=== PATIENT | female | born 1995 | race Caucasian/White ===

== ENCOUNTER 2020-05-02 16:13 | Emergency (ER) | payer OTHER, SELFPAY ==
--- NOTE | ~2020-05-02 | US_ITS ---
EXAMINATION: PELVIC ULTRASOUND, COMPLETE CLINICAL INFORMATION: Persistent vaginal bleeding status post vaginal 3 months ago. COMPARISON: CT abdomen/pelvis dated 11/13/2017 TECHNIQUE: Transabdominal and transvaginal imaging of the pelvic viscera was performed utilizing grayscale and color Doppler technique FINDINGS: The uterus is normal in size and configuration measuring 9.2 x 4.2 x 5.8 cm. Endometrium measures 7 mm in thickness. No debris present within the endometrial canal. There are scattered echogenic foci within the endometrium and region of the anterior myometrial junction may represent dystrophic calcifications, chronic and likely postinflammatory. There is a single 7 mm fibroid within the lower uterine segment. Ovaries normal in size and appearance measuring 3.8 x 2.6 x 2.6 cm on the right and 3.5 x 2.0 x 2.5 cm and the left. Physiologic follicles present bilaterally. Small pelvic free fluid is normal in a reproductive age. US/US transvaginal IMPRESSION: * No suspicious uterine or endometrial mass. * Scattered dystrophic calcifications present within and adjacent to the otherwise normal-appearing endometrium. * Normal ovaries.
--- NOTE | ~2020-05-02 | US_ITS ---
EXAMINATION: US VENOUS ULTRASOUND WITH DOPPLER LOWER EXTREMITY, BILATERAL CLINICAL INFORMATION: Swelling and pain. COMPARISON: None TECHNIQUE: Ultrasound of the deep veins is performed from the hip to the calf with compression sonography and color and pulse Doppler assessment. Spectral analysis with color-flow imaging is performed. FINDINGS: RIGHT: There is normal venous compression and respiratory variation and augmented flow. The visualized common femoral vein, superficial femoral vein, profunda femoral vein, popliteal vein, and the trifurcation region shows no evidence of deep venous thrombosis. There is no significant popliteal fossa cyst. LEFT: There is normal venous compression and respiratory variation and augmented flow. The visualized common femoral vein, superficial femoral vein, profunda femoral vein, popliteal vein, and the trifurcation region shows no evidence of deep venous thrombosis. There is no significant popliteal fossa cyst. If the patient's symptoms persist, followup ultrasound in 5 days 7 days might be of value to exclude proximal propagation from a non-visualized calf vein. US/US venous duplex LE BI IMPRESSION: No DVT demonstrated in the bilateral lower extremities.
--- NOTE | ~2020-05-02 | US_ITS ---
EXAMINATION: PELVIC ULTRASOUND, COMPLETE CLINICAL INFORMATION: Persistent vaginal bleeding status post vaginal 3 months ago. COMPARISON: CT abdomen/pelvis dated 11/13/2017 TECHNIQUE: Transabdominal and transvaginal imaging of the pelvic viscera was performed utilizing grayscale and color Doppler technique FINDINGS: The uterus is normal in size and configuration measuring 9.2 x 4.2 x 5.8 cm. Endometrium measures 7 mm in thickness. No debris present within the endometrial canal. There are scattered echogenic foci within the endometrium and region of the anterior myometrial junction may represent dystrophic calcifications, chronic and likely postinflammatory. There is a single 7 mm fibroid within the lower uterine segment. Ovaries normal in size and appearance measuring 3.8 x 2.6 x 2.6 cm on the right and 3.5 x 2.0 x 2.5 cm and the left. Physiologic follicles present bilaterally. Small pelvic free fluid is normal in a reproductive age. US/US pelvic complete IMPRESSION: * No suspicious uterine or endometrial mass. * Scattered dystrophic calcifications present within and adjacent to the otherwise normal-appearing endometrium. * Normal ovaries.
--- NOTE | ~2020-05-02 | CT_ITS ---
EXAMINATION: CT ANGIOGRAM OF THE CHEST WITH AND WITHOUT CONTRAST (CT PULMONARY ANGIOGRAM FOR PE) CLINICAL INFORMATION: Dyspnea. Elevated d-dimer. COMPARISON: CTA chest 03/07/2017 TECHNIQUE: Prior to contrast administration, noncontrast localization images were obtained. Subsequently, multidetector volumetric imaging was performed from the thoracic inlet to below the diaphragms following the administration of 54 mL Omnipaque 350 intravenous contrast. No contrast reaction reported Sagittal, coronal, and MIP oblique sagittal reformatted images were obtained on the CT workstation, uploaded to PACS, and reviewed. This CT examination was performed using dose optimization techniques as appropriate, variously including the following: *Automated exposure control *Adjustment of mA and/or kV according to patient size (this includes techniques or standardized protocols for targeted exams where dose is matched to indication/reason for exam; i.e. extremities or head) *Use of iterative reconstruction technique Total exam dose-length product 174 mGy-cm FINDINGS: The heart is normal in size. There is no pericardial effusion. No pulmonary arterial filling defect to suggest pulmonary embolus. Nonaneurysmal thoracic aorta. No gross mediastinal lymphadenopathy. Nonaneurysmal thoracic aorta. Central airways are patent. Lungs are well aerated. No lobar consolidation. No pleural effusion or pneumothorax. No suspicious pulmonary nodules. Visualized portions of the upper abdomen are grossly unremarkable. No acute osseous abnormality. CT/CT angio chest PE protocol IMPRESSION: No pulmonary embolus. VTE: negative
[2020-05-02 16:17] VITALS: BP 106/55; PULSE 69; RESP 18; TEMP 36.8; O2SAT 99; BMI 20.3
--- NOTE | 2020-05-02 18:59 | ECG_ITS ---
Test Reason : DYSPNEA Blood Pressure : / mmHG Vent. Rate : 065 BPM Atrial Rate : 065 BPM P-R Int : 134 ms QRS Dur : 092 ms QT Int : 416 ms P-R-T Axes : 018 079 060 degrees QTc Int : 432 ms Normal sinus rhythm Normal ECG When compared with ECG of 07-MAR-2017 13:32, No significant change was found Referred By: [employer] Electronically Signed By:JOHANA BARKER
--- NOTE | 2020-05-02 19:05 | ED.GENADULT ---
HPI - General Adult General Chief complaint: Dyspnea Stated complaint: vag bleed Time Seen by Provider: 05/02/20 21:09 Source: patient Mode of arrival: ambulatory Limitations: no limitations History of Present Illness HPI narrative: Patient presents to ED for multiple complaints. Patient's 1st complaint is vaginal bleeding for the past 3 months since giving to her son and now the past couple days she has had blood clots. Patient states her OBGYN and his practice refuses to see her because he did not deliver her child. Patient then states shortness of breath for one week and was evaluated by supervisor [employer] who states she has COPD and had blood work done on . Patient states her supervisor [employer] called her yesterday to informed that her D-dimer was elevated she should go to the ER to be evaluated. Patient then states it appears as if her right lower extremity/leg feels swollen. Related Data Allergies Allergy/AdvReac Type Severity Reaction Status Date / Time amoxicillin [AMOXICILLIN] Allergy Intermediate RASH Verified 05/02/20 19:23 ciprofloxacin [From CIPRO] Allergy Intermediate RASH/SWOLLEN,ITCHY Verified 05/02/20 19:23 THROAT codeine [CODEINE] Allergy Intermediate SKIN Verified 05/02/20 19:23 FLUSHES, GI UPSET NSAIDS (Non-Steroidal Allergy Intermediate BLOATINESS, Verified 05/02/20 19:23 Anti-Inflamma GERD [NSAIDS (NON-STEROIDAL ANTI-INFLAMMA] vancomycin [VANCOMYCIN] AdvReac Intermediate RED MAN Verified 05/02/20 19:23 SYNDROME Review of Systems Constitutional: Constitutional: Reports as per HPI and Reports no additional constitutional complaints Eyes: Eyes: Reports as per HPI and Reports no additional eye complaints ENT: Reports system reviewed and no additional complaints, except as documented and Reports as per HPI Cardiovascular: Cardiovascular: Reports as per HPI, Reports no additional cardiovascular complaints and Reports dyspnea Respiratory: Respiratory: Reports as per HPI, Reports no additional respiratory complaints and Reports dyspnea Gastrointestinal: Gastrointestinal: Reports as per HPI and Reports no additional gastrointestinal complaints Genitourinary: Genitourinary: Reports no additional female genitourinary complaints, Reports as per HPI and Reports abnormal vaginal bleeding (Three months) Musculoskeletal: Musculoskeletal: Reports no additional musculoskeletal complaints and Reports as per HPI Neurologic: Reports system reviewed and no additional complaints, except as documented and Reports as per HPI Psychiatric: Psychiatric: Reports no additional psychiatric complaints and Reports as per HPI [facility] Past Medical History Medical History Hyperparathyroidism Smoking Surgical History (Updated 05/02/20 @ 16:23 by Nani Ramey RN) Postcesarean section Social History Social History Alcohol intake: never Smoking Status: Current every day smoker Smoked in Last 30 Days: Yes Use of substances other than those prescribed or required for medical reasons: No Advance Directives: No Advance Directives Information Provided: Yes Physical Exam Vital Signs: Vital Signs: Last Vital Signs Temp 98.2 F 05/02/20 16:17 Pulse 64 05/02/20 22:00 Resp 16 05/02/20 22:00 BP 126/75 05/02/20 22:00 Pulse Ox 99 05/02/20 22:00 Body Mass Index 20.3 Const: General: cooperative, healthy appearing, comfortable, no acute distress, well developed, alert, awake and Physically active Orientation/consciousness: patient oriented x3 HENMT: Head: Yes normal to inspection and Yes No palpable skull fracture present Eyes: General: appearance normal, both eyes and all related structures Neck: Neck: Yes normal visual inspection, Yes full ROM, Yes no lymphadenopathy, Yes no meningeal signs, Yes trachea midline, Yes supple and No tender Chest: Chest palpation & inspection: normal inspection of the chest and normal palpation of entire chest wall Resp: Effort & Inspection: normal respiratory effort and able to speak in complete sentences Auscultation: clear to auscultation bilaterally Cardio: Jugular venous distension: no JVD Heart sounds: S1 normal heart sound present and S2 normal heart sound present GI: Inspection: Yes normal to inspection and No abdominal wall ecchymosis Palpation (GI): Soft to palpation, not firm, nontender, no guarding and not rigid : General: No CVA tenderness and Yes no CVA tenderness Back/Spine/Pelvis: Back: no CVA tenderness, No CVA tenderness and No back tenderness Skin: General skin exam: no rashes or lesions noted and elasticity normal Neuro: General: patient oriented x3, no meningeal signs and CN's II-XI intact bilaterally Cranial nerves: Yes CN's II-XII intact bilaterally Extrem: Other: Bilateral lower extremities negative for any swelling, pitting edema,or erythema. Negative for any lower extremity calf tenderness. Bilateral upper extremities negative for any swelling, pitting edema, or redness. Psych: Appearance: grossly normal, well kempt and not disheveled Course Course Course Narrative: Patient will have labs and make sure she is not anemic and required transfusion. Patient will have a bloody urine to make sure she still not . Due to patient states she had elevated D-dimer would do cardiac evaluation also add a D-dimer. Elevated D-dimer may be used to recent 3 months ago, but due to patient complaining shortness of breath will do cardiac possible pulmonary etiology. If elevated was sent for CT chest rule out PE although very unlikely patient presently not in any respiratory distress. Does not think patient have lower extremities swelling. Reevaluation(s) Reevaluation #1: Patient is not in any distress. Patient troponin after 1 week of dyspnea came back negative. EKG normal. D-dimer came back elevated. Chest CT negative for PE. Bilateral lower extremity ultrasound came back negative. Transvaginal/pelvic ultrasound negative for fibroids or retained products. Patient refused pelvic exam. Patient states her vaginal bleeding presently is very light. Patient informed to follow-up with [facility]. Normal sinus rhythm. Normal EKG Time: 22:53 Medical Decision Making MDM Narrative Medical decision making narrative: Normal sinus rhythm. Normal EKG. Ventricular rate 65. Pr interval 134. QTC 432. Negative STEMI Lab Data Result diagrams: 05/02/20 19:20 05/02/20 19:20 Labs: Lab Results 05/02/20 05/02/20 05/02/20 Range/Units 19:20 19:20 19:20 WBC 9.0 (4.8-10.8) X10*3/uL RBC 4.65 (4.20-5.50) X10*6/uL Hgb 14.0 (12.0-16.0) g/dl Hct 41.0 (37-47) % MCV 88.2 (80-98) fL MCH 30.1 (27.0-33.0) pg MCHC 34.1 (31.0-35.0) g/dl RDW 13.0 (11.0-16.0) % Plt Count 204 (160-400) X10*3/uL MPV 10.9 (9.4-12.3) fL Immature Gran % (Auto) 0.3 (0.0-0.4) % Neut % (Auto) 56.1 (45-73) % Lymph % (Auto) 36.4 (20-40) % Chambers % (Auto) 4.9 (2-11) % Eos % (Auto) 1.7 (0-4) % Baso % (Auto) 0.6 (0-2) % Lymph # (Auto) 3.3 (1.2-4.9) X10*3/uL Chambers # (Auto) 0.4 (0.1-1.2) X10*3/uL Eos # (Auto) 0.2 (0.0-0.4) X10*3/uL Baso # (Auto) 0.1 (0.0-0.2) X10*3/uL Abs Immat Gran (auto) 0.03 (0.00-0.03) X10*3/uL Absolute Neuts (auto) 5.1 (2.0-8.3) X10*3/uL Absolute Nucleated RBC 0.000 (0.0-0.012) X10*3/uL Nucleated RBC % (auto) 0.0 (0.0-0.2) /100WBC PT 13.2 H (10.8-13.0) SEC INR 1.1 (0.9-1.1) APTT 30.4 (24.1-38.0) SEC D-Dimer 788 NG/ML Sodium 141 (135-145) mmol/L Potassium 3.6 (3.3-5.1) mmol/L Chloride 108 (96-108) mmol/L Carbon Dioxide 21 L (22-29) mmol/L Anion Gap 16 (12-20) BUN 5 L (9-16) mg/dL Creatinine 0.74 (0.5-1.4) mg/dL Estim Creat Clear Calc 95.6 Estimated GFR > 60 Random Glucose 78 (60-115) mg/dL Calcium 9.4 (8.4-10.2) mg/dL Total Bilirubin 0.4 (0.0-1.0) mg/dL Direct Bilirubin 0.2 (0.0-0.5) mg/dL AST 13 (5-31) U/L ALT 10 (0-31) U/L Alkaline Phosphatase 67 (39-117) U/L Troponin I High Sens (<3.5-17.0) ng/L Total Protein 7.3 (6.5-8.0) g/dL Albumin 4.8 (3.5-5.0) g/dL Beta HCG, Quant < 2 mIU/mL Urine Color Urine Appearance Urine pH (5.0-8.0) Ur Specific Gilford (1.005-1.025) Urine Protein (NEG-TRACE) MG/DL Urine Glucose (UA) (NEG) MG/DL Urine Ketones (NEG) MG/DL Urine Blood (NEG) Urine Nitrite (NEG) Ur Leukocyte Esterase (NEG) Urine Test (NEGATIVE) 05/02/20 05/02/20 05/02/20 Range/Units 19:20 23:19 23:19 WBC (4.8-10.8) X10*3/uL RBC (4.20-5.50) X10*6/uL Hgb (12.0-16.0) g/dl Hct (37-47) % MCV (80-98) fL MCH (27.0-33.0) pg MCHC (31.0-35.0) g/dl RDW (11.0-16.0) % Plt Count (160-400) X10*3/uL MPV (9.4-12.3) fL Immature Gran % (Auto) (0.0-0.4) % Neut % (Auto) (45-73) % Lymph % (Auto) (20-40) % Chambers % (Auto) (2-11) % Eos % (Auto) (0-4) % Baso % (Auto) (0-2) % Lymph # (Auto) (1.2-4.9) X10*3/uL Chambers # (Auto) (0.1-1.2) X10*3/uL Eos # (Auto) (0.0-0.4) X10*3/uL Baso # (Auto) (0.0-0.2) X10*3/uL Abs Immat Gran (auto) (0.00-0.03) X10*3/uL Absolute Neuts (auto) (2.0-8.3) X10*3/uL Absolute Nucleated RBC (0.0-0.012) X10*3/uL Nucleated RBC % (auto) (0.0-0.2) /100WBC PT (10.8-13.0) SEC INR (0.9-1.1) APTT (24.1-38.0) SEC D-Dimer NG/ML Sodium (135-145) mmol/L Potassium (3.3-5.1) mmol/L Chloride (96-108) mmol/L Carbon Dioxide (22-29) mmol/L Anion Gap (12-20) BUN (9-16) mg/dL Creatinine (0.5-1.4) mg/dL Estim Creat Clear Calc Estimated GFR Random Glucose (60-115) mg/dL Calcium (8.4-10.2) mg/dL Total Bilirubin (0.0-1.0) mg/dL Direct Bilirubin (0.0-0.5) mg/dL AST (5-31) U/L ALT (0-31) U/L Alkaline Phosphatase (39-117) U/L Troponin I High Sens < 3.5 (<3.5-17.0) ng/L Total Protein (6.5-8.0) g/dL Albumin (3.5-5.0) g/dL Beta HCG, Quant mIU/mL Urine Color STRAW Urine Appearance CLEAR Urine pH 7.0 (5.0-8.0) Ur Specific Gilford <= 1.005 (1.005-1.025) Urine Protein NEG (NEG-TRACE) MG/DL Urine Glucose (UA) NEG (NEG) MG/DL Urine Ketones 5 (NEG) MG/DL Urine Blood NEG (NEG) Urine Nitrite NEG (NEG) Ur Leukocyte Esterase NEG (NEG) Urine Test NEGATIVE (NEGATIVE) Discharge Plan Discharge Clinical Impression: Abnormal vaginal bleeding Patient Disposition: Home, Self-Care Instructions: Dysfunctional Uterine Bleeding (ED), Dyspnea (ED) Additional Instructions: Return to the ED immediately for worsening vaginal bleeding, abdominal pain, chest pain, fever, chills, nausea, vomiting, flank pain, swelling of lower extremity, coughing up blood, or any other concerning symptoms. Referrals: Zoey Oliva NP [Primary Care Provider] - 2 days (Dyspnea for 1 week. Chest CTA negative for PE or pneumonia. Troponin negative. EKG normal. Bilateral lower extremity ultrasound negative for DVT) Eder Patino MD [Physician] - 2 days (Vaginal bleeding since giving 3 months ago) Interventions: ED Discharge Assessment Last Done: 05/02/20 23:03 Discharge Date/Time: 05/02/20 23:24 Print Language: Irish
[2020-05-02] MEDS: 0.9 % Sodium Chloride 1,000 ML 999 ML IV (19:22)
[2020-05-02 19:27] VITALS: BP 115/63; PULSE 58; RESP 16; O2SAT 99
[2020-05-02 19:32] LABS: MANUAL DIFF FLAG NO
[2020-05-02 19:39] LABS: Basophils Absolute Auto 0.1 X10*3/uL (0.0-0.2); Basophils Percent Auto 0.6 % (0-2); Eosinophils Absolute Auto 0.2 X10*3/uL (0.0-0.4); Eosinophils Percent Auto 1.7 % (0-4); Imm Gran Abs Auto 0.03 X10*3/uL (0.00-0.03); Imm Gran Pct Auto 0.3 % (0.0-0.4); Lymphocytes Absolute Auto 3.3 X10*3/uL (1.2-4.9); Lymphocytes Percent Auto 36.4 % (20-40); Mean Corpuscular HGB Conc 34.1 g/dl (31.0-35.0); Mean Corpuscular Hemoglobin 30.1 pg (27.0-33.0); Mean Corpuscular Volume 88.2 fL (80-98); Mean Platelet Volume 10.9 fL (9.4-12.3); Monocytes Absolute Auto 0.4 X10*3/uL (0.1-1.2); Monocytes Percent Auto 4.9 % (2-11); Neutrophils Absolute Auto 5.1 X10*3/uL (2.0-8.3); Neutrophils Percent Auto 56.1 % (45-73); Platelet Count 204 X10*3/uL (160-400); Red Blood Count 4.65 X10*6/uL (4.20-5.50)
[2020-05-02 19:49] LABS: INTERNATIONAL NORM RATIO 1.1 (0.9-1.1); Prothrombin Time 13.2 SEC (10.8-13.0)
[2020-05-02 19:52] LABS: D Dimer 788 NG/ML; Partial Thromboplastin Time 30.4 SEC (24.1-38.0)
[2020-05-02 20:09] LABS: Alanine Aminotransferase 10 U/L (0-31); Albumin Level 4.8 g/dL (3.5-5.0); Alkaline Phosphatase 67 U/L (39-117); Anion Gap 16 (12-20); Aspartate Amino Transferase 13 U/L (5-31); Bilirubin Direct 0.2 mg/dL (0.0-0.5); Bilirubin Total 0.4 mg/dL (0.0-1.0); Blood Urea Nitrogen 5 mg/dL (9-16); Calcium 9.4 mg/dL (8.4-10.2); Carbon Dioxide 21 mmol/L (22-29); Chloride 108 mmol/L (96-108); Creatinine Clr Calc Pharmacy 95.6; Estimated Glomerular Filt Rate > 60; Glucose Random 78 mg/dL (60-115); Potassium 3.6 mmol/L (3.3-5.1); Sodium 141 mmol/L (135-145); Total Protein 7.3 g/dL (6.5-8.0)
[2020-05-02 20:15] LABS: HCG Quantitative < 2 mIU/mL; Troponin-I High Sensitivity < 3.5 ng/L (<3.5-17.0)
[2020-05-02] MEDS: iohexoL 350 MG/ML 100 ML INFUS..BTL IV (21:23)
[2020-05-02 22:00] VITALS: BP 126/75; PULSE 64; RESP 16; O2SAT 99
[2020-05-02 23:29] LABS: Glucose Urine UA NEG (NEG); Leukocyte Esterase Urine NEG (NEG); Nitrite Urine NEG (NEG); Specific Gravity - Urine <= 1.005 (1.005-1.025); Urine Blood NEG (NEG); Urine Ketones 5 MG/DL (NEG); Urine Protein NEG (NEG-TRACE)
[2020-05-02 23:30] LABS: UPreg QC Valid YES; Urine Pregnancy NEGATIVE (NEGATIVE)
[2020-05-02 23:31] LABS: Appearance Urine CLEAR; Color Urine STRAW
== END 2020-05-02 23:24 | disposition home or self-care (01) ==
PROVIDERS: Physician Assistant; Emergency Provider Student in an Organized Health Care Education/Training Program; PCP Nurse Practitioner Pediatrics
DX: N93.8 Other specified abnormal uterine and vaginal bleeding (principal); R06.00 Dyspnea, unspecified; F17.200 Nicotine dependence, unspecified, uncomplicated
CPT/HCPCS: 36415; 71275; 76830; 76856; 80053; 80076; 81003; 81025; 82248; 84484; 84702; 85025; 85379; 85610; 85730; 93005; 93970; 96360; 99284; Q9967

== ENCOUNTER 2020-05-08 10:40 | Outpatient (REF) | payer OTHER, SELFPAY ==
[2020-05-09 12:04] LABS: BV Int Neg Control Negative (Negative); BV Int Pos Control Positive (Positive)
[2020-05-09 13:22] LABS: C. trachomatis RNA TMA NOT DETECTED (NOT DETECTED); N. gonorrhoeae RNA TMA NOT DETECTED (NOT DETECTED)
== END 2020-05-08 10:41 | disposition home or self-care (01) ==
LOC: HO.LAB 10:40
PROVIDERS: Visit Provider Advanced Practice Midwife
DX: N92.1 Excessive and frequent menstruation with irregular cycle (principal); R45.7 State of emotional shock and stress, unspecified
CPT/HCPCS: 36415; 87480; 87491; 87510; 87591; 87660; 99202

== ENCOUNTER 2020-05-14 14:21 | Outpatient (REF) | payer OTHER, SELFPAY ==
[2020-05-15 08:50] LABS: CT PCR NOT DETECTED (Not Detect.); NG PCR NOT DETECTED (Not Detect.)
== END 2020-05-14 14:22 | disposition home or self-care (01) ==
LOC: HO.LAB 14:21
PROVIDERS: Advanced Practice Midwife; Visit Provider Obstetrics & Gynecology
DX: O72.1 Other immediate postpartum hemorrhage (principal); F17.200 Nicotine dependence, unspecified, uncomplicated; Z79.899 Other long term (current) drug therapy; Z32.02 Encounter for pregnancy test, result negative
CPT/HCPCS: 81025; 87491; 87591; 99212

== ENCOUNTER → 2020-07-24 15:39 | Outpatient (BNVA) | payer OTHER, SELFPAY | PROVIDERS: Visit Provider Obstetrics & Gynecology ==

== ENCOUNTER 2020-07-27 14:32 | Outpatient (REF) | payer OTHER, SELFPAY ==
--- NOTE | ~2020-07-27 | US_ITS ---
EXAMINATION: PELVIC ULTRASOUND CLINICAL INFORMATION: BENIGN NEOPLASM OF CONNECTIVE AND OTHER SOFT TISSUES COMPARISON: Previous pelvic ultrasound April 2020 TECHNIQUE: Transabdominal and transvaginal pelvic ultrasound was performed. Transit vaginal exam was performed for better visualization of the uterus and ovaries. FINDINGS: The uterus is anteverted and measures 8.9 x 3.4 x 5.4 cm in dimension. There is a 7 mm hypoechoic area in the anterior lower uterine segment similar to previous exam questionable for a small fibroid. There are several calcifications in the uterus that are stable. The endometrium is normal-appearing and measures 2 mm in thickness. The cervix is normal appearing. The right ovary is slightly enlarged and measures 4.3 x 4.4 x 2.4 cm. There is a 2.4 x 2.2 x 2.1 cm simple right ovarian cyst. The the left ovary is normal-appearing and measures 3 x 2.8 x 2 cm. There is no fluid in the pelvis. US/US pelvic and transvaginal IMPRESSION: Question small anterior lower uterine segment fibroid similar to previous exam. 2.4 x 2.2 x 2.1 cm simple right ovarian cyst.
== END 2020-07-27 14:33 | disposition home or self-care (01) ==
LOC: HO.US 14:32
PROVIDERS: Visit Provider Obstetrics & Gynecology
DX: D21.9 Benign neoplasm of connective and other soft tissue, unspecified (principal)
CPT/HCPCS: 76830; 76856

== ENCOUNTER → 2020-07-28 11:24 | Outpatient (BNVA) | payer OTHER, SELFPAY | PROVIDERS: Visit Provider Obstetrics & Gynecology ==

== ENCOUNTER → 2020-08-10 11:19 | Outpatient (BNVA) | payer OTHER, SELFPAY | PROVIDERS: PCP Pediatrics; Visit Provider Obstetrics & Gynecology ==

== ENCOUNTER 2020-09-04 16:56 | Emergency (ER) | payer OTHER, SELFPAY ==
--- NOTE | 2020-09-04 | ECG_ITS ---
Test Reason : CHEST PRESSURE Blood Pressure : / mmHG Vent. Rate : 060 BPM Atrial Rate : 060 BPM P-R Int : 144 ms QRS Dur : 092 ms QT Int : 404 ms P-R-T Axes : 050 079 055 degrees QTc Int : 404 ms Normal sinus rhythm Normal ECG When compared with ECG of 02-MAY-2020 19:33, No significant change was found Referred By: Generic ED Physician Electronically Signed By:NOREEN GRIGSBY MD
[2020-09-04 17:36] VITALS: BP 167/68; PULSE 72; RESP 16; TEMP 36.7; O2SAT 99; BMI 19.5
[2020-09-04 18:15] LABS: MANUAL DIFF FLAG NO
[2020-09-04 18:23] LABS: Basophils Absolute Auto 0.1 X10*3/uL (0.0-0.2); Eosinophils Absolute Auto 0.1 X10*3/uL (0.0-0.4); Eosinophils Percent Auto 1.5 % (0-4); Hematocrit 41.4 % (37-47); Hemoglobin 14.4 g/dl (12.0-16.0); Imm Gran Abs Auto 0.02 X10*3/uL (0.00-0.03); Imm Gran Pct Auto 0.2 % (0.0-0.4); Lymphocytes Absolute Auto 2.2 X10*3/uL (1.2-4.9); Mean Corpuscular HGB Conc 34.8 g/dl (31.0-35.0); Mean Corpuscular Hemoglobin 30.8 pg (27.0-33.0); Mean Corpuscular Volume 88.7 fL (80-98); Monocytes Absolute Auto 0.5 X10*3/uL (0.1-1.2); Monocytes Percent Auto 5.9 % (2-11); Neutrophils Absolute Auto 5.4 X10*3/uL (2.0-8.3); Neutrophils Percent Auto 65.4 % (45-73); Platelet Count 207 X10*3/uL (160-400); Red Blood Count 4.67 X10*6/uL (4.20-5.50); Red Cell Distribution Width 13.1 % (11.0-16.0); White Blood Count 8.3 X10*3/uL (4.8-10.8)
[2020-09-04 18:27] LABS: D Dimer 740 NG/ML
[2020-09-04 18:51] LABS: Troponin-I High Sensitivity < 3.5 ng/L (<3.5-17.0)
[2020-09-04 18:52] LABS: Anion Gap 16 (12-20); Blood Urea Nitrogen 3 mg/dL (9-16); Calcium 9.9 mg/dL (8.4-10.2); Carbon Dioxide 23 mmol/L (22-29); Chloride 108 mmol/L (96-108); Creatinine Clr Calc Pharmacy 82.9; Estimated Glomerular Filt Rate > 60; Glucose Random 82 mg/dL (60-115); Potassium 3.9 mmol/L (3.3-5.1); Sodium 143 mmol/L (135-145)
== END 2020-09-04 19:58 | disposition left against medical advice (07) ==
PROVIDERS: Emergency Provider Emergency Medicine
DX: R05 Cough (principal); R06.02 Shortness of breath
CPT/HCPCS: 36415; 80048; 84484; 85025; 85379; 93005; 99282; 99283

== ENCOUNTER → 2020-09-10 11:54 | Outpatient (BNVA) | payer OTHER, SELFPAY | PROVIDERS: Visit Provider Obstetrics & Gynecology ==

== ENCOUNTER 2020-10-09 12:16 | Outpatient (REF) | payer OTHER, SELFPAY ==
[2020-10-09 14:05] LABS: Hematocrit 41.5 % (37-47); Mean Corpuscular HGB Conc 33.7 g/dl (31.0-35.0); Mean Corpuscular Hemoglobin 30.2 pg (27.0-33.0); Mean Corpuscular Volume 89.6 fL (80-98); Mean Platelet Volume 11.4 fL (9.4-12.3); Platelet Count 207 X10*3/uL (160-400); Red Blood Count 4.63 X10*6/uL (4.20-5.50); Red Cell Distribution Width 13.1 % (11.0-16.0); White Blood Count 7.5 X10*3/uL (4.8-10.8)
[2020-10-09 14:52] LABS: HCG Quantitative < 2 mIU/mL; TSH reflex Free T4 0.29 uIU/mL (0.32-4.0)
[2020-10-09 15:32] LABS: Free T4 (Free Thyroxine) 1.23 ng/dL (0.71-1.85)
[2020-10-12 13:26] LABS: DHEA Sulfate 141 mcg/dL (18-391)
[2020-10-15 13:52] LABS: Testosterone, Total 23 ng/dL (2-45)
== END 2020-10-09 12:17 | disposition home or self-care (01) ==
LOC: HO.WFDLDS 12:16
PROVIDERS: Visit Provider Obstetrics & Gynecology
DX: L68.0 Hirsutism (principal); N93.9 Abnormal uterine and vaginal bleeding, unspecified
CPT/HCPCS: 36415; 82627; 83498; 84402; 84403; 84439; 84443; 84702; 85027

== ENCOUNTER → 2020-11-30 11:12 | Outpatient (BNVA) | payer OTHER, SELFPAY | PROVIDERS: Visit Provider Obstetrics & Gynecology | DX: Z30.9 Encounter for contraceptive management, unspecified (principal) | CPT/HCPCS: 99212 ==

== ENCOUNTER 2021-02-10 13:38 | Outpatient (REF) | payer OTHER, SELFPAY | END 2021-02-10 13:39 | disposition home or self-care (01) | LOC: HO.LAB 13:38 | PROVIDERS: Visit Provider Obstetrics & Gynecology | DX: Z01.419 Encounter for gynecological examination (general) (routine) without abnormal findings (principal); D21.9 Benign neoplasm of connective and other soft tissue, unspecified; N90.89 Other specified noninflammatory disorders of vulva and perineum | CPT/HCPCS: 88142 ==

== ENCOUNTER → 2021-02-18 14:09 | Outpatient (BNVA) | payer OTHER, SELFPAY | PROVIDERS: Visit Provider Obstetrics & Gynecology ==

== ENCOUNTER 2021-03-10 12:53 | Outpatient (REF) | payer OTHER, SELFPAY | END 2021-03-10 12:54 | disposition home or self-care (01) | LOC: HO.LAB 12:53 | PROVIDERS: Visit Provider Obstetrics & Gynecology | DX: N90.89 Other specified noninflammatory disorders of vulva and perineum (principal) | CPT/HCPCS: 56605; 88305; 88312 ==

== ENCOUNTER → 2021-03-30 13:00 | Outpatient (BNVA) | payer OTHER, SELFPAY | PROVIDERS: Visit Provider Obstetrics & Gynecology | DX: N90.89 Other specified noninflammatory disorders of vulva and perineum (principal) | CPT/HCPCS: 99212 ==

== ENCOUNTER → 2021-04-12 12:09 | Outpatient (BNVA) | payer OTHER, SELFPAY | PROVIDERS: Visit Provider Obstetrics & Gynecology ==

== ENCOUNTER → 2021-04-14 14:25 | Outpatient (BNVA) | payer OTHER, SELFPAY | PROVIDERS: Visit Provider Obstetrics & Gynecology ==

== ENCOUNTER 2021-05-19 09:17 | Outpatient (REF) | payer OTHER, SELFPAY ==
[2021-05-19 11:57] LABS: Anion Gap 15 (12-20); Blood Urea Nitrogen 6 mg/dL (9-16); Calcium 9.4 mg/dL (8.4-10.2); Carbon Dioxide 19 mmol/L (22-29); Chloride 108 mmol/L (96-108); Estimated Glomerular Filt Rate > 60; Glucose Random 81 mg/dL (60-115); Potassium 3.9 mmol/L (3.3-5.1); Rheumatoid Factor < 15.0 IU/mL (<15.0); Sodium 138 mmol/L (135-145)
[2021-05-19 12:23] LABS: Erythrocyte Sedimentation Rate 2 MM/HR (0-20)
[2021-05-20 14:35] LABS: Anti Nuclear Antibody Screen NEGATIVE (NEGATIVE)
== END 2021-05-19 09:18 | disposition home or self-care (01) ==
LOC: HO.WFDLDS 09:17
PROVIDERS: Visit Provider Psychiatry & Neurology Neurology
DX: G43.909 Migraine, unspecified, not intractable, without status migrainosus (principal)
CPT/HCPCS: 36415; 80048; 85652; 86038; 86039; 86431

== ENCOUNTER 2021-06-03 13:05 | Outpatient (REF) | payer OTHER, SELFPAY ==
--- NOTE | ~2021-06-03 | US_ITS ---
EXAMINATION: US PELVIS CLINICAL INFORMATION: Pain. Dilated vessels seen on recent CT COMPARISON: Previous pelvic ultrasound most recent July [address] of the abdomen and pelvis November 2017 TECHNIQUE: Ultrasound of the pelvis is performed using both transabdominal and transvaginal transducers along with Doppler. Transvaginal imaging is performed due to inadequate visualization transabdominally. FINDINGS: The uterus is anteverted and measures 7.2 x 3.1 x 4.3 cm in dimension. There are several echogenic foci in the central uterus adjacent to the endometrium questionable for calcifications. This is similar to previous exams. No other focal uterine lesion is seen. Endometrial thickness is normal measuring 0.2 cm. The right ovary measures 4.3 x 1.6 x 2 cm. There is an 8 x 4 x 7 mm echogenic density in the right ovary questionable for a calcification. The left ovary is seen transabdominally only and is normal-appearing. The left ovary measures 2.7 x 2.1 x 1.5 cm. There is no fluid in the pelvis. There are prominent vessels adjacent to the uterus and left ovary questionable for pelvic congestion. US/US pelvic and transvaginal IMPRESSION: Several small echogenic densities in the central uterus adjacent to the endometrium questionable for calcifications. Question small calcification in the right ovary measuring 8 x 4 x 7 mm. Prominent vessels adjacent to the uterus and left ovary questionable for pelvic congestion.
== END 2021-06-03 13:06 | disposition home or self-care (01) ==
LOC: HO.US 13:05
PROVIDERS: Visit Provider Obstetrics & Gynecology
DX: N94.89 Other specified conditions associated with female genital organs and menstrual cycle (principal)
CPT/HCPCS: 76830; 76856

== ENCOUNTER → 2021-06-16 15:02 | Outpatient (BNVA) | payer OTHER, SELFPAY | PROVIDERS: Visit Provider Obstetrics & Gynecology | DX: Z13.89 Encounter for screening for other disorder (principal) ==

== ENCOUNTER → 2021-07-09 11:58 | Outpatient (BNVA) | payer OTHER, SELFPAY | PROVIDERS: Visit Provider Obstetrics & Gynecology | DX: Z13.89 Encounter for screening for other disorder (principal) ==

== ENCOUNTER → 2021-09-15 14:06 | Outpatient (BNVA) | payer OTHER, SELFPAY | PROVIDERS: Visit Provider Obstetrics & Gynecology | DX: N91.2 Amenorrhea, unspecified (principal) | CPT/HCPCS: 99212 ==

== ENCOUNTER 2021-09-16 08:38 | Outpatient (REF) | payer OTHER, SELFPAY ==
[2021-09-16 11:59] LABS: Cholesterol 168 mg/dL; HDL Cholesterol 56 mg/dL; Triglycerides 73 mg/dL
[2021-09-16 12:19] LABS: TSH reflex Free T4 2.27 uIU/mL (0.32-4.0)
[2021-09-18 08:15] LABS: Prolactin 67.7 ng/mL
[2021-09-18 09:31] LABS: LDL Cholesterol Direct 109 mg/dL (<100)
== END 2021-09-16 08:39 | disposition home or self-care (01) ==
LOC: HO.WFDLDS 08:38
PROVIDERS: Visit Provider Obstetrics & Gynecology
DX: N91.2 Amenorrhea, unspecified (principal)
CPT/HCPCS: 36415; 82465; 83718; 83721; 84146; 84443; 84478

== ENCOUNTER 2021-09-20 14:46 | Outpatient (REF) | payer OTHER, SELFPAY ==
[2021-09-22 08:11] LABS: Prolactin 4.6 ng/mL
== END 2021-09-20 14:47 | disposition home or self-care (01) ==
LOC: HO.LAB 14:46
PROVIDERS: Visit Provider Obstetrics & Gynecology
DX: N91.2 Amenorrhea, unspecified (principal)
CPT/HCPCS: 36415; 84146

== ENCOUNTER 2021-10-25 14:48 | Outpatient (REF) | payer OTHER, SELFPAY ==
[2021-10-26 02:58] LABS: CT PCR NOT DETECTED (Not Detect.); NG PCR NOT DETECTED (Not Detect.)
[2021-10-26 10:13] LABS: BV Int Neg Control Negative (Negative); BV Int Pos Control Positive (Positive)
== END 2021-10-25 14:49 | disposition home or self-care (01) ==
LOC: HO.LAB 14:48
PROVIDERS: PCP Internal Medicine; Visit Provider Obstetrics & Gynecology
DX: N83.8 Other noninflammatory disorders of ovary, fallopian tube and broad ligament (principal); B37.3 Candidiasis of vulva and vagina
CPT/HCPCS: 87480; 87491; 87510; 87591; 87660; 99212

== ENCOUNTER 2021-11-16 14:28 | Outpatient (REF) | payer OTHER, SELFPAY ==
--- NOTE | ~2021-11-16 | US_ITS ---
EXAMINATION: US PELVIC AND TRANSVAGINAL CLINICAL INFORMATION: Calcification in ovary. COMPARISON: Pelvic ultrasound 06/03/2021. TECHNIQUE: Ultrasound of the pelvis is performed using both transabdominal and transvaginal transducers along with Doppler. Transvaginal imaging is performed due to inadequate visualization transabdominally. FINDINGS: UTERUS: The uterus is anteverted and measures 7.5 x 3.8 x 4.8 cm. The double wall endometrial thickness is 0.6 mm. The uterus is smooth in contour and has normal myometrial echogenicity. The echogenic foci seen within the lower uterine segment thought to represent a fibroid at the time of the prior study is not visualized on the current exam. ADNEXA: Both ovaries are visualized. There is normal color flow to the adnexa. There is no ovarian torsion. Trace pelvic fluid is seen. No pelvic varices are seen on this exam. Right ovary measures 4.8 x 2.6 x 2.6 cm for a volume of 17.1 mL. Echogenic foci seen in the right ovary is again noted measuring 7 x 4 x 2 mm, without significant change. Left ovary measures 3.9 x 1.8 x 2.9 cm for a volume of 10.6 mL. US/US pelvic and transvaginal IMPRESSION: 1. The previously seen small lower uterine segment fibroid is not identified on this exam. 2. Echogenic focus within the right ovary is again noted.
== END 2021-11-16 14:29 | disposition home or self-care (01) ==
LOC: HO.HMGCX 14:28
PROVIDERS: Visit Provider Obstetrics & Gynecology
DX: N83.8 Other noninflammatory disorders of ovary, fallopian tube and broad ligament (principal)
CPT/HCPCS: 76830; 76856

== ENCOUNTER 2021-11-30 14:59 | Outpatient (REF) | payer OTHER, SELFPAY ==
--- NOTE | ~2021-11-30 | MR_ITS ---
EXAMINATION: MR BRAIN WITHOUT AND WITH CONTRAST CLINICAL INFORMATION: 26-year-old with self-reported drunk feeling. Evaluate white matter changes, MS. COMPARISON: 08/27/2018 outside MRI. TECHNIQUE: Multiplanar, multisequence MRI of the brain was obtained before and after the intravenous administration of 4.5 mL Gadavist. FINDINGS: Brain Volume: Within normal limits within the limitations of qualitative assessment. Structural: Incidental 5 mm benign pineal cyst, stable in appearance. Brain and Meninges: DWI sequence demonstrates no restricted diffusion to suggest acute or subacute cerebral ischemia or active demyelination. Scattered tiny zones of FLAIR/T2 signal hyperintensity are seen in the white matter of both cerebral hemispheres largely stable in appearance from previous exam with no abnormal enhancement, which are nonspecific findings. Otherwise the brain is normal in morphology and signal intensity. Lemus-white matter differentiation is well maintained. No intracranial mass lesions, pathologic intracranial enhancement, extra-axial fluid collections, space-occupying process or mass effect are identified. Gradient refocused imaging demonstrates no evidence for abnormal magnetic susceptibility artifact to suggest hemorrhage, hemosiderin staining or abnormal mineralization. Ventricles and Subarachnoid Spaces: The ventricular system and subarachnoid spaces are within normal limits stable in appearance without hydrocephalus. Orbital Structures: The visualized orbital structures are grossly unremarkable within the limitations of the study. Vascular: Signal voids are noted in the visualized major intracranial vessels. Osseous Structures, Sinuses/Mastoids, Extracranial Soft Tissues: Unremarkable. MR/MR head/brain wo/w con IMPRESSION: 1. Scattered nonenhancing punctate subcortical white matter T2 hyperintensities in both cerebral hemispheres largely similar in appearance to the previous exam with no definite new lesions identified. The findings are nonspecific. 2. 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
== END 2021-11-30 15:00 | disposition home or self-care (01) ==
LOC: HO.MRI 14:59
PROVIDERS: Visit Provider Psychiatry & Neurology Neurology
DX: Z13.89 Encounter for screening for other disorder (principal)
CPT/HCPCS: 70553; A9585

== ENCOUNTER → 2022-03-28 14:59 | Outpatient (BNVA) | payer OTHER, SELFPAY | PROVIDERS: PCP Internal Medicine; Visit Provider Obstetrics & Gynecology | DX: N91.2 Amenorrhea, unspecified (principal) | CPT/HCPCS: 99212 ==

== ENCOUNTER → 2022-05-16 15:08 | Outpatient (BNVA) | payer OTHER, SELFPAY | PROVIDERS: PCP Internal Medicine; Visit Provider Obstetrics & Gynecology | DX: O99.331 Smoking (tobacco) complicating pregnancy, first trimester (principal); F17.210 Nicotine dependence, cigarettes, uncomplicated; Z3A.01 Less than 8 weeks gestation of pregnancy | CPT/HCPCS: 99212 ==

== ENCOUNTER 2022-05-17 14:21 | Outpatient (REF) | payer OTHER, SELFPAY ==
--- NOTE | ~2022-05-17 | US_ITS ---
EXAMINATION: US OBSTETRICAL ULTRASOUND CLINICAL INFORMATION: Viability COMPARISON: Ultrasound pelvis 11/16/2021. LMP: 03/27/2022. Gestational age by maternal dates is 7 weeks 3 days. Estimated date of delivery by maternal dates is 01/01/2023. TECHNIQUE: Transabdominal imaging of the pelvis was performed. FINDINGS: There is a single, intrauterine gestational sac with visible yolk sac, embryo/fetus, and cardiac activity. There is no significant subchorionic hemorrhage or hematoma. There is small echogenic calcification in the uterus measuring 0.4 x 0.2 x 0.3 cm. Prominent left adnexal vessels are noted. HR: 96 beats per minute. CRL (crown rump length): 0.42 cm (6 weeks 1 day +/- 4 days). ROCIO (estimated date of delivery): 01/09/2023 +/- 4 days. MATERNAL ADNEXA: The right maternal ovary measures 4.2 x 1.7 x 2.2 cm. No focal lesion is seen. Previously seen echogenic focus right ovary is not seen at this time The left maternal ovary measures 3.4 x 1.7 x 2.7 cm. No focal lesion is seen. There is no significant maternal adnexal mass. No maternal pelvic ascites. US/US OB pelvic and transvaginal IMPRESSION: 1. Single, intrauterine gestation with ultrasound gestational age of 6 weeks 1 day +/- 4 days. 2. Estimated date of delivery is 01/09/2023 +/- 4 days. 3. No maternal adnexal mass or pelvic ascites.
== END 2022-05-17 14:22 | disposition home or self-care (01) ==
LOC: HO.US 14:21
PROVIDERS: Visit Provider Obstetrics & Gynecology
DX: Z34.91 Encounter for supervision of normal pregnancy, unspecified, first trimester (principal)
CPT/HCPCS: 76801; 76817

== ENCOUNTER 2022-05-23 12:18 | Outpatient (REF) | payer OTHER, SELFPAY ==
--- NOTE | ~2022-05-23 | US_ITS ---
EXAMINATION: US OBSTETRICAL ULTRASOUND CLINICAL INFORMATION: First trimester spotting. COMPARISON: May 17, 2022. LMP: March 27, 2022. Gestational age by maternal dates is 8 weeks 1 day. Estimated date of delivery by maternal dates is January 01, 2023. TECHNIQUE: Ultrasound of the maternal pelvis is performed using transabdominal and transvaginal transducers. Transvaginal imaging is performed due to inadequate visualization transabdominally. M-mode Doppler is also performed. FINDINGS: There is a single intrauterine gestational sac with visible yolk sac, embryo/fetus, and cardiac activity. There is no significant subchorionic hemorrhage or hematoma. HR: 118 beats minute. CRL (crown rump length): 0.7 cm (6 weeks 5 days +/- 4 days). ROCIO (estimated date of delivery): January 11, 2023 +/- 4 days. MATERNAL ADNEXA: The right maternal ovary measures 3.4 x 1.9 x 2.1 cm. There is a 0.8 x 0.7 x 0.6 cm, smooth, round, echogenic right ovarian structure. On June 03, 2021 this measured 0.8 x 0.7 x 0.4 cm. The left maternal ovary measures 3.5 x 2.1 x 2.1 cm. Left ovarian venous varices. No significant maternal adnexal mass is seen. Trace fluid in the cul-de-sac, nonspecific. US/US OB pelvic and transvaginal IMPRESSION: Single live intrauterine gestation at approximately 6 weeks 5 days by ultrasound measurements, as above. 0.8 x 0.7 x 0.6 cm, smooth, round, echogenic right ovarian structure. On June 03, 2021 this measured 0.8 x 0.7 x 0.4 cm. It is therefore likely benign. Left ovarian venous varices. Trace fluid in the cul-de-sac, nonspecific.
[2022-05-24 06:51] LABS: CT PCR NOT DETECTED (Not Detect.); NG PCR NOT DETECTED (Not Detect.)
== END 2022-05-23 12:19 | disposition home or self-care (01) ==
LOC: HO.US 12:18
PROVIDERS: PCP Internal Medicine; Visit Provider Obstetrics & Gynecology
DX: O26.851 Spotting complicating pregnancy, first trimester (principal)
CPT/HCPCS: 0353U; 76801; 76817; 86850; 86900; 96372; 99212; J2790

== ENCOUNTER 2022-05-23 13:50 | Outpatient (REF) | payer OTHER, SELFPAY | END 2022-05-23 13:51 | disposition home or self-care (01) | LOC: HO.LNP 13:50 | PROVIDERS: Visit Provider Obstetrics & Gynecology | DX: Z13.89 Encounter for screening for other disorder (principal) ==

== ENCOUNTER 2022-06-13 13:12 | Outpatient (REF) | payer OTHER, SELFPAY ==
--- NOTE | ~2022-06-13 | US_ITS ---
EXAMINATION: US OBSTETRICAL ULTRASOUND CLINICAL INFORMATION: Encounter for supervision of normal .. Spotting. COMPARISON: None available.. LMP: Unknown. Gestational age by maternal dates is unknown. Estimated ultrasound age by previous ultrasound reading is 9 weeks 5 days . Very first ultrasound performed 05/17/2022. TECHNIQUE: Transabdominal and transvaginal imaging of pelvis is performed. FINDINGS: There is no intrauterine gestational sac seen at this time. No pole yolk sac or heartbeat.. MATERNAL ADNEXA: The right maternal ovary measures 3.9 x 2.1 x 2.0 cm. There are multiple follicular cyst The left maternal ovary measures 3.6 x 3.4 x 2.1 cm. There are multiple follicular cyst There is no significant maternal adnexal mass. No maternal pelvic ascites. US/US OB pelvic and transvaginal IMPRESSION: No intrauterine seen at this time. Multiple bilateral ovarian follicular cysts. Results were given to Nery at 1336 hours by opto mechanical technician.
== END 2022-06-13 13:13 | disposition home or self-care (01) ==
LOC: HO.US 13:12
PROVIDERS: Visit Provider Advanced Practice Midwife
DX: N92.6 Irregular menstruation, unspecified (principal)
CPT/HCPCS: 76801; 76817

== ENCOUNTER 2022-08-26 13:38 | Outpatient (REF) | payer OTHER, SELFPAY ==
[2022-08-27 06:06] LABS: CT PCR NOT DETECTED (Not Detect.); NG PCR NOT DETECTED (Not Detect.)
[2022-08-27 13:48] LABS: BV Int Neg Control Negative (Negative); BV Int Pos Control Positive (Positive)
== END 2022-08-26 13:39 | disposition home or self-care (01) ==
LOC: HO.LNP 13:38
PROVIDERS: Visit Provider Advanced Practice Midwife
DX: O03.9 Complete or unspecified spontaneous abortion without complication (principal); R10.2 Pelvic and perineal pain; F17.210 Nicotine dependence, cigarettes, uncomplicated; R45.7 State of emotional shock and stress, unspecified; R30.0 Dysuria; N91.2 Amenorrhea, unspecified; E23.7 Disorder of pituitary gland, unspecified; Z86.32 Personal history of gestational diabetes; Z32.01 Encounter for pregnancy test, result positive
CPT/HCPCS: 0353U; 81003; 81025; 87480; 87510; 87660; 99212

== ENCOUNTER 2022-08-26 15:30 | Outpatient (REF) | payer OTHER, SELFPAY ==
--- NOTE | ~2022-08-26 | US_ITS ---
EXAMINATION: US OBSTETRICAL ULTRASOUND CLINICAL INFORMATION: Positive test. COMPARISON: Previous exam most recent 06/13/2022 LMP: Unknown. Gestational age by maternal dates is . Estimated date of delivery by maternal dates is . TECHNIQUE: Transabdominal and transvaginal pelvic ultrasound was performed. Transvaginal exam was performed for better visualization of the uterus and ovaries. FINDINGS: The uterus is anteverted. No focal uterine lesion is seen. No intrauterine is identified. The endometrium does not appear thickened. The right ovary measures 2.6 x 1.8 x 2.1 cm. There is a 7 x 7 x 4 mm echogenic focus seen in the right ovary transabdominally. This cannot be identified transabdominally. The left ovary measures 3 x 2 x 2.5 cm. There is a 1.2 x 1 x 0.9 cm complex cyst in the left ovary probably representing a corpus luteum. There is no fluid in the pelvis. There are prominent adnexal vessels, left greater than right. US/US OB <= 14 weeks fetus IMPRESSION: No intrauterine seen. Correlation with quantitative beta the follow-up OB ultrasound to ensure development intrauterine recommended.
[2022-08-26 18:44] LABS: HCG Quantitative 577 mIU/mL
== END 2022-08-26 15:31 | disposition home or self-care (01) ==
LOC: HO.LAB 15:30
PROVIDERS: PCP Internal Medicine; Visit Provider Advanced Practice Midwife
DX: O03.9 Complete or unspecified spontaneous abortion without complication (principal); N89.8 Other specified noninflammatory disorders of vagina; F17.200 Nicotine dependence, unspecified, uncomplicated; R10.2 Pelvic and perineal pain; R30.0 Dysuria; R45.7 State of emotional shock and stress, unspecified
CPT/HCPCS: 76801; 84702; 87086; 87088; 87186

== ENCOUNTER 2022-08-28 11:21 | Emergency (ER) | payer OTHER, SELFPAY ==
[2022-08-28 11:35] VITALS: BP 116/66; PULSE 74; RESP 16; TEMP 36.6; O2SAT 98; BMI 19.2
--- NOTE | 2022-08-28 11:35 | ED_ITS ---
HPI - General Adult General Chief complaint: Recheck/Abnormal Lab/Rx Stated complaint: blood transfusion Related Data Previous Rx's Medication Instructions Recorded miconazole nitrate 2 % vaginal 1 appful vaginal BEDTIME 7 days 08/26/22 cream (Miconazole-7) #45 grams metronidazole 0.75 % (37.5 mg/5 1 appful vaginal ONCE PRN Symptoms 08/29/22 gram) vaginal gel of bacterial vaginosis 5 days #70 grams vitamin with calcium 1 tab PO DAILY #90 tabs 08/29/22 no.72-iron 27 mg-folic acid 1 mg tablet ( Vitamins Plus Low Iron) sulfamethoxazole 800 1 tab PO Q12H #6 tabs 08/29/22 mg-trimethoprim 160 mg tablet (Bactrim DS) Allergies Allergy/AdvReac Type Severity Reaction Status Date / Time amoxicillin [AMOXICILLIN] Allergy Intermediate RASH Verified 08/29/22 14:40 ciprofloxacin [From CIPRO] Allergy Intermediate RASH/SWOLLEN,ITCHY Verified 08/29/22 14:40 THROAT codeine [CODEINE] Allergy Intermediate SKIN Verified 08/29/22 14:40 FLUSHES, GI UPSET NSAIDS (Non-Steroidal Allergy Intermediate BLOATINESS, Verified 08/29/22 14:40 Anti-Inflamma GERD [NSAIDS (NON-STEROIDAL ANTI-INFLAMMA] vancomycin [VANCOMYCIN] AdvReac Intermediate RED MAN Verified 08/29/22 14:40 SYNDROME PMFSH Past Medical History Medical History Smoking Surgical History (Updated 08/29/22 @ 15:36 by Marleni Bess CNM) H/O: section Social History Social History Alcohol intake: never Patient Tobacco Use Status: Current everyday Tobacco user Cigarettes Per Day: 10 Patient : Yes Gender identity: Female Physical Exam ED Vital Signs: BMI result Body Mass Index 19.2 Course Course Course Narrative: This is an RME: Additional HPI, ROS, PE not included below will be deferred to primary provider. Patient is a 27-year-old female presents emergency department requesting serum labs. Patient is followed by Kai REID, reports she was advised to come today to have repeat hCG obtained (outpatient lab is closed). She initially presented to their office for evaluation of abdominal pain which she is still experiencing the however she states that she would like to follow- up with OBGYN tomorrow, at this time she only wishes to have her HCG repeated. HCG 08/26/22 of 577, with ultrasound revealing no intrauterine . Medical Decision Making Lab Data Labs: Lab Results 08/28/22 Range/Units 11:44 Beta HCG, Quant 1210 mIU/mL Discharge Plan Discharge Clinical Impression: at early stage Patient Disposition: Elopement Prescriptions: No Action sulfamethoxazole-trimethoprim [Bactrim DS] 800-160 mg tablet 1 tab PO Q12H Qty: 6 0RF Rx Instructions: Best option, even with HCGs, given allergies and sensitivities... metronidazole 0.75 % (37.5mg/5 gram) gel 1 appful vaginal ONCE PRN (Reason: Symptoms of bacterial vaginosis) 5 Days Qty: 70 0RF Rx Instructions: May start when finished with other medications.... RhoGAM Ultra-Filtered PLUS 1,500 unit (300 mcg) syringe 300 mcg IM ONCE Qty: 1 0RF miconazole nitrate [Miconazole-7] 2 % cream 1 appful vaginal BEDTIME 7 Days Qty: 45 3RF Rx Instructions: use p.r.n. for vaginal itching burning or other symptoms of yeast Vitamin Plus Low Iron 27 mg iron- 1 mg tablet 1 tab PO DAILY Qty: 90 0RF Discharge Date/Time: 08/28/22 14:32
[2022-08-28 12:14] LABS: HCG Quantitative 1210 mIU/mL
== END 2022-08-28 14:32 | disposition left against medical advice (07) ==
PROVIDERS: Nurse Practitioner Family; Emergency Provider Emergency Medicine; PCP Internal Medicine
DX: O26.91 Pregnancy related conditions, unspecified, first trimester (principal); R79.89 Other specified abnormal findings of blood chemistry; Z3A.00 Weeks of gestation of pregnancy not specified; Z79.899 Other long term (current) drug therapy
CPT/HCPCS: 36415; 84702; 99281; 99283

== ENCOUNTER 2022-08-29 09:49 | Outpatient (REF) | payer OTHER, SELFPAY ==
--- NOTE | ~2022-08-29 | US_ITS ---
EXAMINATION: US OBSTETRICAL ULTRASOUND CLINICAL INFORMATION: state, incidental extremity 1648 COMPARISON: Ultrasound OB 08/26/2022 LMP: Typed 2022. Gestational age by maternal dates is unknown. Estimated date of delivery by maternal dates is unknown. TECHNIQUE: Transabdominal imaging pelvis is performed FINDINGS: There is a single intrauterine gestational sac with visible yolk sac. No pole, heart rate seen. The distal sac measures 0.60) corresponding to 5 weeks 1 day. MATERNAL ADNEXA: The right maternal ovary measures 3.4 x 1.6 x 1.6 cm The left maternal ovary measures 2.9 x 1.8 x 1.9 cm. There is a small corpus luteal cyst. There is no significant maternal adnexal mass. No maternal pelvic ascites. There is a dilated pelvic vessels. There is no free fluid in the cul-de-sac. US/US OB pelvic and transvaginal IMPRESSION: There is visualization of a small gestational sac measuring 5 weeks. No pole or heart beat seen. No dilated pelvic vessels. Small corpus luteal cyst left ovary.
[2022-08-29 11:34] LABS: Glucose Random 87 mg/dL (60-115)
[2022-08-29 12:14] LABS: HCG Quantitative 1648 mIU/mL
[2022-08-30 22:29] LABS: Prolactin 11.2 ng/mL
== END 2022-08-29 09:50 | disposition home or self-care (01) ==
LOC: HO.LAB 09:49
PROVIDERS: PCP Obstetrics & Gynecology; Visit Provider Advanced Practice Midwife
DX: O03.9 Complete or unspecified spontaneous abortion without complication (principal); O26.891 Other specified pregnancy related conditions, first trimester; E23.7 Disorder of pituitary gland, unspecified; Z3A.01 Less than 8 weeks gestation of pregnancy
CPT/HCPCS: 36415; 76801; 76817; 82947; 84146; 84702; 99212

== ENCOUNTER 2022-09-16 11:35 | Outpatient (REF) | payer OTHER, SELFPAY ==
--- NOTE | ~2022-09-16 | US_ITS ---
EXAMINATION: US OBSTETRICAL ULTRASOUND CLINICAL INFORMATION: . Uncertain LMP. COMPARISON: Pelvic ultrasound from 08/29/2022 TECHNIQUE: Sonographic imaging of the pelvis is performed using transabdominal and transvaginal transducers. FINDINGS: The anteflexed, anteverted uterus measures approximately 9.1 x 3.8 x 4.3 cm (cervix to fundus x AP x transverse dimension). The myometrial echotexture is normal. No evidence of uterine leiomyoma. The endometrium measures 0.4 cm on the transvaginal images. Note that a small cystic structure/gestational sac was seen within the endometrium on 08/29/2022. However, this current exam shows no gestational sac within the endometrium. There is abnormal heterogeneous material within the endocervical canal. This does not have a vascular appearance on color Doppler images. Findings include a small amount of fluid within the endocervical canal, possibly a collapsed, passing gestational sac. There is no embryo or yolk sac within this anechoic area. The surrounding heterogeneity likely represents blood clot. The right ovary is 3.5 x 2 x 2 cm and left ovary 3 x 3.4 x 2.3 cm. No evidence of ectopic or ovarian mass. No pelvic free fluid. US/US OB <= 14 weeks fetus IMPRESSION: * Sonographic findings are suspicious for a spontaneous in progress. * There is no evidence of a within the endometrial cavity. * Also, no evidence of ectopic or pelvic free fluid.
[2022-09-16 14:27] LABS: Hematocrit 38.8 % (37.0-47.0); Hemoglobin 12.7 g/dl (12.0-16.0); Mean Corpuscular HGB Conc 32.7 g/dl (31.0-35.0); Mean Corpuscular Hemoglobin 28.9 pg (27.0-33.0); Mean Corpuscular Volume 88.4 fL (80.0-98.0); Mean Platelet Volume 11.5 fL (9.4-12.3); Platelet Count 223 X10*3/uL (160-400); Red Blood Count 4.39 X10*6/uL (4.20-5.50); Red Cell Distribution Width 13.6 % (11.0-16.0); White Blood Count 8.6 X10*3/uL (4.8-10.8)
[2022-09-16 15:15] LABS: HCG Quantitative 3214 mIU/mL
== END 2022-09-16 11:36 | disposition home or self-care (01) ==
LOC: HO.US 11:35
PROVIDERS: PCP Obstetrics & Gynecology; Visit Provider Advanced Practice Midwife
DX: O20.9 Hemorrhage in early pregnancy, unspecified (principal)
CPT/HCPCS: 36415; 76801; 84702; 85027; J2790

== ENCOUNTER → 2022-09-16 16:57 | Outpatient (BNV) | payer OTHER, SELFPAY ==
--- NOTE | 2022-09-16 16:57 | AM.OFFVISNUR ---
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 Visit Reasons: Amb Documentation Allergies amoxicillin [AMOXICILLIN] Allergy (Intermediate, Verified 08/29/22 14:40) RASH ciprofloxacin [From CIPRO] Allergy (Intermediate, Verified 08/29/22 14:40) RASH/SWOLLEN,ITCHY THROAT codeine [CODEINE] Allergy (Intermediate, Verified 08/29/22 14:40) SKIN FLUSHES, GI UPSET NSAIDS (Non-Steroidal Anti-Inflamma [NSAIDS (NON-STEROIDAL ANTI-INFLAMMA] Allergy (Intermediate, Verified 08/29/22 14:40) BLOATINESS,GERD vancomycin [VANCOMYCIN] Adverse Reaction (Intermediate, Verified 08/29/22 14:40) RED MAN SYNDROME Nursing Note Pt is here for Rhogam injection. Injection given and pt tolerated well. Pt is aware to call Dr Patino if she has any pain or bleeding over the weekend. She has been advised that she needs to come back to hosptal 09/17/22 and 09/19/22 for lab work and she will see Dr Patino in office 09/19/22 @ 0900. Pt verbalizes understanding and agrees with plan. No further questions. Office Meds RhoGAM Ultra-Filtered PLUS Performing Provider: Eder Patino MD Administered by: Le Scott on 09/16/22 16:58 Dose Route Admin Location Lot Number Expiration Date NDC Optical Advisor 300 mcg IM left deltoid [id number] 05/12/24 3301-4940-58 INNOBI Coding Diagnoses Assessment & Plan Assessment & Plan Orders: Orders AMB RhoGAM Injection Today O20.9 - Hemorrhage in early , unspecified Patient Instructions: Pt advised to have repeat BHCG on 09/17/22 and 09/19/22. She is scheduled for office visit with Dr Patino 09/19/22 @ 0900. She is aware to have labs done before she comes upstairs to [address] to see provider.
== END ==
PROVIDERS: PCP Obstetrics & Gynecology
DX: O20.9 Hemorrhage in early pregnancy, unspecified (principal)

== ENCOUNTER 2022-09-17 13:22 | Outpatient (REF) | payer OTHER, SELFPAY ==
[2022-09-17 14:19] LABS: HCG Quantitative 3150 mIU/mL
== END 2022-09-17 13:23 | disposition home or self-care (01) ==
LOC: HO.LAB 13:22
PROVIDERS: Visit Provider Obstetrics & Gynecology
DX: O20.9 Hemorrhage in early pregnancy, unspecified (principal)
CPT/HCPCS: 36415; 84702

== ENCOUNTER 2022-09-18 20:37 | Day surgery (SDC) | payer OTHER, SELFPAY ==
--- NOTE | ~2022-09-18 | US_ITS ---
EXAMINATION: US OBSTETRICAL ULTRASOUND CLINICAL INFORMATION: Question retained products of conception COMPARISON: CT from the same day TECHNIQUE: Sonographic evaluation of the pelvis was performed transabdominally and transvaginally. FINDINGS: The uterus measures 7.9 x 3.2 x 5.2 cm. Endometrial stripe measures 0.7 cm in thickness; Doppler evaluation demonstrates some flow along the endometrium.. Within the cervix there is a heterogeneous structure measuring 4.0 x 1.5 x 1.5 cm; no significant internal flow is seen with Doppler imaging. The right ovary measures 4.5 x 1.8 x 2.4 cm and contains an echogenic focus measuring up to 0.7 cm which may represent a calcification. The left ovary measures 4.0 x 2.3 x 2.5 cm and appears unremarkable. Doppler evaluation demonstrates bilateral ovarian flow. No significant free fluid noted. US/US OB pelvic and transvaginal IMPRESSION: 1. Heterogeneous structure in the cervix measuring up to 4.0 cm, which may reflect blood products versus retained product of conception. 2. Endometrial stripe thickness within normal limits, though some endometrial flow is noted, and retained products of conception at this location cannot be excluded.
--- NOTE | ~2022-09-18 | US_ITS ---
EXAMINATION: US guide intraoperative CLINICAL INFORMATION: Reason for Exam suction D C COMPARISON: Earlier same date TECHNIQUE: Intraoperative ultrasound provided for Dr. Patino for purposes of dilation and curettage. Lemus scale and color Doppler images submitted for review. FINDINGS: Initial images redemonstrate soft tissue fullness in the region of the cervix as seen on the prior exam, suspicious for retained products of conception. Subsequent cine images demonstrate dilation and curettage US/US guide intraoperative IMPRESSION: Intraoperative ultrasound guidance for dilation and curettage. Please see operative report.
--- NOTE | ~2022-09-18 | CT_ITS ---
EXAMINATION: CT ABDOMEN AND PELVIS WITHOUT CONTRAST CLINICAL INFORMATION: Bilateral flank pain COMPARISON: 11/13/2017 TECHNIQUE: Multidetector volumetric imaging was performed from the superior aspect of the liver through the pubic symphysis. Sagittal and coronal reformatted images were obtained on the technologist's workstation. This CT examination was performed using dose optimization techniques as appropriate, variously including the following: *Automated exposure control *Adjustment of mA and/or kV according to patient size (this includes techniques or standardized protocols for targeted exams where dose is matched to indication/reason for exam; i.e. extremities or head) *Use of iterative reconstruction technique DLP: 263 mGy-cm FINDINGS: LUNG BASES: The visualized lung bases are unremarkable. LIVER, GALLBLADDER, AND BILIARY TREE: The liver is normal in size, shape, and attenuation. No focal hepatic lesion or biliary ductal dilatation is identified on this noncontrast exam. Gallbladder is grossly unremarkable, not well assessed. PANCREAS: Unremarkable. SPLEEN: Unremarkable. ADRENAL GLANDS: Unremarkable. KIDNEYS AND URETERS: No hydronephrosis or calculus identified bilaterally. BLADDER: Unremarkable. GASTROINTESTINAL TRACT: No evidence of bowel obstruction or wall thickening. The appendix is not well delineated. No free fluid or free air is seen. ABDOMINAL WALL: No significant hernia is appreciated. LYMPH NODES: Significantly limited evaluation without intravenous contrast. VASCULAR: Grossly unremarkable. PELVIC VISCERA: Grossly unremarkable. OSSEOUS STRUCTURES: Unremarkable. CT/CT abdomen pelvis wo IV con IMPRESSION: No acute findings identified in the abdomen/pelvis.
[2022-09-18 20:49] VITALS: BP 104/68; PULSE 83; RESP 18; TEMP 36.8; O2SAT 99; BMI 19.5
[2022-09-18 21:39] LABS: MANUAL DIFF FLAG NO
[2022-09-18 21:41] LABS: Basophils Absolute Auto 0.1 X10*3/uL (0.0-0.2); Eosinophils Absolute Auto 0.2 X10*3/uL (0.0-0.4); Eosinophils Percent Auto 2.6 % (0-4); Hemoglobin 11.3 g/dl (12.0-16.0); Imm Gran Abs Auto 0.02 X10*3/uL (0.00-0.03); Imm Gran Pct Auto 0.2 % (0.0-0.4); Lymphocytes Absolute Auto 2.9 X10*3/uL (1.2-4.9); Lymphocytes Percent Auto 31.2 % (20-40); Mean Corpuscular HGB Conc 33.2 g/dl (31.0-35.0); Mean Corpuscular Volume 87.2 fL (80.0-98.0); Mean Platelet Volume 10.7 fL (9.4-12.3); Monocytes Absolute Auto 0.5 X10*3/uL (0.1-1.2); Neutrophils Absolute Auto 5.6 x10*3/uL (2.0-8.3); Platelet Count 187 X10*3/uL (160-400); Red Cell Distribution Width 13.5 % (11.0-16.0); White Blood Count 9.3 X10*3/uL (4.8-10.8)
[2022-09-18 21:42] LABS: Appearance Urine Clear; Color Urine Yellow; Glucose Urine UA Negative (Negative); Leukocyte Esterase Urine Negative (Negative); Nitrite Urine Negative (Negative); Specific Gravity - Urine <= 1.005 (1.005-1.025); UMIC TRIGGER UACC YES; Urine Blood Small (1+) (Negative); Urine Ketones Negative (Negative); Urine Protein Negative (Neg-Trace)
[2022-09-18 22:03] LABS: Alanine Aminotransferase 7 U/L (0-31); Albumin Level 4.3 g/dL (3.5-5.0); Alkaline Phosphatase 73 U/L (39-117); Anion Gap 13 (12-20); Aspartate Amino Transferase 15 U/L (5-31); Bilirubin Total 0.3 mg/dL (0.0-1.0); Blood Urea Nitrogen 6 mg/dL (9-16); Calcium 9.8 mg/dL (8.4-10.2); Carbon Dioxide 23 mmol/L (22-29); Chloride 106 mmol/L (96-108); Creatinine Clr Calc Pharmacy 76.7; Estimated Glomerular Filt Rate > 60; Glucose Random 78 mg/dL (60-115); Potassium 3.9 mmol/L (3.3-5.1); Sodium 138 mmol/L (135-145); Total Protein 6.8 g/dL (6.5-8.0)
[2022-09-18 22:17] LABS: Bacteria Urine None Seen (None Seen); Hyaline Casts Urine 0-2 /LPF (0-2); RBC Urine 0-2 /HPF (0-2); Squamous Epithelial Cell Urine 0-2 /HPF (0-2); WBC Urine 0-5 /HPF (0-5)
--- NOTE | 2022-09-18 23:29 | PC.NURSE ---
Delay in medicating pt at this time. Pt insists she needs to go outside to have a private conversation. Provider made aware.
[2022-09-18 23:52] VITALS: BP 108/55; PULSE 63; RESP 17; TEMP 37; O2SAT 99
[2022-09-19] VITALS (13 sets, daily range): BP systolic 92–121; BP diastolic 41–69; PULSE 54–85; RESP 16–20; TEMP 37–37.5; O2SAT 98–100
--- NOTE | 2022-09-19 | ED.FEMALEGU ---
HPI - Female Genitourinary General Chief complaint: Urogenital-Female Stated complaint: complications with kidney infection Time Seen by Provider: 09/18/22 23:11 Source: patient Mode of arrival: ambulatory Limitations: no limitations History of Present Illness HPI Narrative: Patient comes to the emergency room complaining of bilateral flank pain. Patient states that she was diagnosed with a UTI, given Macrobid initially without any response. Then antibiotic was switched 3 days ago to Bactrim. Patient states she has bilateral flank pain. Also, patient recently had a miscarriage, 3 days ago patient had an ultrasound showing sonographic findings suspicious for spontaneous in progress. On ultrasound of 09/16/2022, there is no evidence of in the endometrial cavity. Patient states that she has had very heavy vaginal bleeding, states that she has been ?bleeding her brains out for 2 weeks. Denies lightheadedness, syncope, shortness of breath Related Data Previous Rx's Medication Instructions Recorded miconazole nitrate 2 % vaginal 1 appful vaginal BEDTIME 7 days 08/26/22 cream (Miconazole-7) #45 grams metronidazole 0.75 % (37.5 mg/5 1 appful vaginal ONCE PRN Symptoms 08/29/22 gram) vaginal gel of bacterial vaginosis 5 days #70 grams vitamin with calcium 1 tab PO DAILY #90 tabs 08/29/22 no.72-iron 27 mg-folic acid 1 mg tablet ( Vitamins Plus Low Iron) sulfamethoxazole 800 1 tab PO Q12H #6 tabs 08/29/22 mg-trimethoprim 160 mg tablet (Bactrim DS) sulfamethoxazole 800 1 tab PO BID 3 days #6 tabs 09/16/22 mg-trimethoprim 160 mg tablet (Bactrim DS) Allergies Allergy/AdvReac Type Severity Reaction Status Date / Time amoxicillin [AMOXICILLIN] Allergy Intermediate RASH Verified 09/18/22 20:49 ciprofloxacin [From CIPRO] Allergy Intermediate RASH/SWOLLEN,ITCHY Verified 09/18/22 20:49 THROAT codeine [CODEINE] Allergy Intermediate SKIN Verified 09/18/22 20:49 FLUSHES, GI UPSET NSAIDS (Non-Steroidal Allergy Intermediate BLOATINESS, Verified 09/18/22 20:49 Anti-Inflamma GERD [NSAIDS (NON-STEROIDAL ANTI-INFLAMMA] vancomycin [VANCOMYCIN] AdvReac Intermediate RED MAN Verified 09/18/22 20:49 SYNDROME Review of Systems Review of Systems: Constitutional : No Weight loss, No Fever, No Chills, No Night Sweats, No Fatigue, complaining of generalized malaise, body aches ENT/Mouth : No Hearing loss, No Ear Pain, No Nasal Congestion, No Sinus Pain, No Hoarseness, No sore throat, No Rhinorrhea, No Swallowing Difficulty Eyes: No Eye Pain, No Swelling, No Redness, No Foreign Body, No Discharge, No Vision Changes Cardiovascular : No Chest Pain, No SOB, No Dyspnea on Exertion, No Orthopnea, No Edema, No Palpitations Respiratory : No Cough, No Sputum, No Wheezing, No Smoke Exposure, No Dyspnea Gastrointestinal : No Nausea, No Vomiting, No Diarrhea, No Constipation, No abdominal Pain, No Hematochezia, No Melena Genitourinary : Comparing of vaginal bleeding for 2 weeks, No Dysuria, No Urinary Frequency, No Hematuria, No Urinary Incontinence, No Urgency, No Flank Pain, No Urinary Flow Changes, No Hesitancy Musculoskeletal : No joint pain, No Myalgias, No Joint Swelling Skin : No Skin Lesions, No rash Neuro : No Weakness, No Numbness, No Paresthesias, No Loss of Consciousness, No Dizziness, No Headache Psych : No Anxiety/Panic, No Depression, No SI/HI/AH/VH, No Social Issues, Heme/Lymph: No Bruising, No Bleeding,No Lymphadenopathy Endocrine : No Polyuria, No Polydipsia, No Temperature Intolerance [facility] Past Medical History Medical History Smoking Surgical History (Updated 08/29/22 @ 15:36 by Marleni Bess CNM) H/O: section Social History Social History Alcohol intake: never Patient Tobacco Use Status: Current everyday Tobacco user Cigarettes Per Day: 10 Advance Directives: No Advance Directives Information Provided: No Gender identity: Female Physical Exam Vital Signs: Vital Signs: Last Vital Signs Temp 98.8 F 09/19/22 05:03 Pulse 68 09/19/22 05:03 Resp 17 09/19/22 05:03 BP 110/41 L 09/19/22 05:03 Pulse Ox 98 09/19/22 05:03 O2 Del Method Room Air 09/19/22 05:03 BMI result Body Mass Index 19.5 Const: Other: Appearance: Alert. Oriented X3. No acute distress. Eyes: Pupils equal, round and reactive to light. ENT: Pharynx normal. Neck: Normal inspection. Neck supple. No lymph nodes noted. No crepitus CVS: Normal heart rate and rhythm. Pulses normal. Normal S1 and S2 Respiratory: No respiratory distress. Breath sounds normal. No Wheezing. No rales Abdomen: Soft and nontender. No rigidity. No distention. : There is small amount of blood in the vaginal vault, there was some tissue protruding through the cervix. Skin: Skin warm and dry. Normal skin color. Normal skin turgor. Extremities: No lower extremity edema. No Lacerations. No Rash Neuro: Oriented X 3. No motor deficit. No sensory deficit. Moving all extremities. No slurred speech. CN 2 through 12 grossly intact Psych: calm, cooperative, histrionic, anxious, teary Medications Administered Discontinued Medications Generic Name Dose Route Start Last Admin Trade Name Freq PRN Reason Stop Dose Admin Diphenhydramine HCl 50 mg 09/18/22 23:24 09/19/22 00:29 Diphenhydramine Hcl 50 Mg/Ml Vial IVPUSH 09/18/22 23:25 50 mg ONCE ONE Administration Lorazepam 2 mg 09/18/22 23:21 09/19/22 00:41 Lorazepam 2 Mg/Ml Vial IVPUSH 09/18/22 23:22 2 mg ONCE ONE Administration Morphine Sulfate 4 mg 09/18/22 23:21 09/19/22 01:31 Morphine Sulfate 4 Mg/Ml Cartridge IVPUSH 09/18/22 23:22 4 mg ONCE ONE Administration Protocol Medical Decision Making Medical Decision Making MDM Narrative: -patient arriving complaining of a large amount of bleeding and severe pain. Admission being considered -my interpretation of labs: Patient's hCG is dropping, today 2826. On physical exam, the cervical os is open, there is tissue protruding from the cervix. I was able to pull a large amount of tissue from the cervix., however there is still tissue visible all the way posterior to the cervix which I cannot reach. Patient will likely need a D&C. At this time, the amount of vaginal bleeding is minimal -mentor patient of CT scan of the abdomen pelvis: No acute findings, no small bowel obstruction no kidney stones -patient is sleeping very comfortably. Patient has an appointment at 09:00 with OB Gyne. -I discussed the patient with Dr. Patino, plan: Repeat ultrasound to rule out products of conception. Also, will keep patient NPO, it is possible the patient may need a D&C, we will keep patient in the ED until evaluated by OB Gyne in the morning. -physician observation started at 04:40 Differential Diagnosis Differential Diagnoses: The differential diagnosis associated with the presentation includes (Incomplete , menorrhagia. Chronic pain syndrome? Musculoskeletal pain? Fibromyalgia, anxiety) Admission/Observation Consideration of admission/observation: Escalation of care including admission/observation considered Consult Healthcare Provider Management of the patient was discussed with: Soaping Machine Back Tender Lab Data MDM Lab Attestation statement: I reviewed the patient's lab results. 09/18/22 21:30 09/18/22 21:30 Labs: Lab Results 09/18/22 09/18/22 09/18/22 Range/Units 21:30 21:30 21:30 WBC 9.3 (4.8-10.8) X10*3/uL RBC 3.90 L (4.20-5.50) X10*6/uL Hgb 11.3 L (12.0-16.0) g/dl Hct 34.0 L (37.0-47.0) % MCV 87.2 (80.0-98.0) fL MCH 29.0 (27.0-33.0) pg MCHC 33.2 (31.0-35.0) g/dl RDW 13.5 (11.0-16.0) % Plt Count 187 (160-400) X10*3/uL MPV 10.7 (9.4-12.3) fL Immature Gran % (Auto) 0.2 (0.0-0.4) % Neut % (Auto) 60.0 (45-73) % Lymph % (Auto) 31.2 (20-40) % [place] % (Auto) 5.0 (2-11) % Eos % (Auto) 2.6 (0-4) % Baso % (Auto) 1.0 (0-2) % Lymph # (Auto) 2.9 (1.2-4.9) X10*3/uL [place] # (Auto) 0.5 (0.1-1.2) X10*3/uL Eos # (Auto) 0.2 (0.0-0.4) X10*3/uL Baso # (Auto) 0.1 (0.0-0.2) X10*3/uL Abs Immat Gran (auto) 0.02 (0.00-0.03) X10*3/uL Absolute Neuts (auto) 5.6 (2.0-8.3) x10*3/uL Absolute Nucleated RBC 0.000 (0.0-0.012) X10*3/uL Nucleated RBC % (auto) 0.0 (0.0-0.2) /100WBC Sodium 138 (135-145) mmol/L Potassium 3.9 (3.3-5.1) mmol/L Chloride 106 (96-108) mmol/L Carbon Dioxide 23 (22-29) mmol/L Anion Gap 13 (12-20) BUN 6 L (9-16) mg/dL Creatinine 0.86 (0.5-1.4) mg/dL Estim Creat Clear Calc 76.7 Estimated GFR > 60 POC Glucose (60-115) mg/dL Random Glucose 78 (60-115) mg/dL Calcium 9.8 (8.4-10.2) mg/dL Total Bilirubin 0.3 (0.0-1.0) mg/dL AST 15 (5-31) U/L ALT 7 (0-31) U/L Alkaline Phosphatase 73 (39-117) U/L Total Protein 6.8 (6.5-8.0) g/dL Albumin 4.3 (3.5-5.0) g/dL Beta HCG, Quant Cancelled Urine Color Urine Appearance Urine pH (5.0-9.0) Ur Specific [place] (1.005-1.025) Urine Protein (Neg-Trace) mg/dL Urine Glucose (UA) (Negative) mg/dL Urine Ketones (Negative) mg/dL Urine Blood (Negative) Urine Nitrite (Negative) Ur Leukocyte Esterase (Negative) Urine RBC (0-2) /HPF Urine WBC (0-5) /HPF Ur Squamous Epith Cells (0-2) /HPF Urine Bacteria (None Seen) Hyaline Casts (0-2) /LPF 09/18/22 09/19/22 09/19/22 Range/Units 21:35 00:28 05:49 WBC (4.8-10.8) X10*3/uL RBC (4.20-5.50) X10*6/uL Hgb (12.0-16.0) g/dl Hct (37.0-47.0) % MCV (80.0-98.0) fL MCH (27.0-33.0) pg MCHC (31.0-35.0) g/dl RDW (11.0-16.0) % Plt Count (160-400) X10*3/uL MPV (9.4-12.3) fL Immature Gran % (Auto) (0.0-0.4) % Neut % (Auto) (45-73) % Lymph % (Auto) (20-40) % [place] % (Auto) (2-11) % Eos % (Auto) (0-4) % Baso % (Auto) (0-2) % Lymph # (Auto) (1.2-4.9) X10*3/uL [place] # (Auto) (0.1-1.2) X10*3/uL Eos # (Auto) (0.0-0.4) X10*3/uL Baso # (Auto) (0.0-0.2) X10*3/uL Abs Immat Gran (auto) (0.00-0.03) X10*3/uL Absolute Neuts (auto) (2.0-8.3) x10*3/uL Absolute Nucleated RBC (0.0-0.012) X10*3/uL Nucleated RBC % (auto) (0.0-0.2) /100WBC Sodium (135-145) mmol/L Potassium (3.3-5.1) mmol/L Chloride (96-108) mmol/L Carbon Dioxide (22-29) mmol/L Anion Gap (12-20) BUN (9-16) mg/dL Creatinine (0.5-1.4) mg/dL Estim Creat Clear Calc Estimated GFR POC Glucose 86 (60-115) mg/dL Random Glucose (60-115) mg/dL Calcium (8.4-10.2) mg/dL Total Bilirubin (0.0-1.0) mg/dL AST (5-31) U/L ALT (0-31) U/L Alkaline Phosphatase (39-117) U/L Total Protein (6.5-8.0) g/dL Albumin (3.5-5.0) g/dL Beta HCG, Quant 2826 Urine Color Yellow Urine Appearance Clear Urine pH 7.0 (5.0-9.0) Ur Specific Garfield <= 1.005 (1.005-1.025) Urine Protein Negative (Neg-Trace) mg/dL Urine Glucose (UA) Negative (Negative) mg/dL Urine Ketones Negative (Negative) mg/dL Urine Blood Small (1+) H (Negative) Urine Nitrite Negative (Negative) Ur Leukocyte Esterase Negative (Negative) Urine RBC 0-2 (0-2) /HPF Urine WBC 0-5 (0-5) /HPF Ur Squamous Epith Cells 0-2 (0-2) /HPF Urine Bacteria None Seen (None Seen) Hyaline Casts 0-2 (0-2) /LPF Independent Interpretation I performed an independent interpretation of an: CT Scan Radiology Impression Discussion of test interpretation with radiology: I have reviewed the radiologist's reading. Radiologist Impression: FINDINGS: LUNG BASES: The visualized lung bases are unremarkable.? LIVER, GALLBLADDER, AND BILIARY TREE: The liver is normal in size, shape, and attenuation. No focal hepatic lesion or biliary ductal dilatation is identified on this noncontrast exam. Gallbladder is grossly unremarkable, not well assessed.? PANCREAS: Unremarkable.? SPLEEN: Unremarkable.? ADRENAL GLANDS: Unremarkable.? KIDNEYS AND URETERS: No hydronephrosis or calculus identified bilaterally.? BLADDER: Unremarkable.? GASTROINTESTINAL TRACT: No evidence of bowel obstruction or wall thickening. The appendix is not well delineated. No free fluid or free air is seen.? ABDOMINAL WALL: No significant hernia is appreciated.? LYMPH NODES: Significantly limited evaluation without intravenous contrast. VASCULAR: Grossly unremarkable. PELVIC VISCERA: Grossly unremarkable.? OSSEOUS STRUCTURES: Unremarkable.? CT/CT abdomen pelvis wo IV con IMPRESSION: No acute findings identified in the abdomen/pelvis. FINDINGS: The uterus measures 7.9 x 3.2 x 5.2 cm. Endometrial stripe measures 0.7 cm in thickness; Doppler evaluation demonstrates some flow along the endometrium.. Within the cervix there is a heterogeneous structure measuring 4.0 x 1.5 x 1.5 cm; no significant internal flow is seen with Doppler imaging. The right ovary measures 4.5 x 1.8 x 2.4 cm and contains an echogenic focus measuring up to 0.7 cm which may represent a calcification. The left ovary measures 4.0 x 2.3 x 2.5 cm and appears unremarkable. Doppler evaluation demonstrates bilateral ovarian flow. No significant free fluid noted. US/US OB pelvic and transvaginal IMPRESSION: 1.? Heterogeneous structure in the cervix measuring up to 4.0 cm, which may reflect blood products versus retained product of conception. 2.? Endometrial stripe thickness within normal limits, though some endometrial flow is noted, and retained products of conception at this location cannot be excluded. ? External Record Review External record reviewed: Outpatient record (Gynecology records. Patient has had the pain that she describes today for at least a month, patient very emotional and anxious) Prescription Management I considered prescription management with: Pain Medication (I considered prescribing pain medication., however there is no obvious reason that the patient may have pain. Patient may have chronic pain syndrome? Fibromyalgia?) Critical Care Time Critical Care Time Critical Care Time: Yes Total Critical Care Time: 75 Attestation: I have personally provided critical care time. Time includes review of lab data, radiology results, discussion with consultants, and monitoring for potential decompensation. Intervention performed as documented. Discharge Plan Discharge Clinical Impression: Body aches, Incomplete Patient Disposition: Still a Patient Prescriptions: No Action sulfamethoxazole-trimethoprim [Bactrim DS] 800-160 mg tablet 1 tab PO Q12H Qty: 6 0RF Rx Instructions: Best option, even with HCGs, given allergies and sensitivities... metronidazole 0.75 % (37.5mg/5 gram) gel 1 appful vaginal ONCE PRN (Reason: Symptoms of bacterial vaginosis) 5 Days Qty: 70 0RF Rx Instructions: May start when finished with other medications.... sulfamethoxazole-trimethoprim [Bactrim DS] 800-160 mg tablet 1 tab PO BID 3 Days Qty: 6 0RF RhoGAM Ultra-Filtered PLUS 1,500 unit (300 mcg) syringe 300 mcg IM ONCE Qty: 1 0RF miconazole nitrate [Miconazole-7] 2 % cream 1 appful vaginal BEDTIME 7 Days Qty: 45 3RF Rx Instructions: use p.r.n. for vaginal itching burning or other symptoms of yeast Vitamin Plus Low Iron 27 mg iron- 1 mg tablet 1 tab PO DAILY Qty: 90 0RF
[2022-09-19] MEDS: diphenhydrAMINE HCL 50 MG/ML VIAL IVPUSH (00:29)
--- NOTE | 2022-09-19 00:30 | PC.NURSE ---
Pt requesting dosages of medications to spread out as she feels she is sensitive to certain medications.
[2022-09-19] MEDS: LORazepam 2 MG/ML VIAL IVPUSH (00:41)
[2022-09-19 01:09] LABS: HCG Quantitative 2826 mIU/mL
[2022-09-19] MEDS: Morphine Sulfate 4 MG/ML CARTRIDGE IVPUSH (01:31)
--- NOTE | 2022-09-19 02:47 | PC.NURSE ---
Pt to CT scan
--- NOTE | 2022-09-19 04:20 | PC.NURSE ---
Plan for repeat US/NPO status and reeval.
--- NOTE | 2022-09-19 04:21 | PM.GYNCN ---
[employer] DEPARTMENT CHAIR - CN: HPI Data of Consult Consult date: 09/19/22 Primary Care Provider: Eder Patino MD Consult Narrative Narrative: I was consulted on Abimbola Zabala who is a 27 year old female presented to the emergency room complaining of bilateral flank pain.? Patient states that she was diagnosed with a UTI, given Macrobid initially without any response.? Then antibiotic was switched 3 days ago to Bactrim sensitive to the urine culture.? In addition , the patient recently started having vaginal bleeding with , a pelvic ultrasound done on 08/29 show a gestational sac measuring 5 weeks of gestation this was prior to initiation of the bleeding, since then the patient has had vaginal bleeding a repeat ultrasound done on 09/16 showed no evidence of in the endometrial cavity with findings suspicious of Patient states that she has had very heavy vaginal bleeding, hCG on 09/16 was 3214, on 09/17 was 3150, and today was 2826. Blood type is O negative, Rh negative, the patient received RhoGAM 09/16 cc:: CC: OB PMF Past Medical History Medical History Smoking Surgical History Surgical History H/O hernia repair H/O: section Social History Social History Alcohol intake: never Patient Tobacco Use Status: Current everyday Tobacco user Tobacco use type: Cigarette Cigarette Packs Per Day: 0.5 Cigarettes Per Day: 10.0 Years Smoked: 14 Smoked in Last 30 Days: Yes Use of substances other than those prescribed or required for medical reasons: Yes Substance Use Frequency: Occasionally Are you DNR?: No Advance Directives: No Advance Directives Information Provided: No Gender identity: Female Meds Allergies Allergy/AdvReac Type Severity Reaction Status Date / Time amoxicillin [AMOXICILLIN] Allergy Intermediate RASH Verified 09/19/22 11:31 ciprofloxacin [From CIPRO] Allergy Intermediate RASH/SWOLLEN,ITCHY Verified 09/19/22 11:31 THROAT codeine [CODEINE] Allergy Intermediate SKIN Verified 09/19/22 11:31 FLUSHES, GI UPSET NSAIDS (Non-Steroidal Allergy Intermediate BLOATINESS, Verified 09/19/22 11:31 Anti-Inflamma GERD [NSAIDS (NON-STEROIDAL ANTI-INFLAMMA] vancomycin [VANCOMYCIN] AdvReac Intermediate RED MAN Verified 09/19/22 11:31 SYNDROME [employer] DEPARTMENT CHAIR Physical Exam Vitals Vital signs: Temp Pulse Resp BP Pulse Ox O2 Del Method 98.6 F 63 17 108/55 L 99 Room Air 09/18/22 23:52 09/18/22 23:52 09/18/22 23:52 09/18/22 23:52 09/18/22 23:52 09/18/22 23:52 BMI result Body Mass Index 19.5 Lungs Auscultation: Clear to auscultation Cardiovascular Auscultation: RRR Abdomen Auscultation/Inspection/Palpation: Normal bowel sounds, Soft and Non-distended Female Genitalia (Pelvic) Vulva: No lesions Vagina: Nontender Cervix: Grossly normal Uterus: Normal size Adnexa/Parametria: Adnexal Tenderness: None, Adnexal Mass: None, Parametrial Tenderness: None and Parametrial Mass: None Additional Comments: Blood per vagina, no evidence of active bleeding No CVA tenderness [employer] DEPARTMENT CHAIR - Results Labs 09/18/22 21:30 09/18/22 21:30 Labs: Short CBC 09/18/22 Range/Units 21:30 WBC 9.3 (4.8-10.8) X10*3/uL Hgb 11.3 L (12.0-16.0) g/dl Hct 34.0 L (37.0-47.0) % Plt Count 187 (160-400) X10*3/uL BMP 09/18/22 21:30 Sodium 138 Potassium 3.9 Chloride 106 Carbon Dioxide 23 BUN 6 L Creatinine 0.86 Calcium 9.8 Liver Function 09/18/22 Range/Units 21:30 Total Bilirubin 0.3 (0.0-1.0) mg/dL AST 15 (5-31) U/L ALT 7 (0-31) U/L Alkaline Phosphatase 73 (39-117) U/L Albumin 4.3 (3.5-5.0) g/dL Urine 09/18/22 Range/Units 21:35 Urine Color Yellow Urine Appearance Clear Urine pH 7.0 (5.0-9.0) Ur Specific [place] <= 1.005 (1.005-1.025) Urine Protein Negative (Neg-Trace) mg/dL Urine Glucose (UA) Negative (Negative) mg/dL Imaging US - abdomen: Radiologist's impression: ITS Impressions Abdomen/Pelvis CT 09/19/22 03:00 IMPRESSION: No acute findings identified in the abdomen/pelvis. Pelvic/Transvag US 09/19/22 05:35 IMPRESSION: 1. Heterogeneous structure in the cervix measuring up to 4.0 cm, which may reflect blood products versus retained product of conception. 2. Endometrial stripe thickness within normal limits, though some endometrial flow is noted, and retained products of conception at this location cannot be excluded. Assessment and Plan (1) Incomplete : Status: Acute Discussed with the patient her presumed diagnosis of incomplete , the options of the treatment discussed with the patient including medical treatment , suction D&C, all pros, cons, risks and benefits were discussed with the patient and the patient the decided to go ahead with Suction D&C. so a more detailed discussion about the procedure was carried on with the patient including the technique, risks including but not limited to : bleeding, infection, uterine perforation, injury to blood vessels, bowels, ureters, bladder, possible need for blood transfusion with all its risks ( HIV, Hep b or C, anaphylaxis reactions), possible need for laparoscopy, laparotomy, or hysterectomy, possible , thromboembolic events, possibility of a negative impact on future fertility because of scar tissue development inside the uterus; alternatives of this option were discussed with the patient including but not limited to, medical termination of or doing nothing. The patient decided to go ahead with Suction D&C and signed the consent. All questions answered, the patient verbalized understanding and agreed with the plan. Doxycycline 200 mg p.o. preop given to the patient. Ultrasound notified. Type and screen sent. Instructions given the patient to schedule a 2 week postoperative appointment. This note was generated with a voice recognition program. Some errors may have been overlooked during the review of this note. Sometimes these errors may affect the content or meaning of a given sentence. (2) Urinary tract infection: Status: Acute Plan The patient still have 1 more tablet of Bactrim for 3 day course repeating contrast wrist confirm clearing UTI Time Spent With Patient Time: Total time managing care of this patient today ____ minutes.
--- NOTE | 2022-09-19 05:46 | PC.NURSE ---
Pt back from US at this time.
[2022-09-19 05:53] LABS: Glucose, Whole Blood 86 mg/dL (60-115)
--- NOTE | 2022-09-19 09:09 | PC.NURSE ---
pt appears comfortable in room, stating she feels as if her sugar is low. educated on remaining NPO at this time as pt is requesting food and drink.
--- NOTE | 2022-09-19 09:41 | PC.NURSE ---
report given to surgery, plan for procedure at approx 1100
[2022-09-19 11:21] LABS: Glucose, Whole Blood 91 mg/dL (60-115)
[2022-09-19 11:59] LABS: CT PCR NOT DETECTED (Not Detect.); NG PCR NOT DETECTED (Not Detect.)
[2022-09-19] MEDS: Doxycycline Monohydrate 100 MG CAPSULE 200 MG PO (12:03)
--- NOTE | 2022-09-19 12:06 | P.CONAN_ITS ---
[facility] Active Problems Active Problems: All Active Problems (Updated 09/19/22 @ 08:17 by Eder Patino MD) Postcesarean section (Acute) Menometrorrhagia (Acute) Emotional stress (Acute) Myoma (Acute) Hirsutism (Acute) Contraceptive management (Acute) Well woman exam (Acute) Vulvar lesion (Acute) Pelvic congestion syndrome (Acute) Calcification of ovary (Acute) Amenorrhea (Acute) Anovulatory amenorrhea (Acute) Candidal vulvovaginitis (Acute) Early stage of (Acute) Spotting in first trimester (Acute) SAB (spontaneous ) (Acute) Pelvic pain with positive beta-human chorionic gonadotropin (BhCG) in female (Acute) Dysuria (Acute) Hx of gestational diabetes in prior , currently (Acute) Pituitary abnormality (Acute) Early stage of (Acute) Urinary tract infection (Acute) Rh negative state in antepartum period (Acute) Early stage of (Acute) Vaginal bleeding affecting early (Acute) Body aches (Acute) Incomplete (Acute) Incomplete (Acute) H/O: section (Acute) Smoking (Acute) Past Medical History Medical History Smoking Surgical History Surgical History H/O hernia repair H/O: section History of Problems with Anesthesia: No Social History Social History Alcohol intake: never Patient Tobacco Use Status: Current everyday Tobacco user Tobacco use type: Cigarette Cigarette Packs Per Day: 0.5 Cigarettes Per Day: 10.0 Years Smoked: 14 Smoked in Last 30 Days: Yes Use of substances other than those prescribed or required for medical reasons: Yes Substance Use Frequency: Occasionally Are you DNR?: No Advance Directives: No Advance Directives Information Provided: No Gender identity: Female Meds Allergies Allergy/AdvReac Type Severity Reaction Status Date / Time amoxicillin [AMOXICILLIN] Allergy Intermediate RASH Verified 09/19/22 11:31 ciprofloxacin [From CIPRO] Allergy Intermediate RASH/SWOLLEN,ITCHY Verified 09/19/22 11:31 THROAT codeine [CODEINE] Allergy Intermediate SKIN Verified 09/19/22 11:31 FLUSHES, GI UPSET NSAIDS (Non-Steroidal Allergy Intermediate BLOATINESS, Verified 09/19/22 11:31 Anti-Inflamma GERD [NSAIDS (NON-STEROIDAL ANTI-INFLAMMA] vancomycin [VANCOMYCIN] AdvReac Intermediate RED MAN Verified 09/19/22 11:31 SYNDROME Exam Exam Date and Time: September 19, 2022 1206 Height,Weight and Vital Signs: Height 5 ft 3 in Weight 49.895 kg Last Vital Signs Temp 99.5 F 09/19/22 11:36 Pulse 77 09/19/22 11:36 Resp 16 09/19/22 11:36 BP 106/63 09/19/22 11:36 Pulse Ox 100 09/19/22 11:36 O2 Del Method Room Air 09/19/22 11:36 Pertinent Lab Results Pertinent Lab Results: Laboratory Tests 09/18/22 09/18/22 09/18/22 21:30 21:30 21:30 WBC 9.3 RBC 3.90 L Hgb 11.3 L Hct 34.0 L MCV 87.2 MCH 29.0 MCHC 33.2 RDW 13.5 Plt Count 187 MPV 10.7 Immature Gran % (Auto) 0.2 Neut % (Auto) 60.0 Lymph % (Auto) 31.2 [place] % (Auto) 5.0 Eos % (Auto) 2.6 Baso % (Auto) 1.0 Lymph # (Auto) 2.9 [place] # (Auto) 0.5 Eos # (Auto) 0.2 Baso # (Auto) 0.1 Abs Immat Gran (auto) 0.02 Absolute Neuts (auto) 5.6 Absolute Nucleated RBC 0.000 Nucleated RBC % (auto) 0.0 Sodium 138 Potassium 3.9 Chloride 106 Carbon Dioxide 23 Anion Gap 13 BUN 6 L Creatinine 0.86 Estim Creat Clear Calc 76.7 Estimated GFR > 60 POC Glucose Random Glucose 78 Calcium 9.8 Total Bilirubin 0.3 AST 15 ALT 7 Alkaline Phosphatase 73 Total Protein 6.8 Albumin 4.3 Beta HCG, Quant Cancelled Urine Color Urine Appearance Urine pH Ur Specific [place] Urine Protein Urine Glucose (UA) Urine Ketones Urine Blood Urine Nitrite Ur Leukocyte Esterase Urine RBC Urine WBC Ur Squamous Epith Cells Urine Bacteria Hyaline Casts Roz species DNA Chlam trachomat DNA PCR [place]rella DNA Probe N.gonorrhoeae DNA (PCR) Trichomonas DNA Probe 09/18/22 09/19/22 09/19/22 21:35 00:28 02:33 WBC RBC Hgb Hct MCV MCH MCHC RDW Plt Count MPV Immature Gran % (Auto) Neut % (Auto) Lymph % (Auto) [place] % (Auto) Eos % (Auto) Baso % (Auto) Lymph # (Auto) [place] # (Auto) Eos # (Auto) Baso # (Auto) Abs Immat Gran (auto) Absolute Neuts (auto) Absolute Nucleated RBC Nucleated RBC % (auto) Sodium Potassium Chloride Carbon Dioxide Anion Gap BUN Creatinine Estim Creat Clear Calc Estimated GFR POC Glucose Random Glucose Calcium Total Bilirubin AST ALT Alkaline Phosphatase Total Protein Albumin Beta HCG, Quant 2826 Urine Color Yellow Urine Appearance Clear Urine pH 7.0 Ur Specific [place] <= 1.005 Urine Protein Negative Urine Glucose (UA) Negative Urine Ketones Negative Urine Blood Small (1+) H Urine Nitrite Negative Ur Leukocyte Esterase Negative Urine RBC 0-2 Urine WBC 0-5 Ur Squamous Epith Cells 0-2 Urine Bacteria None Seen Hyaline Casts 0-2 Roz species DNA Chlam trachomat DNA PCR Cancelled [place] DNA Probe N.gonorrhoeae DNA (PCR) Cancelled Trichomonas DNA Probe 09/19/22 09/19/22 09/19/22 02:33 05:49 08:18 WBC RBC Hgb Hct MCV MCH MCHC RDW Plt Count MPV Immature Gran % (Auto) Neut % (Auto) Lymph % (Auto) [place] % (Auto) Eos % (Auto) Baso % (Auto) Lymph # (Auto) [place] # (Auto) Eos # (Auto) Baso # (Auto) Abs Immat Gran (auto) Absolute Neuts (auto) Absolute Nucleated RBC Nucleated RBC % (auto) Sodium Potassium Chloride Carbon Dioxide Anion Gap BUN Creatinine Estim Creat Clear Calc Estimated GFR POC Glucose 86 Random Glucose Calcium Total Bilirubin AST ALT Alkaline Phosphatase Total Protein Albumin Beta HCG, Quant Urine Color Urine Appearance Urine pH Ur Specific [place] Urine Protein Urine Glucose (UA) Urine Ketones Urine Blood Urine Nitrite Ur Leukocyte Esterase Urine RBC Urine WBC Ur Squamous Epith Cells Urine Bacteria Hyaline Casts Roz species DNA Cancelled Chlam trachomat DNA PCR NOT DETECTED [place] DNA Probe Cancelled N.gonorrhoeae DNA (PCR) NOT DETECTED Trichomonas DNA Probe Cancelled 09/19/22 11:17 WBC RBC Hgb Hct MCV MCH MCHC RDW Plt Count MPV Immature Gran % (Auto) Neut % (Auto) Lymph % (Auto) [place] % (Auto) Eos % (Auto) Baso % (Auto) Lymph # (Auto) [place] # (Auto) Eos # (Auto) Baso # (Auto) Abs Immat Gran (auto) Absolute Neuts (auto) Absolute Nucleated RBC Nucleated RBC % (auto) Sodium Potassium Chloride Carbon Dioxide Anion Gap BUN Creatinine Estim Creat Clear Calc Estimated GFR POC Glucose 91 Random Glucose Calcium Total Bilirubin AST ALT Alkaline Phosphatase Total Protein Albumin Beta HCG, Quant Urine Color Urine Appearance Urine pH Ur Specific [place] Urine Protein Urine Glucose (UA) Urine Ketones Urine Blood Urine Nitrite Ur Leukocyte Esterase Urine RBC Urine WBC Ur Squamous Epith Cells Urine Bacteria Hyaline Casts Roz species DNA Chlam trachomat DNA PCR [place] DNA Probe N.gonorrhoeae DNA (PCR) Trichomonas DNA Probe Airway Mallampati Class: II TM Dist: >3cm Neck ROM: Full Loose/Missing/Broken Teeth: No Heart: RRR Lungs: CTA Assessment and Plan Assessment Anesthesia Assessment: Anesthesia Plan Discussed and Chart Reviewed Final Anesthetic Review History of Problems with Anesthesia: No NPO: Yes ASA Class: II Final Preanesthetic Review: Meds/Allgs Chart Reviewed, Consent Obtained/Reviewed and Anes Risks/Benef Reviewed Patient Risk: Low Procedure Risk: Low Anesthetic Plan Anesthetic Plan: GA Disposition: Standard PACU
--- NOTE | 2022-09-19 12:48 | PM.OP ---
Brief Operative Note Date of Service: 09/19/22 Pre-op diagnosis: Incomplete Post-op diagnosis: same Procedure: Suction D&C Surgeon: Eder Patino MD Anesthesia: GLMA Was an Director Software Quality Assurance used for this Procedure?: No Estimated blood loss (mL): 100 Pathology: other (Products of conception) Condition: stable Disposition: PACU
--- NOTE | 2022-09-19 12:49 | W.PM.OPN ---
Operative Note Operative Note Date of Service: 09/19/22 Narrative: Preop diagnosis: Incomplete Operation: suction D and C Postop diagnosis: The same EBL: Minimal Anesthesia: LGMA Rn Case Manager Hospice: None Pathology: Products of conception Procedure: The patient was put in a dorsal distal mid position was scrubbed and draped in the usual sterile fashion. A sterile speculum was inserted inside the patient's vagina the anterior lip of the cervix was grasped with single-tooth tenaculum the cervix was dilated up to 7 mm. Under ultrasonographic guidance flexible 7. Suction tip was introduced inside the patient ran cavity till the fundus was hit then turning the suction 360 degrees around products of conception was sucked out toward the uterine cavity. The suction tip was taken out of the patient uterine cavity sharp curettings was followed in 4 quadrants of the uterus till a gritty feeling was felt. The suction tip was reintroduced under ultrasonographic guidance and intrauterine blood was sucked. The suction tip was taken out. Single-tooth tenaculum was removed hemostasis assured using pressure. The patient tolerated the procedure well and was transferred to the PACU in a stable condition.
[2022-09-19] MEDS: oxyCODONE HCl Immed Release 5 MG TABLET PO (14:03)
[2022-09-19] MEDS: Acetaminophen 325 MG TABLET 650 MG PO (14:04)
[2022-09-19] MEDS: fentaNYL citrate/PF 100 MCG/2 ML VIAL 25 MCG IVPUSH ×2 (14:23→14:28)
[2022-09-19 14:55] LABS: BV Int Neg Control Negative (Negative); BV Int Pos Control Positive (Positive)
== END 2022-09-19 15:45 | disposition home or self-care (01) ==
LOC: HO.ED 09-19 08:08 → HO.SSS 09-19 12:52
PROVIDERS: Emergency Provider Emergency Medicine; PCP Obstetrics & Gynecology; Visit Provider Obstetrics & Gynecology
PROC: (CPT 59812; principal; 2022-09-19 12:00)
DX: O03.4 Incomplete spontaneous abortion without complication (principal); O23.41 Unspecified infection of urinary tract in pregnancy, first trimester; N39.0 Urinary tract infection, site not specified; O99.331 Smoking (tobacco) complicating pregnancy, first trimester; F17.210 Nicotine dependence, cigarettes, uncomplicated; Z3A.01 Less than 8 weeks gestation of pregnancy; M79.10 Myalgia, unspecified site; Z88.1 Allergy status to other antibiotic agents; Z88.8 Allergy status to other drugs, medicaments and biological substances
CPT/HCPCS: 59812; 0353U; 36415; 74176; 76801; 76817; 76998; 80053; 81001; 82947; 84702; 85025; 86850; 86870; 86885; 86900; 86901; 86920; 86922; 87480; 87510; 87660; 88305; 96374; 96375; 99284; 99285; J1100; J1200; J1885; J2060; J2250; J2270; J2405; J2590; J3010

== ENCOUNTER → 2022-09-18 21:28 | Outpatient (BNV) | payer OTHER, SELFPAY | PROVIDERS: Emergency Provider Emergency Medicine; PCP Obstetrics & Gynecology; Visit Provider Obstetrics & Gynecology | DX: O03.4 Incomplete spontaneous abortion without complication (principal); N39.0 Urinary tract infection, site not specified | CPT/HCPCS: 59812; 99283 ==

== ENCOUNTER 2022-09-20 13:37 | Outpatient (REF) | payer OTHER, SELFPAY ==
[2022-09-20 15:20] LABS: Hematocrit 39.9 % (37.0-47.0); Hemoglobin 12.8 g/dl (12.0-16.0); Mean Corpuscular HGB Conc 32.1 g/dl (31.0-35.0); Mean Corpuscular Hemoglobin 28.3 pg (27.0-33.0); Mean Corpuscular Volume 88.1 fL (80.0-98.0); Mean Platelet Volume 11.7 fL (9.4-12.3); Platelet Count 229 X10*3/uL (160-400); Red Blood Count 4.53 X10*6/uL (4.20-5.50); Red Cell Distribution Width 13.8 % (11.0-16.0); White Blood Count 15.7 X10*3/uL (4.8-10.8)
[2022-09-20 16:10] LABS: HCG Quantitative 880 mIU/mL
== END 2022-09-20 13:38 | disposition home or self-care (01) ==
LOC: HO.LAB 13:37
PROVIDERS: PCP Internal Medicine; Visit Provider Obstetrics & Gynecology
DX: O03.4 Incomplete spontaneous abortion without complication (principal); N39.0 Urinary tract infection, site not specified
CPT/HCPCS: 36415; 84702; 85027; 86900; 87086

== ENCOUNTER 2022-09-21 15:15 | Emergency (ER) | payer OTHER, SELFPAY ==
[2022-09-21] VITALS (7 sets, daily range): BP systolic 101–114; BP diastolic 58–74; PULSE 51–76; RESP 16–18; TEMP 36.1–36.6; O2SAT 96–100; BMI 19.4
--- NOTE | 2022-09-21 | ECG_ITS ---
Test Reason : CHEST PAIN Blood Pressure : / mmHG Vent. Rate : 058 BPM Atrial Rate : 058 BPM P-R Int : 150 ms QRS Dur : 094 ms QT Int : 390 ms P-R-T Axes : 048 084 067 degrees QTc Int : 382 ms Sinus bradycardia Otherwise normal ECG When compared with ECG of 04-SEP-2020 18:03, No significant change was found Referred By: Generic ED Physician Electronically Signed By:Ke Enrique
--- NOTE | ~2022-09-21 | US_ITS ---
EXAMINATION: US RETROPERITONEAL LIMITED (RENAL ONLY) CLINICAL INFORMATION: Right flank pain. COMPARISON: CT abdomen/pelvis 09/19/2022. TECHNIQUE: Real-time imaging of the kidneys. FINDINGS: RIGHT KIDNEY: 10.4 x 3.8 x 5.8 cm (SAG x AP x TRV). The kidney is normal in size, contour, and echogenicity. Renal cortical thickness is normal. No renal calculi or focal parenchymal lesions. Mild hydronephrosis. LEFT KIDNEY: 11 x 5.4 x 4.6 cm (SAG x AP x TRV). The kidney is normal in size, contour, and echogenicity. Renal cortical thickness is normal. No calculi or focal parenchymal lesions. No hydronephrosis. US/US renal BI IMPRESSION: Mild right-sided hydronephrosis.
--- NOTE | 2022-09-21 15:33 | ED_ITS ---
HPI - Female Genitourinary General Chief complaint: Urogenital-Female Stated complaint: CP, SOB, recent ritu. urogenitle Time Seen by Provider: 09/21/22 16:42 Source: patient Mode of arrival: ambulatory Limitations: no limitations History of Present Illness HPI Narrative: 27-year-old female presents for multiple complaints. Patient underwent a D&C on September 19. She was having persistent bleeding and discomfort after a miscarriage. Procedure apparently went well. Since then, patient's consent you would have bleeding, pelvic discomfort and right flank pain. Patient had been diagnosed several days ago with a kidney infection. She was started on Macrobid. Her pig machine operator switched her to Bactrim. However, she continues to have right flank pain. The pain is moderate to severe. There is no clear relieving or exacerbating features. They can be associated with nausea but no vomiting. She denies any diarrhea constipation. She is having vaginal bleeding but she is postop. Patient describes lightheadedness, decreased oral intake since her procedure. Patient denies any palpitations or shortness of breath. Related Data Previous Rx's Medication Instructions Recorded sulfamethoxazole 800 1 tab PO BID 3 days #6 tabs 09/16/22 mg-trimethoprim 160 mg tablet (Bactrim DS) meloxicam 15 mg tablet 15 mg PO DAILY #10 tabs 09/21/22 meloxicam 15 mg tablet 15 mg PO DAILY #10 tabs 09/21/22 Allergies Allergy/AdvReac Type Severity Reaction Status Date / Time amoxicillin [AMOXICILLIN] Allergy Intermediate RASH Verified 09/21/22 15:34 ciprofloxacin [From CIPRO] Allergy Intermediate RASH/SWOLLEN,ITCHY Verified 09/21/22 15:34 THROAT codeine [CODEINE] Allergy Intermediate SKIN Verified 09/21/22 15:34 FLUSHES, GI UPSET NSAIDS (Non-Steroidal Allergy Intermediate BLOATINESS, Verified 09/21/22 15:34 Anti-Inflamma GERD [NSAIDS (NON-STEROIDAL ANTI-INFLAMMA] vancomycin [VANCOMYCIN] AdvReac Intermediate RED MAN Verified 09/21/22 15:34 SYNDROME Review of Systems Review of Systems: CONSTITUTIONAL: Denies weight loss, fever and chills. HEENT: Denies changes in vision and hearing. RESPIRATORY: Denies SOB and cough. CV: Denies palpitations no CP. GI: + abdominal pain, nausea, vomiting - diarrhea. : Denies dysuria and urinary frequency. Positive flank pain MSK: Denies myalgia and joint pain. SKIN: Denies rash and pruritus. NEUROLOGICAL: Denies headache and syncope. PSYCHIATRIC: Denies recent changes in mood. Denies anxiety and depression. All other ROS are negative unless in HPI [facility] Past Medical History Medical History Smoking Surgical History H/O hernia repair H/O: section Social History Social History Alcohol intake: never Patient Tobacco Use Status: Current everyday Tobacco user Tobacco use type: Cigarette Cigarette Packs Per Day: 0.5 Cigarettes Per Day: 10.0 Years Smoked: 14 Smoked in Last 30 Days: Yes Use of substances other than those prescribed or required for medical reasons: No Substance Use Type: Marijuana Substance Use Frequency: Daily Advance Directives: No Advance Directives Information Provided: Yes Gender identity: Female Physical Exam Vital Signs: Vital Signs: Last Vital Signs Temp 97.0 F 09/21/22 20:05 Pulse 51 09/21/22 20:05 Resp 18 09/21/22 20:05 BP 111/74 09/21/22 20:05 Pulse Ox 100 09/21/22 20:05 O2 Del Method Room Air 09/21/22 20:05 BMI result Body Mass Index 19.4 GEN: Well developed, no acute distress, alert, oriented HEENT: Normocephalic, atraumatic, normal external ears, nose appears normal, no oropharyngeal edema or exudates Eyes: Normal to appearance Neck: Supple, no lymphadenopathy Respiratory: Talks in complete sentences, no respiratory distress, clear to auscultation bilaterally Cardiovascular: Regular rate and rhythm, no murmurs rubs or gallops Abdomen: Soft, nontender, nondistended, no guarding, no rebound Back: Right CVA tenderness Extremities: No clubbing cyanosis or edema Neurologic: No focal neurologic deficits, cranial nerves 2-12 intact, strength is 5/5 bilaterally Skin: No rash Course Course Course Narrative: RME: 27 year old female patient with history of D&C with Zerbe on 09/19, presents today for chest pain, dyspnea, right sided abdominal pain and vaginal bleeding. Chest pain started last night described by patient as band like feeling in lower chest and chest tightness doesn't feel like she is taking full breath. Changing pad every time she uses that bathroom. Plan: basic labs. Doctor Sukumar was informed via tiger txt that patient is in ED Reevaluation(s) Reevaluation #1: Spoke with Dr. Patino, he examined the patient. There are no active acute post operative gynecologic issues. At this point, we will workup patient for additional complaints. Time: 17:03 Reevaluation #2: I discussed results with the patient and her mother. She does have mild right hydronephrosis on ultrasound. Etiology is unclear. Doubt acute kidney stone given recent imaging studies which included CT scan did not identify this. She has hematuria but there is no evidence of pyelonephritis. No indication for antibiotics. Patient will receive a total of 2 L of fluids, opioid analgesics. Patient will continue Tylenol and start meloxicam once daily. She will follow- up and return for any concerning symptoms. Time: 19:53 Medications Administered Generic Name Dose Route Start Last Admin Trade Name Freq PRN Reason Stop Dose Admin Sodium Chloride 1,000 mls @ 999 mls/hr 09/21/22 19:15 09/21/22 19:29 Ns IV 09/21/22 20:15 999 mls/hr .Q1H1M PEDRO Administration Discontinued Medications Generic Name Dose Route Start Last Admin Trade Name Freq PRN Reason Stop Dose Admin Sodium Chloride 1,000 mls @ 999 mls/hr 09/21/22 17:00 09/21/22 18:26 Ns IV 09/21/22 18:00 Infused .Q1H1M PEDRO Infusion Morphine Sulfate 2 mg 09/21/22 16:46 09/21/22 17:01 Morphine Sulfate 2 Mg/Ml Cartridge IVPUSH 09/21/22 16:47 2 mg ONCE ONE Administration Protocol Morphine Sulfate 2 mg 09/21/22 19:06 09/21/22 19:24 Morphine Sulfate 2 Mg/Ml Cartridge IVPUSH 09/21/22 19:07 2 mg ONCE ONE Administration Protocol Ondansetron HCl 4 mg 09/21/22 16:46 09/21/22 17:01 Ondansetron Hcl 4 Mg/2 Ml Vial IVPUSH 09/21/22 16:47 4 mg ONCE ONE Administration Medical Decision Making Medical Decision Making MDM Narrative: 27-year-old female presents for evaluation from postoperative D& C. She is having a constellation of complaints including right flank pain. She is having pelvic pain, nausea, decreased appetite. Her examination revealed right CVA tenderness. Patient was recently treated for pyelonephritis with Bactrim after failing Macrobid. Her abdomen is nonsurgical. Given her continued vaginal bleeding, would like to rule out anemia and obtain a CBC. Would like to make sure there is no evidence of infection with a wet WBC count. OBGYN has been contacted will evaluate the patient. I will treat the patient for pain, nausea and dehydration. Differential diagnosis for symptoms could include UTI, pyelonephritis, postoperative pain, postoperative complication. Differential Diagnosis Differential Diagnoses: The differential diagnosis associated with the presentation includes (See above) Admission/Observation Consideration of admission/observation: Escalation of care including admission/observation considered Consult Healthcare Provider Management of the patient was discussed with: Trucker ([place], Dr. Patino) Lab Data MDM Lab Attestation statement: I reviewed the patient's lab results. 09/21/22 15:52 09/21/22 15:52 Labs: Lab Results 09/21/22 09/21/22 09/21/22 Range/Units 15:52 15:52 15:52 WBC 8.1 (4.8-10.8) X10*3/uL RBC 4.23 (4.20-5.50) X10*6/uL Hgb 12.2 (12.0-16.0) g/dl Hct 36.8 L (37.0-47.0) % MCV 87.0 (80.0-98.0) fL MCH 28.8 (27.0-33.0) pg MCHC 33.2 (31.0-35.0) g/dl RDW 13.8 (11.0-16.0) % Plt Count 217 (160-400) X10*3/uL MPV 11.0 (9.4-12.3) fL Immature Gran % (Auto) 0.2 (0.0-0.4) % Neut % (Auto) 53.8 (45-73) % Lymph % (Auto) 35.9 (20-40) % [place] % (Auto) 6.2 (2-11) % Eos % (Auto) 2.7 (0-4) % Baso % (Auto) 1.2 (0-2) % Lymph # (Auto) 2.9 (1.2-4.9) X10*3/uL [place] # (Auto) 0.5 (0.1-1.2) X10*3/uL Eos # (Auto) 0.2 (0.0-0.4) X10*3/uL Baso # (Auto) 0.1 (0.0-0.2) X10*3/uL Abs Immat Gran (auto) 0.02 (0.00-0.03) X10*3/uL Absolute Neuts (auto) 4.3 (2.0-8.3) x10*3/uL Absolute Nucleated RBC 0.000 (0.0-0.012) X10*3/uL Nucleated RBC % (auto) 0.0 (0.0-0.2) /100WBC Sodium 140 (135-145) mmol/L Potassium 4.4 (3.3-5.1) mmol/L Chloride 106 (96-108) mmol/L BUN 8 L (9-16) mg/dL Creatinine 0.81 (0.5-1.4) mg/dL Estim Creat Clear Calc 81.1 Estimated GFR > 60 Random Glucose 91 (60-115) mg/dL Calcium 9.7 (8.4-10.2) mg/dL Magnesium 2.0 (1.6-2.6) mg/dL Total Bilirubin 0.2 (0.0-1.0) mg/dL Direct Bilirubin < 0.2 (0.0-0.5) mg/dL AST 17 (5-31) U/L ALT 12 (0-31) U/L Alkaline Phosphatase 78 (39-117) U/L Total Protein 7.3 (6.5-8.0) g/dL Albumin 4.6 (3.5-5.0) g/dL Urine Color Yellow Urine Appearance Clear Urine pH 7.0 (5.0-9.0) Ur Specific [place] 1.010 (1.005-1.025) Urine Protein Negative (Neg-Trace) mg/dL Urine Glucose (UA) Negative (Negative) mg/dL Urine Ketones Negative (Negative) mg/dL Urine Blood Small (1+) H (Negative) Urine Nitrite Negative (Negative) Ur Leukocyte Esterase Negative (Negative) Urine RBC 11-20 H (0-2) /HPF Urine WBC 0-5 (0-5) /HPF Ur Squamous Epith Cells 0-2 (0-2) /HPF Urine Bacteria None Seen (None Seen) Hyaline Casts 0-2 (0-2) /LPF Independent Interpretation I performed an independent interpretation of an: EKG (Sinus bradycardia heart rate 58, no acute ST elevations depressions, otherwise normal EKG) and Ultrasound Radiology Impression Discussion of test interpretation with radiology: I have reviewed the radiologist's reading. External Record Review External record reviewed: Inpatient record Prescription Management I considered prescription management with: Pain Medication and Antibiotic Discharge Plan Discharge Clinical Impression: Pelvic pain, Nausea, Acute right flank pain, Hydronephrosis, Vaginal bleeding problems Patient Disposition: Home, Self-Care Instructions: Acute Nausea and Vomiting (ED), Flank Pain (ED), Hydronephrosis (ED), Pelvic Pain (ED), Dilation and Curettage (DC) Prescriptions: New meloxicam 15 mg tablet 15 mg PO DAILY Qty: 10 0RF meloxicam 15 mg tablet 15 mg PO DAILY Qty: 10 0RF No Action sulfamethoxazole-trimethoprim [Bactrim DS] 800-160 mg tablet 1 tab PO BID 3 Days Qty: 6 0RF Referrals: Brenda Denson MD [Primary Care Provider] -
--- NOTE | 2022-09-21 15:54 | P.CONOB_ITS ---
GRADES 1 THROUGH 5 TEACHER - CN: HPI Data of Consult Consult date: 09/21/22 Primary Care Provider: Brenda Denson MD Consult Narrative Narrative: I was consulted on Abimbola Zabala who is a 27 year old female 2 days post suct ion D&C for incomplete presenting to the emergency room?with persistent bleeding, pelvic discomfort and right flank pain.? The patient had a positive urine culture sensitive Bactrim and intermediate to nitrofurantoin, was given Macrobid then was switched few days ago to Bactrim, urine culture repeated yesterday is still pending with no growth so far.? No other associated symptoms cc:: CC: OB PMF Past Medical History Medical History Smoking Surgical History Surgical History H/O hernia repair H/O: section Social History Social History Alcohol intake: never Patient Tobacco Use Status: Current everyday Tobacco user Tobacco use type: Cigarette Cigarette Packs Per Day: 0.5 Cigarettes Per Day: 10.0 Years Smoked: 14 Substance Use Type: Marijuana Gender identity: Female Meds Allergies Allergy/AdvReac Type Severity Reaction Status Date / Time amoxicillin [AMOXICILLIN] Allergy Intermediate RASH Verified 09/21/22 15:34 ciprofloxacin [From CIPRO] Allergy Intermediate RASH/SWOLLEN,ITCHY Verified 09/21/22 15:34 THROAT codeine [CODEINE] Allergy Intermediate SKIN Verified 09/21/22 15:34 FLUSHES, GI UPSET NSAIDS (Non-Steroidal Allergy Intermediate BLOATINESS, Verified 09/21/22 15:34 Anti-Inflamma GERD [NSAIDS (NON-STEROIDAL ANTI-INFLAMMA] vancomycin [VANCOMYCIN] AdvReac Intermediate RED MAN Verified 09/21/22 15:34 SYNDROME GRADES 1 THROUGH 5 TEACHER Physical Exam Vitals Vital signs: Temp Pulse Resp BP Pulse Ox O2 Del Method 97.7 F 76 18 114/71 96 Room Air 09/21/22 15:34 09/21/22 15:34 09/21/22 15:34 09/21/22 15:34 09/21/22 15:34 09/21/22 15:34 BMI result Body Mass Index 19.4 Abdomen Auscultation/Inspection/Palpation: Normal bowel sounds, Soft, Non-distended and No tenderness Female Genitalia (Pelvic) Bladder/Urethra: Normal meatus Vulva: No lesions Vagina: Nontender Cervix: Grossly normal Uterus: Normal size and Nontender Adnexa/Parametria: Adnexal Tenderness: None and Adnexal Mass: None Assessment and Plan (1) Incomplete : Status: Acute Discussed with the patient that her clinical history and physical exam are consistent with a normal postop course. Instructions given the patient to come back to the emergency room in case of fever above 100.4, insert or worsening pelvic pain or heavy vaginal bleeding. All questions answered, the patient verbalized understanding (2) Acute right flank pain: Status: Acute Will defer the management of the right flank plain to the emergency room team Time Spent With Patient Time: Total time managing care of this patient today ____ minutes.
[2022-09-21 16:03] LABS: MANUAL DIFF FLAG NO
[2022-09-21 16:06] LABS: Basophils Absolute Auto 0.1 X10*3/uL (0.0-0.2); Basophils Percent Auto 1.2 % (0-2); Eosinophils Absolute Auto 0.2 X10*3/uL (0.0-0.4); Eosinophils Percent Auto 2.7 % (0-4); Hematocrit 36.8 % (37.0-47.0); Hemoglobin 12.2 g/dl (12.0-16.0); Imm Gran Abs Auto 0.02 X10*3/uL (0.00-0.03); Imm Gran Pct Auto 0.2 % (0.0-0.4); Lymphocytes Absolute Auto 2.9 X10*3/uL (1.2-4.9); Lymphocytes Percent Auto 35.9 % (20-40); Mean Corpuscular HGB Conc 33.2 g/dl (31.0-35.0); Mean Corpuscular Hemoglobin 28.8 pg (27.0-33.0); Monocytes Absolute Auto 0.5 X10*3/uL (0.1-1.2); Monocytes Percent Auto 6.2 % (2-11); Neutrophils Absolute Auto 4.3 x10*3/uL (2.0-8.3); Neutrophils Percent Auto 53.8 % (45-73); Platelet Count 217 X10*3/uL (160-400); Red Blood Count 4.23 X10*6/uL (4.20-5.50); Red Cell Distribution Width 13.8 % (11.0-16.0); White Blood Count 8.1 X10*3/uL (4.8-10.8)
[2022-09-21 16:08] LABS: Appearance Urine Clear; Color Urine Yellow; Glucose Urine UA Negative (Negative); Leukocyte Esterase Urine Negative (Negative); Nitrite Urine Negative (Negative); UMIC TRIGGER UACC YES; Urine Blood Small (1+) (Negative); Urine Ketones Negative (Negative); Urine Protein Negative (Neg-Trace)
[2022-09-21 16:34] LABS: Alanine Aminotransferase 12 U/L (0-31); Albumin Level 4.6 g/dL (3.5-5.0); Alkaline Phosphatase 78 U/L (39-117); Aspartate Amino Transferase 17 U/L (5-31); Bilirubin Direct < 0.2 mg/dL (0.0-0.5); Bilirubin Total 0.2 mg/dL (0.0-1.0); Blood Urea Nitrogen 8 mg/dL (9-16); Calcium 9.7 mg/dL (8.4-10.2); Chloride 106 mmol/L (96-108); Creatinine Clr Calc Pharmacy 81.1; Estimated Glomerular Filt Rate > 60; Glucose Random 91 mg/dL (60-115); Potassium 4.4 mmol/L (3.3-5.1); Sodium 140 mmol/L (135-145); Total Protein 7.3 g/dL (6.5-8.0)
[2022-09-21 16:52] LABS: Bacteria Urine None Seen (None Seen); Hyaline Casts Urine 0-2 /LPF (0-2); Squamous Epithelial Cell Urine 0-2 /HPF (0-2); WBC Urine 0-5 /HPF (0-5)
[2022-09-21] MEDS: Morphine Sulfate 2 MG/ML CARTRIDGE IVPUSH ×2 (17:01→19:24)
[2022-09-21] MEDS: ondansetron HCL 4 MG/2 ML VIAL IVPUSH (17:01)
[2022-09-21] MEDS: 0.9 % Sodium Chloride 1,000 ML 999 ML IV ×2 (17:11→19:29)
--- NOTE | 2022-09-21 17:27 | PC.NURSE ---
meds given per MAY. aox4. calm, cooperative. piv in place- c/d/i.
--- NOTE | 2022-09-21 19:32 | PC.NURSE ---
given moprhine/iv fluids per pt request and order by . piv c/d/i. no distress noted
[2022-09-21 21:29] LABS: Carbon Dioxide 21 mmol/L (22-29)
== END 2022-09-21 20:38 | disposition home or self-care (01) ==
PROVIDERS: Physician Assistant; Emergency Provider Emergency Medicine; PCP Internal Medicine
DX: R10.2 Pelvic and perineal pain (principal); N13.30 Unspecified hydronephrosis; R11.0 Nausea; N99.821 Postprocedural hemorrhage of a genitourinary system organ or structure following other procedure; F17.210 Nicotine dependence, cigarettes, uncomplicated; F12.90 Cannabis use, unspecified, uncomplicated
CPT/HCPCS: 36415; 76775; 80048; 80076; 81001; 83735; 85025; 93005; 96361; 96374; 96375; 96376; 99284; 99285; J2270; J2405

== ENCOUNTER → 2022-09-21 15:16 | Outpatient (BNV) | payer OTHER, SELFPAY | PROVIDERS: Emergency Provider Emergency Medicine; PCP Internal Medicine; Visit Provider Internal Medicine Cardiovascular Disease | DX: R07.9 Chest pain, unspecified (principal) | CPT/HCPCS: 93010 ==

== ENCOUNTER → 2022-09-21 15:28 | Outpatient (BNV) | payer OTHER, SELFPAY | PROVIDERS: Emergency Provider Emergency Medicine; PCP Internal Medicine; Visit Provider Obstetrics & Gynecology | DX: O03.4 Incomplete spontaneous abortion without complication (principal); R10.9 Unspecified abdominal pain | CPT/HCPCS: 99283 ==

== ENCOUNTER → 2022-09-23 11:08 | Outpatient (BNVA) | payer OTHER, SELFPAY | PROVIDERS: PCP Internal Medicine; Visit Provider Obstetrics & Gynecology ==

== ENCOUNTER 2022-10-11 10:07 | Outpatient (AMB) | payer OTHER, SELFPAY ==
--- NOTE | 2022-10-11 10:29 | MHC.OFFVIS ---
Intake Vital Signs 10/11/22 10:33 Height 5 ft 3 in Weight 114 lb BMI 20.2 BP 100/62 Intake Visit Reasons: post op Allergies amoxicillin [AMOXICILLIN] Allergy (Intermediate, Verified 09/21/22 15:34) RASH ciprofloxacin [From CIPRO] Allergy (Intermediate, Verified 09/21/22 15:34) RASH/SWOLLEN,ITCHY THROAT codeine [CODEINE] Allergy (Intermediate, Verified 09/21/22 15:34) SKIN FLUSHES, GI UPSET NSAIDS (Non-Steroidal Anti-Inflamma [NSAIDS (NON-STEROIDAL ANTI-INFLAMMA] Allergy (Intermediate, Verified 09/21/22 15:34) BLOATINESS,GERD vancomycin [VANCOMYCIN] Adverse Reaction (Intermediate, Verified 09/21/22 15:34) RED MAN SYNDROME HPI HPI Comments History of Present Illness Details Presenting 2 weeks postop status post suction D&C for retained products of conception, doing well with no complaints, minimal vaginal bleeding, no pelvic cramping or any other concerns. The pathology showed the following: Retained products of conception: - Immature chorionic villi with degenerative changes and decidua. - Organizing blood clot. [facility] Medical History Smoking Surgical History H/O hernia repair H/O: section Social History Alcohol intake: never Patient Tobacco Use Status: Current everyday Tobacco user Tobacco use type: Cigarette Cigarette Packs Per Day: 0.5 Cigarettes Per Day: 10.0 Years Smoked: 14 Substance Use Type: Marijuana Gender identity: Female Female Reproductive History Menstrual Age of Menarche: 9 Review of Systems Const All systems reviewed & are unremarkable except as noted in HPI and below Reports as per HPI and Reports no additional complaints GI Reports no additional complaints Reports no additional complaints Physical Exam Vital Signs: Last Vital Signs BP 100/62 10/11/22 10:33 BMI result Body Mass Index 20.2 Assessment & Plan Assessment & Plan (1) Incomplete : Comment: Status post suction D&C Code(s): O03.4 - Incomplete spontaneous without complication Plan: Discussed the patient is of the pathology, instructions given the patient to call in case of recurrence of pelvic pain, fever above 0.4 or vaginal bleeding. Offered patient different options of control, the patient would like to hold off at this point and will call back whenever she is ready. All questions answered, the patient verbalized understanding. Coding Level of Care Code Est Pt Level 3 (87147) Diagnoses Incomplete O03.4
[2022-10-11 10:33] VITALS: BP 100/62; BMI 20.2
== END 2022-10-11 10:46 | disposition home or self-care (01) ==
LOC: HO.HWS 10:07
PROVIDERS: PCP Internal Medicine; Visit Provider Obstetrics & Gynecology
DX: O03.4 Incomplete spontaneous abortion without complication (principal)
CPT/HCPCS: 99213

== ENCOUNTER → 2022-10-11 10:07 | Outpatient (BNVA) | payer OTHER, SELFPAY | PROVIDERS: PCP Internal Medicine; Visit Provider Obstetrics & Gynecology | DX: Z09 Encounter for follow-up examination after completed treatment for conditions other than malignant neoplasm (principal); O03.4 Incomplete spontaneous abortion without complication | CPT/HCPCS: 99212 ==

== ENCOUNTER 2023-04-05 09:36 | Outpatient (REF) | payer OTHER, SELFPAY ==
[2023-04-05 14:32] LABS: CT PCR NOT DETECTED (Not Detect.); NG PCR NOT DETECTED (Not Detect.)
== END 2023-04-05 09:37 | disposition home or self-care (01) ==
LOC: HO.LNP 09:36
PROVIDERS: PCP Internal Medicine; Visit Provider Obstetrics & Gynecology
DX: Z01.419 Encounter for gynecological examination (general) (routine) without abnormal findings (principal); N93.9 Abnormal uterine and vaginal bleeding, unspecified
CPT/HCPCS: 0353U; 99395

== ENCOUNTER 2023-04-05 09:36 | Outpatient (AMB) | payer OTHER, SELFPAY ==
--- NOTE | 2023-04-05 09:44 | MHC.OFFVIS ---
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 Intake Note: c/o of heavy menses [employer] Required: No Information Interpreted: non-clinical & clinical Pc Support Specialist: Pc Support Specialist Present (Myriam Diaz DAVID) Accompanied by: Self / Same As Patient Allergies amoxicillin [AMOXICILLIN] Allergy (Intermediate, Verified 04/05/23 09:50) RASH ciprofloxacin [From CIPRO] Allergy (Intermediate, Verified 04/05/23 09:50) RASH/SWOLLEN,ITCHY THROAT codeine [CODEINE] Allergy (Intermediate, Verified 04/05/23 09:50) SKIN FLUSHES, GI UPSET NSAIDS (Non-Steroidal Anti-Inflamma [NSAIDS (NON-STEROIDAL ANTI-INFLAMMA] Allergy (Intermediate, Verified 04/05/23 09:50) BLOATINESS,GERD vancomycin [VANCOMYCIN] Adverse Reaction (Intermediate, Verified 04/05/23 09:50) RED MAN SYNDROME Is last menstrual period known: Yes Last menstrual period: 02/20/23 HPI HPI Comments History of Present Illness Details Presenting for annual exam. Complaining of heavy prolonged menstrual cycles associated with pelvic cramping and passage of blood clots. Last Pap smear was in 02/23 was negative [facility] Medical History Smoking Surgical History H/O hernia repair H/O: section Social History Household Members: Children Housing: House Alcohol intake: never Patient Tobacco Use Status: Current everyday Tobacco user Tobacco use type: Cigarette Cigarette Packs Per Day: 0.5 Cigarettes Per Day: 10.0 Years Smoked: 14 Substance Use Type: Marijuana Current occupational status: unemployed Sexually active: No Sexual orientation: Straight/Heterosexual Gender identity: Female Female Reproductive History Menstrual Age of Menarche: 9 Date of last menstrual period: 02/20/23 control method: none Total pregnancies: 4 Full term: 2 Number of Living Children: 2 Ab spontaneous: 2 Date of last pap smear: 02/11/21 Review of Systems Const All systems reviewed & are unremarkable except as noted in HPI and below Card Reports as per HPI Resp Reports as per HPI GI Reports as per HPI and Reports no additional complaints Reports as per HPI Physical Exam Vital Signs: Last Vital Signs BP 120/68 04/05/23 09:45 BMI result Body Mass Index 19.5 Const General: cooperative, healthy appearing and comfortable Chest Chest palpation & inspection: normal inspection of the chest and normal palpation of entire chest wall Breast/axilla inspection: normal inspection of the breasts and normal inspection of the axillae Breast/axilla palpation: normal palpation of the breasts, normal palpation of the axillae and no axillary lymphadenopathy Resp Effort & Inspection: normal respiratory effort Auscultation: clear to auscultation bilaterally Percussion: percussion normal Cardio Palpation: normal PMI Rate: regular rate Rhythm: regular rhythm Heart sounds: no murmurs and no rubs Peripheral pulses: Peripheral pulses 2+ throughout GI Inspection: Yes normal to inspection Palpation (GI): Soft to palpation, nontender, no guarding, not rigid and No hepatosplenomegaly present Percussion: Yes normal to percussion Auscultation: normal bowel sounds Rectal Exam - Female: deferred General: Yes bladder normal to palpation External Female Exam: No lesion Speculum Exam - Vagina: normal appearance of the vagina, normal palpation, normal vaginal discharge and not erythematous Speculum Exam - Cervix: normal appearance of the cervix and normal palpation Bimanual exam- vagina & uterus: normal bimanual exam, normal palpation, uterine size normal, bladder normal to palpation, consistency normal and normal palpation Bimanual Exam- Adnexa, other: normal adnexae, no masses and no tenderness Assessment & Plan Assessment & Plan (1) Well woman exam: Code(s): Z01.419 - Encounter for gynecological examination (general) (routine) without abnormal findings Plan: Pap smear not indicated this year. Counseled the patient about the recommended dietary allowance of 1000 mg of Calcium & 600 IU of vitamin D. The patient was instructed to perform monthly self-breast exams , to call for any changes in menstrual patterns and to schedule an annual exam in a year; all questions answered and the patient verbalized understanding. (2) Abnormal uterine bleeding (AUB): Code(s): N93.9 - Abnormal uterine and vaginal bleeding, unspecified Plan: Pap smear not indicated this year, GC and chlamydia taken CBC, prolactin, TSH, HCG, and pelvic ultrasound ordered. Discussed with the patient the different causes of abnormal bleeding including thyroid disorders and other potential causes. Discussed with the patient the work up including CBC (to r/o anemia), TSH, pelvic Ultrasound. All questions answered and the patient verbalized understanding. Instructed the patient to schedule an follow-up appointment in 2 weeks. Orders: Orders CT NG by PCR Today N93.9 - Abnormal uterine and vaginal bleeding, unspecified Prolactin Today N93.9 - Abnormal uterine and vaginal bleeding, unspecified HCG Quantitative Today N93.9 - Abnormal uterine and vaginal bleeding, unspecified Complete Blood Count no Diff Today N93.9 - Abnormal uterine and vaginal bleeding, unspecified TSH reflex Free T4 Today N93.9 - Abnormal uterine and vaginal bleeding, unspecified Coding Level of Care Code Est Pt Level 3 (17220) Diagnoses Well woman exam Z01.419 Abnormal uterine bleeding (AUB) N93.9
[2023-04-05 09:45] VITALS: BP 120/68; BMI 19.5
== END 2023-04-05 10:25 | disposition home or self-care (01) ==
LOC: HO.HWS 09:36
PROVIDERS: PCP Internal Medicine; Visit Provider Obstetrics & Gynecology
DX: Z01.419 Encounter for gynecological examination (general) (routine) without abnormal findings (principal); N93.9 Abnormal uterine and vaginal bleeding, unspecified
CPT/HCPCS: 99395

== ENCOUNTER 2023-04-12 12:35 | Emergency (ER) | payer OTHER, SELFPAY ==
--- NOTE | ~2023-04-12 | US_ITS ---
EXAMINATION: US PELVIS CLINICAL INFORMATION: Right lower quadrant cramping COMPARISON: None available. TECHNIQUE: Ultrasound of the pelvis is performed using both transabdominal and transvaginal transducers along with Doppler. Transvaginal imaging is performed due to inadequate visualization transabdominally. FINDINGS: The uterus is anteverted and measures 7.3 x 3.5 x 5.4 cm in dimension. Endometrial thickness is normal measuring 0.5 cm. The ovaries are normal. The right ovary measures 3.2 x 1.7 x 2.6 cm. The left ovary measures 1.8 x 2.1 x 2.2 cm. There is a small amount of fluid in the pelvis. There are prominent left pelvic vessels questionable for pelvic congestion. US/US pelvic and transvaginal IMPRESSION: Prominent left adnexal vessels questionable for pelvic congestion otherwise unremarkable exam
[2023-04-12 13:07] VITALS: BP 104/66; PULSE 59; RESP 18; TEMP 36.6; O2SAT 97; BMI 19.5
--- NOTE | 2023-04-12 13:09 | ED_ITS ---
HPI - Female Genitourinary General Chief complaint: Vaginal Bleeding Stated complaint: Ruptured cyst? Fever Time Seen by Provider: 04/12/23 21:22 Source: patient Mode of arrival: ambulatory History of Present Illness HPI Narrative: 7-year-old female presents with reports of heavy bleeding that started last night and reports that her pain is radiating into her back in his located primarily on the right side and reports a history of ovarian cysts, also endorses that she has a history of PCOS and reports constipation for 4-5 days. Patient also reports that she was diagnosed with interstitial cystitis by urgent care yesterday. Related Data Previous Rx's Medication Instructions Recorded L norgest/E estradiol-E estrad 1 tab PO DAILY 84 days #84 ea 04/13/23 0.15 mg-30 mcg (84)/10 mcg(7) tabs,3mos Allergies Allergy/AdvReac Type Severity Reaction Status Date / Time amoxicillin [AMOXICILLIN] Allergy Intermediate RASH Verified 04/13/23 08:46 ciprofloxacin [From CIPRO] Allergy Intermediate RASH/SWOLLEN,ITCHY Verified 04/13/23 08:46 THROAT codeine [CODEINE] Allergy Intermediate SKIN Verified 04/13/23 08:46 FLUSHES, GI UPSET NSAIDS (Non-Steroidal Allergy Intermediate BLOATINESS, Verified 04/13/23 08:46 Anti-Inflamma GERD [NSAIDS (NON-STEROIDAL ANTI-INFLAMMA] vancomycin [VANCOMYCIN] AdvReac Intermediate RED MAN Verified 04/13/23 08:46 SYNDROME Review of Systems 2 Review of Systems: Pertinent positives and negatives as stated in HPI PMFSH Past Medical History Source: nursing notes reviewed Medical History Smoking Surgical History H/O hernia repair H/O: section Social History Social History Household Members: Children Housing: House Alcohol intake: never Patient Tobacco Use Status: Current everyday Tobacco user Tobacco use type: Cigarette Cigarette Packs Per Day: 0.5 Cigarettes Per Day: 10.0 Years Smoked: 14 Substance Use Type: Marijuana Current occupational status: unemployed Sexual orientation: Straight/Heterosexual Gender identity: Female Physical Exam 2 Vital Signs: Vital Signs: Last Vital Signs Temp 97.9 F 04/12/23 13:07 Pulse 78 04/12/23 21:54 Resp 16 04/12/23 21:54 BP 122/71 04/12/23 21:54 Pulse Ox 99 04/12/23 21:54 O2 Del Method Room Air 04/12/23 21:54 BMI result Body Mass Index 19.5 VITAL SIGNS: Reviewed. GENERAL: Well developed, well nourished, in no acute distress. HEAD: Normocephalic/atraumatic EYES: PERRLA, EOMI LUNGS: Normal breath sounds. No adventitious sounds or accessory muscle use. SpO2<99> CARDIOVASCULAR: Regular rate and rhythm without noted murmurs ABDOMEN: Soft, non-tender, non-distended with bowel sounds. MUSCULOSKELETAL: No tenderness, deformities, or effusions noted on gross inspection. NEUROLOGIC: Alert and oriented x 4. Strength and sensation to light touch were grossly intact x 4. Course Course Course Narrative: RME:?27 year old female hx of ovarian cysts and interstitial cystitis here w/ vaginal bleeding since last night with rlq cramping. layering pads, changing pads 2x/ hour. LMP 03/19/23. seen at for fever, nausea, right flank pain. negative work up. labs, ua, urine preg, pelvic US ordered Full HPI, ROS and PE to be performed by the primary ED provider. Medical Decision Making Medical Decision Making [facility] Narrative: 27-year-old female with history and clinical presentation, DDX: AUB, endometriosis, ectopic, UTI, ovarian cyst/hemorrhagic cyst I reviewed all investigations and hematologic indices are negative for leukocytosis/left shift/anemia/thrombocytopenia. Coagulation studies are within normal limits. Chemistry indices do not demonstrate an LEESA or electrolyte/liver enzyme derangements. Urinalysis negative for UTI and the hematuria is likely secondary to current menstrual bleeding. Pelvic ultrasound demonstrates prominent left adnexal vessels, questionable for pelvic congestion. I discussed the case with Dr. Patino, discussed all the findings and he agrees with discharge and will follow-up with the patient. I discussed the possibilities the pelvic congestion as well as possible endometriosis with the patient and she was otherwise discharged home in stable condition. Differential Diagnosis Differential Diagnoses: The differential diagnosis associated with the presentation includes Please see the discussion above Admission/Observation Consideration of admission/observation: Escalation of care including admission/observation considered Please see the discussion above Consult Healthcare Provider Management of the patient was discussed with: Beamer Operator Please see the discussion above Lab Data [facility] Lab Attestation statement: I reviewed the patient's lab results. Please see the discussion above 04/12/23 15:49 04/12/23 15:49 Labs: Lab Results 04/12/23 Range/Units 15:49 WBC 9.4 (4.8-10.8) X10*3/uL RBC 4.39 (4.20-5.50) X10*6/uL Hgb 12.2 (12.0-16.0) g/dl Hct 36.7 L (37.0-47.0) % MCV 83.6 (80.0-98.0) fL MCH 27.8 (27.0-33.0) pg MCHC 33.2 (31.0-35.0) g/dl RDW 15.3 (11.0-16.0) % Plt Count 219 (160-400) X10*3/uL MPV 11.0 (9.4-12.3) fL Immature Gran % (Auto) 0.2 (0.0-0.4) % Neut % (Auto) 67.1 (45-73) % Lymph % (Auto) 25.5 (20-40) % [place] % (Auto) 5.0 (2-11) % Eos % (Auto) 1.5 (0-4) % Baso % (Auto) 0.7 (0-2) % Lymph # (Auto) 2.4 (1.2-4.9) X10*3/uL [place] # (Auto) 0.5 (0.1-1.2) X10*3/uL Eos # (Auto) 0.1 (0.0-0.4) X10*3/uL Baso # (Auto) 0.1 (0.0-0.2) X10*3/uL Abs Immat Gran (auto) 0.02 (0.00-0.03) X10*3/uL Absolute Neuts (auto) 6.3 (2.0-8.3) x10*3/uL Absolute Nucleated RBC 0.000 (0.0-0.012) X10*3/uL Nucleated RBC % (auto) 0.0 (0.0-0.2) /100WBC PT 13.4 H (11.1-13.3) SEC INR 1.1 (0.9-1.1) Sodium 139 (135-145) mmol/L Potassium 3.5 (3.3-5.1) mmol/L Chloride 108 (96-108) mmol/L Carbon Dioxide 25 (22-29) mmol/L Anion Gap 10 L (12-20) BUN 4 L (9-16) mg/dL Creatinine 0.78 (0.5-1.4) mg/dL Estim Creat Clear Calc 84.6 Estimated GFR > 60 Random Glucose 121 H (60-115) mg/dL Calcium 9.1 D (8.4-10.2) mg/dL Magnesium 1.8 (1.6-2.6) mg/dL Total Bilirubin 0.3 (0.0-1.0) mg/dL AST 16 (5-31) U/L ALT 8 (0-31) U/L Alkaline Phosphatase 74 (39-117) U/L Total Protein 7.5 (6.5-8.0) g/dL Albumin 4.6 (3.5-5.0) g/dL Lipase 22 (8-78) U/L Urine Color Yellow Urine Appearance Clear Urine pH 6.0 (5.0-9.0) Ur Specific [place] 1.010 (1.005-1.025) Urine Protein Negative (Neg-Trace) mg/dL Urine Glucose (UA) Negative (Negative) mg/dL Urine Ketones Negative (Negative) mg/dL Urine Blood Large (3+) H (Negative) Urine Nitrite Negative (Negative) Ur Leukocyte Esterase Negative (Negative) Urine RBC >20 H (0-2) /HPF Urine WBC 0-5 (0-5) /HPF Ur Squamous Epith Cells 0-2 (0-2) /HPF Urine Bacteria None Seen (None Seen) Hyaline Casts 0-2 (0-2) /LPF Urine Test NEGATIVE (NEGATIVE) Radiology Impression Discussion of test interpretation with radiology: I have reviewed the radiologist's reading. Radiologist Impression: Please see the discussion above External Record Review External record reviewed: Outpatient record, Prior outpatient labs and Prior outpatient radiology Critical Care Time Critical Care Time Critical Care Time: Yes Total Critical Care Time: 30 Attestation: I personally attest to this time spent taking care of the patient. Discharge Plan Discharge Clinical Impression: Pelvic pain, Pelvic congestion Patient Disposition: Home, Self-Care Instructions: Pelvic Pain (ED) Additional Instructions: 1. Follow up with Dr Patino. Prescriptions: No Action L norgest/e.estradiol-e.estrad 0.15 mg-30 mcg (84)/10 mcg (7) tablets,dose pack,3 month 1 tab PO DAILY 84 Days Qty: 84 0RF Referrals: Brenda Denson MD [Primary Care Provider] - Eder Patino MD [Physician] - Interventions: ED Discharge Assessment Last Done: 04/12/23 22:41 Discharge Date/Time: 04/12/23 22:42
[2023-04-12 15:54] LABS: MANUAL DIFF FLAG NO
[2023-04-12 15:57] LABS: Appearance Urine Clear; Basophils Absolute Auto 0.1 X10*3/uL (0.0-0.2); Basophils Percent Auto 0.7 % (0-2); Color Urine Yellow; Eosinophils Absolute Auto 0.1 X10*3/uL (0.0-0.4); Eosinophils Percent Auto 1.5 % (0-4); Glucose Urine UA Negative (Negative); Hematocrit 36.7 % (37.0-47.0); Hemoglobin 12.2 g/dl (12.0-16.0); Imm Gran Abs Auto 0.02 X10*3/uL (0.00-0.03); Imm Gran Pct Auto 0.2 % (0.0-0.4); Leukocyte Esterase Urine Negative (Negative); Lymphocytes Absolute Auto 2.4 X10*3/uL (1.2-4.9); Lymphocytes Percent Auto 25.5 % (20-40); Mean Corpuscular HGB Conc 33.2 g/dl (31.0-35.0); Mean Corpuscular Hemoglobin 27.8 pg (27.0-33.0); Mean Corpuscular Volume 83.6 fL (80.0-98.0); Monocytes Absolute Auto 0.5 X10*3/uL (0.1-1.2); Neutrophils Absolute Auto 6.3 x10*3/uL (2.0-8.3); Neutrophils Percent Auto 67.1 % (45-73); Nitrite Urine Negative (Negative); Platelet Count 219 X10*3/uL (160-400); Red Blood Count 4.39 X10*6/uL (4.20-5.50); Red Cell Distribution Width 15.3 % (11.0-16.0); UMIC TRIGGER UACC YES; Urine Blood Large (3+) (Negative); Urine Ketones Negative (Negative); Urine Protein Negative (Neg-Trace); White Blood Count 9.4 X10*3/uL (4.8-10.8)
[2023-04-12 15:59] LABS: Bacteria Urine None Seen (None Seen); Hyaline Casts Urine 0-2 /LPF (0-2); RBC Urine >20 /HPF (0-2); Squamous Epithelial Cell Urine 0-2 /HPF (0-2); UPreg QC Valid YES; Urine Pregnancy NEGATIVE (NEGATIVE); WBC Urine 0-5 /HPF (0-5)
[2023-04-12 16:07] LABS: INTERNATIONAL NORM RATIO 1.1 (0.9-1.1); Prothrombin Time 13.4 SEC (11.1-13.3)
[2023-04-12 16:14] LABS: Alanine Aminotransferase 8 U/L (0-31); Albumin Level 4.6 g/dL (3.5-5.0); Alkaline Phosphatase 74 U/L (39-117); Anion Gap 10 (12-20); Aspartate Amino Transferase 16 U/L (5-31); Bilirubin Total 0.3 mg/dL (0.0-1.0); Blood Urea Nitrogen 4 mg/dL (9-16); Calcium 9.1 mg/dL (8.4-10.2); Carbon Dioxide 25 mmol/L (22-29); Chloride 108 mmol/L (96-108); Creatinine Clr Calc Pharmacy 84.6; Estimated Glomerular Filt Rate > 60; Glucose Random 121 mg/dL (60-115); Lipase 22 U/L (8-78); Magnesium 1.8 mg/dL (1.6-2.6); Potassium 3.5 mmol/L (3.3-5.1); Sodium 139 mmol/L (135-145); Total Protein 7.5 g/dL (6.5-8.0)
[2023-04-12 21:54] VITALS: BP 122/71; PULSE 78; RESP 16; O2SAT 99
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
--- NOTE | 2023-04-12 22:06 | P.CONOB_ITS ---
LABORATORY MECHANICAL TECHNICIAN - CN: HPI Data of Consult Consult date: 04/12/23 Primary Care Provider: Brenda Denson MD Consult Narrative Narrative: Late entry note Abimbola Zabala is a 27 year old female presenting to the emergency room with vaginal bleeding and right lower quadrant pain no nausea or vomiting passage of blood clots or any other concerns. cc:: CC: OB PMF Past Medical History Medical History Smoking Surgical History Surgical History H/O hernia repair H/O: section Social History Social History Household Members: Children Housing: House Alcohol intake: never Patient Tobacco Use Status: Current everyday Tobacco user Tobacco use type: Cigarette Cigarette Packs Per Day: 0.5 Cigarettes Per Day: 10.0 Years Smoked: 14 Substance Use Type: Marijuana Current occupational status: unemployed Sexual orientation: Straight/Heterosexual Gender identity: Female Meds Allergies Allergy/AdvReac Type Severity Reaction Status Date / Time amoxicillin [AMOXICILLIN] Allergy Intermediate RASH Verified 04/12/23 13:07 ciprofloxacin [From CIPRO] Allergy Intermediate RASH/SWOLLEN,ITCHY Verified 04/12/23 13:07 THROAT codeine [CODEINE] Allergy Intermediate SKIN Verified 04/12/23 13:07 FLUSHES, GI UPSET NSAIDS (Non-Steroidal Allergy Intermediate BLOATINESS, Verified 04/12/23 13:07 Anti-Inflamma GERD [NSAIDS (NON-STEROIDAL ANTI-INFLAMMA] vancomycin [VANCOMYCIN] AdvReac Intermediate RED MAN Verified 04/12/23 13:07 SYNDROME Home Medications Medication Instructions Recorded Confirmed Last Taken Type No Known Home Meds 04/05/23 04/05/23 Unknown History LABORATORY MECHANICAL TECHNICIAN Physical Exam Vitals Vital signs: Temp Pulse Resp BP Pulse Ox O2 Del Method 97.9 F 78 16 122/71 99 Room Air 04/12/23 13:07 04/12/23 21:54 04/12/23 21:54 04/12/23 21:54 04/12/23 21:54 04/12/23 21:54 BMI result Body Mass Index 19.5 Additional Comments: Abdominal exam reported by Dr. Zambrano to be benign nontender LABORATORY MECHANICAL TECHNICIAN - Results Labs 04/12/23 15:49 04/12/23 15:49 Labs: Short CBC 04/12/23 Range/Units 15:49 WBC 9.4 (4.8-10.8) X10*3/uL Hgb 12.2 (12.0-16.0) g/dl Hct 36.7 L (37.0-47.0) % Plt Count 219 (160-400) X10*3/uL BMP 04/12/23 15:49 Sodium 139 Potassium 3.5 Chloride 108 Carbon Dioxide 25 BUN 4 L Creatinine 0.78 Calcium 9.1 D Liver Function 04/12/23 Range/Units 15:49 Total Bilirubin 0.3 (0.0-1.0) mg/dL AST 16 (5-31) U/L ALT 8 (0-31) U/L Alkaline Phosphatase 74 (39-117) U/L Albumin 4.6 (3.5-5.0) g/dL Urine 04/12/23 Range/Units 15:49 Urine Color Yellow Urine Appearance Clear Urine pH 6.0 (5.0-9.0) Ur Specific [place] 1.010 (1.005-1.025) Urine Protein Negative (Neg-Trace) mg/dL Urine Glucose (UA) Negative (Negative) mg/dL Urine Test NEGATIVE (NEGATIVE) Imaging US - abdomen: Radiologist's impression: ITS Impressions Pelvic/Transvag US 04/12/23 14:39 IMPRESSION: Prominent left adnexal vessels questionable for pelvic congestion otherwise unremarkable exam Assessment and Plan (1) Abnormal uterine bleeding (AUB): Status: Acute Recommendedto Dr. Moran the following: Since H&H, hCG and ultrasound all or unremarkable, instructions given to patient to follow-up in outpatient office in the morning, to come back to emergency room in case of heavy vaginal bleeding, nausea or vomiting, fever above 100.4 or worsening of her pelvic pain/vaginal bleeding (2) Pelvic congestion syndrome: Status: Acute Will discuss the patient different options of treatment regarding pelvic congestion syndrome. I spent a total of 20 minutes reviewing the chart, communicating the emergency room provider and documenting the medical record.
--- NOTE | 2023-04-12 22:38 | PC.NURSE ---
pt left without waiting for her discharge papers, Angelita avileshousekeeper and laundry assistant did come down to talk with the pt but pt was already gone.
--- NOTE | 2023-04-12 22:40 | PC.NURSE ---
pt did talk with dr Moran and gone over discharge instructions, and is aware that Dr Patino has been in contact with the pt.
== END 2023-04-12 22:42 | disposition home or self-care (01) ==
PROVIDERS: Physician Assistant Medical; Emergency Provider Student in an Organized Health Care Education/Training Program; PCP Internal Medicine
DX: R10.2 Pelvic and perineal pain (principal); N94.89 Other specified conditions associated with female genital organs and menstrual cycle; N93.9 Abnormal uterine and vaginal bleeding, unspecified; E28.2 Polycystic ovarian syndrome
CPT/HCPCS: 36415; 76830; 76856; 80053; 81001; 81025; 83690; 83735; 85025; 85610; 99283; 99284

== ENCOUNTER → 2023-04-12 21:49 | Outpatient (BNV) | payer OTHER, SELFPAY | PROVIDERS: Emergency Provider Student in an Organized Health Care Education/Training Program; PCP Internal Medicine; Visit Provider Obstetrics & Gynecology | DX: N93.9 Abnormal uterine and vaginal bleeding, unspecified (principal); N94.89 Other specified conditions associated with female genital organs and menstrual cycle | CPT/HCPCS: 99283 ==

== ENCOUNTER 2023-04-13 08:33 | Outpatient (REF) | payer OTHER, SELFPAY | END 2023-04-13 08:34 | disposition home or self-care (01) | LOC: HO.HMGCX 08:33 | PROVIDERS: PCP Internal Medicine; Visit Provider Obstetrics & Gynecology | DX: N93.9 Abnormal uterine and vaginal bleeding, unspecified (principal); D21.9 Benign neoplasm of connective and other soft tissue, unspecified | CPT/HCPCS: 99212 ==

== ENCOUNTER 2023-04-13 08:41 | Outpatient (AMB) | payer OTHER, SELFPAY ==
--- NOTE | 2023-04-13 08:44 | MHC.OFFVIS ---
Intake Vital Signs 04/13/23 08:46 Height 5 ft 3 in Weight 108 lb 0.424 oz BMI 19.1 BP 110/66 Intake Visit Reasons: ER follow up Branch Account Manager Required: No Information Interpreted: non-clinical & clinical Accompanied by: Self / Same As Patient Allergies amoxicillin [AMOXICILLIN] Allergy (Intermediate, Verified 04/13/23 08:46) RASH ciprofloxacin [From CIPRO] Allergy (Intermediate, Verified 04/13/23 08:46) RASH/SWOLLEN,ITCHY THROAT codeine [CODEINE] Allergy (Intermediate, Verified 04/13/23 08:46) SKIN FLUSHES, GI UPSET NSAIDS (Non-Steroidal Anti-Inflamma [NSAIDS (NON-STEROIDAL ANTI-INFLAMMA] Allergy (Intermediate, Verified 04/13/23 08:46) BLOATINESS,GERD vancomycin [VANCOMYCIN] Adverse Reaction (Intermediate, Verified 04/13/23 08:46) RED MAN SYNDROME Is last menstrual period known: Yes Last menstrual period: 03/23/23 HPI HPI Comments History of Present Illness Details Presenting for ED follow-up. The patient is complaining of heavy menstrual cycle associated with cyclic pelvic pain the week prior to her menstrual cycle , worsening during menstrual cycle and improves afterwards. No GI or symptoms. The workup done in the emergency room included the following: H&H was 12.2/36.7 Urine test was negative Urinalysis negative Pelvic ultrasound showed the following: The uterus is anteverted and measures 7.3 x 3.5 x 5.4 cm in dimension. Endometrial thickness is normal measuring 0.5 cm. The ovaries are normal. The right ovary measures 3.2 x 1.7 x 2.6 cm. The left ovary measures 1.8 x 2.1 x 2.2 cm. There is a small amount of fluid in the pelvis. There are prominent left pelvic vessels questionable for pelvic congestion. On 04/05/23 GC/CT were negative Pap smear done in 02/23 was negative TSH, prolactin, hCG not done yet [facility] Medical History Smoking Surgical History H/O hernia repair H/O: section Social History Household Members: Children Housing: House Alcohol intake: never Patient Tobacco Use Status: Current everyday Tobacco user Tobacco use type: Cigarette Cigarette Packs Per Day: 0.5 Cigarettes Per Day: 10.0 Years Smoked: 14 Substance Use Type: Marijuana Current occupational status: unemployed Sexual orientation: Straight/Heterosexual Gender identity: Female Female Reproductive History Menstrual Age of Menarche: 9 Date of last menstrual period: 03/23/23 Review of Systems Const All systems reviewed & are unremarkable except as noted in HPI and below Physical Exam Vital Signs: Last Vital Signs BP 110/66 04/13/23 08:46 BMI result Body Mass Index 19.1 General: Yes no CVA tenderness External Female Exam: normal external appearance and normal appearance of the urethra Speculum Exam - Vagina: normal appearance of the vagina, normal palpation, no lesions and no masses Speculum Exam - Cervix: normal appearance of the cervix, normal palpation, no lesions, no masses and nontender Bimanual exam- vagina & uterus: normal bimanual exam, normal palpation, uterine size normal, normal palpation, uterine shape normal, No Cervical tenderness present and non-tender Bimanual Exam- Adnexa, other: normal adnexae Back/Spine/Pelvis Back: no CVA tenderness Assessment & Plan Assessment & Plan (1) Abnormal uterine bleeding (AUB): Code(s): N93.9 - Abnormal uterine and vaginal bleeding, unspecified Plan: Recommended patient to have TSH, prolactin hCG done today Discussed with the patient the results of the work up done and options of treatment including control pills , Mirena IUD, cyclic Provera. All pros, cons, risks and benefits if each option was discussed with the patient and the patient decided to go ahead with continuous BCP so a more detailed discussion re: control pills including mechanism of action, benefits (regular menses, less dysmenorrhea, less risk of ovarian cancer, ...), risks ( DVT, PE, Strokes, RI, ? increased breast ca, others). Instructions were given to use a back- up method for contraception x 1st 2 weeks, and to schedule a 3 months appointment for blood pressure check (2) Pelvic pain: Comment: Possible endometriosis / Pelvic congestion syndrome Code(s): R10.2 - Pelvic and perineal pain Plan: Will start diagnostic therapeutic trial of continuous control pills for endometriosis and AUB and reassess in 3-6 months if pain does not improve will treat for possible pelvic congestion syndrome will refer for pelvic pain specialist. All questions answered, the patient verbalized understanding and agreed with the plan Medications: New L norgest/e.estradiol-e.estrad 0.15 mg-30 mcg (84)/10 mcg (7) 1 tab PO DAILY 84 ea 0RF 84 days Coding Level of Care Code Est Pt Level 3 (61881) Diagnoses Abnormal uterine bleeding (AUB) N93.9 Pelvic pain R10.2
[2023-04-13 08:46] VITALS: BP 110/66; BMI 19.1
== END 2023-04-13 09:07 | disposition home or self-care (01) ==
LOC: HO.HWS 08:41
PROVIDERS: PCP Internal Medicine; Visit Provider Obstetrics & Gynecology
DX: N93.9 Abnormal uterine and vaginal bleeding, unspecified (principal); R10.2 Pelvic and perineal pain
CPT/HCPCS: 99213

== ENCOUNTER 2023-04-24 14:18 | Outpatient (REF) | payer OTHER, SELFPAY ==
[2023-04-24 14:43] LABS: Hematocrit 35.1 % (37.0-47.0); Hemoglobin 11.5 g/dl (12.0-16.0); Mean Corpuscular HGB Conc 32.8 g/dl (31.0-35.0); Mean Corpuscular Hemoglobin 27.2 pg (27.0-33.0); Mean Platelet Volume 11.3 fL (9.4-12.3); Platelet Count 170 X10*3/uL (160-400); Red Blood Count 4.23 X10*6/uL (4.20-5.50); White Blood Count 6.2 X10*3/uL (4.8-10.8)
[2023-04-24 15:45] LABS: HCG Quantitative < 2 mIU/mL; TSH reflex Free T4 0.57 uIU/mL (0.32-4.0)
[2023-04-25 06:09] LABS: Prolactin 5.6 ng/mL
== END 2023-04-24 14:19 | disposition home or self-care (01) ==
LOC: HO.LAB 14:18
PROVIDERS: Visit Provider Obstetrics & Gynecology
DX: O03.9 Complete or unspecified spontaneous abortion without complication (principal); N93.9 Abnormal uterine and vaginal bleeding, unspecified
CPT/HCPCS: 36415; 84146; 84443; 84702; 85027

== ENCOUNTER 2023-05-11 15:16 | Outpatient (AMB) | payer OTHER, SELFPAY ==
--- NOTE | 2023-05-11 15:17 | MHC.OFFVIS ---
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 Allergies amoxicillin [AMOXICILLIN] Allergy (Intermediate, Verified 05/11/23 15:17) RASH ciprofloxacin [From CIPRO] Allergy (Intermediate, Verified 05/11/23 15:17) RASH/SWOLLEN,ITCHY THROAT codeine [CODEINE] Allergy (Intermediate, Verified 05/11/23 15:17) SKIN FLUSHES, GI UPSET NSAIDS (Non-Steroidal Anti-Inflamma [NSAIDS (NON-STEROIDAL ANTI-INFLAMMA] Allergy (Intermediate, Verified 05/11/23 15:17) BLOATINESS,GERD vancomycin [VANCOMYCIN] Adverse Reaction (Intermediate, Verified 05/11/23 15:17) RED MAN SYNDROME HPI HPI Comments History of Present Illness Details The patient scheduled a telehealth visit. The patient is complaining of heavy menstrual cycle associated with cyclic pelvic pain the week prior to her menstrual cycle , worsening during menstrual cycle and improves afterwards. No GI or symptoms. The patient that start her control pill yet was started on silk is having some GI side effects, PCP as put the initiation of control pills on hold The workup done in the emergency room included the following: H&H was 12.2/36.7 Urine test was negative Urinalysis negative Pelvic ultrasound showed the following: The uterus is anteverted and measures 7.3 x 3.5 x 5.4 cm in dimension. Endometrial thickness is normal measuring 0.5 cm. The ovaries are normal. The right ovary measures 3.2 x 1.7 x 2.6 cm. The left ovary measures 1.8 x 2.1 x 2.2 cm. There is a small amount of fluid in the pelvis. There are prominent left pelvic vessels questionable for pelvic congestion. On 04/05/23 GC/CT were negative Pap smear done in 02/23 was negative TSH, prolactin, hCG wnl The patient was seen on 04/24 options of treatment were discussed and the patient elected to proceed with continuous control pills to treat AUB and possible and pelvic pain related to endometriosis. Since then control pills were not obstructed. [facility] Medical History Smoking Surgical History H/O hernia repair H/O: section Social History Household Members: Children Housing: House Alcohol intake: never Patient Tobacco Use Status: Current everyday Tobacco user Tobacco use type: Cigarette Cigarette Packs Per Day: 0.5 Cigarettes Per Day: 10.0 Years Smoked: 14 Substance Use Type: Marijuana Current occupational status: unemployed Sexual orientation: Straight/Heterosexual Gender identity: Female Female Reproductive History Menstrual Age of Menarche: 9 Review of Systems Const All systems reviewed & are unremarkable except as noted in HPI and below Reports as per HPI and Reports no additional complaints GI Reports no additional complaints Reports no additional complaints Assessment & Plan Assessment & Plan (1) Abnormal uterine bleeding (AUB): Code(s): N93.9 - Abnormal uterine and vaginal bleeding, unspecified Plan: Recommended patient to start her control pills continuously as soon as possible and clear by her PCP before. Instructions given to patient to call in case of continuous heavy bleeding and or pain in other symptoms. All questions answered, the patient verbalized understanding. I spent a total of 20 minutes reviewing the chart, talking to the patient via video and documenting in the medical record. Telehealth Telehealth Location of provider rendering services: practice address Location of patient: address on file Patient Identification confirmed using: Name, : Yes Telehealth method: video Patient verbally consented to treatment: Yes Patient verbally consented to billing insurance company: Yes Patient informed of any privacy concerns related to visit: Yes Coding Level of Care Code Tele Est Pt Level 1 (73261) Diagnoses Abnormal uterine bleeding (AUB) N93.9
== END 2023-05-11 15:55 | disposition home or self-care (01) ==
LOC: HO.HWS 15:16
PROVIDERS: PCP Internal Medicine; Visit Provider Obstetrics & Gynecology
DX: N93.9 Abnormal uterine and vaginal bleeding, unspecified (principal)
CPT/HCPCS: 99211

== ENCOUNTER → 2023-05-11 15:16 | Outpatient (BNVA) | payer OTHER, SELFPAY | PROVIDERS: PCP Internal Medicine; Visit Provider Obstetrics & Gynecology ==

== ENCOUNTER 2023-07-11 11:11 | Outpatient (AMB) | payer OTHER, SELFPAY ==
--- NOTE | 2023-07-11 11:16 | A.OFFVIS_ITS ---
Vital Signs 07/11/23 11:18 Height 5 ft 3 in Weight 108 lb 0.424 oz BMI 19.1 BP 110/60 Intake Visit Reasons: 3 month follow control Host/Hostess Ground Required: No Information Interpreted: non-clinical & clinical Accompanied by: Son Allergies amoxicillin [AMOXICILLIN] Allergy (Intermediate, Verified 07/11/23 11:19) RASH ciprofloxacin [From CIPRO] Allergy (Intermediate, Verified 07/11/23 11:19) RASH/SWOLLEN,ITCHY THROAT codeine [CODEINE] Allergy (Intermediate, Verified 07/11/23 11:19) SKIN FLUSHES, GI UPSET NSAIDS (Non-Steroidal Anti-Inflamma [NSAIDS (NON-STEROIDAL ANTI-INFLAMMA] Allergy (Intermediate, Verified 07/11/23 11:19) BLOATINESS,GERD vancomycin [VANCOMYCIN] Adverse Reaction (Intermediate, Verified 07/11/23 11:19) RED MAN SYNDROME Is last menstrual period known: Yes Last menstrual period: 06/27/23 HPI Comments Details: The patient is presenting for control Pills follow up. The patient has no complaints, she is taking a pill every day with no problems, still having continuous spotting on and off, would like to refill her prescription [facility] Medical History Smoking Surgical History H/O hernia repair H/O: section Social History Household Members: Children Housing: House Alcohol intake: never Patient Tobacco Use Status: Current everyday Tobacco user Tobacco use type: Cigarette Cigarette Packs Per Day: 0.5 Cigarettes Per Day: 10.0 Years Smoked: 14 Substance Use Type: Marijuana Current occupational status: unemployed Sexual orientation: Straight/Heterosexual Gender identity: Female Female Reproductive History Menstrual Age of Menarche: 9 Date of last menstrual period: 06/27/23 Review of Systems Const All systems reviewed & are unremarkable except as noted in HPI and below Reports as per HPI and Reports no additional complaints GI Reports no additional complaints Reports no additional complaints Physical Exam Vital Signs: Last Vital Signs BP 110/60 07/11/23 11:18 BMI result Body Mass Index 19.1 Assessment & Plan Assessment & Plan (1) Abnormal uterine bleeding (AUB): Code(s): N93.9 - Abnormal uterine and vaginal bleeding, unspecified Category: Medical Plan: control pills refilled for 3 more months will follow-up then and reassess. All questions answered, the patient verbalized understanding. Medications: Refilled L norgest/e.estradiol-e.estrad 0.15 mg-30 mcg (84)/10 mcg (7) 1 tab PO DAILY 84 days 84 ea 0RF Coding Level of Care Code Est Pt Level 3 (60284) Diagnoses Abnormal uterine bleeding (AUB) N93.9
[2023-07-11 11:18] VITALS: BP 110/60; BMI 19.1
== END 2023-07-11 12:17 | disposition home or self-care (01) ==
LOC: HO.HWS 11:11
PROVIDERS: PCP Internal Medicine; Visit Provider Obstetrics & Gynecology
DX: N93.9 Abnormal uterine and vaginal bleeding, unspecified (principal)
CPT/HCPCS: 99213

== ENCOUNTER → 2023-07-11 11:11 | Outpatient (BNVA) | payer OTHER, SELFPAY | PROVIDERS: PCP Internal Medicine; Visit Provider Obstetrics & Gynecology | DX: N93.9 Abnormal uterine and vaginal bleeding, unspecified (principal) | CPT/HCPCS: 99212 ==

== ENCOUNTER 2023-10-10 13:12 | Outpatient (AMB) | payer OTHER, SELFPAY ==
[2023-10-10 13:25] VITALS: BP 102/60; BMI 19.1
--- NOTE | 2023-10-10 13:25 | A.OFFVIS_ITS ---
Vital Signs 10/10/23 13:25 Height 5 ft 3 in Weight 108 lb 0.424 oz BMI 19.1 BP 102/60 Intake Visit Reasons: 3 month follow up Physical Therapy Resident Required: No Information Interpreted: non-clinical & clinical Muskrat Trapper: Muskrat Trapper Present (Myriam RICHEYKristan) Accompanied by: Son Allergies amoxicillin [AMOXICILLIN] Allergy (Intermediate, Verified 10/10/23 13:29) RASH ciprofloxacin [From CIPRO] Allergy (Intermediate, Verified 10/10/23 13:29) RASH/SWOLLEN,ITCHY THROAT codeine [CODEINE] Allergy (Intermediate, Verified 10/10/23 13:29) SKIN FLUSHES, GI UPSET NSAIDS (Non-Steroidal Anti-Inflamma [NSAIDS (NON-STEROIDAL ANTI-INFLAMMA] Allergy (Intermediate, Verified 10/10/23 13:29) BLOATINESS,GERD vancomycin [VANCOMYCIN] Adverse Reaction (Intermediate, Verified 10/10/23 13:29) RED MAN SYNDROME Is last menstrual period known: Yes Last menstrual period: 10/07/23 HPI Comments Details: Presenting after 6 months of continuous control pills, menstrual cramps and flow are improved markedly but the patient is still having breakthrough bleeding [facility] Medical History Smoking Surgical History H/O hernia repair H/O: section Social History Household Members: Children Housing: House Alcohol intake: never Patient Tobacco Use Status: Current everyday Tobacco user Tobacco use type: Cigarette Cigarette Packs Per Day: 0.5 Cigarettes Per Day: 10.0 Years Smoked: 14 Substance Use Type: Marijuana Current occupational status: unemployed Sexual orientation: Straight/Heterosexual Gender identity: Female Female Reproductive History Menstrual Age of Menarche: 9 Date of last menstrual period: 10/07/23 Review of Systems Const All systems reviewed & are unremarkable except as noted in HPI and below Physical Exam Vital Signs: Last Vital Signs BP 102/60 10/10/23 13:25 BMI result Body Mass Index 19.1 General: Yes no CVA tenderness External Female Exam: normal external appearance and normal appearance of the urethra Speculum Exam - Vagina: normal appearance of the vagina, normal palpation, no lesions and no masses Speculum Exam - Cervix: normal appearance of the cervix, normal palpation, no lesions, no masses and nontender Bimanual exam- vagina & uterus: normal bimanual exam, normal palpation, uterine size normal, normal palpation, uterine shape normal, No Cervical tenderness present and non-tender Bimanual Exam- Adnexa, other: normal adnexae Back/Spine/Pelvis Back: no CVA tenderness Office Procedures Endometrial Biopsy Details: The patient was counseled regarding the indication and benefits of endometrial sampling to rule out endometrial pathology including not limited to endometrial hyperplasia or endometrial cancer and others; The alternatives (Either do nothing vs. hysteroscopy D&C) & the risks were discussed with the patient including but not limited: pain, uterine perforation, bleeding, infection, possible injury to bladder, bowel, ureter, possible need for blood transfusion with all its possible risks. The patient verbalized understanding all questions answered and signed consent. Urine test done in the office was negative The patient was placed into the dorsal lithotomy position; a speculum was inse rted in the vagina. Using aseptic technique for the procedure, the cervix was cleansed with Betadine. The anterior lip of the cervix was grasped with a single tooth tenaculum. The uterus was sounded to 7 cm with a 4 mm Pipelle was used. Tissues samples were obtained and placed in formalin, in a patient labeled container and sent to the pathology department. At the end of the procedure, there was minimal bleeding noted The patient tolerated the procedure well and was discharged in good condition with the following instructions: Nothing in the vagina until the bleeding stops. No sex until the bleeding stops, to call if any of the following occurs: fever (>100.4), flu-like symptoms, abdominal pain, heavy bleeding, four smelling vaginal discharge. The patient was instructed to schedule a Follow up appointment in 2 weeks to discuss pathology results of the biopsy and treatment options. This note was generated with a voice recognition program. Some errors may have been overlooked during the review of this note. Sometimes these errors may affect the content or meaning of a given sentence. 16917-Syreaczwvmo Biopsy Results AMB Test Urine AMB Test Urine Negative Last Edit by Myriam Diaz CMA on 13:56 Assessment & Plan Assessment & Plan (1) Abnormal uterine bleeding (AUB): Comment: On continuous control pills Code(s): N93.9 - Abnormal uterine and vaginal bleeding, unspecified Category: Medical Plan: Urine test done in the office was negative. Recommended EMB to rule out endometrial pathology (EMB done, see procedure note) and switch to cyclic control pills. Instructions given the patient to start a new cyclic control pills Pack and use backup method for control for the 1st 2 weeks of the new pack. Instructions given the patient to schedule a 2 week and a 3 months follow-up appointments. All questions answered, the patient verbalized understanding Orders: Orders AMB Endometrial Biopsy Today N93.9 - Abnormal uterine and vaginal bleeding, unspecified AMB HCG Urine Test Today Z32.02 - Encounter for test, result negative Surgical Today N93.9 - Abnormal uterine and vaginal bleeding, unspecified Medications: New desogestrel-ethinyl estradiol 0.15-0.03 mg (Apri) 1 tab PO DAILY 28 days 28 tabs 2RF Discontinued L norgest/e.estradiol-e.estrad 0.15 mg-30 mcg (84)/10 mcg (7) Discontinued Reason: Doctor's Order 1 tab PO DAILY 84 days 84 ea 0RF Coding Level of Care Code Est Pt Level 3 (42915) Procedure Only Diagnoses Abnormal uterine bleeding (AUB) N93.9 CPT Codes Endometrial Biopsy - CPT: 55211-Qhswrvzubuy Biopsy ([id number])
== END 2023-10-10 14:10 | disposition home or self-care (01) ==
LOC: HO.HWS 13:12
PROVIDERS: PCP Internal Medicine; Visit Provider Obstetrics & Gynecology
DX: N93.9 Abnormal uterine and vaginal bleeding, unspecified (principal); Z32.02 Encounter for pregnancy test, result negative
CPT/HCPCS: 58100; 99213

== ENCOUNTER 2023-10-10 13:12 | Outpatient (REF) | payer OTHER, SELFPAY | END 2023-10-10 13:13 | disposition home or self-care (01) | LOC: HO.LNP 13:12 | PROVIDERS: PCP Internal Medicine; Visit Provider Obstetrics & Gynecology | DX: N93.9 Abnormal uterine and vaginal bleeding, unspecified (principal) | CPT/HCPCS: 58100; 81025; 88305; 99212 ==

== ENCOUNTER 2023-11-29 13:06 | Outpatient (AMB) | payer OTHER, SELFPAY ==
[2023-11-29 13:11] VITALS: BMI 19.1
--- NOTE | 2023-11-29 13:11 | MHC.OFFVIS ---
Vital Signs 11/29/23 13:11 Height 5 ft 3 in Weight 108 lb 0.424 oz BMI 19.1 Intake Visit Reasons: Emb results Allergies amoxicillin [AMOXICILLIN] Allergy (Intermediate, Verified 10/10/23 13:29) RASH ciprofloxacin [From CIPRO] Allergy (Intermediate, Verified 10/10/23 13:29) RASH/SWOLLEN,ITCHY THROAT codeine [CODEINE] Allergy (Intermediate, Verified 10/10/23 13:29) SKIN FLUSHES, GI UPSET NSAIDS (Non-Steroidal Anti-Inflamma [NSAIDS (NON-STEROIDAL ANTI-INFLAMMA] Allergy (Intermediate, Verified 10/10/23 13:29) BLOATINESS,GERD vancomycin [VANCOMYCIN] Adverse Reaction (Intermediate, Verified 10/10/23 13:29) RED MAN SYNDROME HPI Comments Details: The patient is presenting after endometrial biopsy. The patient has no complaints, no vaginal bleeding, no feverishness chills or abdominal pain. The endometrial biopsy pathology report showed the following: Endometrium, biopsy: Benign inactive endometrium with glandular and stromal breakdown, and benign endocervical glandular epithelium; no atypia or carcinoma PFSH Medical History Smoking Surgical History H/O hernia repair H/O: section Social History Household Members: Children Housing: House Alcohol intake: never Patient Tobacco Use Status: Current everyday Tobacco user Tobacco use type: Cigarette Cigarette Packs Per Day: 0.5 Cigarettes Per Day: 10.0 Years Smoked: 14 Substance Use Type: Marijuana Current occupational status: unemployed Sexual orientation: Straight/Heterosexual Gender identity: Female Female Reproductive History Menstrual Age of Menarche: 9 Review of Systems Const All systems reviewed & are unremarkable except as noted in HPI and below Reports as per HPI and Reports no additional complaints GI Reports no additional complaints Reports no additional complaints Physical Exam Vital Signs: BMI result Body Mass Index 19.1 Assessment & Plan Assessment & Plan (1) Abnormal uterine bleeding (AUB): Comment: On continuous control pills Code(s): N93.9 - Abnormal uterine and vaginal bleeding, unspecified Category: Medical Plan: Discussed with the patient the results of the endometrial biopsy pathology. Instructions given the patient to call in case of persistence of her abnormal uterine bleeding. All questions answered, the patient verbalized understanding Coding Level of Care Code Est Pt Level 3 (25022) Diagnoses Abnormal uterine bleeding (AUB) N93.9
== END 2023-11-29 13:17 | disposition home or self-care (01) ==
PROVIDERS: PCP Internal Medicine; Visit Provider Obstetrics & Gynecology
DX: N93.9 Abnormal uterine and vaginal bleeding, unspecified (principal)
CPT/HCPCS: 99213

== ENCOUNTER → 2023-11-29 13:06 | Outpatient (BNVA) | payer OTHER, SELFPAY | PROVIDERS: PCP Internal Medicine; Visit Provider Obstetrics & Gynecology | DX: N93.9 Abnormal uterine and vaginal bleeding, unspecified (principal) | CPT/HCPCS: 99212 ==

== ENCOUNTER 2024-01-18 13:57 | Outpatient (AMB) | payer OTHER, SELFPAY ==
[2024-01-18 14:10] VITALS: BP 112/62; BMI 19.1
--- NOTE | 2024-01-18 14:10 | MHC.OFFVIS ---
Vital Signs 01/18/24 14:10 Height 5 ft 3 in Weight 108 lb 0.424 oz BMI 19.1 BP 112/62 Intake Visit Reasons: control follow up Assistant Manager Bilingual Required: No Information Interpreted: non-clinical & clinical Accompanied by: Self / Same As Patient Allergies amoxicillin [AMOXICILLIN] Allergy (Intermediate, Verified 01/18/24 14:13) RASH ciprofloxacin [From CIPRO] Allergy (Intermediate, Verified 01/18/24 14:13) RASH/SWOLLEN,ITCHY THROAT codeine [CODEINE] Allergy (Intermediate, Verified 01/18/24 14:13) SKIN FLUSHES, GI UPSET NSAIDS (Non-Steroidal Anti-Inflamma [NSAIDS (NON-STEROIDAL ANTI-INFLAMMA] Allergy (Intermediate, Verified 01/18/24 14:13) BLOATINESS,GERD vancomycin [VANCOMYCIN] Adverse Reaction (Intermediate, Verified 01/18/24 14:13) RED MAN SYNDROME HPI Comments Details: Presenting for control follow-up. The patient is switched to continuous control pills 2 months ago, was prescribed doxycycline for the last 8 days has been having spotting since then. Not sexually active last ate more PFSH Medical History Smoking Surgical History H/O hernia repair H/O: section Social History Household Members: Children Housing: House Alcohol intake: never Patient Tobacco Use Status: Current everyday Tobacco user Tobacco use type: Cigarette Cigarette Packs Per Day: 0.5 Cigarettes Per Day: 10.0 Years Smoked: 14 Substance Use Type: Marijuana Current occupational status: unemployed Sexual orientation: Straight/Heterosexual Gender identity: Female Female Reproductive History Menstrual Age of Menarche: 9 Review of Systems Const All systems reviewed & are unremarkable except as noted in HPI and below Reports as per HPI and Reports no additional complaints GI Reports no additional complaints Reports no additional complaints Physical Exam Vital Signs: Last Vital Signs BP 112/62 01/18/24 14:10 BMI result Body Mass Index 19.1 Assessment & Plan Assessment & Plan (1) Contraceptive management: Code(s): Z30.9 - Encounter for contraceptive management, unspecified Category: Medical Plan: control pill refill sent to the patient's pharmacy. Recommended the patient discontinue doxycycline, use backup method for control for the coming 2 weeks and call in case of persistent of her vaginal spotting. All questions answered, the patient verbalized understanding. Medications: Refilled desogestrel-ethinyl estradiol 0.15-0.03 mg (Apri) 1 tab PO DAILY 28 days 84 tabs 3RF Coding Level of Care Code Est Pt Level 3 (05854) Diagnoses Contraceptive management Z30.9
== END 2024-01-18 15:07 | disposition home or self-care (01) ==
PROVIDERS: PCP Internal Medicine; Visit Provider Obstetrics & Gynecology
DX: Z30.9 Encounter for contraceptive management, unspecified (principal)
CPT/HCPCS: 99213

== ENCOUNTER → 2024-01-18 13:57 | Outpatient (BNVA) | payer OTHER, SELFPAY | PROVIDERS: PCP Internal Medicine; Visit Provider Obstetrics & Gynecology | DX: N93.9 Abnormal uterine and vaginal bleeding, unspecified (principal); Z30.9 Encounter for contraceptive management, unspecified; Z79.899 Other long term (current) drug therapy | CPT/HCPCS: 99212 ==

== ENCOUNTER 2024-04-03 09:31 | Outpatient (AMB) | payer OTHER, SELFPAY ==
[2024-04-03 09:41] VITALS: TEMP 37.1
--- NOTE | 2024-04-03 09:41 | MHC.OFFVIS ---
Vital Signs 04/03/24 09:41 Temp 98.7 F Intake Visit Reasons: vaginal discharge, cramps, low grade fever Vending Supervisor: Vending Supervisor Present (Trista) Accompanied by: Self / Same As Patient Allergies amoxicillin [AMOXICILLIN] Allergy (Intermediate, Verified 04/03/24 09:42) RASH ciprofloxacin [From CIPRO] Allergy (Intermediate, Verified 04/03/24 09:42) RASH/SWOLLEN,ITCHY THROAT codeine [CODEINE] Allergy (Intermediate, Verified 04/03/24 09:42) SKIN FLUSHES, GI UPSET NSAIDS (Non-Steroidal Anti-Inflamma [NSAIDS (NON-STEROIDAL ANTI-INFLAMMA] Allergy (Intermediate, Verified 04/03/24 09:42) BLOATINESS,GERD vancomycin [VANCOMYCIN] Adverse Reaction (Intermediate, Verified 04/03/24 09:42) RED MAN SYNDROME HPI Comments Details: Presenting complaining of few days' history of pelvic pain, vaginal discharge, mild nausea, no vomiting, urinary frequency dysuria, no GI symptoms PFSH Medical History Smoking Surgical History H/O hernia repair H/O: section Social History Household Members: Children Housing: House Alcohol intake: never Patient Tobacco Use Status: Current everyday Tobacco user Tobacco use type: Cigarette Cigarette Packs Per Day: 0.5 Cigarettes Per Day: 10.0 Years Smoked: 14 Substance Use Type: Marijuana Current occupational status: unemployed Sexual orientation: Straight/Heterosexual Gender identity: Female Female Reproductive History Menstrual Age of Menarche: 9 Review of Systems Const All systems reviewed & are unremarkable except as noted in HPI and below Physical Exam Vital Signs: Last Vital Signs Temp 98.7 F 04/03/24 09:41 GI Inspection: Yes normal to inspection Palpation (GI): Soft to palpation, Tenderness to palpation present (GI) (Mild suprapubic tenderness) and no guarding General: Yes no CVA tenderness External Female Exam: normal external appearance and normal appearance of the urethra Speculum Exam - Vagina: normal appearance of the vagina, normal palpation, no lesions and no masses Speculum Exam - Cervix: normal appearance of the cervix, no lesions, no masses and Cervical tenderness present Bimanual exam- vagina & uterus: normal bimanual exam, normal palpation, uterine size normal, uterine shape normal, Cervical tenderness present, cervical motion tenderness and Uterine tenderness Bimanual Exam- Adnexa, other: tender (Bilaterally) Back/Spine/Pelvis Back: no CVA tenderness Results AMB Urinalysis, Automated UA Leukoctes 0 Elieser/uL Last Edit by DAVID Harmon on 04/03/24 09:58 UA Nitrite Negative Last Edit by Angella Booth Kristan on 04/03/24 09:58 UA Urobilinogen 0 mg/dL Last Edit by Angella Booth [facility] on 04/03/24 09:58 UA Protein 0 mg/dL Last Edit by DAVID Harmon on 04/03/24 09:58 UA pH 6.5 Last Edit by Angella Booth [facility] on 04/03/24 09:58 UA Blood 0.5 Casey/uL Last Edit by Angella Booth Kristan on 04/03/24 09:58 UA Specific [place] 1.010 Last Edit by DAVID Harmon on 04/03/24 09:58 UA Ketone Negative Last Edit by Angella Booth [facility] on 04/03/24 09:58 UA Bilirubin 0 mg/dL Last Edit by Angella Booth Kristan on 04/03/24 09:58 UA Glucose 0 mg/dL Last Edit by Angella Booth [facility] on 04/03/24 09:58 Results Reviewed Results Reviewed: Laboratory Last Values Urine pH (Auto) 6.5 04/03/24 09:57 Specific [place] (Auto) 1.010 04/03/24 09:57 Urine Protein (Auto) 0 mg/dL 04/03/24 09:57 Glucose (UA)(Auto) 0 mg/dL 04/03/24 09:57 Urine Ketones (Auto) Negative 04/03/24 09:57 Urine Blood (Auto) 0.5 Casey/uL 04/03/24 09:57 Urine Nitrite (Auto) Negative 04/03/24 09:57 Urine Bilirubin (Auto) 0 mg/dL 04/03/24 09:57 Urine Urobilinogen (Auto) 0 mg/dL 04/03/24 09:57 Leukocyte Esterase (Auto) 0 Elieser/uL 04/03/24 09:57 Assessment & Plan Assessment & Plan (1) Microscopic hematuria: Code(s): R31.29 - Other microscopic hematuria Category: Medical Plan: Urine dip showed microscopic hematuria, urine culture sent. Will repeat urine dip in 2 weeks. Discussed with the patient the possible causes of microscopic hematuria including but not limited to: interstitial cystitis, polyps, stones, masses, urethral inflammatory processes and others. If Urine Culture is negative and repeat urine dip in 2 weeks shows persistent microscopic hematuria, will proceed with CT abdomen/pelvis and urology referral. Instructions given the patient to schedule a 2 week urine dip follow-up appointment. All questions answered and the patient verbalized understanding. (2) Pelvic inflammatory disease: Code(s): N73.9 - Female pelvic inflammatory disease, unspecified Category: Medical Plan: Urine test done in the office was negative. GC/CT with BV panel collected. Pelvic ultrasound ordered stat. Will treat with [facility] b.i.d. outpatient the regimen ceftriaxone 500 mg IM, metronidazole 500 mg p.o. b.i.d. and doxycycline 100 mg p.o. b.i.d. for 14 days . Instructions given the patient to call in case of fever above 100.4, nausea or vomiting, worsening or persistence of her pain within 48 hours and to follow-up within a week for re-evaluation. All questions answered the patient verbalized understanding and agreed with the plan. Orders: Orders US pelvic and transvaginal Today N73.9 - Female pelvic inflammatory disease, unspecified Bacterial Vaginosis Panel Today N73.9 - Female pelvic inflammatory disease, unspecified CT NG by PCR Today N73.9 - Female pelvic inflammatory disease, unspecified AMB Urinalysis Automated Today R10.2 - Pelvic and perineal pain Complete Blood Count no Diff Today N73.9 - Female pelvic inflammatory disease, unspecified Urine Culture Today N73.9 - Female pelvic inflammatory disease, unspecified, R31.29 - Other microscopic hematuria AMB Ceftriaxone Injection Today N73.9 - Female pelvic inflammatory disease, unspecified Medications: New metronidazole 500 mg PO BID 14 days 28 tabs 0RF ceftriaxone 500 mg IM ONCE 1 ea 0RF PID N73.9 - Female pelvic inflammatory disease, unspecified doxycycline hyclate 100 mg PO BID 14 days 28 caps 0RF Coding Level of Care Code Est Pt Level 3 (37661) Diagnoses Microscopic hematuria R31.29 Pelvic inflammatory disease N73.9
--- OUTSIDE RECORDS SUMMARY | 2024-04-03 11:02 | XMS_ITS | Encounter Summary ---
Author Organization [facility] Address [address] [place] [address] Care Team Providers Care Assembler Wire Mesh Gate Name Role Phone Brenda Denson MD Primary Care Prov ider Reason for Visit * Reason Comments Abdominal Cramping Encounter Details Date Type Department Care Team (Late st Contact Info) Description 04/02/2024 1:00 PM EST Office Visit Gastroenterology - [place] [address] [place] [address] Jayson Delcid PA [address] [place] [address] Generalized abdominal pain (Primary Dx); Abdominal cramping; Enteritis; Nausea; Gastroesophageal reflux disease without esophagitis Social History Tobacco Use Types Packs/Day Years Used Date Smoking Tobacco: Former Cigarettes Q uit: 08/04/2023 Smokeless Tobacco: Never Alcohol Use Standard Drinks/Week Comments No 0 (1 standard drink = 0.6 oz pur e alcohol) Sex and Gender Information Value Date Recorded Sex Assigned at Not on file Gender Identity Not on file Sexual Orientation Not on file Job Start Date Occupation Industry Not on file Not on file Not on file documented as of this encounter Last Filed Vital Signs Vital Sign Reading Time Taken Comments Blood Pressure 102/60 04/02/2024 1:04 PM EST Pulse 64 04/02/2024 1:04 PM EST Temperature - - Respiratory Rate - - Oxygen Saturation 99% 04/02/2024 1:04 PM EST Inhaled Oxygen Concentration - - Weight 55.3 kg (122 lb) 04/02/2024 1:04 PM EST Height 160 cm (5' 3 ) 04/02/2024 1:04 PM EST Body Mass Index 21.61 04/02/2024 1:04 PM EST documented in this encounter Patient Instructions * Attachments The following attachments cannot be sent through Care Everywhere. * Abdominal Pain (Croatian) * Colitis (Croatian) * Gastroenteritis (Croatian) * Acid-Reducing Medicines: General Info (Croatian) * GERD (Croatian) * Nausea and Vomiting (Croatian) documented in this encounter Ordered Prescriptions Prescription Sig Dispensed Refills Start Date End Da te pantoprazole (PROTONIX) 20 mg EC tablet Take 1 tablet (20 mg total) by mouth 1 (one) time each day. Take on empty stomach, wait 30 mins and then eat to activate the medication 30 each 11 04/02/2024 dicyclomine (BENTYL) 10 mg capsule Take 1 capsule (10 mg total) by mouth 4 (four) times a day if needed (abdominal cramping). 60 capsule 11 04/02/2024 azithromycin (ZITHROMAX) 250 mg tablet Take 2 tablets (500 mg total) by mouth 1 (one) time each day. 10 tablet 04/02/2024 ondansetron (ZOFRAN) 4 mg tablet Take 1 tablet (4 mg total) by mouth 3 (three) times a day. 20 tablet 04/02/2024 05/02/2024 documented in this encounter Progress Notes * SAHIL Hunt - 04/02/2024 1:00 PM EST Patient seen in follow up for abdominal pain. Patient had last been seen in Feb 2023. States that she was doing well until a couple of weeks ago when she was having abdominal swelling and pain. Went to the Er on 03/30 and was dcd wih enteritis of the small bowel and transverse colon. Patient is to start on azithromycin to see if that will help resolved the enteritis. Will also order protonix to help with the acid reflux. Patient to use zofran for the nausea and will order bentyl for the cramping. Patient to contact office in a couple of weeks for update on sxs * SAHIL Hunt - 04/02/2024 1:00 PM EST DENTIFIER: Abimbola Zabala is a 28 y.o. old female who presents to the gastroenterology departmenttoday for re-evaluation of abdominal pain and abdominal cramping, enteritis. HPI: 28-year-old female een in follow up for abdominal pain. Patient had last been seen in Feb 2023. States that she was doing well until a couple of weeks ago when she was having abdominal swelling and pain. Went to the Er on 03/30 and was discharged with a diagnosis of enteritis of the small bowel and transverse colon. Patient continues to have abdominal pain that feels like there is stabbing pain in her intestines and patient is to start on azithromycin to see if that will help resolved the enteritis. Will also order protonix to help with the acid reflux. Patient to use zofran for the nausea and will order bentyl for the cramping. Patient to contact office in a couple of weeks for update on sxs ROS: GENERAL: No malaise, significant weight loss or fever HEENT: No changes in hearing or vision, nose bleeds or swallowing problems NECK: No lumps, goiter, pain or significant neck swelling RESPIRATORY: No cough, wheezing or shortness of breath CARDIOVASCULAR: No chest pain, leg swelling or palpitations GI: Positive for abdominal pain, cramping, enteritis, acid reflux MUSCULOSKELETAL: No joint pain or swelling, back pain, or muscle pain. SKIN: No lesions, rash or itching The remainder of the review of systems is reviewed and negative. PAST MEDICAL HISTORY: Patient Active Problem List Diagnosis Date Noted Palpitations 02/26/2024 Abdominal cramping 01/02/2024 Dry skin 01/02/2024 Esophagitis 01/02/2024 Gastritis 01/02/2024 Hiatal hernia 01/02/2024 Passage of loose stools 01/02/2024 Pelvic pain 01/02/2024 Vitamin D deficiency 02/08/2021 Elevated testosterone level 12/07/2018 Thyroid nodule 10/26/2018 Abnormal TSH 10/17/2017 Gastroesophageal reflux disease without esophagitis 03/13/2017 Depression 04/26/2016 SOCIAL HISTORY: Social History Tobacco Use Smoking status: Former Current packs/day: 0.00 Types: Cigarettes Quit date: 08/04/2023 Years since quittin.6 Smokeless tobacco: Never Substance Use Topics Alcohol use: No FAMILY HISTORY: Family History Problem Relation Name Age of Onset Heart failure Father Emphysema, Blood clot Diabetes Paternal Grandfather Alzheimer's disease Paternal Grandmother Multiple sclerosis Mother Diabetes Maternal Grandmother Breast cancer Other Ovarian cancer Other Uterine cancer Other Colon cancer Other Multiple sclerosis Aunt Maternal ACTIVE MEDICATIONS: No outpatient medications have been marked as taking for the 04/02/24 encounter (Office Visit) with SAHIL Hunt. ALLERGIES: @ALL@ PHYSICAL EXAM: Visit Vitals BP 102/60 Pulse 64 Ht 1.6 m (63 ) Wt 55.3 kg (122 lb) LMP 03/18/2024 SpO2 99% BMI 21.61 kg/m?? OB Status Having periods Smoking Status Former BSA 1.57 m?? APPEARANCE: Alert and in no acute distress EYES: PERRLA, conjunctiva and sclera normal. MOUTH/THROAT: no erythema or exudates NECK: Neck supple, no adenopathy HEART: RRR with normal S1 and S2, no murmurs appreciated LUNG: clear to auscultation LYMPH NODES: grossly normal ABDOMEN: Soft, nontender, normal active bowel sounds throughout, no organomegaly-slight tenderness to palpation of the abdomen RECTAL: Exam deferred. EXTREMITIES: Extremities warm and well perfused SKIN: Skin color, texture, turgor normal. LABS: Lab Results Component Value Date NA 135 03/27/2024 K 3.9 03/27/2024 CL 103 03/27/2024 CO2 29 03/27/2024 GLUCOSE 86 03/27/2024 BUN 9 03/27/2024 CREATININE 0.89 03/27/2024 CALCIUM 9.3 03/27/2024 PROT 8.4 (H) 03/27/2024 ALBUMIN 4.6 03/27/2024 BILITOT 0.5 03/27/2024 AST 16 03/27/2024 ALT 17 03/27/2024 ALKPHOS 72 03/27/2024 EGFR 90 03/27/2024 Lab Results Component Value Date LIPASE 49 03/27/2024 IMAGING: SONO RETROPERITONEAL COMPLETE EXAM: RENAL ULTRASOUND HISTORY: r/u kidney stones COMPARISON: Ultrasound complete abdomen from 11/15/2022, CT abdomen and pelvis from 10/14/2021 TECHNIQUE: Lemus scale and color Doppler images were obtained of the kidneys and bladder. FINDINGS: Right kidney: measures 10.4 cm in length and is sonographically unremarkable. Left kidney: measures 10.7 cm in length and is sonographically unremarkable. No hydronephrosis bilaterally Bladder: Bilateral ureteral jets noted. Bladder not well distended, bladder measures 5.8 x 3.3 x 5.7 cm. IMPRESSION: IMPRESSION: Unremarkable renal ultrasound CT Results for orders placed in visit on 10/14/21 CT ABD \T\ PELVIS W/O CONTRAST Narrative EXAM: CT abdomen and pelvis HISTORY: Intestinal malabsorption. Pelvic pain. COMPARISON: 04/02/2021 and 11/13/2017 TECHNIQUE: CT of the abdomen and pelvis with oral and without intravenous contrast. Coronal and sagittal reformatted images were generated. The radiation dose total CTDIvol: 0.66 mGy. FINDINGS: Limited assessment of solid organs without IV contrast. Lower thorax: No infiltrate in the basal lungs. 2 mm nodule in the posterior left lower lobe on image 3 is likely inflammatory, this level was not included on the prior exams. No pleural or pericardial effusions. Liver: No abnormality detected. Gallbladder/biliary tree: No calcified gallstones or pericholecystic inflammatory change. No biliary ductal dilatation. Spleen: No abnormality detected. Pancreas: No abnormality detected. Adrenal glands: No masses. Kidneys/ureters: No hydronephrosis or perinephric fat stranding. No renal or ureteral stones. Vasculature: No abdominal aortic aneurysm. Peritoneum: No evidence of free intraperitoneal air, free fluid, or organized collections. Lymph nodes: No definite enlarged lymph nodes. Bowel: No evidence of a bowel obstruction. No bowel inflammatory changes. Small hiatal hernia. Appendix not visualized with certainty. Body wall: Stable mild thickening of the subcutaneous tissues of the mid abdominal wall in the region of the umbilicus which could be related to previous hernia repair. Bladder: No abnormality detected. Reproductive: No uterine abnormality. Physiologic changes in the ovaries. Dilated tortuous periuterine and periovarian vascular structures are better seen on the prior contrasted exam. Bones: No compression deformities. No destructive bone lesion. Impression IMPRESSION: No evidence of an acute abdominal or pelvic process. POS - [id number] Not Vldtd US Results for orders placed in visit on 02/13/23 US SOFT TISSUE HEAD/NECK Narrative Thyroid ultrasound. History follow-up on thyroid nodules. Comparison with prior examinations, latest from 08/09/2021 exam. Thyroid gland is mostly homogeneous in echotexture with normal vascularity on color Doppler examination. Right thyroid lobe measures 5.1 x 1.3 x 1.4 cm. There is arm tiny slightly hyperdense echoic nodule in the midpole measuring 0.6 x 0.3 x 0.3 cm, previously 0.5 x 0.3 x 0.4 cm. There is also circumscribed hypoechoic nodule in the lower pole measuring 0.9 x 0.6 x 0.6 cm, previously 0.9 x 0.6 x 0.5 cm. Left thyroid lobe was visualized measuring 4.5 x 1.2 x 1.5 cm. No focal abnormalities were identified in the left thyroid lobe. CONCLUSIONS: Essentially stable nodules in the right thyroid lobe. They could be followed ultrasonographically. CT that was performed at [facility] along with ER notes to be scanned into patient's chart IMPRESSION: 1. Generalized abdominal pain 2. Abdominal cramping 3. Enteritis 4. Nausea 5. Gastroesophageal reflux disease without esophagitis PLAN: 1. Generalized abdominal pain, cramping, enteritis, nausea, GERD Patient states that she has been having issues with abdominal swelling and pain over the last couple of weeks. She was seen on March 30 at the ER at [place] and was told that she had enteritis but notreatment was given. She feels that there is a lot of irritation to her intestines and have suggested that she try azithromycin to see if that will help with resolving the pain in her intestines. Patient is also having issues with abdominal cramping and have suggested that she try using Bentyl to see if that will help Due to her heartburn and reflux, we will restart her on Protonix and see if that will help with herheartburn. She will also be prescribed Zofran to see if that will help with her nausea. Have asked patient to contact office in a couple weeks for an update regarding her symptoms. Total time of today's encounter is 38 minutes in preparing to see the patient, reviewing labs, diagnostic studies as well as other provider notes, documenting in charting, creating an HPI, performinga medically appropriate exam, counseling patient at length in regards to enteritis, abdominal pain,cramping, nausea and GERD as well as prescribing medication. There was documentation in EMR after vi sit. None of which time was spent performing separately billable procedures or ancillary services. No orders of the defined types were placed in this encounter. ADDITIONAL ORDERS: None SAHIL Hunt documented in this encounter Plan of Treatment Upcoming Encounters Date Type Department Care Team (Late st Contact Info) Description 04/05/2024 10:00 AM EST Appointment Radiology Department - [address] [address] 04/15/2024 11:00 AM EST Office Visit Adult Medicine - [place] [address] [place] [address] Celestina Cintron PA [address] [place] [address] 06/25/2024 3:00 PM EDT Office Visit [facility] [address] [facility] [address] [place] [id number] Garett Dixon MD [address] [facility] [address] [place] [address] documented as of this encounter Visit Diagnoses Diagnosis Generalized abdominal pain- Primary Abdominal pain, generalized Abdominal cramping Abdominal pain, unspecified site Enteritis Other and unspecified noninfectious gastroenteritis and colitis Nausea Nausea alone Gastroesophageal reflux disease without esophagitis Esophageal reflux documented in this encounter Care Teams Assembler Wire Mesh Gate Relationship Specialty Start Date End Date Brenda Denson MD [address] [place] [address] PCP - General Internal Medicine 07/09/20 documented as of this encounter
--- OUTSIDE RECORDS SUMMARY | 2024-04-03 11:02 | XMS_ITS | Encounter Summary ---
Author Organization [facility] Address [address] [place] [address] Care Team Providers Care Data Migration Consultant Name Role Phone Brenda Denosn MD Primary Care Prov ider Reason for Visit * Reason Onset Date Comments Provider Call Back 04/01/2024 Encounter Details Date Type Department Care Team (Late st Contact Info) Description 04/01/2024 Telephone Gastroenterology - [place] [address] [place] [address] Jayson Delcid PA [address] [place] [address] Provider Call Back Social History Tobacco Use Types Packs/Day Years [...] on file documented as of this encounter Progress Notes * Erendira Issa MA - 04/02/2024 10:44 AM EST Patient is scheduled for today at 1pm. She will talk with patient then. * Susan Carlos - 04/01/2024 10:31 AM EST Patient calling was seen in [facility] ER 03/30 - 03/31. Patient states she is nauseous and has intense pain & cramping. Patient cannot eat due to pain and having trouble swallowing. Also is having trouble going to the bathroom. Patient states she wasn't told much at the ER, however is very uncomfortable. Patient does not believe she can wait until 04/22 to be seen. Can patient be added to a wait list. Please advise. documented in this encounter Plan of Treatment Upcoming Encounters Date Type Department Care Team (Late st Contact Info) Description 04/05/2024 10:00 AM EST Appointment Radiology Department - [address] [address] 04/15/2024 11:00 AM EST Office Visit Adult Medicine - [place] [address] [place] [address] Celestina Cintron PA [address] [place] [address] 06/25/2024 3:00 PM EDT Office Visit [facility] [address] [facility] [address] [place] [phone] Garett Dixon MD [address] [facility] [address] [place] [address] documented as of this encounter Visit Diagnoses Not on filedocumented in this encounter Care Teams Data Migration Consultant Relationship Specialty Start Date End Date Brenda Denson MD [address] [place] [address] PCP - General Internal Medicine 07/09/20 documented as of this encounter
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
--- OUTSIDE RECORDS SUMMARY | 2024-04-03 11:02 | XMS_ITS | Encounter Summary ---
Author Organization [facility] Address [address] [place] [address] Phone Care Team Providers Care Shorthand Reporter Name Role Phone Michelle Sandhu DO Primary Care Provider [phone] Encounter Details Date Type Department Care Team (Late st Contact Info) Description 10/20/2016 Conversion Encounter [facility] [place] [address] [place] [address] Social History Tobacco Use Types Packs/Day Years Used Date Smoking Tobacco: Never Assessed Comments Unknown Sex and Gender Information Value Date Recorded Sex Assigned at Not on file Legal Sex Female 4:45 PM EDT Gender Identity Not on file Sexual Orientation Not on file documented as of this encounter Plan of Treatment Not on file documented as of this encounter Visit Diagnoses Not on filedocumented in this encounter Care Teams Shorthand Reporter Relationship Specialty Start Date End Date Michelle Sandhu DO [address] [place] [address] PCP - General 10/14/16 05/18/22 documented as of this encounter
--- OUTSIDE RECORDS SUMMARY | 2024-04-03 11:02 | XMS_ITS | Encounter Summary ---
Author Organization [facility] Address [address] [place] [address] Care Team Providers Care Pier Hand Name Role Phone Brenda Denson MD Primary Care Prov ider Encounter Details Date Type Department Care Team (Late st Contact Info) Description 03/21/2024 Telephone Adult Medicine - [place] [address] [place] [phone] Brenda Denson MD [address] [place] [address] Social History Tobacco Use Types Packs/Day Years [...] as of this encounter Progress Notes * Ade Nelson RN - 03/22/2024 11:19 AM EST Spoke with patient. States she feels the infection is spreading. She called the dentist yesterday and was given another 5 days of augmentin Also rx'd 6 days steroid regimen-prednisone. Afraid to take this due to blood sugars. Is concerned if blood sugars go too high she will be sent to the hospital. Advised patient about message below. Appt scheduled 03/27 with Dain for the ENT issues only. (Ear and salivary gland) Advised if she feels like infection is spreading she should go to the ER for more eval and treatment. * Brenda Denson MD - 03/22/2024 10:18 AM EST She needs an appointment so we can generate a progress note for the CAT scan to be covered in a referral placed * Ade Nelson RN - 03/21/2024 3:51 PM EST Spoke with patient. Root canal was upper left jaw. Had the first procedure 02/19- was good for about 2 weeks and pain returned. Called dentist and was placed on another antibiotic by ergonomic specialist provideron Monday and finished those this morning. Was re-treated on Monday to finish root canal In between the 2 root canals she got a Q-tip cotton stuck in left ear, now pressure in ear. Tried to get it all out, unsure if she did. Also has an enlarged salivary gland on the left side which she has been dealing with. Unsure if referred pain from ear or salivary gland or the tooth. Has GERD however has been taking NSAIDs which help but bother her stomach Still having pressure and pain at the root canal site She contacted ENT and they told her she needs a new referral and CT scan. Saw them a little more than a year ago for the salivary gland Will forward this request to PCP. In mean time advised patient to call dentist again about the mouth pain. Agrees Aware PCP not in office until tomorrow morning * Sunil Sotomayor RN - 03/21/2024 3:28 PM EST Tried calling no answer * Lionel Killian - 03/21/2024 11:34 AM EST Pt is calling as she just had her root canal redone, is still having swelling and believes the infection is still present. ENT told her she needs a new referral to be seen and a referral to have a CTDone as well. documented in this encounter Plan of Treatment Upcoming Encounters Date Type Department Care Team (Late st Contact Info) Description 04/05/2024 10:00 AM EST Appointment Radiology Department - [address] [address] 04/15/2024 11:00 AM EST Office Visit Adult Medicine - [place] [address] [place] [address] Celestina Cintron PA [address] [place] [address] 06/25/2024 3:00 PM EDT Office Visit [facility] - [facility] [address] [facility] [address] [place] [address] Garett Dixon MD 300 [facility] [address] [place] [address] documented as of this encounter Visit Diagnoses Not on filedocumented in this encounter Care Teams Pier Hand Relationship Specialty Start Date End Date Brenda Denson MD [address] [place] [address] PCP - General Internal Medicine 07/09/20 documented as of this encounter
--- OUTSIDE RECORDS SUMMARY | 2024-04-03 11:02 | XMS_ITS | Encounter Summary ---
Author Organization [facility] Address [address] [place] [address] Care Team Providers Care Coat Room Attendant Name Role Phone Brenda Denson MD Primary Care Prov ider Reason for Visit * Reason Onset Date Comments Results 03/28/2024 Encounter Details Date Type Department Care Team (Late st Contact Info) Description 03/28/2024 Telephone Adult Medicine - [place] [address] [place] [address] Brenda Denson MD [address] [place] [address] Results Social History Tobacco Use Types Packs/Day Years [...] as of this encounter Progress Notes * Mariah Villarreal MA - 03/28/2024 1:48 PM EST Dain, patient is looking for her lab results from yesterday. Thank you. * Meri Toledo - 03/28/2024 9:32 AM EST Pt is wondering if she can get a call from Raudel Vasquez or a nurse to discuss her lab results shegot done yesterday documented in this encounter Plan of Treatment Upcoming Encounters Date Type Department Care Team (Late st Contact Info) Description 04/05/2024 10:00 AM EST Appointment Radiology Department - [address] [address] 04/15/2024 11:00 AM EST Office Visit Adult Medicine - [place] [address] [place] [address] Celestina Cintron PA [address] [place] [address] 06/25/2024 3:00 PM EDT Office Visit [facility] - [facility] [address] [facility] [address] [place] [phone] Garett Dixon MD 300 [facility] [address] [place] [address] documented as of this encounter Visit Diagnoses Not on filedocumented in this encounter Care Teams Coat Room Attendant Relationship Specialty Start Date End Date Brenda Denson MD [address] [place] [address] PCP - General Internal Medicine 07/09/20 documented as of this encounter
--- OUTSIDE RECORDS SUMMARY | 2024-04-03 11:02 | XMS_ITS | Clinical Summary ---
Author Organization [facility] Address [address] [place] [address] Care Team Providers Care Staff Physician Name Role Phone Brenda Denson MD Primary Care Prov ider Allergies Active Allergy Reactions Criticality Noted Date Comments Ciprofloxacin 03/31/2020 Codeine 03/31/2020 Nsaids 03/31/2020 Vancomycin 03/31/2020 Medications Medication Sig Dispensed Refills Start Date End Date Status Nucjvqnd-Fyk-Pt-FA (PRE-JOHN PO) Take by mouth. 0 Active Active Problems No known active problems Social History Tobacco Use Types Packs/Day Years Used Date Smoking Tobacco: Every Day Cigarettes 0.3 Smokeless Tobacco: Never Alcohol Use Standard Drinks/Week Comments No 0 (1 standard drink = 0.6 oz pur e alcohol) Sex and Gender Information Value Date Recorded Sex Assigned at Not on file Gender Identity Not on file Sexual Orientation Not on file Job Start Date Occupation Industry Not on file Not on file Not on file Last Filed Vital Signs Vital Sign Reading Time Taken Comments Blood Pressure 129/76 08/23/2021 1:28 PM EDT Pulse 85 08/23/2021 1:28 PM EDT Temperature 36.8 ??C (98.2 ??F) 08/23/2021 1:28 PM ED T Respiratory Rate - - Oxygen Saturation 100% 08/23/2021 1:28 PM EDT Inhaled Oxygen Concentration - - Weight 48.1 kg (106 lb) 08/23/2021 1:28 PM EDT Height 160 cm (5' 3 ) 03/31/2020 3:47 PM EST Body Mass Index 18.78 03/31/2020 3:47 PM EST Plan of Treatment Health Maintenance Due Date Last Done Comments Hepatitis B Vaccines (1 of 3 - 3-dose series) 1994 Hepatitis C Screening 1994 COVID-19 Vaccine (#1) 01/19/1995 Pneumococcal Vaccine (1 of 2 - PCV) 2000 Depression Screening 2006 Preventative Health Evaluation 2012 Cervical Cancer Screening (Pap Smear) 07/20/2015 DTap / Tdap / Td (8 - Td or Tdap) 11/11/2022 11/11/2012, 11/08/2006, 07/20/1998, Additional history exists Influenza Vaccine (#1) 2023 12/02/2009 RSV Ped < 20 months Aged Out No longe r eligible based on patient's age to complete this topic Care Teams Staff Physician Relationship Specialty Start Date End Date Brenda Denson MD PCP - General Internal Medicine 04/12/21
--- OUTSIDE RECORDS SUMMARY | 2024-04-03 11:02 | XMS_ITS | Encounter Summary ---
Author Organization [facility] Address [address] [place] [address] Phone Care Team Providers Care Fly Finisher Name Role Phone Michelle Sandhu DO Primary Care Provider [phone] Encounter Details Date Type Department Care Team (Late st Contact Info) Description 09/09/2010 Documentation EM Family Medicine [address] [place] [address] Family Medicine, Physician [address] [place] [address] Social History Tobacco Use Types Packs/Day Years [...] on filedocumented in this encounter Care Teams Fly Finisher Relationship Specialty Start Date End Date Michelle Sandhu DO [address] [place] [address] PCP - General 10/14/16 05/18/22 documented as of this encounter
--- OUTSIDE RECORDS SUMMARY | 2024-04-03 11:02 | XMS_ITS | Clinical Summary ---
Author Organization [facility] Address [address] [place] [address] Phone Care Team Providers Care Academic Advisement Director Name Role Phone Unavailable Primary Care Provider Unavailabl e Immunizations Name Administration Dates Next Due DTP 01/19/1995,1994,1994 DTaP 5 07/20/1998,01/31/1996 HPV, Quadrivalent 05/27/2011,02/01/2010,12/03/19 10 Hep B, ped/adol 01/19/1995,1994 Hib (PRP-T) 10/30/1995, 5,1994, 995 Influenza, intranasal, trivalent 12/02/2009 MMR 07/20/1998,07/21/1995 Meningococcal Conj (Menactra) MCV4P 11/08/2006 OPV 07/20/1998, 5,1994, 995 Tdap 11/08/2006 Family History Relation Name Status Comments Father Alive Father: Alive a nd well Maternal Grandmother Alive Materna l aunt: [place] Mother Alive Mother: , Tisha ve and well Other Alive Close relative: Cousin- [place] Social History Tobacco Use Types Packs/Day Years Used Date Smoking Tobacco: Never Assessed Comments Unknown Sex and Gender Information Value Date Recorded Sex Assigned at Not on file Legal Sex Female 4:45 PM EDT Gender Identity Not on file Sexual Orientation Not on file Last Filed Vital Signs Vital Sign Reading Time Taken Comments Blood Pressure 123/88 03/01/2013 12:00 AM EST Pulse 68 12/28/2009 12:00 AM EDT Temperature 35.6 ??C (96 ??F) 03/01/2013 12:00 AM EST Respiratory Rate - - Oxygen Saturation - - Inhaled Oxygen Concentration - - Weight 53.3 kg (117 lb 6.4 oz) 03/01/2013 12:00 AM EST Height 159 cm (5' 2.6 ) 03/01/2013 12:00 AM EST Body Mass Index 21.06 03/01/2013 12:00 AM EST Plan of Treatment Health Maintenance Due Date Last Done Comments Hepatitis B Vaccines (3 of 3 - 3-dose series) 03/16/1995 01/19/1995, 1994 Varicella Vaccines (1 of 2 - 13+ 2-dose series) 12/30/2009 DTaP,Tdap,and Td Vaccines (7 - Td or Tdap) 11/08/2016 11/08/2006, 07/20/1998, 01/31/1996, Additional history exists Influenza Vaccines (#1) 2023 12/02/2009 COVID-19 Vaccine ( season) 2023 HIB Vaccines Completed 10/30/1995, 01/04, 1994, Additional history exists IPV Vaccines Completed 07/20/1998, 01/04, 1994, Additional history exists MMR Vaccines Completed 07/20/1998, 07/21/1995 Meningococcal Vaccine Aged Out 11/08/2006 No sarah riya eligible based on patient's age to complete this topic HPV Vaccines Completed 05/27/2011, 01/05, 12/02/2009 Hepatitis A Vaccines Aged Out No long er eligible based on patient's age to complete this topic Men B Vaccine Aged Out No longer elig ible based on patient's age to complete this topic Pneumococcal Vaccine Aged Out No long er eligible based on patient's age to complete this topic Procedures * Due to [place] [employer] law, this organization might not be sharing sensitive test results. Procedure Name Priority Date/Time Associated Diagnosis Comments CHLAMYDIA AND GONORRHEA, AMPLIFIED Routine 08/09/2011 1:30 PM EDT from Last 3 Months or Most Recently Relevant to Health Maintenance Results * Due to [place] [employer] law, this organization might not be sharing sensitive test results. * Chlamydia and Gonorrhoea, Amplified (08/09/2011 1:30 PM EDT) URINE GC AMP PROBE NEGATIVE [facility] Comment: NO NEISSERIA GONORRHOEAE RNA DETECTED IN THIS PATIENT'S SAMPLE. ? (REFERENCE RANGE/NORMAL VALUE: NOT DETECTED) ? NOTE: THIS TEST USES TOP LIFT COMPRESSER MEDIATED AMPLIFICATION METHOD TO DETECT rRNA FROM C.TRACHOMATIS AND N.GONORRHOEAE. A NEGATIVE RESULT DOES NOT PRECLUDE INFECTION WITH C.TRACHOMATIS OR N.GONORRHOEAE BECAUSE RESULTS ARE DEPENDENT ON ADEQUATE SPECIMEN COLLECTION, ABSENCE OF INHIBITORS, AND SUFFICIENT rRNA TO BE DETECTED. THE APTIMA COMBO2 ASSAY IS NOT INTENDED FOR THE EVALUATION OF SUSPECTED SEXUAL ABUSE OR FOR OTHER MEDICO LEGAL INDICATIONS. IS TRUE FOR ALL NON CULTURE METHODS, A POSITIVE SPECIMEN OBTAINED FROM A PATIENT AFTER THERAPEUTIC TREATMENT CANNOT BE INTERPRETED INDICATING THE PRESENCE OF VIABLE C.TRACHOMATIS OR N.GONORRHOEAE. THERAPEUTIC FAILURE OR SUCCESS CANNOT BE DETERMINED WITH THE APTIMA COMBO2 ASSAY SINCE NUCLEIC ACID MAY PERSIST FOLLOWING APPROPRIATE ANTIMICROBIAL THERAPY. A NEGATIVE URINE RESULT FOR A PATIENT WHO IS CLINICALLY SUSPECTED OF HAVING A CHLAMYDIAL OR GONOCOCCAL INFECTION DOES NOT RULE OUT THE PRESENCE OF C.TRACHOMATIS OR N.GONORRHOEAE IN THE UROGENITAL TRACT. TESTING OF AN ENDOCERVICAL(FEMALE) OR URETHRAL(MALE) SPECIMEN IS RECOMMENDED IF THERE IS HIGH CLINICAL SUSPICION OF INFECTION. PRESERVCYT LIQUID PAP AND URINE SAMPLING ARE NOT DESIGNED TO REPLACE CERVICAL EXAMS AND ENDOCERVICAL SAMPLES FOR DIAGNOSIS OF FEMALE UROGENITAL INFECTIONS. PATIENTS MAY HAVE CERVICITIS, URETHRITIS, URINARY TRACT INFECTIONS, OR VAGINAL INFECTIONS DUE TO OTHER CAUSES OR CONCURRENT INFECTIONS WITH OTHER AGENTS. URINE CHLAMYDIA AMP PROBE NEGATIVE [facility] Comment: NO CHLAMYDIA TRACHOMATIS RNA DETECTED IN THIS PATIENT'S SAMPLE. ? (REFERENCE RANGE/NORMAL VALUE: NOT DETECTED) 08/09/2011 1:30 PM EDT Narrative [facility] - 08/09/2011 1:30 PM EDT URINE CHLAMYDIA GC AMP PROBE us Michelle Sandhu DO LAB MICROBIOLOGY - GENERAL ORDER CHARLENE Final Result [facility] [address] [place] [address], [place] from Last 3 Months or Most Recently Relevant to Health Maintenance
--- OUTSIDE RECORDS SUMMARY | 2024-04-03 11:02 | XMS_ITS | Encounter Summary ---
Author Organization [facility] Address [address] [place] [address] Care Team Providers Care Marketing Technology Specialist Name Role Phone Brenda Denson MD Primary Care Prov ider Reason for Visit * Reason Onset Date Comments PT1 03/28/2024 Encounter Details Date Type Department Care Team (Late st Contact Info) Description 03/28/2024 Telephone Adult Medicine - [place] [address] [place] [phone] Brenda Denson MD [address] [place] [address] PT1 Social History Tobacco Use Types Packs/Day Years [...] as of this encounter Progress Notes * Jeremiah Ngo MA - 03/28/2024 9:50 AM EST PT-1 Request Confirmation PT-1 request is submitted PT-1 Request [id number]. * Meri Toledo - 03/28/2024 9:26 AM EST PT-1 Request Call [facility] new provider or submitter number is [id number] Verify and document patients [place] Health insurance ID # (NOT [facility] ID): [id number] Payor: [employer] PLAN / Plan: [place] MEDICAID / Product Type: *No Product type* / Patient mailing [facility] [phone] (home) Pt. demographics verified? yes If not accurate, update registration. Is this a NEW request or a RENEWAL? New request Name of treating facility: [facility] Radiology Name (first & last) of treating provider? required : TBD What is the medical reason why the patient is seeing the above provider? Pancreatitis Address/Zip code for treating provider: [address] [place] [address] Phone # for treating provider: [phone] Is the provider in the [employer] (do they accept [place] Health insurance)? yes What specialtly is this provider? Radiology When is the visit scheduled for? 04-05-24 10:00 am How often you will be seeing this particular provider? 1 time a month Do you have friends or family who can transport you to this visit? no If yes, do not complete request. Is there anything stopping you from using public transportation? If yes, explain: yes no close bus stop Is there a medical reason (diagnosis) why you are unable to use public transportation? If yes, explain: No Does patient carry self-administered oxygen? no Does patient require door through door or room to room service( ex: member cannot ambulate or wait independently outside their home/facility for transportation. no Is this is for an Adult Day Program or Suboxone clinic No If yes to above what is arrival time n/a and what is departure time n/a If yes to above how many days a week? N/a Do you need a wheelchair van? no If you use a wheelchair what is the height, width & length of the wheelchair? N/a Do you need an escort to accompany you? If yes, explain why. no Will you have an alternative pick-up address? no Do you have a service animal? no PT DOES NOT NEED RELEASE OF INFORMATION SIGNED documented in this encounter Plan of Treatment Upcoming Encounters Date Type Department Care Team ([facility] st Contact Info) Description 04/05/2024 10:00 AM EST Appointment Radiology Department - [address] [address] 04/15/2024 11:00 AM EST Office Visit Adult Medicine - [place] [address] [place] [address] Celestina Cintron PA [address] [place] [address] 06/25/2024 3:00 PM EDT Office Visit [facility] - [facility] [address] [facility] [address] [place] [address] Garett Dixon MD [address] [facility] [address] [place] [address] documented as of this encounter Visit Diagnoses Not on filedocumented in this encounter Care Teams Marketing Technology Specialist Relationship Specialty Start Date End Date Brenda Denson MD [address] [place] [address] PCP - General Internal Medicine 07/09/20 documented as of this encounter
--- OUTSIDE RECORDS SUMMARY | 2024-04-03 11:02 | XMS_ITS | Encounter Summary ---
Author Organization [facility] Address [address] [place] [address] Care Team Providers Care Double Back Operator Name Role Phone Brenda Denson MD Primary Care Prov ider Reason for Visit * Reason Onset Date Comments PT-1 03/18/2024 [facility] Encounter Details Date Type Department Care Team (Late st Contact Info) Description 03/18/2024 Telephone Adult Medicine - [place] [address] [place] [phone] Brenda Denson MD [address] [place] [address] PT-1 ([facility]) Social History Tobacco Use Types Packs/Day Years [...] Progress Notes * Jeremiah Ngo MA - 03/19/2024 8:57 AM EST PT-1 request is submitted PT-1 Request [id number]. * Thalia Guerra - 03/18/2024 12:33 PM EST PT-1 Request Call [employer] new provider or submitter number is [id number] Verify and document patients [place] Health insurance ID # (NOT [facility] ID): [id number] Payor: [employer] PLAN / Plan: [employer] MEDICAID / Product Type: *No Product type* / Patient mailing address: [place] [phone] (home) Pt. demographics verified? yes If not accurate, update registration. Is this a NEW request or a RENEWAL? renewal Name of treating facility: [facility] Name (first & last) of treating provider? required : Garett Dixon MD What is the medical reason why the patient is seeing the above provider? Cardi consult Address/Zip code for treating provider: [address] [place] [address] [address], [place] [address] Phone # for treating provider: Is the provider in the [facility] [employer] network (do they accept [place] Health insurance)? yes What specialtly is this provider? Cardi When is the visit scheduled for? 06/25/2024 How often you will be seeing this particular provider? Twice a month Do you have friends or family who can transport you to this visit? no If yes, do not complete request. Is there anything stopping you from using public transportation? If yes, explain: yes Is there a medical reason (diagnosis) why you are unable to use public transportation? If yes, explain: Yes,too far from nearest laura stop Does patient carry self-administered oxygen? no Does [...] 10:00 AM EST Appointment Radiology Department - [address] [address] 04/15/2024 11:00 AM EST Office Visit Adult Medicine - [place] [address] [place] [address] Celestina Cintron PA [address] [place] [address] 06/25/2024 3:00 PM EDT Office Visit [facility] - [facility] [address] [facility] [address] [place] [address] Garett Dixon MD [address] [facility] [address] [place] [address] documented as of this encounter Visit Diagnoses Not on filedocumented in this encounter Care Teams Double Back Operator Relationship Specialty Start Date End Date Brenda Denson MD [address] [place] [address] PCP - General Internal Medicine 07/09/20 documented as of this encounter
--- OUTSIDE RECORDS SUMMARY | 2024-04-03 11:02 | XMS_ITS | Encounter Summary ---
Author Organization [facility] Address [address] [place] [address] Care Team Providers Care Campaign Marketing Manager Name Role Phone Brenda Denson MD Primary Care Prov ider Reason for Visit * Reason Onset Date Comments PT1 03/28/2024 Encounter Details Date Type Department Care Team (Late st Contact Info) Description 03/28/2024 Telephone Adult Medicine [facility] [address] [place] [phone] Brenda Denson MD [address] [place] [address] PT1 Social History Tobacco Use Types Packs/Day [...] Notes * Jeremiah Ngo MA - 03/28/2024 9:54 AM EST PT-1 Request Confirmation PT-1 request is submitted PT-1 Request [id number]. * Meri Toledo - 03/28/2024 9:22 AM EST PT-1 Request Call [employer] new provider or submitter number is [id number] Verify and document patients [place] Health insurance ID # (NOT [facility] ID): [id number] Payor: [employer] PLAN / Plan: [employer] MEDICAID / Product Type: *No Product type* / Patient mailing address: [address] [facility] [phone] (home) Pt. demographics verified? yes If not accurate, update registration. Is this a NEW request or a RENEWAL? New request Name of treating facility: [facility] Name (first & last) of treating provider? required : SAHIL Hunt What is the medical reason why the patient is seeing the above provider? pancreatitis Address/Zip code for treating provider: [address] [facility] [address] [place] [address] Phone # for treating provider: [phone] Is the provider in the [employer] (do they accept [place] Health insurance)? yes What specialtly is this provider? Gastro When is the visit scheduled for?04-22-24 9:40 am How often you will be seeing this particular provider? 2 times a month Do you have friends or [...] AM EST Appointment Radiology Department - [address] [address] 04/15/2024 11:00 AM EST Office Visit Adult Medicine - [place] [address] [place] [address] Celestina Cintron PA [address] [place] [address] 06/25/2024 3:00 PM EDT Office Visit [facility] - [facility] [address] [facility] [address] [place] [address] Garett Dixon MD 300 [facility] [address] [place] [address] documented as of this encounter Visit Diagnoses Not on filedocumented in this encounter Care Teams Campaign Marketing Manager Relationship Specialty Start Date End Date Brenda Denson MD [address] [place] [address] PCP - General Internal Medicine 07/09/20 documented as of this encounter
--- OUTSIDE RECORDS SUMMARY | 2024-04-03 11:02 | XMS_ITS | Encounter Summary ---
Author Organization [facility] Address [address] [place] [address] Care Team Providers Care Ladies Attendant Name Role Phone Brenda Denson MD Primary Care Prov ider Reason for Visit * Reason Onset Date Comments PROVIDER CALL BACK 03/26/2024 Encounter Details Date Type Department Care Team (Late st Contact Info) Description 03/26/2024 Telephone Adult Medicine [facility] [address] [place] [phone] Brenda Denson MD [address] [place] [address] PROVIDER CALL BACK Social History Tobacco Use Types Packs/Day Years [...] as of this encounter Progress Notes * Fátima Marie MA - 03/27/2024 11:06 AM EST Pt seen by Dain tobias. * Prabhu Magallon - 03/26/2024 11:24 AM EST Caller requesting call back from provider: Is the caller the patient? YES If caller is not the patient, what is the callers name? N/A Callers relationship to patient? N/A If person calling is not the patient themselves, is there a verbal release in FYI or permanent comments for this person: NO Reason for call back: Pt wanted provider to know that she was seen 03-22-24 @ [facility] for low potassium, weakness. Pt was told to have labs repeated for potassium. Pt has appt 03-27-24 with Kerwin Oliver Caller offered to speak with the nurse for assistance: yes Response: pt can be reached @ [phone] documented in this encounter Plan of Treatment Upcoming Encounters Date Type Department Care Team (Late st Contact Info) Description 04/05/2024 10:00 AM EST Appointment Radiology Department - [address] [address] 04/15/2024 11:00 AM EST Office Visit Adult Medicine - [place] [address] [place] [address] Celestina Cintron PA [address] [place] [address] 06/25/2024 3:00 PM EDT Office Visit [facility] - [facility] [address] [facility] [address] [place] [phone] Garett Dixon MD 300 [facility] [address] [place] [address] documented as of this encounter Visit Diagnoses Not on filedocumented in this encounter Care Teams Ladies Attendant Relationship Specialty Start Date End Date Brenda Denson MD [address] [place] [address] PCP - General Internal Medicine 07/09/20 documented as of this encounter
--- OUTSIDE RECORDS SUMMARY | 2024-04-03 11:02 | XMS_ITS | Encounter Summary ---
Author Organization [facility] Address [address] [place] [address] Care Team Providers Care Creamery Worker Name Role Phone Brenda Denson MD Primary Care Prov ider Reason for Visit * Reason Onset Date Comments pt-1 03/22/2024 [facility] Encounter Details Date Type Department Care Team (Late st Contact Info) Description 03/22/2024 Telephone Adult Medicine - [place] [address] [place] [phone] Brenda Denson MD [address] [place] [address] pt-1 ([facility]) Social History Tobacco Use Types Packs/Day Years [...] Progress Notes * Jeremiah Ngo MA - 03/25/2024 9:11 AM EST PT-1 request is submitted PT-1 Request [id number]. * Ct Botello [place] - 03/22/2024 12:44 PM EST Please send to the correct pool. * Jacquelyn Santacruz - 03/22/2024 11:40 AM EST PT-1 Request Call [facility] new provider or submitter number is [id number] Verify and document patients [place] Health insurance ID # (NOT [facility] ID): [id number] Payor: [employer] PLAN / Plan: [employer] MEDICAID / Product Type: *No Product type* / Patient mailing address: [address] [place] [phone] (home) Pt. demographics verified? yes If not accurate, update registration. Is this a NEW request or a RENEWAL? New request Name of treating facility: [facility] Name (first & last) of treating provider? required : Dr Colby Wagner What is the medical reason why the patient is seeing the above provider? Pain Address/Zip code for treating provider: [address] [place] [address] Phone # for treating provider: [phone] Is the provider in the [employer] network (do they accept [place] Health insurance)? yes What specialtly is this provider? Physical Therapy When is the visit scheduled for? 03/26/24 How often you will be seeing this particular provider? 3 times a month Do you have friends [...] Upcoming Encounters Date Type Department Care Team ([facility] st Contact Info) Description 04/05/2024 10:00 AM EST Appointment Radiology Department - [address] [address] 04/15/2024 11:00 AM EST Office Visit Adult Medicine - [place] [address] [place] [address] Celestina Cintron PA [address] [place] [address] 06/25/2024 3:00 PM EDT Office Visit [facility] - [facility] [address] [facility] 154 [place] [address] Garett Dixon MD 300 [facility] 154 [place] [address] documented as of this encounter Visit Diagnoses Not on filedocumented in this encounter Care Teams Creamery Worker Relationship Specialty Start Date End Date Brenda Denson MD [address] [place] [address] PCP - General Internal Medicine 07/09/20 documented as of this encounter
--- OUTSIDE RECORDS SUMMARY | 2024-04-03 11:03 | XMS_ITS | Encounter Summary ---
Author Organization [facility] Address [address] [place] [address] Phone Care Team Providers Care Department Secretary Name Role Phone Michelle Sandhu DO Primary Care Provider [phone] Encounter Details Date Type Department Care Team (Late st Contact Info) Description 06/02/2011 Documentation EM Family Medicine [address] [place] [address] Family Medicine, Physician [address] [place], [place] [phone] Social History Tobacco Use Types Packs/Day Years [...] on filedocumented in this encounter Care Teams Department Secretary Relationship Specialty Start Date End Date Michelle Sandhu DO [address] [place] [address] PCP - General 10/14/16 05/18/22 documented as of this encounter
--- OUTSIDE RECORDS SUMMARY | 2024-04-03 11:03 | XMS_ITS | Encounter Summary ---
Author Organization [facility] Address [address] [place] [address] Phone Care Team Providers Care Auto Body Service Mechanic Name Role Phone Michelle Sandhu DO Primary Care Provider [phone] Encounter Details Date Type Department Care Team (Late st Contact Info) Description 01/10/2011 Documentation EM Family Medicine [address] [place] [address] Family Medicine, Physician [address] [place] [address] Social History Tobacco Use Types [...] on filedocumented in this encounter Care Teams Auto Body Service Mechanic Relationship Specialty Start Date End Date Michelle Sandhu DO [address] [place] [address] PCP - General 10/14/16 05/18/22 documented as of this encounter
--- OUTSIDE RECORDS SUMMARY | 2024-04-03 11:03 | XMS_ITS | Encounter Summary ---
Author Organization [facility] Address [address] [place] [address] Care Team Providers Care Air Traffic Instructor Name Role Phone Brenda Denson MD Primary Care Prov ider Reason for Visit * Reason Onset Date Comments PT-1 03/18/2024 [facility] Encounter Details Date Type Department Care Team (Late st Contact Info) Description 03/18/2024 Telephone Adult Medicine - [place] [address] [place] [phone] Brenda Denson MD [address] [place] [address] PT-1 ([facility]) Social History Tobacco Use Types Packs/Day Years [...] Notes * Jeremiah Ngo MA - 03/19/2024 8:54 AM EST PT-1 request is submitted PT-1 Request [id number]. * Thalia Guerra - 03/18/2024 12:30 PM EST PT-1 Request Call [facility] new provider or submitter number is [id number] Verify and document patients [place] Health insurance ID # (NOT [facility] ID): [id number] Payor: [employer] PLAN / Plan: [employer] MEDICAID / Product Type: *No Product type* / [facility] [phone] (home) Pt. demographics verified? yes If not accurate, update registration. Is this a NEW request or a RENEWAL? renewal Name of treating facility: [facility] Name (first & last) of treating provider? required : Elena Ellis, JASWANT. What is the medical reason why the patient is seeing the above provider? Eye Dr f/u Address/Zip code for treating provider: [address], [place] [address] Phone # for treating provider: Is the provider in the [facility] network (do they accept [place] Health insurance)? yes What specialtly is this provider? Eye When is the visit scheduled for? How often you will be seeing this particular provider? Once a month Do you have friends or [...] 10:00 AM EST Appointment Radiology Department - [address] [address] 04/15/2024 11:00 AM EST Office Visit Adult Medicine - [place] [address] [place] [address] Celestina Cintron PA [address] [place] [address] 06/25/2024 3:00 PM EDT Office Visit [facility] 154 [address] [facility] 154 [place] [phone] Garett Dixon MD 300 [facility] [address] [place] [address] documented as of this encounter Visit Diagnoses Not on filedocumented in this encounter Care Teams Air Traffic Instructor Relationship Specialty Start Date End Date Brenda Denson MD [address] [place] [address] PCP - General Internal Medicine 07/09/20 documented as of this encounter
--- OUTSIDE RECORDS SUMMARY | 2024-04-03 11:03 | XMS_ITS | Encounter Summary ---
Author Organization [facility] Address [address] [place] [address] Care Team Providers Care Major Assembly Inspector Name Role Phone Brenda Desnon MD Primary Care Prov ider Reason for Visit * Reason Onset Date Comments PT-1 03/18/2024 [facility] Encounter Details Date Type Department Care Team (Late st Contact Info) Description 03/18/2024 Telephone Adult Medicine - [place] [address] [place] [phone] Brenda Denson MD [address] [place] [address] PT-1 ([facility]) Social History Tobacco Use Types Packs/Day Years [...] Progress Notes * Jeremiah Ngo MA - 03/18/2024 5:03 PM EST PT-1 request is submitted PT-1 Request [id number]. * Thalia Geurra - 03/18/2024 12:18 PM EST PT-1 Request Call [facility] new provider or submitter number is [id number] Verify and document patients [place] Health insurance ID # (NOT [facility] ID): [id number] Payor: [employer] PLAN / Plan: [employer] MEDICAID / Product Type: *No Product type* / Patient mailing address: [address] [place] [phone] (home) Pt. demographics verified? yes If not accurate, update registration. Is this a NEW request or a RENEWAL? renewal Name of treating facility: [facility] Name (first & last) of treating provider? required : Cherie Truong MD What is the medical reason why the patient is seeing the above provider? F/u kidney and bladder problems Address/Zip code for treating provider: [address] [place] [address] Phone # for treating provider: Is the provider in the [facility] network (do they accept [place] Health insurance)? yes What specialtly is this provider? Urology When is the visit scheduled for? 04/16/2024 How often you will be seeing this [...] 10:00 AM EST Appointment Radiology Department - [address] [address] 04/15/2024 11:00 AM EST Office Visit Adult Medicine - [place] [address] [place] [address] Celestina Cintron PA [address] [place] [address] 06/25/2024 3:00 PM EDT Office Visit [facility] 154 [address] [facility] 154 [place] [phone] Garett Dixon MD 300 [facility] [address] [place] [address] documented as of this encounter Visit Diagnoses Not on filedocumented in this encounter Care Teams Major Assembly Inspector Relationship Specialty Start Date End Date Brenda Denson MD [address] [place] [address] PCP - General Internal Medicine 07/09/20 documented as of this encounter
--- OUTSIDE RECORDS SUMMARY | 2024-04-03 11:03 | XMS_ITS | Clinical Summary ---
Author Organization [facility] Address [address] [place] [address] Phone Care Team Providers Care Boiler Mechanic Name Role Phone Brenda Denson MD Primary Care Prov ider Allergies Active Allergy Reactions Criticality Noted Date Comments Amoxicillin Swelling High 09/01/2022 Swelling of throat, tongue Ciprofloxacin Itching 04/06/2015 Codeine 07/02/2015 Other Reaction(s): Rash/Dermatitis Nsaids (Non-Steroidal Anti-Inflammatory Drug) GI intolerance 07/02/2015 Vancomycin Itching,Swelling High 05/08/2017 Medications Medication Sig Dispensed Refills Start Date End Date Status FREESTYLE LANCETS MISC USE 1 DEVICE 2 TIMES DAILY 11/23/2023 Active norgestimate-ethin yl estradioL (ORTHO TRI-CYCLEN LO) 0.18/0.215/0.25 mg-25 mcg per tablet Take 1 tablet by mouth 1 (one) time each day. 11/03/2023 Active blood sugar diagnostic (FreeStyle Lite Strips) test strip USE 1 STRIP 2 TIMES A DAY 10/03/2023 Active blood-glucose meter,continuous (Dexcom G7 Leather Stamper) misc 1 Device by Does not apply route See Admin Instructions. Use daily with dexcom g 7 sensors 02/02/2023 Active blood-glucose meter kit Use as directed 09/24/2021 Active blood glucose control high,low (FreeStyle Control) solution 1 Bottle by In Vitro route See Admin Instructions. 09/24/2021 Active ondansetron (ZOFRAN) 4 mg tablet Take 1 tablet (4 mg total) by mouth 3 (three) times a day. 20 tablet 04/02/2024 05/02/2024 Active azithromycin (ZITHROMAX) 250 mg tablet Take 2 tablets (500 mg total) by mouth 1 (one) time each day. 10 tablet 04/02/2024 Active dicyclomine (BENTYL) 10 mg capsule Take 1 capsule (10 mg total) by mouth 4 (four) times a day if needed (abdominal cramping). 60 capsule 11 04/02/2024 Active pantoprazole (PROTONIX) 20 mg EC tablet Take 1 tablet (20 mg total) by mouth 1 (one) time each day. Take on empty stomach, wait 30 mins and then eat to activate the medication 30 each 11 04/02/2024 Active Active Problems Problem Noted Date Diagnosed Date Palpitations 02/26/2024 Abdominal cramping 01/02/2024 Dry skin 01/02/2024 Esophagitis 01/02/2024 Gastritis 01/02/2024 Hiatal hernia 01/02/2024 Passage of loose stools 01/02/2024 Pelvic pain 01/02/2024 Vitamin D deficiency 02/08/2021 Elevated testosterone level 12/07/2018 Thyroid nodule 10/26/2018 Abnormal TSH 10/17/2017 Gastroesophageal reflux disease without esophagi tis 03/13/2017 Depression 04/26/2016 Encounters Date Type Department Care Team Description 04/02/2024 1:00 PM EST Office Visit Gastroenterology [facility] [address] [phone] Jayson Delcid PA Generalized abdominal pain (Primary Dx); Abdominal cramping; Enteritis; Nausea; Gastroesophageal reflux disease without esophagitis 04/01/2024 Telephone Gastroenterology [facility] 175 [facility] [address] [address] Jayson Delcid PA Provider Call Back 03/28/2024 Telephone Adult Medicine [address] [phone] Brenda Silva MD Results 03/28/2024 Telephone Adult [facility] [address] [place] [phone] Brenda Silva MD PT1 03/28/2024 Telephone Adult [facility] [address] [place] [address] Brenda Silva MD PT1 03/27/2024 10:00 AM EST Office Visit Adult Medicine [facility] [address] [place] [address] Kerwin Vasquez PA Abdominal cramping (Primary Dx); Dark urine; Vitamin D deficiency; Low blood potassium 03/26/[address] [facility] [address] [place] [address] Brenda Silva MD PROVIDER CALL BACK 03/22/[address] [facility] [address] [place] [address] Brenda Silva MD pt-1 ([facility]) 03/21/[address] [facility] [address] [place] [address] Brenda Silva MD 03/18/2024 Telephone Adult Medicine - [place] [address] [place] [address] Brenda Silva MD PT-1 ([facility]) 03/18/[address] [facility] [address] [place] [address] Brenda Silva MD PT-1 ([facility]) 03/18/[address] [facility] [address] [place] [address] Brenda Silva MD PT-1 ([facility]) 03/18/[address] [facility] [address] [place] [address] Brenda Silva MD PT-1 ([facility]) 03/18/2024 Telephone Adult Medicine - [place] [address] [place] [address] HayBrenda Kendrick MD PT-1 ([facility]) 03/18/2024 Telephone Adult Medicine - [place] [address] [place] [phone] Brenda Silva MD PT-1 (To PCP [address] [place], [place]) 02/13/2024 Telephone Adult Medicine - [place] [address] [place] [phone] Myra Kaur MA Fitting for DME 01/18/2024 Telephone [facility] [address] [facility] [address] [place] [address] Brenda Silva MD from Last 3 Months Immunizations Name Administration Dates Next Due DTP 01/19/1995,1994,1994 DTaP 5 pertussis antigens, D iptheria Tetanus acellular pertussis (Daptacel) 6wks to less than 7yo 07/20/1998,01/31/1996 HPV, Quadrivalent 05/27/2011,02/01/2010,12/03/19 10 Hepatitis B Pediatric (Enger ix B; Recombivax HB) to less than 20 yo 01/19/1995,1994 HiB PRP-T conjugate (Acthib, Hiberix) 6wks and older 10/30/1995,01/19/1995,1994,09/19 Influenza, live, intranasal, trivalent (FluMist) 2yo to less than 50yo 12/02/2009 MMR, measles mumps and rubel la Live (Priorix; M-M-R II) 12mo and older 07/20/1998,07/21/1995 Meningococcal MCV4P 11/08/2006 OPV 07/20/1998, 5,1994,09/19 Tdap Tetanus diptheria acell ular pertussis (Boostrix; Adacel) 7yo and older 11/11/2012,11/08/2006 Surgical History Surgery Date Site/Laterality Comments SECTION 11/10/2012 PROCEDURE: HISTORICAL DELIVERY; COMMENT: breech COLONOSCOPY 06/30/2010 PROCEDURE: HISTORICAL COLONOSCOPY; COMMENT: Dr. Vivek - normal to cecum. Random colonic biopsies normal. ESOPHAGOGASTRODUODENOSCOPY 06/30/2010 PROCEDURE: CT EGD TRANSORAL BIOPSY SINGLE/MULTIPLE; COMMENT: Dr. Doyle - mild esophagitis/gastritis. Normal duodenum. Random biopsies negative for H. pylori infection or celiac disease. FLEXIBLE SIGMOIDOSCOPY 10/04/2013 PROCEDURE: CT SIGMOIDOSCOPY FLX DX W/COLLJ SPEC BR/WA IF PFRMD; COMMENT: normal to 25 cm TONSILLECTOMY 2010 PROCEDURE: HISTORICAL TONSILLECTOMY HERNIA REPAIR 03/30/2017 PROCEDURE: REPAIR UMBILICAL HERNIA OTHER SURGICAL HISTORY 09/19/2022 PROCEDURE: CT INDUCED DILATION AND CURETTAGE Medical History Medical History Date Comments Chronic abdominal pain age 14 DX:Chroni c abdominal pain; COMMENT: Dr. Doyle did colonoscopy and endoscopy, reported normal per pt Teen age 16 DX:Teen pregnanc y Dry skin DX:Dry skin Menorrhagia DX:Menorrhagia Pelvic pain DX:Pelvic pain History of ovarian cyst DX:Histo ry of ovarian cyst Abnormal TSH 10/17/2017 DX:Abnormal TSH Depression 04/26/2016 DX:Depression Gastroesophageal reflux dise ase without esophagitis 03/13/2017 DX:Gastroesophageal reflux d isease without esophagitis Thyroid nodule 10/19/2017 DX:Thyroid nodul e Tobacco abuse 04/06/2015 DX:Tobacco abuse Irritable bowel syndrome DX:Irri table bowel syndrome Hiatal hernia DX:Hiatal hernia Abdominal cramping DX:Abdominal cramping Esophagitis DX:Esophagitis Gastritis DX:Gastritis Passage of loose stools DX:Passa ge of loose stools Gastritis DX:Gastritis Change in stool DX:Change in sto ol Change in bowel habits DX:Change in bowel habits History of kidney infection DX:H istory of kidney infection Family History Medical History Relation Name Comments Multiple sclerosis Aunt Maternal Heart failure Father Emphysema, Blo od clot Diabetes Maternal Grandmother Multiple sclerosis Mother Breast cancer Other 1 Ovarian cancer Other 2 Uterine cancer Other 3 Colon cancer Other 4 Diabetes Paternal Grandfather Alzheimer's disease Paternal Grandmother Relation Name Status Comments Aunt Maternal Brother Alive Father Alive smoker, lung ma ss-not biopsied yet Maternal Grandfather (Age 62) es ophageal cancer, lung cancer Maternal Grandmother (Age 81) os teoporosis, from clot after hip fracture, ovarian cancer 54 Mother Alive osteoporosis Other 1 Other 2 Other 3 Other 4 Paternal Grandfather Alive high ch olesterol, htn, ashtma, diabetes, colon polyps Paternal Grandmother high ch olesterol Son Alive taylor Colon Social History Tobacco Use Types Packs/Day Years [...] file Not on file Not on file Obstetrics History Last Filed Vital Signs Vital Sign Reading Time Taken Comments Blood Pressure 102/60 04/02/2024 1:04 PM EST Pulse 64 04/02/2024 1:04 PM EST Temperature 36.8 ??C (98.3 ??F) 03/27/2024 10:[address] Respiratory Rate - - Oxygen Saturation 99% 04/02/2024 1:04 PM EST Inhaled Oxygen Concentration - - Weight 55.3 kg (122 lb) 04/02/2024 1:04 PM EST Height 160 cm (5' 3 ) 04/02/2024 1:04 PM EST Body Mass Index 21.61 04/02/2024 1:04 PM EST Plan of Treatment Upcoming Encounters Date Type Department Care Team (Late st Contact Info) Description 04/05/2024 10:00 AM EST Appointment Radiology Department - [address] [address] 04/15/2024 11:00 AM EST Office Visit Adult Medicine - [place] [address] [place] [address] Celestina Cintron PA 230 [place] [address] 06/25/2024 3:00 PM EDT Office Visit [facility] - [facility] [address] [facility] [address] [place] [phone] Garett Dixon MD 300 [facility] [address] [place] [address] Health Maintenance Due Date Last Done Comments Hepatitis B Vaccines (3 of 3 - 3-dose series) 03/16/1995 01/19/1995, 1994 COVID-19 Vaccine (#1) 07/20/1999 Pneumococcal Vaccine: Pediatrics (0 to 5 Years) and At-Risk Patients (6 to 64 Years) (1 of 2 - PCV) 2000 Hepatitis C Screening 02/11/2022 Social Influencers of Health Screening 02/11/2022 Cervical Cancer Screening: Pap Smear 09/23/2022 09/24/2019 DTaP,Tdap,and Td Vaccines (8 - Td or Tdap) 11/11/2022 11/11/2012, 11/08/2006, 07/20/1998, Additional history exists Influenza Vaccine (#1) 2023 12/02/2009 Depression Screening 11/02/2024 11/03/2023 HIB Vaccines Completed 10/30/1995, 01/04, 1994, Additional history exists IPV Vaccines Completed 07/20/1998, 01/04, 1994, Additional history exists MMR Vaccines Completed 07/20/1998, 07/21/1995 Meningococcal ACWY Vaccine Aged Out 11/08/2006 N o longer eligible based on patient's age to complete this topic HPV Vaccines Completed 05/27/2011, 01/05, 12/02/2009 HIV Screening Completed 04/13/2015 Hepatitis A Vaccines Aged Out No long er eligible based on patient's age to complete this topic RSV Immunization Patients Under 20 months Aged Out No longer eligible based on patient's age to complete this topic Varicella Vaccines Aged Out No longer eligible based on patient's age to complete this topic Procedures Procedure Name Priority Date/Time Associated Diagnosis Comments URINALYSIS WITH REFLEX MICROSCOPIC Routine 03/27/2024 11:06 AM EST Dark urine VITAMIN D 1,25 DIHYDROXY Routine 03/27/2024 11:06 AM EST Vitamin D deficiency URINALYSIS WITH REFLEX MICROSCOPIC Routine 03/27/2024 11:06 AM EST Dark urine LIPASE Routine 03/27/2024 11:06 AM EST Dark urine COMPREHENSIVE METABOLIC PANEL Routine 03/27/2024 11:06 AM EST Dark urine CULTURE URINE Routine 03/27/2024 11:06 AM EST Dark urine HM DEPRESSION SCREENING Routine 11/03/2023 HM PAP SMEAR Routine 09/24/2019 HIV SCREENING Routine 04/13/2015 from Last 3 Months or Most Recently Relevant to Health Maintenance Results * Urinalysis with reflex microscopic (03/27/2024 11:06 AM EST) Specific [place] Urine 1.006 1.003 - 1.030 LAB URINALYSIS - AUTOMATED METHOD 03/27/2024 12:17 PM [facility] pH, Urine 7.0 5.0 - 8.0 pH LAB URINALYSIS - AUTOMATED METHOD 03/27/2024 12:17 PM [facility] Leukocytes, Urine Negative Negative LAB URINALYSIS - AUTOMATED METHOD 03/27/2024 12:17 PM [facility] Nitrite, Urine Negative Negative LAB URINALYSIS - AUTOMATED METHOD 03/27/2024 12:17 PM [facility] Protein, Urine Negative <=Trace mg/dL LAB URINALYSIS - AUTOMATED METHOD 03/27/2024 12:17 PM [facility] Glucose, Urine Negative Negative mg/dL LAB URINALYSIS - AUTOMATED METHOD 03/27/2024 12:17 PM [facility] Ketones, Urine Negative Negative mg/dL LAB URINALYSIS - AUTOMATED METHOD 03/27/2024 12:17 PM [facility] Urobilinogen, Urine 0.2 0.2 - 1.0 mg/dL LAB URINALYSIS - AUTOMATED METHOD 03/27/2024 12:17 PM EST [facility] Bilirubin, Urine Negative Negative LAB URINALYSIS - AUTOMATED METHOD 03/27/2024 12:17 PM EST [facility] Blood, Urine Negative Negative LAB URINALYSIS - AUTOMATED METHOD 03/27/2024 12:17 PM EST [facility] Urine Urine specimen obtained by clean catch procedure / Unknown Non-blood Collection / Unknown 03/27/2024 11:06 AM EST 03/27/2024 11:06 AM EST [facility] URINE ORDERABLES [facility] [address] [place] [address], * Vitamin D 1,25 dihydroxy (03/27/2024 11:06 AM EST) Vitamin D, 1, 25-Dihydroxy 22 20 - 79 pg/mL 04/01/2024 7:55 PM EST [facility] Comment: Vitamin D 1, 25 dihydroxy levels should be primarily used to assess Vitamin D status in patients with renal disease and hypercalcemia. Vitamin D 1,25-dihydroxy levels are generally less than 5 pg/mL in end stage renal disease patients. The preferred initial test for assessing Vitamin D status in the general population is Vitamin D 25-hydroxy (VITD). Test performed at [facility], [address] , [place], [place] ??[address] ? [phone] Krystin Wilson MD, PhD - Telephone Repairer Blood Venous blood specimen / Unknown Venipuncture / Unknown 03/27/2024 11:06 AM EST 03/27/2024 11:06 AM EST [facility] BLOOD ORDERABLES [facility] [address] [place] [address] * Culture urine (03/27/2024 11:06 AM EST) Culture, Urine No growth 03/28/2024 7:38 AM EST [facility] Urine Urine specimen from urethra / Unknown Non-blood Collection / Unknown 03/27/2024 11:06 AM EST 03/27/2024 11:06 AM EST [facility] MICROBIOLOGY - G ENERAL ORDERABLES Performing Organization Address City/[facility]/ZIP Co de Phone Number [facility] [address] [place] [address], [place] [phone] * Lipase (03/27/2024 11:06 AM EST) Pathologist [facility] Lipase 49 13 - 75 unit/L LAB CHEMISTRY METHOD 03/27/2024 4:17 PM [facility] Blood Venous blood specimen / Unknown Venipuncture / Unknown 03/27/2024 11:06 AM EST 03/27/2024 11:06 AM EST Kerwin [facility] BLOOD ORDERABLES Performing Organization Address City/[facility]/ZIP Co de Phone Number [facility] [address] [place] [address], [place] [phone] * (ABNORMAL) Comprehensive metabolic panel (03/27/2024 11:06 AM EST) Pathologist [facility] Sodium 135 133 - 145 mmol/L LAB CHEMISTRY METHOD 03/27/2024 4:23 PM [facility] Potassium 3.9 3.5 - 5.5 mmol/L LAB CHEMISTRY METHOD 03/27/2024 4:23 PM [facility] Chloride 103 96 - 110 mmol/L LAB CHEMISTRY METHOD 03/27/2024 4:23 PM [facility] CO2 29 21 - 32 mmol/L LAB CHEMISTRY METHOD 03/27/2024 4:23 PM [facility] Anion Gap 3 3 - 11 LAB CHEMISTRY METHOD 03/27/2024 4:23 PM [facility] Glucose 86 70 - 100 mg/dL LAB CHEMISTRY METHOD 03/27/2024 4:23 PM [facility] BUN 9 5 - 25 mg/dL LAB CHEMISTRY METHOD 03/27/2024 4:23 PM [facility] Creatinine 0.89 0.50 - 1.10 mg/dL LAB CHEMISTRY METHOD 03/27/2024 4:23 PM [facility] eGFR 90 >=60 mL/min/1. 73m2 LAB CHEMISTRY METHOD 03/27/2024 4:23 PM [facility] Comment:Calculation based on the??Chronic Kidney Disease Epidemiology Collaboration (CKD-EPI) equation refit??without adjustment for race. BUN/Creatinine Ratio 10.1 LAB CHEMISTRY METHOD 03/27/2024 4:23 PM [facility] Calcium 9.3 8.5 - 10.5 mg/dL LAB CHEMISTRY METHOD 03/27/2024 4:23 PM [facility] AST (SGOT) 16 10 - 42 unit/L LAB CHEMISTRY METHOD 03/27/2024 4:23 PM [facility] ALT (SGPT) 17 10 - 60 unit/L LAB CHEMISTRY METHOD 03/27/2024 4:23 PM [facility] Alkaline Phosphatase 72 42 - 121 unit/L LAB CHEMISTRY METHOD 03/27/2024 4:23 PM [facility] Total Protein 8.4(H) 6.0 - 8.0 g/dL LAB CHEMISTRY METHOD 03/27/2024 4:23 PM [facility] Albumin 4.6 3.2 - 5.0 g/dL LAB CHEMISTRY METHOD 03/27/2024 4:23 PM [facility] Total Bilirubin 0.5 0.0 - 1.4 mg/dL LAB CHEMISTRY METHOD 03/27/2024 4:23 PM [facility] Blood Venous blood specimen / Unknown Venipuncture / Unknown 03/27/2024 11:06 AM EST 03/27/2024 11:06 AM EST Kerwin [facility] BLOOD ORDERABLES [facility] [address] [place] [address], * Depression Screening (11/03/2023) Depression Screening abstracted [facility] * Pap Smear (09/24/2019) Pap smear no interpretation , abstracted Historical [facility] * HIV Screening (04/13/2015) HIV Screening abstracted Historical [facility] from Last 3 Months or Most Recently Relevant to Health Maintenance Care Teams Boiler Mechanic Relationship Specialty Start Date End Date Brenda Denson MD [address] [place] [address] PCP - General Internal Medicine 07/09/20
--- OUTSIDE RECORDS SUMMARY | 2024-04-03 11:03 | XMS_ITS | Encounter Summary ---
Author Organization [facility] Address [address] [place] [address] Care Team Providers Care Stitching Department Supervisor Name Role Phone Brenda Denson MD Primary Care Prov ider Reason for Visit * Reason Onset Date Comments Fitting for DME 02/13/2024 Encounter Details Date Type Department Care Team (Late Contact Info) Description 02/13/2024 Telephone Adult Medicine - [place] [address] [place] [address] Myra Kaur MA Fitting for DME Social History Tobacco Use Types Packs/Day Years [...] as of this encounter Progress Notes * Myra Kaur MA - 02/13/2024 12:37 PM EST Please schedule the pt with Dr. Fernandez as to as far as Dr. Fernandez's knowledge, she does not qualify as she is not a diabetic pt. If she strongly feels she needs it, then she needs an appointment. Thank you in advance documented in this encounter Plan of Treatment Upcoming Encounters Date Type Department Care Team (Late Contact Info) Description 04/05/2024 10:00 AM EST Appointment Radiology Department [address] [address] 04/15/2024 11:00 AM EST Office Visit Adult Medicine - [place] 230 [place] [address] Celestina Cintron PA 230 [place] [address] 06/25/2024 3:00 PM EDT Office Visit [facility] - [facility] 154 300 [facility] 154 [place] [address] Garett Dixon MD 300 [facility] 154 [place] [address] documented as of this encounter Visit Diagnoses Not on filedocumented in this encounter Care Teams Stitching Department Supervisor Relationship Specialty Start Date End Date Brenda Denson MD 230 [place] [address] PCP - General Internal Medicine 07/09/20 documented as of this encounter
--- OUTSIDE RECORDS SUMMARY | 2024-04-03 11:03 | XMS_ITS | Encounter Summary ---
Author Organization [facility] Address [address] [place] [address] Care Team Providers Care Lining Printer Name Role Phone Brenda Denson MD Primary Care Prov ider Reason for Visit * Reason Onset Date Comments PT-1 03/18/2024 To PCP [address] [place] [address] Encounter Details Date Type Department Care Team ([facility] Contact Info) Description 03/18/2024 Telephone Adult Medicine - [address] [phone] Brenda Denson MD [address] [place] [address] PT-1 (To PCP [address] [place] [address]) Social History Tobacco Use Types Packs/Day Years [...] Notes * Jeremiah Ngo MA - 03/18/2024 4:59 PM EST PT-1 request is submitted PT-1 Request [id number]. * Thalia Guerra - 03/18/2024 12:07 PM EST PT-1 Request Call Shaye[employer] new provider or submitter number is [id number] Verify and document patients [place] Health insurance ID # (NOT [facility] ID): [id number] Payor: [employer] PLAN / Plan: [employer] MEDICAID / Product Type: *No Product type* / Patient mailing address: [address] [place] [phone] (home) Pt. demographics verified? yes If not accurate, update registration. Is this a NEW request or a RENEWAL? renewal Name of treating facility: PCP Name (first & last) of treating provider? required : Brenda Fernandez MD What is the medical reason why the patient is seeing the above provider? PCP f/u Address/Zip code for treating provider: [address] [place] [address] Phone # for treating provider: Is the provider in the [facility] network (do they accept [place] Health insurance)? yes What specialtly is this provider? PCP When is the visit scheduled for? How [...] 10:00 AM EST Appointment Radiology Department - [address] [address] 04/15/2024 11:00 AM EST Office Visit Adult Medicine - [place] 230 [place] [address] Celestina Cintron PA 230 [place] [address] 06/25/2024 3:00 PM EDT Office Visit [facility] - [facility] 154 300 [facility] 154 [place] [address] Garett Dixon MD 300 [facility] 154 [place] [address] documented as of this encounter Visit Diagnoses Not on filedocumented in this encounter Care Teams Lining Printer Relationship Specialty Start Date End Date Brenda Denson MD 230 [place] [address] PCP - General Internal Medicine 07/09/20 documented as of this encounter
--- OUTSIDE RECORDS SUMMARY | 2024-04-03 11:03 | XMS_ITS | Encounter Summary ---
Author Organization [facility] Address [address] [place] [address] Phone Care Team Providers Care Customer Engineer Name Role Phone Michelle Sandhu DO Primary Care Provider [phone] Encounter Details Date Type Department Care Team (Late st Contact Info) Description 05/24/2013 Documentation EM Family Medicine [address] [place] [address] Family Medicine, Physician [address] [place], [place] [id number] Social History Tobacco Use Types Packs/Day Years [...] on filedocumented in this encounter Care Teams Customer Engineer Relationship Specialty Start Date End Date Michelle Sandhu DO 150 [place] [address] PCP - General 10/14/16 05/18/22 documented as of this encounter
--- OUTSIDE RECORDS SUMMARY | 2024-04-03 11:03 | XMS_ITS | Encounter Summary ---
Author Organization [facility] Address [address] [place] [address] Care Team Providers Care Railroad Crane Operator Name Role Phone Brenda Denson MD Primary Care Prov ider Reason for Visit * Reason Onset Date Comments PT-1 03/18/2024 [facility] Encounter Details Date Type Department Care Team (Late st Contact Info) Description 03/18/2024 Telephone Adult Medicine - [place] 230 [place] [phone] Brenda Denson MD 230 [place] [address] PT-1 ([facility]) Social History Tobacco Use Types Packs/Day Years [...] Notes * Jeremiah Ngo MA - 03/18/2024 4:55 PM EST PT-1 request is submitted PT-1 Request [id number]. * Thalia Guerra - 03/18/2024 12:08 PM EST PT-1 Request Call [facility] new provider or submitter number is [id number] Verify and document patients [place] Health insurance ID # (NOT [facility] ID): [id number] Payor: [employer] PLAN / Plan: [place] [employer] MED[place] / Product Type: *No Product type* / Patient mailing address: [address] [place] [phone] (home) Pt. demographics verified? yes If not accurate, update registration. Is this a NEW request or a RENEWAL? New request Name of treating facility: [facility] Name (first & last) of treating provider? required : Edson Blandon MD What is the medical reason why the patient is seeing the above provider? skin lesion and infection Address/Zip code for treating provider: [address] [place] [address] Phone # for treating provider: Is the provider in the [facility] [employer] network (do they accept [place] Health insurance)? yes What specialtly is this provider? Derm When is the visit scheduled for? 03/19/2024 How often you will be seeing this [...] Upcoming Encounters Date Type Department Care Team ([facility] st Contact Info) Description 04/05/2024 10:00 AM EST Appointment Radiology Department - [address] [address] 04/15/2024 11:00 AM EST Office Visit Adult Medicine - [place] 230 [place] [address] Celestina Cintron PA 230 [place] [address] 06/25/2024 3:00 PM EDT Office Visit [facility] - [facility] 154 300 [facility] 154 [place] [phone] Garett Dixon MD 300 [facility] 154 [place] [address] documented as of this encounter Visit Diagnoses Not on filedocumented in this encounter Care Teams Railroad Crane Operator Relationship Specialty Start Date End Date Brenda Denson MD 230 [place] [address] PCP - General Internal Medicine 07/09/20 documented as of this encounter
--- OUTSIDE RECORDS SUMMARY | 2024-04-03 11:03 | XMS_ITS | Encounter Summary ---
Author Organization [facility] Address [address] [place] [address] Care Team Providers Care Real Estate Teacher Name Role Phone Brenda Denson MD Primary Care Prov ider Reason for Visit * Reason Onset Date Comments PT-1 03/18/2024 [facility] Encounter Details Date Type Department Care Team (Late st Contact Info) Description 03/18/2024 Telephone Adult Medicine - [place] 230 [place] [phone] Brenda Denson MD 230 [place] [address] PT-1 ([facility]) Social History Tobacco Use Types Packs/Day Years [...] Notes * Jeremiah Ngo MA - 03/19/2024 8:49 AM EST PT-1 request is submitted PT-1 Request [id number]. * Thalia Guerra - 03/18/2024 12:26 PM EST PT-1 Request Call [facility] new provider or submitter number is [id number] Verify and document patients [place] Health insurance ID # (NOT [facility] ID): [id number] Payor: [id number] PLAN / Plan: [facility] MEDICAID / Product Type: *No Product type* / Patient [facility] [phone] (home) Pt. demographics verified? yes If not accurate, update registration. Is this a NEW request or a RENEWAL? renewal Name of treating facility: [facility] Name (first & last) of treating provider? required : Katerin Morales DDS What is the medical reason why the patient is seeing the above provider? Dental f/u Address/Zip code for treating provider: [address], [place] [address] Phone # for treating provider: Is the provider in the [facility] [employer] network (do they accept [place] Health insurance)? yes What specialtly is this provider? Dentist When is the visit scheduled for? How often you will be seeing this particular provider? four a month Do you have friends or [...] 10:00 AM EST Appointment Radiology Department - [address] [address] 04/15/2024 11:00 AM EST Office Visit Adult Medicine - [place] 230 [place] [address] Celestina Cintron PA 230 [place] [address] 06/25/2024 3:00 PM EDT Office Visit [facility] - [facility] 154 300 [facility] 154 [place] [phone] Garett Dixon MD 300 [facility] [address] [place] [address] documented as of this encounter Visit Diagnoses Not on filedocumented in this encounter Care Teams Real Estate Teacher Relationship Specialty Start Date End Date Brenda Denson MD 230 [place] [address] PCP - General Internal Medicine 07/09/20 documented as of this encounter
--- OUTSIDE RECORDS SUMMARY | 2024-04-03 11:03 | XMS_ITS | Encounter Summary ---
Author Organization [facility] Address [address] [place] [address] Phone Care Team Providers Care Weaving Supervisor Name Role Phone Michelle Sandhu DO Primary Care Provider [phone] Encounter Details Date Type Department Care Team (Late st Contact Info) Description 06/02/2011 Documentation EM Family Medicine [address] [place] [address] Family Medicine, Physician [address] [place], [place] [id number] Social History Tobacco Use Types Packs/Day Years [...] on filedocumented in this encounter Care Teams Weaving Supervisor Relationship Specialty Start Date End Date Michelle Sandhu DO 150 [place] [address] PCP - General 10/14/16 05/18/22 documented as of this encounter
--- OUTSIDE RECORDS SUMMARY | 2024-04-03 11:03 | XMS_ITS | Encounter Summary ---
Author Organization [facility] Address [address] [place] [address] Phone Care Team Providers Care Blank Driller Name Role Phone Michelle Sandhu DO Primary Care Provider [phone] Encounter Details Date Type Department Care Team (Late st Contact Info) Description 06/02/2011 Documentation EM Family Medicine [address] [place] [address] Family Medicine, Physician [address] [place], [place] [phone] Social History Tobacco Use Types Packs/Day Years [...] on filedocumented in this encounter Care Teams Blank Driller Relationship Specialty Start Date End Date Michelle Sandhu DO 150 [place] [address] PCP - General 10/14/16 05/18/22 documented as of this encounter
--- OUTSIDE RECORDS SUMMARY | 2024-04-03 11:03 | XMS_ITS | Encounter Summary ---
Author Organization [facility] Address [address] [place] [address] Phone Care Team Providers Care Supervisor Curing Room Name Role Phone Michelle Sandhu DO Primary Care Provider [phone] Encounter Details Date Type Department Care Team (Late st Contact Info) Description 06/02/2011 Documentation EM Family Medicine [address] [place] [address] Family Medicine, Physician [address] [place], [place] [phone] Social History Tobacco Use Types Packs/Day Years [...] on filedocumented in this encounter Care Teams Supervisor Curing Room Relationship Specialty Start Date End Date Michelle Sandhu DO 150 [place] [address] PCP - General 10/14/16 05/18/22 documented as of this encounter
--- OUTSIDE RECORDS SUMMARY | 2024-04-03 11:04 | XMS_ITS | Encounter Summary ---
Author Organization [facility] Address [address] [place] [address] Phone Care Team Providers Care Summer Child Caregiver Name Role Phone Michelle Sandhu DO Primary Care Provider [phone] Encounter Details Date Type Department Care Team (Late st Contact Info) Description 06/02/2011 Documentation EM Family Medicine [address] [place] [address] Family Medicine, Physician [address] [place], [place] [phone] Social History Tobacco Use Types Packs/Day Years [...] on filedocumented in this encounter Care Teams Summer Child Caregiver Relationship Specialty Start Date End Date Michelle Sandhu DO 150 [place] [address] PCP - General 10/14/16 05/18/22 documented as of this encounter
== END 2024-04-03 13:00 | disposition home or self-care (01) ==
PROVIDERS: PCP Internal Medicine; Visit Provider Obstetrics & Gynecology
DX: R31.29 Other microscopic hematuria (principal); N73.9 Female pelvic inflammatory disease, unspecified; R10.2 Pelvic and perineal pain
CPT/HCPCS: 99213

== ENCOUNTER 2024-04-03 09:31 | Outpatient (REF) | payer OTHER, SELFPAY ==
--- OUTSIDE RECORDS SUMMARY | 2024-04-03 11:41 | XMS_ITS | Encounter Summary ---
Author Organization [facility] Address [address] [place] [address] Care Team Providers Care Grading Machine Feeder Name Role Phone Brenda Denson MD Primary Care Prov ider Reason for Visit * Reason Onset Date Comments Provider Call Back 04/01/2024 Encounter Details Date Type Department Care Team (Late st Contact Info) Description 04/01/2024 Telephone Gastroenterology - [place] [address] [facility] [address] [facility] [address] [place] [address] Jayson Delcid PA [address] [place] [address] Provider Call Back Social History Tobacco Use [...] AM EST Patient calling was seen in [facility] ER 03/30 - 03/31. Patient states she [...] 10:00 AM EST Appointment Radiology Department - [address] [address] 04/15/2024 11:00 AM EST Office Visit Adult Medicine - [place] 230 [place] [address] Celestina Cintron PA 230 [place] [address] 06/25/2024 3:00 PM EDT Office Visit [facility] - [facility] 154 300 [facility] 154 [place] [address] Garett Dixon MD 300 [facility] 154 [place] [address] documented as of this encounter Visit Diagnoses Not on filedocumented in this encounter Care Teams Grading Machine Feeder Relationship Specialty Start Date End Date Brenda Denson MD 230 [place] [address] PCP - General Internal Medicine 07/09/20 documented as of this encounter
--- OUTSIDE RECORDS SUMMARY | 2024-04-03 11:41 | XMS_ITS | Encounter Summary ---
Author Organization [facility] Address [address] [place] [address] Care Team Providers Care Supervisor Paste Mixing Name Role Phone Brenda Denson MD Primary Care Prov ider Reason for Visit * Reason Comments Abdominal Cramping Encounter Details Date Type Department Care Team (Late st Contact Info) Description 04/02/2024 1:00 PM EST Office Visit Gastroenterology - [place] [address] [facility] [address] [place] [address] Jayson Delcid PA [address] [place] [address] Generalized abdominal pain (Primary Dx); Abdominal cramping; [...] sent through Care Everywhere. * Abdominal Pain (Peruvian) * Colitis (Peruvian) * Gastroenteritis (Peruvian) * Acid-Reducing Medicines: General Info (Peruvian) * GERD (Peruvian) * Nausea and Vomiting (Peruvian) documented in this encounter Ordered Prescriptions Prescription [...] acute abdominal or pelvic process. POS - [id number] Not Vldtd US Results for orders placed [...] followed ultrasonographically. CT that was performed at [facility] along with ER notes to be [...] on March 30 at the ER at [place] and was told that she had enteritis [...] 10:00 AM EST Appointment Radiology Department - [address] [address] 04/15/2024 11:00 AM EST Office Visit Adult Medicine - [place] 230 [place] [address] Celestina Cintron PA 230 [place] [address] 06/25/2024 3:00 PM EDT Office Visit [facility] - [facility] 154 300 [facility] 154 [place] [address] Garett Dixon MD 300 [facility] 154 [place] [address] documented as of this encounter Visit Diagnoses Diagnosis Generalized abdominal pain- Primary Abdominal pain, generalized Abdominal cramping Abdominal pain, unspecified site Enteritis Other and unspecified noninfectious gastroenteritis and colitis Nausea Nausea alone Gastroesophageal reflux disease without esophagitis Esophageal reflux documented in this encounter Care Teams Supervisor Paste Mixing Relationship Specialty Start Date End Date Brenda Denson MD 230 [place] [address] PCP - General Internal Medicine 07/09/20 documented as of this encounter
--- OUTSIDE RECORDS SUMMARY | 2024-04-03 11:41 | XMS_ITS | Encounter Summary ---
Author Organization [facility] Address [address] [place] [address] Care Team Providers Care Etl Database Developer Name Role Phone Brenda Denson MD Primary Care Prov ider Reason for Visit * Reason Onset Date Comments PT-1 03/18/2024 [facility] Encounter Details Date Type Department Care Team (Late st Contact Info) Description 03/18/2024 Telephone Adult Medicine - [place] 230 [place] [address] Brenda Denson MD 230 [place] [address] PT-1 ([facility]) Social History Tobacco Use Types [...] EST PT-1 request is submitted PT-1 Request [id number]. * Thalia Guerra - 03/18/2024 12:33 PM EST PT-1 Request Call Shaye[employer] new provider or submitter number is [id number] Verify and document patients [place] Health insurance ID # (NOT [facility] ID): [id number] Payor: [employer] PLAN / Plan: [employer] MEDICAID / Product Type: *No Product type* / Patient mailing address: [place] [phone] (home) Pt. demographics verified? yes If not accurate, update registration. Is this a NEW request or a RENEWAL? renewal Name of treating facility: [facility] Name (first & last) of treating provider? required : Garett Dixon MD What is the medical reason why the patient is seeing the above provider? Cardi consult Address/Zip code for treating provider: [address] [place] [address] [address], [place] [address] Phone # for treating provider: Is the provider in the [facility] [employer] network (do they accept [place] Health insurance)? yes What specialtly is this [...] 10:00 AM EST Appointment Radiology Department - [address] [address] 04/15/2024 11:00 AM EST Office Visit Adult Medicine - [place] 230 [place] [address] Celestina Cintron PA 230 [place] [address] 06/25/2024 3:00 PM EDT Office Visit [facility] - [facility] 154 300 [facility] 154 [place] [address] Garett Dixon MD 300 [facility] 154 [place] [address] documented as of this encounter Visit Diagnoses Not on filedocumented in this encounter Care Teams Etl Database Developer Relationship Specialty Start Date End Date Brenda Denson MD 230 [place] [address] PCP - General Internal Medicine 07/09/20 documented as of this encounter
--- OUTSIDE RECORDS SUMMARY | 2024-04-03 11:41 | XMS_ITS | Encounter Summary ---
Author Organization [facility] Address [address] [place] [address] Care Team Providers Care Faucets Assembler Name Role Phone Brenda Denson MD Primary Care Prov ider Reason for Visit * Reason Onset Date Comments pt-1 03/22/2024 [facility] Encounter Details Date Type Department Care Team (Late st Contact Info) Description 03/22/2024 Telephone Adult Medicine - [place] 230 [place] [phone] Brenda Denson MD 230 [place] [address] pt-1 ([facility]) Social History Tobacco [...] EST PT-1 request is submitted PT-1 Request [id number]. * Ct Botello [place] - 03/22/2024 12:44 PM EST Please send to the correct pool. * Jacquelyn Santacruz - 03/22/2024 11:40 AM EST PT-1 [facility] new provider or submitter number is [id number] Verify and document patients [place] Health insurance ID # (NOT [facility] ID): [id number] Payor: [employer] PLAN / Plan: [employer] MEDICAID / Product Type: *No Product type* / Patient mailing address: [address] [place] [phone] (home) Pt. demographics verified? yes If not accurate, update registration. Is this a NEW request or a RENEWAL? New request Name of treating facility: [facility] Name (first & last) of treating provider? required : Dr Colby [place] What is the medical reason why the patient is seeing the above provider? Pain Address/Zip code for treating provider: [address] [place] [address] Phone # for treating provider: [phone] Is the provider in the [facility] network (do they accept [place] Health insurance)? yes What specialtly is this [...] Upcoming Encounters Date Type Department Care Team ([facility] st Contact Info) Description 04/05/2024 10:00 AM EST Appointment Radiology Department - [address] [address] 04/15/2024 11:00 AM EST Office Visit Adult Medicine - [place] 230 [place] [address] Celestina Cintron PA 230 [place] [address] 06/25/2024 3:00 PM EDT Office Visit [facility] - [facility] [address] [facility] 154 [place] [address] Garett Dixon MD 300 [facility] 154 [place] [address] documented as of this encounter Visit Diagnoses Not on filedocumented in this encounter Care Teams Faucets Assembler Relationship Specialty Start Date End Date Brenda Denson MD 230 [place] [address] PCP - General Internal Medicine 07/09/20 documented as of this encounter
--- OUTSIDE RECORDS SUMMARY | 2024-04-03 11:41 | XMS_ITS | Encounter Summary ---
Author Organization [facility] Address [address] [place] [address] Care Team Providers Care Allocation Analyst Name Role Phone Brenda Denson MD Primary Care Prov ider Reason for Visit * Reason Onset Date Comments Results 03/28/2024 Encounter Details Date Type Department Care Team (Late st Contact Info) Description 03/28/2024 Telephone Adult Medicine - [place] [address] [place] [address] Brenda Denson MD 230 [place] [address] Results Social History Tobacco Use Types Packs/Day [...] AM EST Appointment Radiology Department - [address] [address] 04/15/2024 11:00 AM EST Office Visit Adult Medicine - [place] [address] [place] [address] Celestina Cintron PA 230 [place] [address] 06/25/2024 3:00 PM EDT Office Visit [facility] - [facility] 154 300 [facility] 154 [place] [phone] Garett Dixon MD 300 [facility] 154 [place] [address] documented as of this encounter Visit Diagnoses Not on filedocumented in this encounter Care Teams Allocation Analyst Relationship Specialty Start Date End Date Brenda Denson MD 230 [place] [address] PCP - General Internal Medicine 07/09/20 documented as of this encounter
--- OUTSIDE RECORDS SUMMARY | 2024-04-03 11:41 | XMS_ITS | Encounter Summary ---
Author Organization [facility] Address [address] [place] [address] Care Team Providers Care Residential Treatment Specialist Name Role Phone Brenda Denson MD Primary Care Prov ider Encounter Details Date Type Department Care Team (Late st Contact Info) Description 03/21/2024 Telephone Adult Medicine - [place] [address] [place] [phone] Brenda Denson MD 230 [place] [address] Social History Tobacco Use Types Packs/Day Years [...] and was placed on another antibiotic by bond manager provideron Monday and finished those this morning. [...] AM EST Appointment Radiology Department - [address] [address] 04/15/2024 11:00 AM EST Office Visit Adult Medicine - [place] [address] [place] [address] Celestina Cintron PA 230 [place] [address] 06/25/2024 3:00 PM EDT Office [facility] - [facility] 154 300 [facility] 154 [place] [address] Garett Dixon MD 300 [facility] [address] [place] [address] documented as of this encounter Visit Diagnoses Not on filedocumented in this encounter Care Teams Residential Treatment Specialist Relationship Specialty Start Date End Date Brenda Denson MD 230 [place] [address] PCP - General Internal Medicine 07/09/20 documented as of this encounter
--- OUTSIDE RECORDS SUMMARY | 2024-04-03 11:41 | XMS_ITS | Encounter Summary ---
Author Organization [facility] Address [address] [place] [address] Care Team Providers Care Chair Post Machine Operator Name Role Phone Brenda Denson MD Primary Care Prov ider Reason for Visit * Reason Onset Date Comments PT1 03/28/2024 Encounter Details Date Type Department Care Team (Late st Contact Info) Description 03/28/2024 Telephone Adult Medicine [facility] 230 [place] [phone] Brenda Denson MD 230 [place] [address] PT1 Social History Tobacco Use Types Packs/Day [...] Confirmation PT-1 request is submitted PT-1 Request [id number]. * Meri Toledo - 03/28/2024 9:22 AM EST PT-1 Request Call [facility] new provider or submitter number is [id number] Verify and document patients [place] Health insurance ID # (NOT [facility] ID): [id number] Payor: [employer] PLAN / Plan: [employer] MEDICAID / Product Type: *No Product type* / Patient mailing address: [address] [facility] [address] (home) Pt. demographics verified? yes If not accurate, update registration. Is this a NEW request or a RENEWAL? New request Name of treating facility: [facility] Name (first & last) of treating provider? required : SAHIL Hunt What is the medical reason why the patient is seeing the above provider? pancreatitis Address/Zip code for treating provider: [address] [facility] [address] [place] [address] Phone # for treating provider: [phone] Is the provider in the [employer] (do they accept [place] Health insurance)? yes [...] 10:00 AM EST Appointment Radiology Department - [address] [address] 04/15/2024 11:00 AM EST Office Visit Adult Medicine - [place] 230 [place] [address] Celestina Cintron PA 230 [place] [address] 06/25/2024 3:00 PM EDT Office Visit [facility] - [facility] 154 300 [facility] 154 [place] [address] Garett Dixon MD 300 [facility] 154 [place] [address] documented as of this encounter Visit Diagnoses Not on filedocumented in this encounter Care Teams Chair Post Machine Operator Relationship Specialty Start Date End Date Brenda Denson MD 230 [place] [address] PCP - General Internal Medicine 07/09/20 documented as of this encounter
--- OUTSIDE RECORDS SUMMARY | 2024-04-03 11:41 | XMS_ITS | Encounter Summary ---
Author Organization [facility] Address [address] [place] [address] Care Team Providers Care Band Saw Operator Name Role Phone Brenda Denson MD Primary Care Prov ider Reason for Visit * Reason Onset Date Comments PT1 03/28/2024 Encounter Details Date Type Department Care Team (Late st Contact Info) Description 03/28/2024 Telephone Adult Medicine - [place] 230 [place] [phone] Brenda Denson MD 230 [place] [address] PT1 Social History Tobacco Use Types Packs/Day [...] Confirmation PT-1 request is submitted PT-1 Request [id number]. * Meri Toledo - 03/28/2024 9:26 AM EST PT-1 Request Call [facility] new provider or submitter number is [id number] Verify and document patients [place] Health insurance ID # (NOT [facility] ID): [id number] Payor: [employer] PLAN / Plan: [employer] MEDICAID / Product Type: *No Product type* / Patient mailing address: [address] [facility] [phone] (home) Pt. demographics verified? yes If not accurate, update registration. Is this a NEW request or a RENEWAL? New request Name of treating facility: [facility] Radiology Name (first & last) of treating provider? required : TBD What is the medical reason why the patient is seeing the above provider? Pancreatitis Address/Zip code for treating provider: [address] [place] [address] Phone # for treating provider: [phone] Is the provider in the [place] (do they accept [place] Health insurance)? yes What specialtly is this [...] Upcoming Encounters Date Type Department Care Team ([facility] st Contact Info) Description 04/05/2024 10:00 AM EST Appointment Radiology Department - [address] [address] 04/15/2024 11:00 AM EST Office Visit Adult Medicine - [place] 230 [place] [address] Celestina Cintron PA 230 [place] [address] 06/25/2024 3:00 PM EDT Office Visit [facility] - [facility] 154 300 [facility] 154 [place] [address] Garett Dixon MD 300 [facility] 154 [place] [address] documented as of this encounter Visit Diagnoses Not on filedocumented in this encounter Care Teams Band Saw Operator Relationship Specialty Start Date End Date Brenda Denson MD 230 [place] [address] PCP - General Internal Medicine 07/09/20 documented as of this encounter
--- OUTSIDE RECORDS SUMMARY | 2024-04-03 11:42 | XMS_ITS | Encounter Summary ---
Author Organization [facility] Address [address] [place] [address] Phone Care Team Providers Care Pick And Shovel Man Name Role Phone Michelle Sandhu DO Primary Care Provider [phone] Encounter Details Date Type Department Care Team (Late st Contact Info) Description 09/09/2010 Documentation EM Family Medicine [address] [place] [address] Family Medicine, Physician [address] [place] [address] Social History Tobacco Use Types [...] on filedocumented in this encounter Care Teams Pick And Shovel Man Relationship Specialty Start Date End Date Michelle Sandhu DO 150 [place] [address] PCP - General 10/14/16 05/18/22 documented as of this encounter
--- OUTSIDE RECORDS SUMMARY | 2024-04-03 11:42 | XMS_ITS | Encounter Summary ---
Author Organization [facility] Address [address] [place] [address] Care Team Providers Care Pipeline Operator Name Role Phone Brenda Denson MD Primary Care Prov ider Reason for Visit * Reason Onset Date Comments PROVIDER CALL BACK 03/26/2024 Encounter Details Date Type Department Care Team (Late st Contact Info) Description 03/26/2024 Telephone Adult Medicine [facility] 230 [place] [phone] Brenda Denson MD 230 [place] [address] PROVIDER CALL BACK Social History Tobacco Use [...] know that she was seen 03-22-24 @ [facility] for low potassium, weakness. Pt was told to have labs repeated for potassium. Pt has appt 03-27-24 with Kerwin Oliver Caller offered to speak with the nurse for assistance: yes Response: pt can be reached @ [phone] documented in this encounter Plan of Treatment Upcoming Encounters Date Type Department Care Team (Late st Contact Info) Description 04/05/2024 10:00 AM EST Appointment Radiology Department - [address] [address] 04/15/2024 11:00 AM EST Office Visit Adult Medicine - [place] 230 [place] [address] Celestina Cintron PA 230 [place] [address] 06/25/2024 3:00 PM EDT Office Visit [facility] - [facility] 154 300 [facility] 154 [place] [address] Garett Dixon MD 300 [facility] 154 [place] [address] documented as of this encounter Visit Diagnoses Not on filedocumented in this encounter Care Teams Pipeline Operator Relationship Specialty Start Date End Date Brenda Denson MD 230 [place] [address] PCP - General Internal Medicine 07/09/20 documented as of this encounter
--- OUTSIDE RECORDS SUMMARY | 2024-04-03 11:42 | XMS_ITS | Encounter Summary ---
Author Organization [facility] Address [address] [place] [address] Care Team Providers Care Welding Engineer Name Role Phone Brenda Denson MD Primary Care Prov ider Reason for Visit * Reason Onset Date Comments Fitting for DME 02/13/2024 Encounter Details Date Type Department Care Team (Late Contact Info) Description 02/13/2024 Telephone Adult Medicine - [place] [address] [place] [address] Myra Kaur MA Fitting for DME Social [...] as of this encounter Progress Notes * yMra Kaur MA - 02/13/2024 12:37 PM EST [...] 04/05/2024 10:00 AM EST Appointment Radiology Department [address] [address] 04/15/2024 11:00 AM EST Office Visit Adult Medicine - [place] 230 [place] [address] Celestina Cintron PA 230 [place] [address] 06/25/2024 3:00 PM EDT Office Visit [facility] - [facility] 154 300 [facility] 154 [place] [address] Garett Dixon MD 300 [facility] 154 [place] [address] documented as of this encounter Visit Diagnoses Not on filedocumented in this encounter Care Teams Welding Engineer Relationship Specialty Start Date End Date Brenda Denson MD 230 [place] [address] PCP - General Internal Medicine 07/09/20 documented as of this encounter
--- OUTSIDE RECORDS SUMMARY | 2024-04-03 11:42 | XMS_ITS | Clinical Summary ---
Author Organization [facility] Address [address] [place] [address] Phone Care Team Providers Care Crown Ceramist Name Role Phone Unavailable Primary Care Provider [...] complete this topic Procedures * Due to [place] [employer] law, this organization might not be sharing sensitive test results. Procedure Name Priority Date/Time Associated Diagnosis Comments CHLAMYDIA AND GONORRHEA, AMPLIFIED Routine 08/09/2011 1:30 PM EDT from Last 3 Months or Most Recently Relevant to Health Maintenance Results * Due to [place] [employer] law, this organization might not be sharing sensitive test results. * Chlamydia and Gonorrhoea, Amplified (08/09/2011 1:30 PM EDT) URINE GC AMP PROBE NEGATIVE [facility] Comment: NO NEISSERIA GONORRHOEAE RNA DETECTED IN THIS PATIENT'S SAMPLE. ? (REFERENCE RANGE/NORMAL VALUE: NOT DETECTED) ? NOTE: THIS TEST USES FUNDRAISING MANAGER MEDIATED AMPLIFICATION METHOD TO DETECT rRNA FROM [...] OTHER AGENTS. URINE CHLAMYDIA AMP PROBE NEGATIVE [facility] Comment: NO CHLAMYDIA TRACHOMATIS RNA DETECTED IN THIS PATIENT'S SAMPLE. ? (REFERENCE RANGE/NORMAL VALUE: NOT DETECTED) 08/09/2011 1:30 PM EDT Narrative [facility] - 08/09/2011 1:30 PM EDT URINE CHLAMYDIA GC AMP PROBE us Michelle Sandhu DO LAB MICROBIOLOGY - GENERAL ORDER CHARLENE Final Result [facility] [address] [place] [address], [place] from Last 3 Months or Most Recently Relevant to Health Maintenance
--- OUTSIDE RECORDS SUMMARY | 2024-04-03 11:42 | XMS_ITS | Encounter Summary ---
Author Organization [facility] Address [address] [place] [address] Phone Care Team Providers Care Professional Skateboarder Name Role Phone Michelle Sandhu DO Primary Care Provider [phone] Encounter Details Date Type Department Care Team (Late st Contact Info) Description 01/10/2011 Documentation EM Family Medicine [address] [place] [address] Family Medicine, Physician [address] [place] [address] Social History Tobacco Use Types [...] on filedocumented in this encounter Care Teams Professional Skateboarder Relationship Specialty Start Date End Date Michelle Sandhu DO 150 [place] [address] PCP - General 10/14/16 05/18/22 documented as of this encounter
--- OUTSIDE RECORDS SUMMARY | 2024-04-03 11:42 | XMS_ITS | Encounter Summary ---
Author Organization [facility] Address [address] [place] [address] Care Team Providers Care Cottage Supervisor Name Role Phone Brenda Denson MD Primary Care Prov ider Reason for Visit * Reason Onset Date Comments PT-1 03/18/2024 [facility] Encounter Details Date Type Department Care Team (Late st Contact Info) Description 03/18/2024 Telephone Adult Medicine - [place] 230 [place] [phone] Brenda Denson MD 230 [place] [address] PT-1 ([facility]) Social History Tobacco Use Types Packs/Day [...] EST PT-1 request is submitted PT-1 Request [id number]. * Thalia Guerra - 03/18/2024 12:18 PM EST PT-1 Request Call [facility] new provider or submitter number is [id number] Verify and document patients [place] Health insurance ID # (NOT [facility] ID): [id number] Payor: [employer] PLAN / Plan: [employer] MEDICAID / Product Type: *No Product type* / Patient mailing address: [address] [place] [phone] (home) Pt. demographics verified? yes If not accurate, update registration. Is this a NEW request or a RENEWAL? renewal Name of treating facility: [facility] Name (first & last) of treating provider? required : Cherie Truong MD What is the medical reason why the patient is seeing the above provider? F/u kidney and bladder problems Address/Zip code for treating provider: [address] [place] [address] Phone # for treating provider: Is the provider in the [facility] [employer] network (do they accept [place] Health insurance)? yes What specialtly is this [...] AM EST Appointment Radiology Department - [address] [address] 04/15/2024 11:00 AM EST Office Visit Adult Medicine - [place] 230 [place] [address] Celestina Cintron PA 230 [place] [address] 06/25/2024 3:00 PM EDT Office Visit [facility] - [facility] 154 300 [facility] 154 [place] [phone] Garett Dixon MD 300 [facility] [address] [place] [address] documented as of this encounter Visit Diagnoses Not on filedocumented in this encounter Care Teams Cottage Supervisor Relationship Specialty Start Date End Date Brenda Denson MD 230 [place] [address] PCP - General Internal Medicine 07/09/20 documented as of this encounter
--- OUTSIDE RECORDS SUMMARY | 2024-04-03 11:42 | XMS_ITS | Clinical Summary ---
Author Organization [facility] [address] [facility] Address [address] [place] [address] Phone Care Team Providers Care Aircraft Riveter Name Role Phone Brenda Denson MD Primary [...] DAY 10/03/2023 Active blood-glucose meter,continuous (Dexcom G7 Police Dispatcher) misc 1 Device by Does not apply [...] 04/02/2024 1:00 PM EST Office Visit [facility] [address] [address] Jayson Delcid PA Generalized abdominal pain (Primary Dx); Abdominal cramping; Enteritis; Nausea; Gastroesophageal reflux disease without esophagitis 04/01/2024 Telephone [facility] 175 [facility] [address] [address] Jayson Delcid PA Provider Call Back 03/28/2024 Telephone Adult Medicine [address] [phone] Brenda Silva MD Results 03/28/2024 Telephone Adult [facility] [address] [place] [phone] Brenda Silva MD PT1 03/28/2024 Telephone Adult [facility] [address] [place] [address] Brenda Silva MD PT1 03/27/2024 10:00 AM EST Office Visit Adult Medicine [facility] [address] [place] [address] Kerwin Vasquez PA Abdominal cramping (Primary Dx); Dark urine; Vitamin D deficiency; Low blood potassium 03/26/2024 Telephone Adult Medicine [facility] [address] [place] [address] Brenda Silva MD PROVIDER CALL BACK 03/22/2024 Telephone Adult Medicine [facility] [address] [place] [address] Brenda Silva MD pt-1 ([facility]) 03/21/2024 Telephone Adult Medicine [facility] [address] [place] [address] Brenda Silva MD 03/18/2024 Telephone Adult Medicine - [place] [address] [place] [address] Brenda iSlva MD PT-1 ([facility]) 03/18/2024 Telephone Adult Medicine [facility] [address] [place] [address] Brenda Silva MD PT-1 ([facility]) 03/18/2024 Telephone Adult Medicine [facility] [address] [place] [address] Brenda Silva MD PT-1 ([facility]) 03/18/2024 Telephone Adult Medicine [facility] [address] [place] [address] Brenda Silva MD PT-1 ([facility]) 03/18/2024 Telephone Adult Medicine - [place] [address] [place] [address] HayBrenda Kendrick MD PT-1 ([facility]) 03/18/2024 Telephone Adult Medicine - [place] [address] [place] [phone] Brenda Silva MD PT-1 (To PCP [address] [place], [place]) 02/13/2024 Telephone Adult Medicine - [place] [address] [place] [phone] Myra Kaur MA Fitting for DME 01/18/2024 Telephone [facility] Dr Re[facility] [address] [place] [address] Brenda Silva MD from Last [...] Random colonic biopsies normal. ESOPHAGOGASTRODUODENOSCOPY 06/30/2010 PROCEDURE: DE EGD TRANSORAL BIOPSY SINGLE/MULTIPLE; COMMENT: Dr. Doyle - mild esophagitis/gastritis. Normal duodenum. Random biopsies negative for H. pylori infection or celiac disease. FLEXIBLE SIGMOIDOSCOPY 10/04/2013 PROCEDURE: DE SIGMOIDOSCOPY FLX DX W/COLLJ SPEC BR/WA IF PFRMD; COMMENT: normal to 25 cm TONSILLECTOMY 2010 PROCEDURE: HISTORICAL TONSILLECTOMY HERNIA REPAIR 03/30/2017 PROCEDURE: REPAIR UMBILICAL HERNIA OTHER SURGICAL HISTORY 09/19/2022 PROCEDURE: DE INDUCED DILATION AND CURETTAGE Medical History Medical [...] 10:00 AM EST Appointment Radiology Department - [address] [address] 04/15/2024 11:00 AM EST Office Visit Adult Medicine - [place] [address] [place] [address] Celestina Cintron PA [address] [place] [address] 06/25/2024 3:00 PM EDT Office Visit [facility] - [facility] 154 300 [facility] [address] [place] [phone] Garett Dixon MD 300 [facility] [address] [place] [address] Health Maintenance Due Date Last Done Comments [...] reflex microscopic (03/27/2024 11:06 AM EST) Specific [place] Urine 1.006 1.003 - 1.030 LAB URINALYSIS - AUTOMATED METHOD 03/27/2024 12:17 PM [facility] pH, Urine 7.0 5.0 - 8.0 pH LAB URINALYSIS - AUTOMATED METHOD 03/27/2024 12:17 PM [facility] Leukocytes, Urine Negative Negative LAB URINALYSIS - AUTOMATED METHOD 03/27/2024 12:17 PM [facility] Nitrite, Urine Negative Negative LAB URINALYSIS - AUTOMATED METHOD 03/27/2024 12:17 PM [facility] Protein, Urine Negative <=Trace mg/dL LAB URINALYSIS - AUTOMATED METHOD 03/27/2024 12:17 PM [facility] Glucose, Urine Negative Negative mg/dL LAB URINALYSIS - AUTOMATED METHOD 03/27/2024 12:17 PM [facility] Ketones, Urine Negative Negative mg/dL LAB URINALYSIS - AUTOMATED METHOD 03/27/2024 12:17 PM [facility] Urobilinogen, Urine 0.2 0.2 - 1.0 mg/dL LAB URINALYSIS - AUTOMATED METHOD 03/27/2024 12:17 PM EST [facility] Bilirubin, Urine Negative Negative LAB URINALYSIS - AUTOMATED METHOD 03/27/2024 12:17 PM EST [facility] Blood, Urine Negative Negative LAB URINALYSIS - AUTOMATED METHOD 03/27/2024 12:17 PM EST [facility] Urine Urine specimen obtained by clean catch procedure / Unknown Non-blood Collection / Unknown 03/27/2024 11:06 AM EST 03/27/2024 11:06 AM EST Kerwin BAXTER LAB URINE ORDERABLES [facility] [address] [place] [address], * Vitamin D 1,25 dihydroxy (03/27/2024 11:06 [...] Vitamin D 25-hydroxy (VITD). Test performed at [facility], [address] , [place], [place] ??[address] ? [phone] Krystin Wilson MD, PhD - Banking Representative Blood Venous blood specimen / Unknown Venipuncture / Unknown 03/27/2024 11:06 AM EST 03/27/2024 11:06 AM EST Kerwin BAXTER LAB BLOOD ORDERABLES [facility] [address] [place] [address] * Culture urine (03/27/2024 11:06 AM EST) Culture, Urine No growth 03/28/2024 7:38 AM EST [facility] Urine Urine specimen from urethra / Unknown Non-blood Collection / Unknown 03/27/2024 11:06 AM EST 03/27/2024 11:06 AM EST Kerwin BAXTER LAB MICROBIOLOGY - G ENERAL ORDERABLES Performing Organization Address City/[facility]/ZIP Co de Phone Number [facility] [address] [place] [address], [place] [phone] * Lipase (03/27/2024 11:06 AM EST) Pathologist [facility] Lipase 49 13 - 75 unit/L LAB CHEMISTRY METHOD 03/27/2024 4:17 PM [facility] Blood Venous blood specimen / Unknown Venipuncture / Unknown 03/27/2024 11:06 AM EST 03/27/2024 11:06 AM EST Kerwin BAXTER LAB BLOOD ORDERABLES Performing Organization Address City/[facility]/ZIP Co de Phone Number [facility] [address] [place] [address], [place] [phone] * (ABNORMAL) Comprehensive metabolic panel (03/27/2024 11:06 AM EST) Pathologist [facility] Sodium 135 133 - 145 mmol/L LAB CHEMISTRY METHOD 03/27/2024 4:23 PM [facility] Potassium 3.9 3.5 - 5.5 mmol/L LAB CHEMISTRY METHOD 03/27/2024 4:23 PM [facility] Chloride 103 96 - 110 mmol/L LAB CHEMISTRY METHOD 03/27/2024 4:23 PM [facility] CO2 29 21 - 32 mmol/L LAB CHEMISTRY METHOD 03/27/2024 4:23 PM [facility] Anion Gap 3 3 - 11 LAB CHEMISTRY METHOD 03/27/2024 4:23 PM [facility] Glucose 86 70 - 100 mg/dL LAB CHEMISTRY METHOD 03/27/2024 4:23 PM [facility] BUN 9 5 - 25 mg/dL LAB CHEMISTRY METHOD 03/27/2024 4:23 PM [facility] Creatinine 0.89 0.50 - 1.10 mg/dL LAB CHEMISTRY METHOD 03/27/2024 4:23 PM [facility] eGFR 90 >=60 mL/min/1. 73m2 LAB CHEMISTRY METHOD 03/27/2024 4:23 PM [facility] Comment:Calculation based on the??Chronic Kidney Disease Epidemiology Collaboration (CKD-EPI) equation refit??without adjustment for race. BUN/Creatinine Ratio 10.1 LAB CHEMISTRY METHOD 03/27/2024 4:23 PM [facility] Calcium 9.3 8.5 - 10.5 mg/dL LAB CHEMISTRY METHOD 03/27/2024 4:23 PM [facility] AST (SGOT) 16 10 - 42 unit/L LAB CHEMISTRY METHOD 03/27/2024 4:23 PM [facility] ALT (SGPT) 17 10 - 60 unit/L LAB CHEMISTRY METHOD 03/27/2024 4:23 PM [facility] Alkaline Phosphatase 72 42 - 121 unit/L LAB CHEMISTRY METHOD 03/27/2024 4:23 PM [facility] Total Protein 8.4(H) 6.0 - 8.0 g/dL LAB CHEMISTRY METHOD 03/27/2024 4:23 PM [facility] Albumin 4.6 3.2 - 5.0 g/dL LAB CHEMISTRY METHOD 03/27/2024 4:23 PM [facility] Total Bilirubin 0.5 0.0 - 1.4 mg/dL LAB CHEMISTRY METHOD 03/27/2024 4:23 PM [facility] Blood Venous blood specimen / Unknown Venipuncture / Unknown 03/27/2024 11:06 AM EST 03/27/2024 11:06 AM EST Kerwin BAXTER LAB BLOOD ORDERABLES [facility] [address] [place] [address], * Depression Screening (11/03/2023) Depression Screening abstracted Historical Provider [facility] * Pap Smear (09/24/2019) Pap smear no interpretation , abstracted Historical Provider [facility] * HIV Screening (04/13/2015) HIV Screening abstracted Historical Provider [facility] from Last 3 Months or Most Recently Relevant to Health Maintenance Care Teams Aircraft Riveter Relationship Specialty Start Date End Date Brenda Denson MD [address] [place] [address] PCP - General Internal Medicine 07/09/20
--- OUTSIDE RECORDS SUMMARY | 2024-04-03 11:42 | XMS_ITS | Encounter Summary ---
Author Organization [facility] Address [address] [place] [address] Care Team Providers Care Top Former Name Role Phone Brenda Denson MD Primary Care Prov ider Reason for Visit * Reason Onset Date Comments PT-1 03/18/2024 To PCP [address] [place] [address] Encounter Details Date Type Department Care Team ([facility] Contact Info) Description 03/18/2024 Telephone Adult Medicine - [address] [phone] Brenda Denson MD [address] [place] [address] PT-1 (To PCP [address] [place] [address]) Social History Tobacco Use Types Packs/Day Years [...] EST PT-1 request is submitted PT-1 Request [id number]. * Thalia Guerra - 03/18/2024 12:07 PM EST PT-1 Request Call [facility] new provider or submitter number is [id number] Verify and document patients [place] Health insurance ID # (NOT [facility] ID): [id number] Payor: [employer] PLAN / Plan: [facility] MEDICAID / Product Type: *No Product type* / Patient mailing address: [address] [place] [phone] (home) Pt. demographics verified? yes If not accurate, update registration. Is this a NEW request or a RENEWAL? renewal Name of treating facility: PCP Name (first & last) of treating provider? required : Brenda Fernandez MD What is the medical reason why the patient is seeing the above provider? PCP f/u Address/Zip code for treating provider: [address] [place] [address] Phone # for treating provider: Is the provider in the [facility] network (do they accept [place] Health insurance)? yes What specialtly is this [...] 10:00 AM EST Appointment Radiology Department - [address] [address] 04/15/2024 11:00 AM EST Office Visit Adult Medicine - [place] [address] [place] [address] Celestina Cintron PA [address] [place] [address] 06/25/2024 3:00 PM EDT Office Visit [facility] 154 [address] [facility] 154 [place] [phone] Garett Dixon MD 300 [facility] 154 [place] [address] documented as of this encounter Visit Diagnoses Not on filedocumented in this encounter Care Teams Top Former Relationship Specialty Start Date End Date Brenda Denson MD [address] [place] [address] PCP - General Internal Medicine 07/09/20 documented as of this encounter
--- OUTSIDE RECORDS SUMMARY | 2024-04-03 11:42 | XMS_ITS | Clinical Summary ---
Author Organization [facility] Address [address] [place] [address] Care Team Providers Care Bisque Finisher Name Role Phone Brenda Denson MD Primary Care Prov ider Allergies Active Allergy Reactions Criticality Noted Date Comments Ciprofloxacin 03/31/2020 Codeine 03/31/2020 Nsaids 03/31/2020 Vancomycin 03/31/2020 Medications Medication Sig Dispensed Refills Start Date End Date Status Bdxrhjoc-Oau-Lf-FA (PRE-JOHN PO) Take by mouth. 0 Active [...] age to complete this topic Care Teams Bisque Finisher Relationship Specialty Start Date End Date Brenda Denson MD PCP - General Internal Medicine 04/12/21
--- OUTSIDE RECORDS SUMMARY | 2024-04-03 11:42 | XMS_ITS | Encounter Summary ---
Author Organization [facility] Address [address] [place] [address] Phone Care Team Providers Care Field Marketing Manager Name Role Phone Michelle Sandhu DO Primary Care Provider [phone] Encounter Details Date Type Department Care Team (Late st Contact Info) Description 10/20/2016 Conversion Encounter [facility] [address] [place] [address] Social History Tobacco Use Types Packs/Day Years [...] on filedocumented in this encounter Care Teams Field Marketing Manager Relationship Specialty Start Date End Date Michelle Sandhu DO [address] [place] [address] PCP - General 10/14/16 05/18/22 documented as of this encounter
--- OUTSIDE RECORDS SUMMARY | 2024-04-03 11:42 | XMS_ITS | Encounter Summary ---
Author Organization [facility] Address [address] [place] [address] Care Team Providers Care Content Writer Name Role Phone Brenda Denson MD Primary Care Prov ider Reason for Visit * Reason Onset Date Comments PT-1 03/18/2024 [facility] Encounter Details Date Type Department Care Team (Late st Contact Info) Description 03/18/2024 Telephone Adult Medicine - [place] [address] [place] [phone] Brenda Denson MD [address] [place] [address] PT-1 ([facility]) Social History Tobacco Use Types Packs/Day [...] EST PT-1 request is submitted PT-1 Request [id number]. * Thalia Guerra - 03/18/2024 12:26 PM EST PT-1 Request Call [facility] new provider or submitter number is [id number] Verify and document patients [place] Health insurance ID # (NOT [facility] ID): [id number] Payor: [employer] PLAN / Plan: [facility] MEDICAID / Product Type: *No Product type* / Patient [place] [facility] [phone] [place]) Pt. demographics verified? yes If not accurate, update registration. Is this a NEW request or a RENEWAL? renewal Name of treating facility: [facility] Name (first & last) of treating provider? required : Katerin Morales DDS What is the medical reason why the patient is seeing the above provider? Dental f/u Address/Zip code for treating provider: [address], [place] [address] Phone # for treating provider: Is the provider in the [facility] [employer] network (do they accept [place] Health insurance)? yes What specialtly is this [...] 10:00 AM EST Appointment Radiology Department - [address] [address] 04/15/2024 11:00 AM EST Office Visit Adult Medicine - [place] [address] [place] [address] Celestina Cintron PA [address] [place] [address] 06/25/2024 3:00 PM EDT Office Visit [facility] - [facility] 154 300 [facility] 154 [place] [phone] Garett [place] MD 300 [facility] [address] [place] [address] documented as of this encounter Visit Diagnoses Not on filedocumented in this encounter Care Teams Content Writer Relationship Specialty Start Date End Date Brenda Denson MD [address] [place] [address] PCP - General Internal Medicine 07/09/20 documented as of this encounter
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
--- OUTSIDE RECORDS SUMMARY | 2024-04-03 11:42 | XMS_ITS | Encounter Summary ---
Author Organization [facility] Address [address] [place] [address] Phone Care Team Providers Care Operations Logistics Analyst Name Role Phone Michelle Sandhu DO Primary Care Provider [phone] Encounter Details Date Type Department Care Team (Late st Contact Info) Description 06/02/2011 Documentation EM Family Medicine [address] [place] [address] Family Medicine, Physician [address] [place], [place] [id number] Social History Tobacco Use Types Packs/Day Years [...] on filedocumented in this encounter Care Teams Operations Logistics Analyst Relationship Specialty Start Date End Date Michelle Sandhu DO [address] [place] [address] PCP - General 10/14/16 05/18/22 documented as of this encounter
--- OUTSIDE RECORDS SUMMARY | 2024-04-03 11:42 | XMS_ITS | Encounter Summary ---
Author Organization [facility] Address [address] [place] [address] Phone Care Team Providers Care Is Consultant Name Role Phone Michelle Sandhu DO Primary Care Provider [phone] Encounter Details Date Type Department Care Team (Late st Contact Info) Description 05/24/2013 Documentation EM Family Medicine [address] [place] [address] Family Medicine, Physician [address] [place], [place] [id number] Social History Tobacco Use Types Packs/Day Years [...] on filedocumented in this encounter Care Teams Is Consultant Relationship Specialty Start Date End Date Michelle Sandhu DO [address] [place] [address] PCP - General 10/14/16 05/18/22 documented as of this encounter
--- OUTSIDE RECORDS SUMMARY | 2024-04-03 11:42 | XMS_ITS | Encounter Summary ---
Author Organization [facility] Address [address] [place] [address] Care Team Providers Care Ip Network Architect Name Role Phone Brenda Denson MD Primary Care Prov ider Reason for Visit * Reason Onset Date Comments PT-1 03/18/2024 [facility] Encounter Details Date Type Department Care Team (Late st Contact Info) Description 03/18/2024 Telephone Adult Medicine - [place] [address] [place] [phone] Brenda Denson MD [address] [place] [address] PT-1 ([facility]) Social History Tobacco Use [...] EST PT-1 request is submitted PT-1 Request [id number]. * Thalia Guerra - 03/18/2024 12:30 PM EST PT-1 Request Call [facility] new provider or submitter number is [id number] Verify and document patients [place] Health insurance ID # (NOT [facility] ID): [id number] Payor: [employer] PLAN / Plan: [employer] MEDICAID / Product Type: *No Product type* / Patient mailing [facility] [phone] (home) Pt. demographics verified? yes If not accurate, update registration. Is this a NEW request or a RENEWAL? renewal Name of treating facility: [facility] Name (first & last) of treating provider? required : Elena Ellis, JASWANT. What is the medical reason why the patient is seeing the above provider? Eye Dr f/u Address/Zip code for treating provider: [address], [place] [address] Phone # for treating provider: Is the provider in the [email or web address] network (do they accept [place] Health insurance)? yes What specialtly is this [...] AM EST Appointment Radiology Department - [address] [address] 04/15/2024 11:00 AM EST Office Visit Adult Medicine - [place] [address] [place] [address] Celestina Cintron PA 230 [place] [address] 06/25/2024 3:00 PM EDT Office Visit [facility] 154 300 [facility] 154 [place] [phone] Garett Dixon MD 300 [facility] 154 [place] [address] documented as of this encounter Visit Diagnoses Not on filedocumented in this encounter Care Teams Ip Network Architect Relationship Specialty Start Date End Date Brenda Denson MD [address] [place] [address] PCP - General Internal Medicine 07/09/20 documented as of this encounter
--- OUTSIDE RECORDS SUMMARY | 2024-04-03 11:42 | XMS_ITS | Encounter Summary ---
Author Organization [facility] Address [address] [place] [address] Phone Care Team Providers Care Mold Stamper Name Role Phone Michelle Sandhu DO Primary Care Provider [phone] Encounter Details Date Type Department Care Team (Late st Contact Info) Description 06/02/2011 Documentation EM Family Medicine [address] [place] [address] Family Medicine, Physician [address] [place], [place] [phone] Social History Tobacco Use Types Packs/Day Years [...] on filedocumented in this encounter Care Teams Mold Stamper Relationship Specialty Start Date End Date Michelle Sandhu DO [address] [place] [address] PCP - General 10/14/16 05/18/22 documented as of this encounter
--- OUTSIDE RECORDS SUMMARY | 2024-04-03 11:43 | XMS_ITS | Encounter Summary ---
Author Organization [facility] Address [address] [place] [address] Phone Care Team Providers Care Cadd Drafter Name Role Phone Michelle Sandhu DO Primary Care Provider [phone] Encounter Details Date Type Department Care Team (Late st Contact Info) Description 06/02/2011 Documentation EM Family Medicine [address] [place] [address] Family Medicine, Physician [address] [place], [place] [phone] Social History Tobacco Use Types Packs/Day Years [...] on filedocumented in this encounter Care Teams Cadd Drafter Relationship Specialty Start Date End Date Michelle Sandhu DO [address] [place] [address] PCP - General 10/14/16 05/18/22 documented as of this encounter
--- OUTSIDE RECORDS SUMMARY | 2024-04-03 11:43 | XMS_ITS | Encounter Summary ---
Author Organization [facility] Address [address] [place] [address] Phone Care Team Providers Care In Flight Refueling Operator Name Role Phone Michelle Sandhu DO Primary Care Provider [phone] Encounter Details Date Type Department Care Team (Late st Contact Info) Description 06/02/2011 Documentation EM Family Medicine [address] [place] [address] Family Medicine, Physician [address] [place], [place] [phone] Social History Tobacco Use Types Packs/Day Years [...] on filedocumented in this encounter Care Teams In Flight Refueling Operator Relationship Specialty Start Date End Date Michelle Sandhu DO [address] [place] [address] PCP - General 10/14/16 05/18/22 documented as of this encounter
--- OUTSIDE RECORDS SUMMARY | 2024-04-03 11:43 | XMS_ITS | Encounter Summary ---
Author Organization [facility] Address [address] [place] [address] Phone Care Team Providers Care Brick Maker Name Role Phone Michelle Sandhu DO Primary Care Provider [phone] Encounter Details Date Type Department Care Team (Late st Contact Info) Description 06/02/2011 Documentation EM Family Medicine [address] [place] [address] Family Medicine, Physician [address] [place], [place] [phone] Social History Tobacco Use Types Packs/Day Years [...] on filedocumented in this encounter Care Teams Brick Maker Relationship Specialty Start Date End Date Michelle Sandhu DO [address] [place] [address] PCP - General 10/14/16 05/18/22 documented as of this encounter
--- OUTSIDE RECORDS SUMMARY | 2024-04-03 11:43 | XMS_ITS | Encounter Summary ---
Author Organization [facility] Address [address] [place] [address] Care Team Providers Care Trade Analyst Name Role Phone Brenda Denson MD Primary Care Prov ider Reason for Visit * Reason Onset Date Comments PT-1 03/18/2024 [facility] Encounter Details Date Type Department Care Team (Late st Contact Info) Description 03/18/2024 Telephone Adult Medicine - [place] [address] [place] [phone] Brenda Denson MD [address] [place] [address] PT-1 ([facility]) Social History Tobacco Use [...] as of this encounter Progress Notes * Jeremiha Ngo MA - 03/18/2024 4:55 PM EST PT-1 request is submitted PT-1 Request [id number]. * Thalia Guerra - 03/18/2024 12:08 PM EST PT-1 Request Call [facility] [employer] new provider or submitter number is [id number] Verify and document patients [place] Health insurance ID # (NOT [facility] ID): [id number] Payor: [employer] PLAN / Plan: [employer] MEDICAID / Product Type: *No Product type* / Patient mailing address: [address] [place] [phone] (home) Pt. demographics verified? yes If not accurate, update registration. Is this a NEW request or a RENEWAL? New request Name of treating facility: [facility] Name (first & last) of treating provider? required : Edson Blandon MD What is the medical reason why the patient is seeing the above provider? skin lesion and infection Address/Zip code for treating provider: [address] [place] [address] Phone # for treating provider: Is the provider in the [facility] [employer] network (do they accept [place] Health insurance)? yes What specialtly is this [...] Upcoming Encounters Date Type Department Care Team ([facility] st Contact Info) Description 04/05/2024 10:00 AM EST Appointment Radiology Department - [address] [address] 04/15/2024 11:00 AM EST Office Visit Adult Medicine - [place] [address] [place] [address] Celestina Cintron PA 230 [place] [address] 06/25/2024 3:00 PM EDT Office Visit [facility] 154 300 [facility] 154 [place] [phone] Garett Dixon MD 300 [facility] 154 [place] [address] documented as of this encounter Visit Diagnoses Not on filedocumented in this encounter Care Teams Trade Analyst Relationship Specialty Start Date End Date Brenda Denson MD [address] [place] [address] PCP - General Internal Medicine 07/09/20 documented as of this encounter
== END 2024-04-03 09:32 | disposition home or self-care (01) ==
LOC: HO.LAB 09:31
PROVIDERS: PCP Internal Medicine; Visit Provider Obstetrics & Gynecology
DX: R31.29 Other microscopic hematuria (principal); N73.9 Female pelvic inflammatory disease, unspecified; R10.2 Pelvic and perineal pain
CPT/HCPCS: 81003; 96372; 99212; J0696

== ENCOUNTER 2024-04-03 09:55 | Outpatient (REF) | payer OTHER, SELFPAY ==
[2024-04-04 13:11] LABS: Bacterial Vaginosis PCR NEGATIVE (Negative); Candida Group PCR NOT DETECTED (Not Detect); Candida glab krusei PCR NOT DETECTED (Not Detect); Trichomonas vaginalis PCR NOT DETECTED (Not Detect)
[2024-04-04 18:25] LABS: CT PCR NOT DETECTED (Not Detect.); NG PCR NOT DETECTED (Not Detect.)
== END 2024-04-03 09:56 | disposition home or self-care (01) ==
LOC: HO.LNP 09:55
PROVIDERS: Visit Provider Obstetrics & Gynecology
DX: N73.9 Female pelvic inflammatory disease, unspecified (principal); R31.29 Other microscopic hematuria
CPT/HCPCS: 81515; 87086; 87491; 87591

== ENCOUNTER 2024-04-03 10:09 | Outpatient (REF) | payer OTHER, SELFPAY ==
--- NOTE | ~2024-04-03 | US_ITS ---
EXAMINATION: US PELVIS CLINICAL INFORMATION: PID COMPARISON: Ultrasound pelvis 04/12/2023 TECHNIQUE: Ultrasound of the pelvis is performed using both transabdominal and transvaginal transducers along with Doppler. Transvaginal imaging is performed due to inadequate visualization transabdominally. FINDINGS: Uterus: The uterus is anteverted , anteflexed and measures 8.9 x 3.2 x 4.1 cm. The double wall endometrial thickness is 1.4 cm. The uterus is smooth in contour and has echogenic myometrial calcification. No visible fibroid. Adnexa: Both ovaries are visualized. There is normal color flow to the adnexa. There is no ovarian torsion. There is no pelvic ascites or fluid collection. Right ovary measures 3.0 x 1.5 x 1.9 cm. Volume 4.5 mL. No focal lesion seen Left ovary measures 3.9 x 2.6 x 2.7 cm. Volume 14.3 . No focal lesion seen There are prominent vasculature left adnexa. No free fluid in the cul-de-sac. US/US pelvic and transvaginal IMPRESSION: Scattered echogenic calcifications in the myometrium. Otherwise uterus is unremarkable. The ovaries are unremarkable. Suspect mild vascular pelvic congestion in left adnexa Electronically signed by: Jae Cade MD 04/03/2024 11:50 AM [facility]
[2024-04-03 11:53] LABS: Hematocrit 35.9 % (37.0-47.0); Hemoglobin 11.5 g/dl (12.0-16.0); Mean Corpuscular Hemoglobin 26.4 pg (27.0-33.0); Mean Corpuscular Volume 82.5 fL (80.0-98.0); Mean Platelet Volume 10.6 fL (9.4-12.3); Platelet Count 230 X10*3/uL (160-400); Red Blood Count 4.35 X10*6/uL (4.20-5.50); Red Cell Distribution Width 14.7 % (11.0-16.0); White Blood Count 8.6 X10*3/uL (4.8-10.8)
--- OUTSIDE RECORDS SUMMARY | 2024-04-03 12:07 | XMS_ITS | Encounter Summary ---
Author Organization [facility] Address [address] [place] [address] Care Team Providers Care Tile Roofer Name Role Phone Brenda Denson MD Primary Care Prov ider Reason for Visit * Reason Onset Date Comments PT-1 03/18/2024 To PCP [address] [place] [address] Encounter Details Date Type Department Care Team ([facility] Contact Info) Description 03/18/2024 Telephone Adult Medicine - [address] [phone] Brenda Denson MD [address] [place] [address] PT-1 (To PCP [address] [place] [address]) Social History Tobacco Use Types Packs/Day Years [...] EST PT-1 request is submitted PT-1 Request [id number]. * Thalia Guerra - 03/18/2024 12:07 PM EST PT-1 Request Call [facility] [employer] new provider or submitter number is [id number] Verify and document patients [place] Health insurance ID # (NOT [facility] ID): [id number] Payor: [employer] PLAN / Plan: [employer] MEDICAID / Product Type: *No Product type* / Patient mailing address: [address] [place] [phone] (home) Pt. demographics verified? yes If not accurate, update registration. Is this a NEW request or a RENEWAL? renewal Name of treating facility: PCP Name (first & last) of treating provider? required : Brenda Fernandez MD What is the medical reason why the patient is seeing the above provider? PCP f/u Address/Zip code for treating provider: [address] [place] [address] Phone # for treating provider: Is the provider in the [employer] network (do they accept [place] Health insurance)? yes What specialtly is this [...] 10:00 AM EST Appointment Radiology Department - [address] [address] 04/15/2024 11:00 AM EST Office Visit Adult Medicine - [place] [address] [place] [address] Celestina Cintron PA 230 [place] [address] 06/25/2024 3:00 PM EDT Office Visit [facility] - [facility] 154 300 [facility] 154 [place] [address] Garett Dixon MD 300 [facility] 154 [place] [address] documented as of this encounter Visit Diagnoses Not on filedocumented in this encounter Care Teams Tile Roofer Relationship Specialty Start Date End Date Brenda Denson MD [address] [place] [address] PCP - General Internal Medicine 07/09/20 documented as of this encounter
--- OUTSIDE RECORDS SUMMARY | 2024-04-03 12:07 | XMS_ITS | Encounter Summary ---
Author Organization [facility] Address [address] [place] [address] Care Team Providers Care Site Foreman Name Role Phone Brenda Denson MD Primary Care Prov ider Reason for Visit * Reason Onset Date Comments Results 03/28/2024 Encounter Details Date Type Department Care Team (Late st Contact Info) Description 03/28/2024 Telephone Adult Medicine - [place] [address] [place] [address] Brenda Denson MD [address] [place] [address] Results Social History Tobacco Use Types Packs/Day [...] 10:00 AM EST Appointment Radiology Department - [address] [address] 04/15/2024 11:00 AM EST Office Visit Adult Medicine - [place] [address] [place] [address] Celestina Cintron PA 230 [place] [address] 06/25/2024 3:00 PM EDT Office Visit [facility] - [facility] 154 300 [facility] 154 [place] [phone] Garett Dixon MD 300 [facility] 154 [place] [address] documented as of this encounter Visit Diagnoses Not on filedocumented in this encounter Care Teams Site Foreman Relationship Specialty Start Date End Date Brenda Denson MD [address] [place] [address] PCP - General Internal Medicine 07/09/20 documented as of this encounter
--- OUTSIDE RECORDS SUMMARY | 2024-04-03 12:07 | XMS_ITS | Encounter Summary ---
Author Organization [facility] Address [address] [place] [address] Phone Care Team Providers Care Drum Dyeing Machine Operator Name Role Phone Michelle Sandhu DO Primary Care Provider [phone] Encounter Details Date Type Department Care Team (Late st Contact Info) Description 09/09/2010 Documentation EM Family Medicine [address] [place] [address] Family Medicine, Physician [address] [place] [address] Social History Tobacco Use Types [...] on filedocumented in this encounter Care Teams Drum Dyeing Machine Operator Relationship Specialty Start Date End Date Michelle Sandhu DO [address] [place] [address] PCP - General 10/14/16 05/18/22 documented as of this encounter
--- OUTSIDE RECORDS SUMMARY | 2024-04-03 12:07 | XMS_ITS | Encounter Summary ---
Author Organization [facility] Address [address] [place] [address] Care Team Providers Care Fig Bar Machine Operator Name Role Phone Brenda Denson MD Primary Care Prov ider Reason for Visit * Reason Onset Date Comments PT-1 03/18/2024 [facility] Encounter Details Date Type Department Care Team (Late st Contact Info) Description 03/18/2024 Telephone Adult Medicine - [place] [address] [place] [phone] Brenda Denson MD [address] [place] [address] PT-1 ([facility]) Social History Tobacco Use [...] EST PT-1 request is submitted PT-1 Request [id number]. * Thalia Guerra - 03/18/2024 12:30 PM EST PT-1 Request Call [facility] [employer] new provider or submitter number is [id number] Verify and document patients [place] Health insurance ID # (NOT [facility] ID): [id number] Payor: [employer] PLAN / Plan: [employer] MEDICAID / Product Type: *No Product type* / Patient mailing [facility] [phone] (home) Pt. demographics verified? yes If not accurate, update registration. Is this a NEW request or a RENEWAL? renewal Name of treating facility: [facility] Name (first & last) of treating provider? required : Elena Ellis, JASWANT. What is the medical reason why the patient is seeing the above provider? Eye Dr f/u Address/Zip code for treating provider: [address], [place] [address] Phone # for treating provider: Is the provider in the [employer] network (do they accept [place] Health insurance)? yes [...] 10:00 AM EST Appointment Radiology Department - [address] [address] 04/15/2024 11:00 AM EST Office Visit Adult Medicine - [place] [address] [place] [address] Celestina Cintron PA 230 [place] [address] 06/25/2024 3:00 PM EDT Office Visit [facility] - [facility] 154 300 [facility] 154 [place] [phone] Garett Dixon MD 300 [facility] 154 [place] [address] documented as of this encounter Visit Diagnoses Not on filedocumented in this encounter Care Teams Fig Bar Machine Operator Relationship Specialty Start Date End Date Brenda Denson MD 230 [place] [address] PCP - General Internal Medicine 07/09/20 documented as of this encounter
--- OUTSIDE RECORDS SUMMARY | 2024-04-03 12:07 | XMS_ITS | Encounter Summary ---
Author Organization [facility] Address [address] [place] [address] Phone Care Team Providers Care Pathologist Assistant Name Role Phone Michelle Sandhu DO Primary Care Provider [phone] Encounter Details Date Type Department Care Team (Late st Contact Info) Description 06/02/2011 Documentation EM Family Medicine [address] [place] [address] Family Medicine, Physician [address] [place], [place] [phone] Social History Tobacco Use Types Packs/Day Years [...] on filedocumented in this encounter Care Teams Pathologist Assistant Relationship Specialty Start Date End Date Michelle Sandhu DO [address] [place] [address] PCP - General 10/14/16 05/18/22 documented as of this encounter
--- OUTSIDE RECORDS SUMMARY | 2024-04-03 12:07 | XMS_ITS | Clinical Summary ---
Author Organization [facility] Address [address] [place] [address] Care Team Providers Care Battery Engineer Name Role Phone Brenda Denson MD Primary Care Prov ider Allergies Active Allergy Reactions Criticality Noted Date Comments Ciprofloxacin 03/31/2020 Codeine 03/31/2020 Nsaids 03/31/2020 Vancomycin 03/31/2020 Medications Medication Sig Dispensed Refills Start Date End Date Status [id number]-FA (PRE-JOHN PO) Take by mouth. 0 Active [...] age to complete this topic Care Teams Battery Engineer Relationship Specialty Start Date End Date Brenda Denson MD PCP - General Internal Medicine 04/12/21
--- OUTSIDE RECORDS SUMMARY | 2024-04-03 12:07 | XMS_ITS | Encounter Summary ---
Author Organization [facility] Address [address] [place] [address] Care Team Providers Care Registration Officer Name Role Phone Brenda Denson MD Primary Care Prov ider Reason for Visit * Reason Onset Date Comments PROVIDER CALL BACK 03/26/2024 Encounter Details Date Type Department Care Team (Late st Contact Info) Description 03/26/2024 Telephone Adult Medicine [facility] [address] [place] [address] Brenda Denson MD 230 [place] [address] PROVIDER CALL BACK Social History Tobacco Use [...] know that she was seen 03[facility]22-24 [place] [facility] for low potassium, weakness. Pt was told to have labs repeated for potassium. Pt has appt 03-27-24 with Kerwin Oliver Caller offered to speak with the nurse for assistance: yes Response: pt can be reached @ [phone] documented in this encounter Plan of Treatment Upcoming Encounters Date Type Department Care Team (Late st Contact Info) Description 04/05/2024 10:00 AM EST Appointment Radiology Department - [address] [address] 04/15/2024 11:00 AM EST Office Visit Adult Medicine - [place] [address] [place] [address] Celestina Cintron PA 230 [place] [address] 06/25/2024 3:00 PM EDT Office Visit [facility] - [facility] 154 300 [facility] 154 [place] [phone] Garett Dixon MD 300 [facility] 154 [place] [address] documented as of this encounter Visit Diagnoses Not on filedocumented in this encounter Care Teams Registration Officer Relationship Specialty Start Date End Date Brenda Denson MD 230 [place] [address] PCP - General Internal Medicine 07/09/20 documented as of this encounter
--- OUTSIDE RECORDS SUMMARY | 2024-04-03 12:07 | XMS_ITS | Encounter Summary ---
Author Organization [facility] Address [address] [place] [address] Phone Care Team Providers Care Rubber Press Tender Name Role Phone Michelle Sandhu DO Primary Care Provider [phone] Encounter Details Date Type Department Care Team (Late st Contact Info) Description 10/20/2016 Conversion Encounter [facility] 150 [place] [address] Social History Tobacco Use Types Packs/Day Years [...] on filedocumented in this encounter Care Teams Rubber Press Tender Relationship Specialty Start Date End Date Michelle Sandhu DO [address] [place] [address] PCP - General 10/14/16 05/18/22 documented as of this encounter
--- OUTSIDE RECORDS SUMMARY | 2024-04-03 12:07 | XMS_ITS | Encounter Summary ---
Author Organization [facility] Address [address] [place] [address] Care Team Providers Care Engine Generator Assembler Name Role Phone Brenda Denson MD Primary Care Prov ider Reason for Visit * Reason Onset Date Comments PT-1 03/18/2024 [facility] Encounter Details Date Type Department Care Team (Late st Contact Info) Description 03/18/2024 Telephone Adult Medicine - [place] [address] [place] [phone] Brenda Denson MD 230 [place] [address] PT-1 ([facility]) Social History Tobacco Use Types [...] EST PT-1 request is submitted PT-1 Request [id number]. * Thalia Guerra - 03/18/2024 12:26 PM EST PT-1 Request Call [facility] [employer] new provider or submitter number is [id number] Verify and document patients [place] Health insurance ID # (NOT [facility] ID): [id number] Payor: [employer] PLAN / Plan: [facility] MEDICAID / Product Type: *No Product type* / Patient mailing [facility] [place] [phone] (home) Pt. demographics verified? yes If not accurate, update registration. Is this a NEW request or a RENEWAL? renewal Name of treating facility: [facility] Name (first & last) of treating provider? required : Katerin Morales DDS What is the medical reason why the patient is seeing the above provider? Dental f/u Address/Zip code for treating provider: [address], [place] [address] Phone # for treating provider: Is the provider in the [facility] [employer] network (do they accept [place] Health insurance)? [...] 10:00 AM EST Appointment Radiology Department - [address] [address] 04/15/2024 11:00 AM EST Office Visit Adult Medicine - [place] [address] [place] [address] Celestina Cintron PA 230 [place] [address] 06/25/2024 3:00 PM EDT Office Visit [facility] - [facility] 154 [address] [facility] 154 [place] [phone] Garett Dixon MD 300 [facility] [address] [place] [address] documented as of this encounter Visit Diagnoses Not on filedocumented in this encounter Care Teams Engine Generator Assembler Relationship Specialty Start Date End Date Brenda Denson MD 230 [place] [address] PCP - General Internal Medicine 07/09/20 documented as of this encounter
--- OUTSIDE RECORDS SUMMARY | 2024-04-03 12:07 | XMS_ITS | Encounter Summary ---
Author Organization [facility] Address [address] [place] [address] Care Team Providers Care Salon Customer Experience Specialist Name Role Phone Brenda Denson MD Primary Care Prov ider Reason for Visit * Reason Onset Date Comments PT-1 03/18/2024 [facility] Encounter Details Date Type Department Care Team (Late st Contact Info) Description 03/18/2024 Telephone Adult Medicine - [place] [address] [place] [phone] Brenda Denson MD 230 [place] [address] PT-1 ([facility]) Social History Tobacco Use [...] EST PT-1 request is submitted PT-1 Request [id number]. * Thalia Guerra - 03/18/2024 12:33 PM EST PT-1 Request Call [employer] new provider or submitter number is [id number] Verify and document patients [place] Health insurance ID # (NOT [facility]MC ID): [id number] Payor: [employer] PLAN / Plan: [employer] MEDICAID / Product Type: *No Product type* / Patient mailing address: [place] [phone] (home) Pt. demographics verified? yes If not accurate, update registration. Is this a NEW request or a RENEWAL? renewal Name of treating facility: [facility] Name (first & last) of treating provider? required : Garett Dixon MD What is the medical reason why the patient is seeing the above provider? Cardi consult Address/Zip code for treating provider: [address] [place] [address] [address], [place] [address] Phone # for treating provider: Is the provider in the [facility] [employer] network (do they accept [place] Health insurance)? [...] AM EST Appointment Radiology Department - [address] [address] 04/15/2024 11:00 AM EST Office Visit Adult Medicine - [place] [address] [place] [address] Celestina Cintron PA 230 [place] [address] 06/25/2024 3:00 PM EDT Office Visit [facility] - [facility] 154 300 [facility] 154 [place] [address] Garett Dixon MD 300 [facility] 154 [place] [address] documented as of this encounter Visit Diagnoses Not on filedocumented in this encounter Care Teams Salon Customer Experience Specialist Relationship Specialty Start Date End Date Brenda Denson MD 230 [place] [address] PCP - General Internal Medicine 07/09/20 documented as of this encounter
--- OUTSIDE RECORDS SUMMARY | 2024-04-03 12:07 | XMS_ITS | Clinical Summary ---
Author Organization [facility] Address [address] [place] [address] Phone Care Team Providers Care Guard Supervisor Name Role Phone Brenda Denson MD [...] DAY 10/03/2023 Active blood-glucose meter,continuous (Dexcom G7 Scourer) misc 1 Device by Does not apply [...] 04/02/2024 1:00 PM EST Office Visit Gastroenterology [facility] [address] [address] Jayson Delcid PA Generalized abdominal pain (Primary Dx); Abdominal cramping; Enteritis; Nausea; Gastroesophageal reflux disease without esophagitis 04/01/2024 Telephone Gastroenterology [facility] 175 [facility] [address] [address] Jayson Delcid PA Provider Call Back 03/28/2024 Telephone Adult Medicine [address] [phone] Brenda Silva MD Results 03/28/2024 Telephone Adult [facility] [address] [place] [address] Brenda Silva MD PT1 03/28/2024 Telephone Adult [facility] [address] [place] [address] Brenda Silva MD PT1 03/27/2024 10:00 AM EST Office Visit Adult Medicine [facility] [address] [place] [address] Kerwin Vasquez PA Abdominal cramping (Primary Dx); Dark urine; Vitamin D deficiency; Low blood potassium 03/26/2024 Telephone Adult Medicine [facility] [address] [place] [address] Brenda Silva MD PROVIDER CALL BACK 03/22/2024 Telephone Adult Medicine [facility] [address] [place] [address] Brenda Silva MD pt-1 ([facility]) 03/21/2024 Telephone Adult Medicine [facility] [address] [place] [address] Brenda Silva MD 03/18/2024 Telephone Adult Medicine - [place] [address] [place] [address] Brenda Silva MD PT-1 ([facility]) 03/18/2024 Telephone Adult Medicine [facility] [address] [place] [address] Brenda Silva MD PT-1 ([facility]) 03/18/2024 Telephone Adult Medicine [facility] [address] [place] [address] Brenda Silva MD PT-1 ([facility]) 03/18/2024 Telephone Adult Medicine [facility] [address] [place] [address] Brenda Silva MD PT-1 ([facility]) 03/18/2024 Telephone Adult Medicine - [place] [address] [place] [address] HayBrenda Kendrick MD PT-1 ([facility]) 03/18/2024 Telephone Adult Medicine - [place] [address] [place] [phone] Brenda Silva MD PT-1 (To PCP 230 [place], [place]) 02/13/2024 Telephone Adult Medicine - [place] [address] [place] [phone] Myra Kaur MA Fitting for DME 01/18/2024 Telephone [facility] [address] [facility] [address] [place] [address] Brenda Silva MD from Last [...] Random colonic biopsies normal. ESOPHAGOGASTRODUODENOSCOPY 06/30/2010 PROCEDURE: AL EGD TRANSORAL BIOPSY SINGLE/MULTIPLE; COMMENT: Dr. Doyle - mild esophagitis/gastritis. Normal duodenum. Random biopsies negative for H. pylori infection or celiac disease. FLEXIBLE SIGMOIDOSCOPY 10/04/2013 PROCEDURE: AL SIGMOIDOSCOPY FLX DX W/COLLJ SPEC BR/WA IF PFRMD; COMMENT: normal to 25 cm TONSILLECTOMY 2010 PROCEDURE: HISTORICAL TONSILLECTOMY HERNIA REPAIR 03/30/2017 PROCEDURE: REPAIR UMBILICAL HERNIA OTHER SURGICAL HISTORY 09/19/2022 PROCEDURE: AL INDUCED DILATION AND CURETTAGE Medical History Medical [...] 10:00 AM EST Appointment Radiology Department - [address] [address] 04/15/2024 11:00 AM EST Office Visit Adult Medicine - [place] [address] [place] [address] Celestina Cintron PA 230 [place] [address] 06/25/2024 3:00 PM EDT Office Visit [facility] - [facility] 154 300 [facility] 154 [place] [phone] Garett Dixon MD 300 [facility] [address] [place] [address] Health Maintenance Due Date Last Done Comments [...] reflex microscopic (03/27/2024 11:06 AM EST) Specific [place] Urine 1.006 1.003 - 1.030 LAB URINALYSIS - AUTOMATED METHOD 03/27/2024 12:17 PM [facility] pH, Urine 7.0 5.0 - 8.0 pH LAB URINALYSIS - AUTOMATED METHOD 03/27/2024 12:17 PM [facility] Leukocytes, Urine Negative Negative LAB URINALYSIS - AUTOMATED METHOD 03/27/2024 12:17 PM [facility] Nitrite, Urine Negative Negative LAB URINALYSIS - AUTOMATED METHOD 03/27/2024 12:17 PM [facility] Protein, Urine Negative <=Trace mg/dL LAB URINALYSIS - AUTOMATED METHOD 03/27/2024 12:17 PM [facility] Glucose, Urine Negative Negative mg/dL LAB URINALYSIS - AUTOMATED METHOD 03/27/2024 12:17 PM [facility] Ketones, Urine Negative Negative mg/dL LAB URINALYSIS - AUTOMATED METHOD 03/27/2024 12:17 PM [facility] Urobilinogen, Urine 0.2 0.2 - 1.0 mg/dL LAB URINALYSIS - AUTOMATED METHOD 03/27/2024 12:17 PM EST [facility] Bilirubin, Urine Negative Negative LAB URINALYSIS - AUTOMATED METHOD 03/27/2024 12:17 PM EST [facility] Blood, Urine Negative Negative LAB URINALYSIS - AUTOMATED METHOD 03/27/2024 12:17 PM EST [facility] Urine Urine specimen obtained by clean catch procedure / Unknown Non-blood Collection / Unknown 03/27/2024 11:06 AM EST 03/27/2024 11:06 AM EST Kerwin BAXTER LAB URINE ORDERABLES [facility] [address] [place] [address], * Vitamin D 1,25 dihydroxy (03/27/2024 11:06 [...] Vitamin D 25-hydroxy (VITD). Test performed at [facility], [address] , [place], [place] ??[address] ? [phone] Krystin Wilson MD, PhD - Microbiology Manager Blood Venous blood specimen / Unknown Venipuncture / Unknown 03/27/2024 11:06 AM EST 03/27/2024 11:06 AM EST Kerwin BAXTER LAB BLOOD ORDERABLES [facility] [address] [place] [address] * Culture urine (03/27/2024 11:06 AM EST) Culture, Urine No growth 03/28/2024 7:38 AM EST [facility] Urine Urine specimen from urethra / Unknown Non-blood Collection / Unknown 03/27/2024 11:06 AM EST 03/27/2024 11:06 AM EST Kerwin BAXTER LAB MICROBIOLOGY - G ENERAL ORDERABLES Performing Organization Address City/[facility]/ZIP Co de Phone Number [facility] [address] [place] [address], [place] [phone] * Lipase (03/27/2024 11:06 AM EST) Pathologist [facility] Lipase 49 13 - 75 unit/L LAB CHEMISTRY METHOD 03/27/2024 4:17 PM [facility] Blood Venous blood specimen / Unknown Venipuncture / Unknown 03/27/2024 11:06 AM EST 03/27/2024 11:06 AM EST Kerwin BAXTER LAB BLOOD ORDERABLES Performing Organization Address City/[facility]/ZIP Co de Phone Number [facility] [address] [place] [address], [place] [phone] * (ABNORMAL) Comprehensive metabolic panel (03/27/2024 11:06 AM EST) Pathologist [facility] Sodium 135 133 - 145 mmol/L LAB CHEMISTRY METHOD 03/27/2024 4:23 PM [facility] Potassium 3.9 3.5 - 5.5 mmol/L LAB CHEMISTRY METHOD 03/27/2024 4:23 PM [facility] Chloride 103 96 - 110 mmol/L LAB CHEMISTRY METHOD 03/27/2024 4:23 PM [facility] CO2 29 21 - 32 mmol/L LAB CHEMISTRY METHOD 03/27/2024 4:23 PM [facility] Anion Gap 3 3 - 11 LAB CHEMISTRY METHOD 03/27/2024 4:23 PM [facility] Glucose 86 70 - 100 mg/dL LAB CHEMISTRY METHOD 03/27/2024 4:23 PM [facility] BUN 9 5 - 25 mg/dL LAB CHEMISTRY METHOD 03/27/2024 4:23 PM [facility] Creatinine 0.89 0.50 - 1.10 mg/dL LAB CHEMISTRY METHOD 03/27/2024 4:23 PM [facility] eGFR 90 >=60 mL/min/1. 73m2 LAB CHEMISTRY METHOD 03/27/2024 4:23 PM [facility] Comment:Calculation based on the??Chronic Kidney Disease Epidemiology Collaboration (CKD-EPI) equation refit??without adjustment for race. BUN/Creatinine Ratio 10.1 LAB CHEMISTRY METHOD 03/27/2024 4:23 PM [facility] Calcium 9.3 8.5 - 10.5 mg/dL LAB CHEMISTRY METHOD 03/27/2024 4:23 PM [facility] AST (SGOT) 16 10 - 42 unit/L LAB CHEMISTRY METHOD 03/27/2024 4:23 PM [facility] ALT (SGPT) 17 10 - 60 unit/L LAB CHEMISTRY METHOD 03/27/2024 4:23 PM [facility] Alkaline Phosphatase 72 42 - 121 unit/L LAB CHEMISTRY METHOD 03/27/2024 4:23 PM [facility] Total Protein 8.4(H) 6.0 - 8.0 g/dL LAB CHEMISTRY METHOD 03/27/2024 4:23 PM [facility] Albumin 4.6 3.2 - 5.0 g/dL LAB CHEMISTRY METHOD 03/27/2024 4:23 PM [facility] Total Bilirubin 0.5 0.0 - 1.4 mg/dL LAB CHEMISTRY METHOD 03/27/2024 4:23 PM [facility] Blood Venous blood specimen / Unknown Venipuncture / Unknown 03/27/2024 11:06 AM EST 03/27/2024 11:06 AM EST Kerwin BAXTER LAB BLOOD ORDERABLES [facility] [address] [place] [address], * Depression Screening (11/03/2023) Depression Screening abstracted Historical [facility] * Pap Smear (09/24/2019) Pap smear no interpretation , abstracted Historical [facility] * HIV Screening (04/13/2015) HIV Screening abstracted Historical Provider [facility] from Last 3 Months or Most Recently Relevant to Health Maintenance Care Teams Guard Supervisor Relationship Specialty Start Date End Date Brenda Denson MD [address] [place] [address] PCP - General Internal Medicine 07/09/20
--- OUTSIDE RECORDS SUMMARY | 2024-04-03 12:07 | XMS_ITS | Encounter Summary ---
Author Organization [facility] Address [address] [place] [address] Care Team Providers Care Storage Facility Housekeeper Name Role Phone Brenda Denson MD Primary Care Prov ider Reason for Visit * Reason Onset Date Comments Fitting for DME 02/13/2024 Encounter Details Date Type Department Care Team (Late Contact Info) Description 02/13/2024 Telephone Adult Medicine - [place] [address] [place] [address] Myra Kaur MA Fitting for DME Social [...] 04/05/2024 10:00 AM EST Appointment Radiology Department [address] [address] 04/15/2024 11:00 AM EST Office Visit Adult Medicine - [employer] [address] [place] [address] Celestina Cintron PA 230 [place] [address] 06/25/2024 3:00 PM EDT Office Visit [facility] - [facility] 154 300 [facility] 154 [place] [address] Garett Dixon MD 300 [facility] 154 [place] [address] documented as of this encounter Visit Diagnoses Not on filedocumented in this encounter Care Teams Storage Facility Housekeeper Relationship Specialty Start Date End Date Brenda Denson MD 230 [place] [address] PCP - General Internal Medicine 07/09/20 documented as of this encounter
--- OUTSIDE RECORDS SUMMARY | 2024-04-03 12:07 | XMS_ITS | Clinical Summary ---
Author Organization [facility] Address [address] [place] [address] Phone Care Team Providers Care Quality Assurance Group Leader Name Role Phone Unavailable Primary Care Provider [...] this topic Procedures * Due to [place] [employer] law, this organization might not be sharing sensitive test results. Procedure Name Priority Date/Time Associated Diagnosis Comments CHLAMYDIA AND GONORRHEA, AMPLIFIED Routine 08/09/2011 1:30 PM EDT from Last 3 Months or Most Recently Relevant to Health Maintenance Results * Due to [place] [employer] law, this organization might not be sharing sensitive test results. * Chlamydia and Gonorrhoea, Amplified (08/09/2011 1:30 PM EDT) URINE GC AMP PROBE NEGATIVE [facility] Comment: NO NEISSERIA GONORRHOEAE RNA DETECTED IN THIS PATIENT'S SAMPLE. ? (REFERENCE RANGE/NORMAL VALUE: NOT DETECTED) ? NOTE: THIS TEST USES UTILITY WORKER FORGE MEDIATED AMPLIFICATION METHOD TO DETECT rRNA FROM [...] Final Result [facility] [address] [place] [address], [place] from Last 3 Months or Most Recently Relevant to Health Maintenance
--- OUTSIDE RECORDS SUMMARY | 2024-04-03 12:07 | XMS_ITS | Encounter Summary ---
Author Organization [facility] Address [address] [place] [address] Phone Care Team Providers Care Print Shop Stenographer Name Role Phone Michelle Sandhu DO Primary Care Provider [phone] Encounter Details Date Type Department Care Team (Late st Contact Info) Description 05/24/2013 Documentation EM Family Medicine [address] [place] [address] Family Medicine, Physician [address] [place], [place] [id number] Social History Tobacco Use Types Packs/Day Years [...] on filedocumented in this encounter Care Teams Print Shop Stenographer Relationship Specialty Start Date End Date Michelle Sandhu DO [address] [place] [address] PCP - General 10/14/16 05/18/22 documented as of this encounter
--- OUTSIDE RECORDS SUMMARY | 2024-04-03 12:07 | XMS_ITS | Encounter Summary ---
Author Organization [facility] Address [address] [place] [address] Care Team Providers Care Electric Range Assembler Name Role Phone Brenda Denson MD Primary Care Prov ider Reason for Visit * Reason Onset Date Comments PT1 03/28/2024 Encounter Details Date Type Department Care Team (Late st Contact Info) Description 03/28/2024 Telephone Adult Medicine - [place] [address] [place] [phone] Brenda Denson MD 230 [place] [address] PT1 Social History Tobacco Use Types Packs/Day [...] Confirmation PT-1 request is submitted PT-1 Request [id number]. * Meri Toledo - 03/28/2024 9:26 AM EST PT-1 Request Call [facility] new provider or submitter number is [id number] Verify and document patients [place] Health insurance ID # (NOT [facility] ID): [id number] Payor: [employer] PLAN / Plan: [employer] MEDICAID / Product Type: *No Product type* / Patient mailing address[facility] [facility] [phone] (home) Pt. demographics verified? yes If not accurate, update registration. Is this a NEW request or a RENEWAL? New request Name of treating facility: [facility] Name (first & last) of treating provider? required : TBD What is the medical reason why the patient is seeing the above provider? Pancreatitis Address/Zip code for treating provider: [address] [place] [address] Phone # for treating provider: [phone] Is the provider in the [employer] (do they accept [place] Health insurance)? yes What specialtly is this [...] Upcoming Encounters Date Type Department Care Team ([facility] st Contact Info) Description 04/05/2024 10:00 AM EST Appointment Radiology Department - [address] [address] 04/15/2024 11:00 AM EST Office Visit Adult Medicine - [place] [address] [place] [address] Celestina Cintron PA 230 [place] [address] 06/25/2024 3:00 PM EDT Office Visit [facility] - [facility] 154 300 [facility] 154 [place] [address] Garett Dixon MD 300 [facility] 154 [place] [address] documented as of this encounter Visit Diagnoses Not on filedocumented in this encounter Care Teams Electric Range Assembler Relationship Specialty Start Date End Date Brenda Denson MD 230 [place] [address] PCP - General Internal Medicine 07/09/20 documented as of this encounter
--- OUTSIDE RECORDS SUMMARY | 2024-04-03 12:07 | XMS_ITS | Encounter Summary ---
Author Organization [facility] Address [address] [place] [address] Care Team Providers Care Center Hole Reamer Name Role Phone Brenda Denson MD Primary Care Prov ider Reason for Visit * Reason Onset Date Comments PT-1 03/18/2024 [facility] Encounter Details Date Type Department Care Team (Late st Contact Info) Description 03/18/2024 Telephone Adult Medicine - [place] [address] [place] [phone] Brenda Denson MD 230 [place] [address] PT-1 ([facility]) Social History Tobacco Use Types Packs/Day Years [...] EST PT-1 request is submitted PT-1 Request [id number]. * Thalia Guerra - 03/18/2024 12:18 PM EST PT-1 Request Call [employer] new provider or submitter number is [id number] Verify and document patients [place] Health insurance ID # (NOT [facility] ID): [id number] Payor: [employer] PLAN / Plan: [employer] MEDICAID / Product Type: *No Product type* / Patient mailing address: [address] [place] [phone] (home) Pt. demographics verified? yes If not accurate, update registration. Is this a NEW request or a RENEWAL? renewal Name of treating facility: [facility] Name (first & last) of treating provider? required : Cherie Truong MD What is the medical reason why the patient is seeing the above provider? F/u kidney and bladder problems Address/Zip code for treating provider: [address] [place] [address] Phone # for treating provider: Is the provider in the [facility] [employer] network (do they accept [place] Health insurance)? yes What specialtly is this [...] 10:00 AM EST Appointment Radiology Department - [address] [address] 04/15/2024 11:00 AM EST Office Visit Adult Medicine - [place] [address] [place] [address] Celestina Cintron PA 230 [place] [address] 06/25/2024 3:00 PM EDT Office Visit [facility] - [facility] 154 300 [facility] 154 [place] [phone] Garett Dixon MD 300 [facility] [address] [place] [address] documented as of this encounter Visit Diagnoses Not on filedocumented in this encounter Care Teams Center Hole Reamer Relationship Specialty Start Date End Date Brenda Denson MD 230 [place] [address] PCP - General Internal Medicine 07/09/20 documented as of this encounter
--- OUTSIDE RECORDS SUMMARY | 2024-04-03 12:07 | XMS_ITS | Encounter Summary ---
Author Organization [facility] Address [address] [place] [address] Care Team Providers Care Machine Sander Name Role Phone Brenda Denson MD Primary Care Prov ider Reason for Visit * Reason Onset Date Comments PT1 03/28/2024 Encounter Details Date Type Department Care Team (Late st Contact Info) Description 03/28/2024 Telephone Adult Medicine [facility] 230 [place] [phone] Brenda Denson MD 230 [place] [address] PT1 Social History Tobacco Use Types Packs/Day [...] Confirmation PT-1 request is submitted PT-1 Request [id number]. * Meri Toledo - 03/28/2024 9:22 AM EST PT-1 Request Call [facility] new provider or submitter number is [id number] Verify and document patients [place] Health insurance ID # (NOT [facility] ID): [id number] Payor: [employer] PLAN / Plan: [employer] MEDICAID / Product Type: *No Product type* / Patient mailing address: [address] [facility] [phone] (home) Pt. demographics verified? yes If not accurate, update registration. Is this a NEW request or a RENEWAL? New request Name of treating facility: [facility] Name (first & last) of treating provider? required : SAHIL Hunt What is the medical reason why the patient is seeing the above provider? pancreatitis Address/Zip code for treating provider: [address] [facility] [address] [place] [address] Phone # for treating provider: [phone] Is the provider in the [employer] (do they accept [place] Health insurance)? yes [...] 10:00 AM EST Appointment Radiology Department - [address] [address] 04/15/2024 11:00 AM EST Office Visit Adult Medicine - [place] 230 [place] [address] Celestina Cintron PA 230 [place] [address] 06/25/2024 3:00 PM EDT Office Visit [facility] - [facility] 154 300 [facility] 154 [place] [address] Garett Dixon MD 300 [facility] 154 [place] [address] documented as of this encounter Visit Diagnoses Not on filedocumented in this encounter Care Teams Machine Sander Relationship Specialty Start Date End Date Brenda Denson MD [address] [place] [address] PCP - General Internal Medicine 07/09/20 documented as of this encounter
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
--- OUTSIDE RECORDS SUMMARY | 2024-04-03 12:07 | XMS_ITS | Encounter Summary ---
Author Organization [facility] [address] Address [address] [place] [address] Care Team Providers Care Manager Warehouse Name Role Phone Brenda Denson MD Primary Care Prov ider Reason for Visit * Reason Onset Date Comments Provider Call Back 04/01/2024 Encounter Details Date Type Department Care Team (Late st Contact Info) Description 04/01/2024 Telephone Gastroenterology - [place] [address] [facility] [address] [place] [address] Jayson Delcid PA [address] [place] [address] Provider Call Back Social History Tobacco Use [...] AM EST Patient calling was seen in [facility] ER 03/30 - 03/31. Patient states [...] AM EST Appointment Radiology Department - [address] [address] 04/15/2024 11:00 AM EST Office Visit Adult Medicine - [place] 230 [place] [address] Celestina Cintron PA 230 [place] [address] 06/25/2024 3:00 PM EDT Office Visit [facility] - [facility] 154 [address] [facility] 154 [place] [phone] Garett Dixon MD 300 [facility] 154 [place] [address] documented as of this encounter Visit Diagnoses Not on filedocumented in this encounter Care Teams Manager Warehouse Relationship Specialty Start Date End Date Brenda Denson MD [address] [place] [address] PCP - General Internal Medicine 07/09/20 documented as of this encounter
--- OUTSIDE RECORDS SUMMARY | 2024-04-03 12:07 | XMS_ITS | Encounter Summary ---
Author Organization [facility] Address [address] [place] [address] Care Team Providers Care Assessment Technician Name Role Phone Brenda Denson MD Primary Care Prov ider Reason for Visit * Reason Comments Abdominal Cramping Encounter Details Date Type Department Care Team (Late st Contact Info) Description 04/02/2024 1:00 PM EST Office Visit Gastroenterology - [place] [address] [facility] [address] [place] [address] Jayson Delcid PA [address] [place] [address] Generalized abdominal pain (Primary Dx); Abdominal cramping; [...] sent through Care Everywhere. * Abdominal Pain (Czech) * Colitis (Czech) * Gastroenteritis (Czech) * Acid-Reducing Medicines: General Info (Czech) * GERD (Czech) * Nausea and Vomiting (Czech) documented in this encounter Ordered Prescriptions Prescription [...] acute abdominal or pelvic process. POS - [id number] Not Vldtd US Results for orders placed [...] followed ultrasonographically. CT that was performed at [facility] along with ER notes to be [...] on March 30 at the ER at [facility] and was told that she had enteritis [...] 10:00 AM EST Appointment Radiology Department - [address] [address] 04/15/2024 11:00 AM EST Office Visit Adult Medicine - [place] [address] [place] [address] Celestina Cintron PA 230 [place] [address] 06/25/2024 3:00 PM EDT Office Visit [facility] - [facility] 154 [address] [facility] 154 [place] [phone] Garett Dixon MD 300 [facility] 154 [place] [address] documented as of this encounter Visit Diagnoses Diagnosis Generalized abdominal pain- Primary Abdominal pain, generalized Abdominal cramping Abdominal pain, unspecified site Enteritis Other and unspecified noninfectious gastroenteritis and colitis Nausea Nausea alone Gastroesophageal reflux disease without esophagitis Esophageal reflux documented in this encounter Care Teams Assessment Technician Relationship Specialty Start Date End Date Brenda Denson MD 230 [place] [address] PCP - General Internal Medicine 07/09/20 documented as of this encounter
--- OUTSIDE RECORDS SUMMARY | 2024-04-03 12:07 | XMS_ITS | Encounter Summary ---
Author Organization [facility] Address [address] [place] [address] Phone Care Team Providers Care Hoop Bender Tank Name Role Phone Michelle Sandhu DO Primary Care Provider [phone] Encounter Details Date Type Department Care Team (Late st Contact Info) Description 01/10/2011 Documentation EM Family Medicine [address] [place] [address] Family Medicine, Physician [address] [place] [address] Social History Tobacco Use Types [...] on filedocumented in this encounter Care Teams Hoop Bender Tank Relationship Specialty Start Date End Date Michelle Sandhu DO [address] [place] [address] PCP - General 10/14/16 05/18/22 documented as of this encounter
--- OUTSIDE RECORDS SUMMARY | 2024-04-03 12:07 | XMS_ITS | Encounter Summary ---
Author Organization [facility] Address [address] [place] [address] Care Team Providers Care Improvement Director Name Role Phone Brenda Denson MD Primary Care Prov ider Encounter Details Date Type Department Care Team (Late st Contact Info) Description 03/21/2024 Telephone Adult Medicine - [place] 230 [place] [phone] Brenda Denson MD 230 [place] [address] Social History Tobacco Use Types Packs/Day Years [...] and was placed on another antibiotic by district operations manager provideron Monday and finished those this [...] 10:00 AM EST Appointment Radiology Department - [address] [address] 04/15/2024 11:00 AM EST Office Visit Adult Medicine - [place] 230 [place] [address] Celestina Cintron PA 230 [place] [address] 06/25/2024 3:00 PM EDT Office Visit [facility] - [facility] 154 300 [facility] 154 [place] [address] Garett Dixon MD 300 [facility] [address] [place] [address] documented as of this encounter Visit Diagnoses Not on filedocumented in this encounter Care Teams Improvement Director Relationship Specialty Start Date End Date Brenda Denson MD 230 [place] [address] PCP - General Internal Medicine 07/09/20 documented as of this encounter
--- OUTSIDE RECORDS SUMMARY | 2024-04-03 12:07 | XMS_ITS | Encounter Summary ---
Author Organization [facility] Address [address] [place] [address] Care Team Providers Care Event Marketing Specialist Name Role Phone Brenda Denson MD Primary Care Prov ider Reason for Visit * Reason Onset Date Comments pt-1 03/22/2024 [facility] Encounter Details Date Type Department Care Team (Late st Contact Info) Description 03/22/2024 Telephone Adult Medicine - [place] 230 [place] [phone] Brenda Denson MD 230 [place] [address] pt-1 ([facility]) Social History Tobacco [...] EST PT-1 request is submitted PT-1 Request [id number]. * [address] [place] - 03/22/2024 12:44 PM EST Please send to the correct pool. * Jacquelyn Santacruz - 03/22/2024 11:40 AM EST PT-1 [facility] Call [facility] new provider or submitter number is [id number] Verify and document patients [place] Health insurance ID # (NOT [facility] ID): [id number] Payor: [employer] PLAN / Plan: [employer] MEDICAID / Product Type: *No Product type* / Patient mailing address: [address] [place] [phone] (home) Pt. demographics verified? yes If not accurate, update registration. Is this a NEW request or a RENEWAL? New request Name of treating facility: [facility] Name (first & last) of treating provider? required : Dr Colby Wagner What is the medical reason why the patient is seeing the above provider? Pain Address/Zip code for treating provider: [address] [place] [address] Phone # for treating provider: [phone] Is the provider in the [employer] network (do they accept [place] Health insurance)? yes What specialtly is this [...] Upcoming Encounters Date Type Department Care Team ([facility] st Contact Info) Description 04/05/2024 10:00 AM EST Appointment Radiology Department - [address] [address] 04/15/2024 11:00 AM EST Office Visit Adult Medicine - [place] 230 [place] [address] Celestina Cintron PA 230 [place] [address] 06/25/2024 3:00 PM EDT Office Visit [facility] - [facility] 154 300 [facility] 154 [place] [address] Garett Dixon MD 300 [facility] 154 [place] [address] documented as of this encounter Visit Diagnoses Not on filedocumented in this encounter Care Teams Event Marketing Specialist Relationship Specialty Start Date End Date Brenda Denson MD 230 [place] [address] PCP - General Internal Medicine 07/09/20 documented as of this encounter
--- OUTSIDE RECORDS SUMMARY | 2024-04-03 12:08 | XMS_ITS | Encounter Summary ---
Author Organization [facility] Address [address] [place] [address] Phone Care Team Providers Care Ginning Operator Name Role Phone Michelle Sandhu DO Primary Care Provider [phone] Encounter Details Date Type Department Care Team (Late st Contact Info) Description 06/02/2011 Documentation EM Family Medicine [address] [place] [address] Family Medicine, Physician [address] [place], [place] [phone] Social History Tobacco Use Types Packs/Day Years [...] on filedocumented in this encounter Care Teams Ginning Operator Relationship Specialty Start Date End Date Michelle Sandhu DO 150 [place] [address] PCP - General 10/14/16 05/18/22 documented as of this encounter
--- OUTSIDE RECORDS SUMMARY | 2024-04-03 12:08 | XMS_ITS | Encounter Summary ---
Author Organization [facility] Address [address] [place] [address] Care Team Providers Care Rn Endocrinology Name Role Phone Brenda Denson MD Primary Care Prov ider Reason for Visit * Reason Onset Date Comments PT-1 03/18/2024 [facility] Encounter Details Date Type Department Care Team (Late st Contact Info) Description 03/18/2024 Telephone Adult Medicine - [place] 230 [place] [phone] Brenda Denson MD 230 [place] [address] PT-1 ([facility]) Social History Tobacco Use [...] EST PT-1 request is submitted PT-1 Request [id number]. * Thalia Guerra - 03/18/2024 12:08 PM EST PT-1 Request Call [facility] [employer] new provider or submitter number is [id number] Verify and document patients [place] Health insurance ID # (NOT [facility] ID): [id number] Payor: [employer] PLAN / Plan: [employer] MEDICAID / Product Type: *No Product type* / Patient mailing address: [address] [place] [phone] (home) Pt. demographics verified? yes If not accurate, update registration. Is this a NEW request or a RENEWAL? New request Name of treating facility: [facility] Name (first & last) of treating provider? required : Edson Blandon MD What is the medical reason why the patient is seeing the above provider? skin lesion and infection Address/Zip code for treating provider: [address] [place] [address] Phone # for treating provider: Is the provider in the [facility] [employer] network (do they accept [place] Health insurance)? yes What specialtly is this [...] Upcoming Encounters Date Type Department Care Team ([facility] st Contact Info) Description 04/05/2024 10:00 AM EST Appointment Radiology Department - [address] [address] 04/15/2024 11:00 AM EST Office Visit Adult Medicine - [place] 230 [place] [address] Celestina Cintron PA 230 [place] [address] 06/25/2024 3:00 PM EDT Office Visit [facility] - [facility] 154 300 [facility] 154 [place] [phone] Garett Dixon MD 300 [facility] 154 [place] [address] documented as of this encounter Visit Diagnoses Not on filedocumented in this encounter Care Teams Rn Endocrinology Relationship Specialty Start Date End Date Brenda Denson MD 230 [place] [address] PCP - General Internal Medicine 07/09/20 documented as of this encounter
--- OUTSIDE RECORDS SUMMARY | 2024-04-03 12:08 | XMS_ITS | Encounter Summary ---
Author Organization [facility] Address [address] [place] [address] Phone Care Team Providers Care Cullet Washer Name Role Phone Michelle Sandhu DO Primary Care Provider [phone] Encounter Details Date Type Department Care Team (Late st Contact Info) Description 06/02/2011 Documentation EM Family Medicine [address] [place] [address] Family Medicine, Physician [address] [place], [place] [phone] Social History Tobacco Use Types Packs/Day Years [...] on filedocumented in this encounter Care Teams Cullet Washer Relationship Specialty Start Date End Date Michelle Sandhu DO 150 [place] [address] PCP - General 10/14/16 05/18/22 documented as of this encounter
--- OUTSIDE RECORDS SUMMARY | 2024-04-03 12:08 | XMS_ITS | Encounter Summary ---
Author Organization [facility] Address [address] [place] [address] Phone Care Team Providers Care Director Of Cardiology Name Role Phone Michelle Sandhu DO Primary Care Provider [phone] Encounter Details Date Type Department Care Team (Late st Contact Info) Description 06/02/2011 Documentation EM Family Medicine [address] [place] [address] Family Medicine, Physician [address] [place], [place] [phone] Social History Tobacco Use Types Packs/Day Years [...] on filedocumented in this encounter Care Teams Director Of Cardiology Relationship Specialty Start Date End Date Michelle Sandhu DO 150 [place] [address] PCP - General 10/14/16 05/18/22 documented as of this encounter
--- OUTSIDE RECORDS SUMMARY | 2024-04-03 12:08 | XMS_ITS | Encounter Summary ---
Author Organization [facility] Address [address] [place] [address] Phone Care Team Providers Care Parts Fabricator Name Role Phone Michelle Sandhu DO Primary Care Provider [phone] Encounter Details Date Type Department Care Team (Late st Contact Info) Description 06/02/2011 Documentation EM Family Medicine [address] [place] [address] Family Medicine, Physician [address] [place], [place] [phone] Social History Tobacco Use Types Packs/Day Years [...] on filedocumented in this encounter Care Teams Parts Fabricator Relationship Specialty Start Date End Date Michelle Sandhu DO 150 [place] [address] PCP - General 10/14/16 05/18/22 documented as of this encounter
== END 2024-04-03 10:10 | disposition home or self-care (01) ==
LOC: HO.US 10:09
PROVIDERS: PCP Internal Medicine; Visit Provider Obstetrics & Gynecology
DX: N73.9 Female pelvic inflammatory disease, unspecified (principal)
CPT/HCPCS: 36415; 76830; 76856; 85027

== ENCOUNTER → 2024-04-03 11:00 | Outpatient (BNV) | payer OTHER, SELFPAY | PROVIDERS: PCP Internal Medicine; Visit Provider Radiology Diagnostic Radiology | DX: N85.8 Other specified noninflammatory disorders of uterus (principal) | CPT/HCPCS: 76830; 76856 ==

== ENCOUNTER → 2024-04-10 10:17 | Outpatient (BNVA) | payer OTHER, SELFPAY | PROVIDERS: PCP Internal Medicine; Visit Provider Obstetrics & Gynecology | DX: R31.29 Other microscopic hematuria (principal); R10.2 Pelvic and perineal pain | CPT/HCPCS: 81002; 99212 ==

== ENCOUNTER 2025-01-13 12:44 | Outpatient (REF) | payer OTHER, SELFPAY | END 2025-01-13 12:45 | disposition home or self-care (01) | LOC: HO.LNP 12:44 | PROVIDERS: PCP Internal Medicine; Visit Provider Obstetrics & Gynecology | DX: Z01.419 Encounter for gynecological examination (general) (routine) without abnormal findings (principal); R14.0 Abdominal distension (gaseous) | CPT/HCPCS: 87626; 88175; 99212; 99395 ==

== ENCOUNTER 2025-01-13 12:44 | Outpatient (AMB) | payer OTHER, SELFPAY ==
--- NOTE | 2025-01-13 12:49 | MHC.OFFVIS ---
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 Hand Required: No Information Interpreted: non-clinical & clinical Gas Station Service Attendant: Gas Station Service Attendant Present (Myriam HERNANDEZ) Accompanied by: Self / Same As Patient Allergies amoxicillin (AMOXICILLIN) Allergy (Intermediate, Verified 01/13/25 12:54) RASH ciprofloxacin (From CIPRO) Allergy (Intermediate, Verified 01/13/25 12:54) RASH/SWOLLEN,ITCHY THROAT codeine (CODEINE) Allergy (Intermediate, Verified 01/13/25 12:54) SKIN FLUSHES, GI UPSET NSAIDS (Non-Steroidal Anti-Inflamma (NSAIDS (NON-STEROIDAL ANTI-INFLAMMA) Allergy (Intermediate, Verified 01/13/25 12:54) BLOATINESS,GERD vancomycin (VANCOMYCIN) Adverse Reaction (Intermediate, Verified 01/13/25 12:54) RED MAN SYNDROME Is last menstrual period known: No (pills) HPI Comments Details: Presenting for annual exam. Complaining of weight gain and bloating Last Pap was negative in 02/23 REPLACED BY [facility] Medical History Smoking Surgical History H/O hernia repair H/O: section Social History Household Members: Children Housing: House Alcohol intake: never Patient Tobacco Use Status: Current everyday Tobacco user Tobacco use type: Cigarette Cigarette Packs Per Day: 0.5 Cigarettes Per Day: 10.0 Years Smoked: 14 Substance Use Type: Marijuana Current occupational status: unemployed Sexual orientation: Straight/Heterosexual Gender identity: Female Female Reproductive History Menstrual Age of Menarche: 9 control method: pills Date of last pap smear: 02/11/21 Review of Systems Const All systems reviewed & are unremarkable except as noted in HPI and below Card Reports as per HPI Resp Reports as per HPI GI Reports as per HPI and Reports no additional complaints Reports as per HPI Physical Exam Vital Signs: Last Vital Signs BP 110/66 01/13/25 12:50 BMI result Body Mass Index 22.8 Const General: cooperative, healthy appearing and comfortable Chest Chest palpation & inspection: normal inspection of the chest and normal palpation of entire chest wall Breast/axilla inspection: normal inspection of the breasts and normal inspection of the axillae Breast/axilla palpation: normal palpation of the breasts, normal palpation of the axillae and no axillary lymphadenopathy Resp Effort & Inspection: normal respiratory effort Auscultation: clear to auscultation bilaterally Percussion: percussion normal Cardio Palpation: normal PMI Rate: regular rate Rhythm: regular rhythm Heart sounds: no murmurs and no rubs Peripheral pulses: Peripheral pulses 2+ throughout GI Inspection: Yes normal to inspection Palpation (GI): Soft to palpation, nontender, no guarding, not rigid and No hepatosplenomegaly present Percussion: Yes normal to percussion Auscultation: normal bowel sounds Rectal Exam - Female: deferred General: Yes bladder normal to palpation External Female Exam: No lesion Speculum Exam - Vagina: normal appearance of the vagina, normal palpation, normal vaginal discharge and not erythematous Speculum Exam - Cervix: normal appearance of the cervix and normal palpation Bimanual exam- vagina & uterus: normal bimanual exam, normal palpation, uterine size normal, bladder normal to palpation, consistency normal and normal palpation Bimanual Exam- Adnexa, other: normal adnexae, no masses and no tenderness Assessment & Plan Assessment & Plan (1) Well woman exam: Code(s): Z01.419 - Encounter for gynecological examination (general) (routine) without abnormal findings Category: Medical Plan: Cotesting done. Counseled the patient about the recommended dietary allowance of 1000 mg of Calcium & 600 IU of vitamin D. The patient was instructed to perform monthly self-breast exams and to schedule an annual exam in a year; All questions answered and the patient verbalized understanding. Instructed the patient to schedule annual exam in a year (2) Bloating: Code(s): R14.0 - Abdominal distension (gaseous) Category: Medical Plan: TSH and pelvic ultrasound ordered. Instructions given the patient to schedule a follow-up appointment within 2 weeks. All questions answered, the patient verbalized understanding Orders: Orders TSH reflex Free T4 Today R14.0 - Abdominal distension (gaseous) US pelvic and transvaginal Today R14.0 - Abdominal distension (gaseous) Coding Level of Care Code Est Pt Level 3 (47431) Est Pt Prev Care 18-39y(71399) Diagnoses Well woman exam Z01.419 Bloating R14.0
[2025-01-13 12:50] VITALS: BP 110/66; BMI 22.8
--- OUTSIDE RECORDS SUMMARY | 2025-01-13 14:51 | XMS_ITS ---
Author Organization [facility] [address] [facility] Address [address] [place] [address] Phone Care Team Providers Care Systems Testing Laboratory Technician Name Role Phone Unavailable Primary Care Provider Unavailabl e [facility] - Food Insecurity Status:Ongoing (Active) Start date:08/27/2024 Enrollment date:08/27/2024 Enrollment reason:Referred from clinic Related social drivers of health:Food Risk Related program episode:Community Health Worker Program (Active) Overview Community Health Worker Program - Food Insecurity Service Episode Case Team Name Relationship Phone David Boyer(Responsible Staff) Community Health Worker Continued Care and Services Coordination
--- OUTSIDE RECORDS SUMMARY | 2025-01-13 14:51 | XMS_ITS ---
Author Organization [facility] 230 [facility] Address [address] [place] [address] Phone Care Team Providers Care Global Sales Director Name Role Phone Unavailable Primary Care Provider Unavailabl e Community Health Worker Program Status:Ongoing (Active) Start date:08/27/2024 Enrollment date:08/27/2024 Enrollment reason:Referred from clinic Current support & services provided:Adult Related service episodes:[facility] - Food Insecurity (Active) Overview Community Health Worker Program Case Team Name Relationship Phone David Boyer(Responsible Staff) Community Health Worker Continued Care and Services Coordination
--- OUTSIDE RECORDS SUMMARY | 2025-01-13 14:51 | XMS_ITS | Encounter Summary ---
Author Organization [facility] Address [address] [place] [phone] Phone Care Team Providers Care Auto Battery Builder Name Role Phone Brenda Denson MD Primary Care Pr ovider Encounter Details Date Type Department Care Team (Late st Contact Info) Description 05/07/2021 Telephone [facility] OBGYN Gynecology Resident [address] [place], [place] [id number] [place] Michelle [place], [place] [address] [place] [address] [email or web address] Social History Tobacco Use Types Packs/Day Years Used Date Smoking Tobacco: Every Day Cigarettes 0.3 9 Smokeless Tobacco: Never Alcohol Use Standard Drinks/Week Comments Not Currently 0 (1 standard drink = 0.6 oz pur e alcohol) Comments Unknown Sex and Gender Information Value Date Recorded Sex Assigned at Female 08/12/2020 4:01 PM EDT Legal Sex Female 10:13 AM EDT Gender Identity Female 08/12/2020 4:01 PM EDT Sexual Orientation Straight 08/12/2020 4: 01 PM EDT documented as of this encounter Plan of Treatment Not on file documented as of this encounter Visit Diagnoses Not on filedocumented in this encounter Care Teams Auto Battery Builder Relationship Specialty Start Date End Date Brenda Denson MD [address] [place] [address] PCP - General Internal Medicine 08/12/20 documented as of this encounter Additional Source Comments The information contained in this document represents components of the legal health record. It is not the complete legal health record.[facility]
--- OUTSIDE RECORDS SUMMARY | 2025-01-13 14:51 | XMS_ITS | Encounter Summary ---
Author Organization [facility] Address [address] [place] [address] Phone Care Team Providers Care Historical Records Administrator Name Role Phone Michelle Sandhu DO Primary Care Provider [phone] Encounter Details Date Type Department Care Team (Late st Contact Info) Description 10/20/2016 Conversion Encounter [facility] [address] [place] [address] Social History Tobacco Use Types Packs/Day Years [...] on filedocumented in this encounter Care Teams Historical Records Administrator Relationship Specialty Start Date End Date Michelle Sandhu DO [address] [place] [address] PCP - General 10/14/16 05/18/22 documented as of this encounter
--- OUTSIDE RECORDS SUMMARY | 2025-01-13 14:51 | XMS_ITS | Clinical Summary ---
Author Organization [facility] Address [address] [place] [address] Phone Care Team Providers Care Supervisor Composing Room Name Role Phone Unavailable Primary Care Provider Unavailabl e Allergies Active Allergy Reactions Criticality Noted Date Comments Amoxicillin Swelling High 09/01/2022 Swelling of throat, tongue Ciprofloxacin Itching 04/06/2015 Codeine 07/02/2015 Other Reaction(s): Rash/Dermatitis Nsaids (Non-Steroidal Anti-Inflammatory Drug) GI intolerance 07/02/2015 Vancomycin Itching,Swelling High 05/08/2017 Medications FREESTYLE LANCETS MISC USE 1 DEVICE 2 TIMES DAILY 4 Active blood-glucose meter,continuous (Dexcom G7 Air Brakes Inspector) misc 1 Device by Does not apply route See Admin Instructions. Use daily with dexcom g 7 sensors 3 Active blood-glucose meter kit Use as directed 2 Active blood glucose control high,low (FreeStyle Control) solution 1 Bottle by In Vitro route See Admin Instructions. 2 Active dicyclomine (BENTYL) 10 mg capsule Take 1 capsule (10 mg total) by mouth 4 (four) times a day if needed (abdominal cramping). 60 capsule 11 5 Active FreeStyle Lancets 28 gauge lancetsIndicatio ns:Postsurgical malabsorption, not elsewhere classified USE 1 DEVICE 2 TIMES DAILY 180 each 1 5 Active desogestreL-ethi nyl estradioL (APRI,ENSKYCE,EM OQUETTE,ISIBLOOM ,JULEBER,KALLIGA ) 0.15-0.03 mg per tablet Take 1 tablet by mouth 1 (one) time each day. Active blood sugar diagnostic (FreeStyle Lite Strips) test stripIndications :Postsurgical malabsorption, not elsewhere classified USE 1 STRIP 2 TIMES A DAY 100 strip 5 Active ferrous sulfate 325 mg (65 mg iron) EC tabletIndication s:Iron deficiency anemia, unspecified iron deficiency anemia type Take 1 tablet (325 mg total) by mouth 1 (one) time each day with breakfast. Do not crush, chew, or split. 90 each 1 5 12/18/19 25 Active Problems Problem Noted Date Diagnosed Date Palpitations 02/26/2024 Abdominal cramping 01/02/2024 Dry skin 01/02/2024 Esophagitis 01/02/2024 Gastritis 01/02/2024 Hiatal hernia 01/02/2024 Passage of loose stools 01/02/2024 Pelvic pain 01/02/2024 Vitamin D deficiency 02/08/2021 Elevated testosterone level 12/07/2018 Thyroid nodule 10/26/2018 Abnormal TSH 10/17/2017 Gastroesophageal reflux disease without esophagi tis 03/13/2017 Depression 04/26/2016 Encounters Date Type Department Care Team Description 12/13/2024 Telephone [facility] - [facility] [address] [facility] [address] [place] [address] Garett Dixon MD 10/14/2024 Telephone [facility] - [place] [address] [place] [address] Brenda Denson MD from Last 3 Months Immunizations Immunization Administration Dates Next Due DTP 01/19/1995,1994,1994 DTaP [...] COLONOSCOPY 06/30/2010 PROCEDURE: HISTORICAL COLONOSCOPY; COMMENT: Dr. Doyle - ajit to cecum. Random colonic biopsies normal. ESOPHAGOGASTRODUODENOSCOPY 06/30/2010 PROCEDURE: ND EGD TRANSORAL BIOPSY SINGLE/MULTIPLE; COMMENT: Dr. Vivek Garnett mild esophagitis/gastritis. Normal duodenum. Random biopsies negative for H. pylori infection or celiac disease. FLEXIBLE SIGMOIDOSCOPY 10/04/2013 PROCEDURE: ND SIGMOIDOSCOPY FLX DX W/COLLJ SPEC BR/WA IF PFRMD; COMMENT: normal to 25 cm TONSILLECTOMY 2010 PROCEDURE: HISTORICAL TONSILLECTOMY HERNIA REPAIR 03/30/2017 PROCEDURE: REPAIR UMBILICAL HERNIA OTHER SURGICAL HISTORY 09/19/2022 PROCEDURE: ND INDUCED DILATION AND CURETTAGE Medical History Medical [...] Paternal Grandmother high ch olesterol Son Alive Gena Hendrickson, taylor murali Social History Tobacco Use Types Packs/Day Years Used Date Smoking Tobacco: Former Cigarettes 0.3 Q uit: 08/04/2023 Smokeless Tobacco: Never Tobacco Cessation:Counseling Given: Not Answered Alcohol Use Standard Drinks/Week Comments No 0 (1 standard drink = 0.6 oz pur e alcohol) Housing Instability Answer Date Recorde d Are you worried that in the next 2 months you may not have stable housing? No 08/27/2024 Food Access & Nutrition Answer Date Rec orded Do you have access to a vari ety of food including fruits and vegetables? No 08/27/2024 Access to Healthcare Answer Date Record ed Within the last 3 months, leah lipscomb many times did you visit the emergency department for your medical care? 1 08/27/2024 Health Literacy Answer Date Recorded How often do you need to hav e someone help you when you read instructions, pamphlets, or other written material from your doctor or pharmacy? Never 08/27/2024 Caregiver: How often do you need to have someone help you when you read instructions, pamphlets, or other written material from your doctor or pharmacy? Not on file 08/27/2024 Financial Risk Answer Date Recorded How hard is it for you to pa y for the very basics like food, housing, medical care, and air conditioning / heating? Very hard 08/27/2024 Transportation Answer Date Recorded Has the lack of transportati on kept you from meetings, work, or from getting things needed for daily living? No Has the lack of transportati on kept you from medical appointments or from getting medications? No 08/27/2024 Social Isolation Answer Date Recorded How often do you feel lonely or isolated from th ose around you? Never 08/27/2024 Food Risk Answer Date Recorded Within the past 12 months we worried whether our food would run out before we got money to buy more. Often true 08/27/2024 Within the past 12 months th e food we bought just didn't last and we didn't have money to get more. Often true 08/27/2024 Dependent Care Answer Date Recorded Do you need help finding or paying for care for your loved ones. For example, childcare worker or elderly care for an older adult? No 08/27/2024 Education Answer Date Recorded Do you think completing more education or training, like finishing a GED, going to college, or learning a trade, would be helpful for you? No 08/27/2024 Employment and Income Answer Date Recor ded During the last four weeks, have you been actively looking for work? No 08/27/2024 Living Situation Answer Date Recorded What is your living situation? Unrecognized valu e 08/27/2024 Comments No Sex and Gender Information Value Date Recorded Sex Assigned at Female 04/15/2024 7:59 AM EST Legal Sex Female 1:42 PM EST Gender Identity Female 04/15/2024 7:59 AM EST Sexual Orientation Choose not to disclose 2024 7:59 AM EST Obstetrics History Last Filed Vital Signs Vital Sign Reading Time Taken Comments Blood Pressure 120/76 08/14/2024 10:37 AM EDT Pulse 70 08/14/2024 10:37 AM EDT Temperature 37 C (98.6 F) 08/14/2024 10:37 AM EDT Respiratory Rate - - Oxygen Saturation 99% 04/12/2024 3:38 PM EST Inhaled Oxygen Concentration - - Weight 54.4 kg (120 lb) 08/14/2024 10:37 AM EDT Height 160 cm (5' 3 ) 08/14/2024 10:37 AM EDT Body Mass Index 21.26 08/14/2024 10:37 AM EDT Plan of Treatment Health Maintenance Due Date Last Done Comments Hepatitis B Vaccines (3 of 3 - 3-dose series) 03/16/1995 01/19/1995, 1994 Hepatitis C Screening 02/11/2022 Cervical Cancer Screening: Pap Smear 09/23/2022 09/24/2019 DTaP,Tdap,and Td Vaccines (8 - Td or Tdap) 11/11/2022 11/11/2012, 11/08/2006, 07/20/1998, Additional history exists Depression Screening 03/06/2024 11/03/2023 COVID-19 Vaccine ( season) 2024 Influenza Vaccine (#1) 2024 12/02/2009 Social Influencers of Health Screening 08/27/2025 08/27/2024 RSV Immunization Adult Patients (1 - 1-dose 75+ series) 2069 HIB Vaccines Completed 10/30/1995, 01/04, 1994, Additional [...] on patient's age to complete this topic Meningococcal B Vaccine Aged Out No l onger eligible based on patient's age to complete this topic Pneumococcal Vaccine: Pediatrics (0 to 5 Years) and At-Risk Patients (6 to 49 Years) Aged Out No longer eligible based on patient's age to complete this topic RSV Immunization Patients Under 20 months Aged Out No longer eligible based on patient's age to complete this topic Varicella Vaccines Aged Out No longer eligible based on patient's age to complete this topic Procedures Procedure Name Priority Date/Time Associated Diagnosis Comments DEPRESSION SCREENING Routine 11/03/2023 PAP SMEAR Routine 09/24/2019 HIV SCREENING Routine 04/13/2015 from Last 3 Months or Most Recently Relevant to Health Maintenance Results * Depression Screening (11/03/2023) Depression Screening abstracted Historical Provider HEALTH MAINTENANCE Final Result * Pap Smear (09/24/2019) Pap smear no interpretation , abstracted [facility] Provider HEALTH MAINTENANCE Final Result * HIV Screening (04/13/2015) HIV Screening abstracted Historical Provider HEALTH MAINTENANCE Final Result from Last 3 Months or Most Recently Relevant to Health Maintenance Insurance [facility]
--- OUTSIDE RECORDS SUMMARY | 2025-01-13 14:51 | XMS_ITS ---
Author Name [facility] Organization Unknown Care Team Organization Name Specialty Phone Email Start Date End Da te [facility] Aramis Walters Primary Care 08/12/2022 10/23/2023 [facility] GIA ORTIZ Primary Care 01/11/2022 10/23/2023
--- OUTSIDE RECORDS SUMMARY | 2025-01-13 14:51 | XMS_ITS | Clinical Summary ---
Author Organization [facility] Address [address] [place] [address] Phone Care Team Providers Care Head Char Filter Tank Tender Name Role Phone Unavailable Primary Care Provider Unavailabl e Immunizations Immunization Administration Dates Next Due DTP [...] Materna l aunt: MS Mother Alive Mother: MS, Tisha ve and well Other Alive Close [...] 67 12/28/2009 12:00 AM EDT Temperature 35.6 C (96 F) 03/01/2013 12:00 AM EST Respiratory Rate - [...] 01/31/1996, Additional history exists Influenza Vaccines (#1) 2024 12/02/2009 COVID-19 Vaccine ( season) 2024 HIB Vaccines Completed 10/30/1995, 01/04, 1994, Additional [...] complete this topic Procedures * Due to [place] codebender law, this organization might not be sharing sensitive test results. Procedure Name Priority Date/Time Associated Diagnosis Comments CHLAMYDIA AND GONORRHEA, AMPLIFIED Routine 08/09/2011 1:30 PM EDT from Last 3 Months or Most Recently Relevant to Health Maintenance Results * Due to [place] codebender law, this organization might not be sharing sensitive test results. * Chlamydia and Gonorrhoea, Amplified (08/09/2011 1:30 PM EDT) URINE GC AMP PROBE NEGATIVE [facility] Comment: NO NEISSERIA GONORRHOEAE RNA DETECTED IN THIS PATIENT'S SAMPLE. (REFERENCE RANGE/NORMAL VALUE: NOT DETECTED) NOTE: THIS TEST USES DEVELOPMENT TECHNICAL LEAD MEDIATED AMPLIFICATION METHOD TO DETECT rRNA FROM [...] TRACHOMATIS RNA DETECTED IN THIS PATIENT'S SAMPLE. (REFERENCE RANGE/NORMAL VALUE: NOT DETECTED) 08/09/2011 1:30 PM EDT Narrative [facility] - 08/09/2011 1:30 PM EDT URINE CHLAMYDIA GC AMP PROBE us Michelle Sandhu DO LAB MICROBIOLOGY - GENERAL ORDER CHARLENE Final Result [facility] [address] [place] [address], [place] from Last 3 Months or Most Recently Relevant to Health Maintenance
--- OUTSIDE RECORDS SUMMARY | 2025-01-13 14:52 | XMS_ITS | Encounter Summary ---
Author Organization [facility] Address [address] [place] [address] Phone Care Team Providers Care Refinery Operator Visbreaking Name Role Phone Michelle Sandhu DO Primary Care Provider [phone] Encounter Details Date Type Department Care Team (Late st Contact Info) Description 06/02/2011 Documentation EM Family Medicine [address] [place] [address] Family Medicine, Physician [address] [place], [place] [phone] Social History Tobacco Use Types Packs/Day Years [...] on filedocumented in this encounter Care Teams Refinery Operator Visbreaking Relationship Specialty Start Date End Date Michelle Sandhu DO [address] [place] [address] PCP - General 10/14/16 05/18/22 documented as of this encounter
--- OUTSIDE RECORDS SUMMARY | 2025-01-13 14:52 | XMS_ITS | Encounter Summary ---
Author Organization [facility] Address [address] [place] [address] Phone Care Team Providers Care Cable Tv Installer Name Role Phone Michelle Sandhu DO Primary Care Provider [phone] Encounter Details Date Type Department Care Team (Late st Contact Info) Description 06/02/2011 Documentation EM Family Medicine [address] [place] [address] Family Medicine, Physician [address] [place], [place] [id number] Social History Tobacco Use Types Packs/Day Years [...] on filedocumented in this encounter Care Teams Cable Tv Installer Relationship Specialty Start Date End Date Michelle Sandhu DO [address] [place] [address] PCP - General 10/14/16 05/18/22 documented as of this encounter
--- OUTSIDE RECORDS SUMMARY | 2025-01-13 14:52 | XMS_ITS | Encounter Summary ---
Author Organization [facility] Address [address] [place] [address] Phone Care Team Providers Care Tobacco Wrapping Machine Tender Name Role Phone Michelle Sandhu DO Primary Care Provider [phone] Encounter Details Date Type Department Care Team (Late st Contact Info) Description 06/02/2011 Documentation EM Family Medicine [address] [place] [address] Family Medicine, Physician [address] [place], [place] [phone] Social History Tobacco Use Types Packs/Day Years [...] on filedocumented in this encounter Care Teams Tobacco Wrapping Machine Tender Relationship Specialty Start Date End Date Michelle Sandhu DO [address] [place] [address] PCP - General 10/14/16 05/18/22 documented as of this encounter
--- OUTSIDE RECORDS SUMMARY | 2025-01-13 14:52 | XMS_ITS | Clinical Summary ---
Author Organization [facility] Address [address] [address] Phone Care Team Providers Care Ladle Puller Name Role Phone Brenda Denson MD Primary Care Pr ovider Allergies Active Allergy Reactions Criticality Noted Date Comments Ciprofloxacin 12/19/2018 Nsaids (Non-Steroidal Anti-I nflammatory Drug) 12/19/2018 Vancomycin 12/19/2018 Medications spironolactone (ALDACTONE) 50 MG tablet Take 50 mg by mouth 2 (two) times a day. Active fluorometholone (FML LIQUIFILM) 0.1 % ophthalmic suspension Place 1 drop into each eye 2 (two) times a day. 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 The one nodule that was biopsied in the right lower pole at one point measure 1 cm in size and the largest dimension but now has decreased to 0.9 cm. It was questionable whether this nodule should have been biopsied to begin with because the other dimensions were 0.7 and 0.6 cm. Nevertheless it was biopsy and was found to be benign and I think that this should be reassuring for the patient. The other nodule is just too tiny and it would not be biopsy. We normally biopsy nodules over 1 cm in size and usually does all 3 dimensions especially if there is abnormal findings but there does not seem to be any abnormal findings with these nodules. And of course the cyst is benign we would not bother with this and is too tiny. She was under the impression that she has an enlarged thyroid gland and this is not the case she has a normal size thyroid gland and in fact the thyroid gland is homogeneous. Furthermore her thyroid functions are within the normal reference range and they do change the levels from time to time it could be as a dependent. She does have family history of thyroid disorder and paternal grandmother who apparently had thyroidectomy. So we could possibly check TPO antibodies for evaluation of Mary's thyroiditis. This could possibly explain why the TSH changes but again the TSH is in the normal reference range so I would not be concerned about this and I do not think that her symptoms of agitation is due to this because again it is in the normal reference range she should not have any problems with weight loss or other symptoms of hyperthyroidism. Is not that she is having symptoms of tightness in her neck and sore throat when the thyroid gland is not enlarged so it could be due to some other condition and may be ENT can evaluate her to see if there is some other issue there. As for the thyroid nodules they should be monitored. She had her last ultrasound on October 06, 2018 so she would repeat her ultrasound again on October 2020 if you are going to follow the JOSE RAFAEL guidelines. However the patient informs me that the current airport duty manager that she is seen at [facility] is going to repeat the ultrasound in April and that is his prerogative. If you follow the JOSE RAFAEL guidelines the first ultrasound would have been in 2017 and the second in 2018 and then we will repeated again 2 years later 2020 and then 2023 and then 2028. Assuming that there is no growth in the thyroid nodule by 30% or more we would not repeat the biopsy. So since she is already getting an ultrasound sooner than I would recommend I suggest that she follow with Dr. Urrutia for this but in my impression everything seems to be okay of course obviously thyroid nodules are not normal but the majority of these nodules at least 95% of them are benign. Of course this was also confirmed by cytology. Family History Medical History Relation Comments Heart disease Father Osteoporosis Mother Relation Status Comments Father Alive Mother Alive Social History Tobacco Use Types Packs/Day Years Used Date Smoking Tobacco: Every Day Cigarettes 0.3 9 Smokeless Tobacco: Never Alcohol Use Standard Drinks/Week Comments Not Currently 0 (1 standard drink = 0.6 oz pur e alcohol) Education Answer Date Recorded Are you interested in more education? Not on mihir e 07/01/2022 Are you concerned about learning? Not on file 07/01/2022 No 07/01/2022 No 07/01/2022 Digital Access Answer Date Recorded No 08/02/2022 No 08/02/2022 No 08/02/2022 Reliable internet access at home? Not on file 08/02/2022 Device with a working camera? Not on file Comments Unknown Sex and Gender Information Value Date Recorded Sex Assigned at Female 08/12/2020 4:01 PM EDT Legal Sex Female 10:13 AM EDT Gender Identity Female 08/12/2020 4:01 PM EDT Sexual Orientation Straight 08/12/2020 4: 01 PM EDT Last Filed Vital Signs Vital Sign Reading Time Taken Comments Blood Pressure 110/60 12/19/2018 11:58 AM EDT Pulse 82 12/19/2018 11:58 AM EDT Temperature - - Respiratory Rate - - Oxygen Saturation 100% 12/19/2018 11:58 AM EDT Inhaled Oxygen Concentration - - Weight 50.1 kg (110 lb 6.4 oz) 12/19/2018 11:58 AM EDT Height 161.1 cm (5' 3.43 ) 12/19/2018 11:58 AM E DT Body Mass Index 19.3 12/19/2018 11:58 AM EDT Plan of Treatment Health Maintenance Due Date Last Done Comments POTASSIUM LEVEL 1994 DEPRESSION SCREENING 2006 SMOKING Hx and SMOKELESS TOBACCO SCREENING 07/20/2007 HEPATITIS C SCREENING 2012 HIV ONE-TIME SCREENING (18-65 YEARS) 2012 PNEUMOCOCCAL VACCINES (0-49 years) (1 of 2 - PCV) 2013 PAP SMEAR 07/20/2015 Adult Td,Tdap Booster 11/08/2016 11/08/2006 INFLUENZA VACCINE (#1) 2024 12/02/2009 COVID-19 VACCINE (1 - season) 2024 HIB VACCINES Completed 10/30/1995, 01/04, 1994, Additional history exists IPV VACCINES Completed 07/20/1998, 01/04, 1994, Additional history exists MENINGOCOCCAL VACCINES (ACWY) Aged Out 11/08/2006 No longer eligible based on patient's age to complete this topic HEPATITIS A VACCINES Aged Out No long er eligible based on patient's age to complete this topic MENINGOCOCCAL VACCINES (B) Aged Out N o longer eligible based on patient's age to complete this topic Medical Devices Not on file Insurance Smart[employer] - Rec[employer]office ACO [employer] Rec[employer] ACO Smart[employer] - Recurrence Backoffice ACO [facility] [employer] [facility] [employer] Care Teams Ladle Puller Relationship Specialty Start Date End Date Brenda Denson MD [address] [place] [address] PCP - General Internal Medicine 08/12/20 Additional Source Comments The information contained in this document represents components of the legal health record. It is not the complete legal health record.[facility]
--- OUTSIDE RECORDS SUMMARY | 2025-01-13 14:52 | XMS_ITS | Encounter Summary ---
Author Organization [facility] Address [address] [place] [address] Phone Care Team Providers Care Home Insurance Agent Name Role Phone Michelle Sandhu DO Primary Care Provider [phone] Encounter Details Date Type Department Care Team (Late st Contact Info) Description 09/09/2010 Documentation EM Family Medicine [address] [place] [address] Family Medicine, Physician [address] [place] [address] Social History Tobacco Use Types [...] on filedocumented in this encounter Care Teams Home Insurance Agent Relationship Specialty Start Date End Date Michelle Sandhu DO [address] [place] [address] PCP - General 10/14/16 05/18/22 documented as of this encounter
--- OUTSIDE RECORDS SUMMARY | 2025-01-13 14:52 | XMS_ITS | Encounter Summary ---
Author Organization [facility] Address [address] [place] [address] Phone Care Team Providers Care Suppression Crew Leader Name Role Phone Michelle Sandhu DO Primary Care Provider Encounter Details Date Type Department Care Team (Late st Contact Info) Description 06/02/2011 Documentation EM Family Medicine [address] [place] [address] Family Medicine, Physician [address] [place], [place] [phone] Social History Tobacco Use Types Packs/Day Years [...] on filedocumented in this encounter Care Teams Suppression Crew Leader Relationship Specialty Start Date End Date Michelle Sandhu DO [address] [place] [address] PCP - General 10/14/16 05/18/22 documented as of this encounter
--- OUTSIDE RECORDS SUMMARY | 2025-01-13 14:52 | XMS_ITS | Encounter Summary ---
Author Organization [facility] Address [address] [place] [address] Phone Care Team Providers Care Wrapper Opener Name Role Phone Michelle Sandhu DO Primary Care Provider [phone] Encounter Details Date Type Department Care Team (Late st Contact Info) Description 06/02/2011 Documentation EM Family Medicine [address] [place] [address] Family Medicine, Physician [address] [place], [place] [phone] Social History Tobacco Use Types Packs/Day Years [...] on filedocumented in this encounter Care Teams Wrapper Opener Relationship Specialty Start Date End Date Michelle Sandhu DO [address] [place] [address] PCP - General 10/14/16 05/18/22 documented as of this encounter
--- OUTSIDE RECORDS SUMMARY | 2025-01-13 14:52 | XMS_ITS | Encounter Summary ---
Author Organization [facility] Address [address] [place] [address] Phone Care Team Providers Care Supervisor Chassis Assembly Name Role Phone Michelle Sandhu DO Primary Care Provider Encounter Details Date Type Department Care Team (Late st Contact Info) Description 05/24/2013 Documentation EM Family Medicine [address] [place] [address] Family Medicine, Physician [address] [place], [place] [phone] Social History Tobacco Use Types Packs/Day Years [...] filedocumented in this encounter Care Teams Supervisor Chassis Assembly Relationship Specialty Start Date End Date Michelle Sandhu DO [address] [place] [address] PCP - General 10/14/16 05/18/22 documented as of this encounter
--- OUTSIDE RECORDS SUMMARY | 2025-01-13 14:52 | XMS_ITS | Encounter Summary ---
Author Organization [facility] Address [address] [place] [address] Phone Care Team Providers Care Placement Director Name Role Phone Michelle Sandhu DO Primary Care Provider [phone] Encounter Details Date Type Department Care Team (Late st Contact Info) Description 01/10/2011 Documentation EM Family Medicine [address] [place] [address] Family Medicine, Physician [address] [place] [address] Social History Tobacco Use Types [...] on filedocumented in this encounter Care Teams Placement Director Relationship Specialty Start Date End Date Michelle Sandhu DO [address] [place] [address] PCP - General 10/14/16 05/18/22 documented as of this encounter
== END 2025-01-13 13:10 | disposition home or self-care (01) ==
LOC: HO.HWS 12:45
PROVIDERS: PCP Internal Medicine; Visit Provider Obstetrics & Gynecology
DX: Z01.419 Encounter for gynecological examination (general) (routine) without abnormal findings (principal); R14.0 Abdominal distension (gaseous)
CPT/HCPCS: 99213; 99395; 99459

== ENCOUNTER 2025-01-27 11:04 | Outpatient (REF) | payer OTHER, SELFPAY ==
--- NOTE | ~2025-01-27 | US_ITS ---
CLINICAL HISTORY: R14.0 - Abdominal distension (gaseous) US pelvis transabdominal and transvaginal with Doppler Comparison: US/SR - US PELVIS TRANSABDOMINAL AND TRANSVAGINAL - 04/03/24 11:07 EST Findings: Transabdominal scanning performed for overall anatomy. Transvaginal scanning performed for additional detail. Anteverted uterus is 8.9 x 2.3 x 4.3 cm length. Normal myometrium. Uterine fundus multiple subcentimeter hyperechoic foci suggestive of calcifications. Endometrium 3 mm thickness. Right ovary 2 x 1.3 x 1.8 cm. Left ovary 3.5 x 1.2 x 1.4 cm. Normal color Doppler with arterial/venous spectral tracing of both ovaries. No free fluid. Prominent left para adnexal varices. IMPRESSION: 1. Prominent left para adnexal varices; pelvic congestion syndrome can not be excluded. This document has been electronically signed by: Aaron Schmitz MD on 01/27/2025 18:01:00
--- OUTSIDE RECORDS SUMMARY | 2025-01-27 14:14 | XMS_ITS | Encounter Summary ---
Author Organization [facility] Address [address] [place] [address] Phone Care Team Providers Care Flap Maker Name Role Phone Michelle Sandhu DO Primary Care Provider [phone] Encounter Details Date Type Department Care Team (Late st Contact Info) Description 06/02/2011 Documentation EM Family Medicine [address] [place] [address] Family Medicine, Physician [address] [place], [place] [phone] Social History Tobacco Use Types Packs/Day Years [...] on filedocumented in this encounter Care Teams Flap Maker Relationship Specialty Start Date End Date Michelle Sandhu DO [address] [place] [address] PCP - General 10/14/16 05/18/22 documented as of this encounter
--- OUTSIDE RECORDS SUMMARY | 2025-01-27 14:14 | XMS_ITS ---
Author Organization [facility] Address [address] [place] [address] Phone Care Team Providers Care Physical Chemistry Teacher Name Role Phone Brenda Denson MD Primary Care Prov ider [facility] - Food Insecurity Status:Ongoing (Active) Start date:08/27/2024 Enrollment date:08/27/2024 Enrollment reason:Referred from clinic Related social drivers of health:Food Risk Related program episode:Community Health Worker Program (Active) Overview Community Health Worker Program - Food Insecurity Service Episode Case Team Name Relationship Phone David Boyer(Responsible Staff) Community Health Worker Continued Care and Services Coordination
--- OUTSIDE RECORDS SUMMARY | 2025-01-27 14:14 | XMS_ITS | Encounter Summary ---
Author Organization [facility] Address [address] [place] [address] Phone Care Team Providers Care Regional Airline Pilot Name Role Phone Michelle Sandhu DO Primary Care Provider [phone] Encounter Details Date Type Department Care Team (Late st Contact Info) Description 09/09/2010 Documentation EM Family Medicine [address] [place] [address] Family Medicine, Physician [address] [place] [address] Social History Tobacco Use Types [...] on filedocumented in this encounter Care Teams Regional Airline Pilot Relationship Specialty Start Date End Date Michelle Sandhu DO [address] [place] [address] PCP - General 10/14/16 05/18/22 documented as of this encounter
--- OUTSIDE RECORDS SUMMARY | 2025-01-27 14:14 | XMS_ITS | Clinical Summary ---
Author Organization [facility] Address [address] [place] [address] Care Team Providers Care Dog Behaviorist Name Role Phone Brenda Denson MD Primary Care Prov ider Allergies Active Allergy Reactions Criticality Noted Date Comments Ciprofloxacin 03/31/2020 Codeine 03/31/2020 Nsaids 03/31/2020 Vancomycin 03/31/2020 Medications Medication Sig Dispensed Refills Start Date End Date Status Kpjmcspn-Yys-Ca-FA (PRE-JOHN PO) Take by mouth. 0 Active [...] 85 08/23/2021 1:28 PM EDT Temperature 36.8 C (98.2 F) 08/23/2021 1:28 PM EDT Respiratory Rate - - Oxygen Saturation 100% [...] 07/20/1998, Additional history exists Influenza Vaccine (#1) 2024 12/02/2009 RSV Ped < 20 months Aged Out No longe r eligible based on patient's age to complete this topic Care Teams Dog Behaviorist Relationship Specialty Start Date End Date Brenda Denson MD PCP - General Internal Medicine 04/12/21
--- OUTSIDE RECORDS SUMMARY | 2025-01-27 14:14 | XMS_ITS | Encounter Summary ---
Author Organization [facility] Address [address] [place] [address] Phone Care Team Providers Care Pot Pusher Name Role Phone Brenda Denson MD Primary Care Pr ovider Encounter Details Date Type Department Care Team (Late st Contact Info) Description 05/07/2021 Telephone [facility] OBGYN Gynecology Resident [address] [place], [place] [id number] [place] Michelle [place], [place] [address] [place] [address] [email or web address] Social History Tobacco Use Types Packs/Day [...] on filedocumented in this encounter Care Teams Pot Pusher Relationship Specialty Start Date End Date Brenda Denson MD [address] [place] [address] PCP - General Internal Medicine 08/12/20 documented as of this encounter Additional Source Comments The information contained in this document represents components of the legal health record. It is not the complete legal health record.[facility]
--- OUTSIDE RECORDS SUMMARY | 2025-01-27 14:14 | XMS_ITS | Clinical Summary ---
Author Organization [facility] Address [address] [address] Phone Care Team Providers Care Funder Name Role Phone Brenda Denson MD Primary [...] the patient informs me that the current planer stone that she is seen at [facility] is going to repeat the ultrasound [...] Completed 10/30/1995, 01/04, 1994, Additional history exists MENINGOCOCCAL VACCINES (ACWY) Aged Out 11/08/2006 No longer eligible based on patient's age to complete this topic HEPATITIS A VACCINES Aged Out No long er eligible based on patient's age to complete this topic MENINGOCOCCAL VACCINES (B) Aged Out N o longer eligible based on patient's age to complete this topic Medical Devices Not on file Insurance [employer]CO [employer] G[employer] ACO [facility] Veratect ALLANCE ACO [facility] ACO [facility] [employer] ACO Care Teams Funder Relationship Specialty Start Date End Date Brenda Denson MD [address] [place] [address] PCP - General Internal Medicine 08/12/20 Additional Source Comments The information contained in this document represents components of the legal health record. It is not the complete legal health record.[facility]
--- OUTSIDE RECORDS SUMMARY | 2025-01-27 14:14 | XMS_ITS | Encounter Summary ---
Author Organization [facility] Address [address] [place] [address] Phone Care Team Providers Care Mold Stamper Name Role Phone Michelle Sandhu DO Primary Care Provider [phone] Encounter Details Date Type Department Care Team (Late st Contact Info) Description 06/02/2011 Documentation EM Family Medicine [address] [place] [address] Family Medicine, Physician [address] [place], [place] [phone] Social History Tobacco Use Types Packs/Day Years [...] End Date Michelle Sandhu DO [address] [place] [address] PCP - General 10/14/16 05/18/22 documented as of this encounter
--- OUTSIDE RECORDS SUMMARY | 2025-01-27 14:14 | XMS_ITS | Encounter Summary ---
Author Organization [facility] Address [address] [place] [address] Phone Care Team Providers Care Training And Documentation Specialist Name Role Phone Michelle Sandhu DO Primary Care Provider [phone] Encounter Details Date Type Department Care Team (Late st Contact Info) Description 01/10/2011 Documentation EM Family Medicine [address] [place] [address] Family Medicine, Physician [address] [place] [address] Social History Tobacco Use Types [...] on filedocumented in this encounter Care Teams Training And Documentation Specialist Relationship Specialty Start Date End Date Michelle Sandhu DO [address] [place] [address] PCP - General 10/14/16 05/18/22 documented as of this encounter
--- OUTSIDE RECORDS SUMMARY | 2025-01-27 14:14 | XMS_ITS | Encounter Summary ---
Author Organization [facility] Address [address] [place] [address] Phone Care Team Providers Care Wired Sweatband Cutter Name Role Phone Michelle Sandhu DO Primary Care Provider [phone] Encounter Details Date Type Department Care Team (Late st Contact Info) Description 10/20/2016 Conversion Encounter [facility] [address] [place] [address] Social History Tobacco Use Types Packs/Day Years [...] on filedocumented in this encounter Care Teams Wired Sweatband Cutter Relationship Specialty Start Date End Date Michelle Sandhu DO [address] [place] [address] PCP - General 10/14/16 05/18/22 documented as of this encounter
--- OUTSIDE RECORDS SUMMARY | 2025-01-27 14:14 | XMS_ITS | Encounter Summary ---
Author Organization [facility] Address [address] [place] [address] Phone Care Team Providers Care Cottage Supervisor Name Role Phone Michelle Sandhu DO Primary Care Provider [phone] Encounter Details Date Type Department Care Team (Late st Contact Info) Description 06/02/2011 Documentation EM Family Medicine [address] [place] [address] Family Medicine, Physician [address] [place], [place] [phone] Social History Tobacco Use Types Packs/Day Years [...] Date End Date Michelle Sandhu DO [address] [place] [address] PCP - General 10/14/16 05/18/22 documented as of this encounter
--- OUTSIDE RECORDS SUMMARY | 2025-01-27 14:14 | XMS_ITS | Clinical Summary ---
Author Organization [facility] Address [address] [place] [address] Phone Care Team Providers Care Ell Teacher Name Role Phone Brenda Denson MD Primary Care Prov ider Allergies Active Allergy Reactions Criticality Noted Date Comments Amoxicillin Swelling High 09/01/2022 Swelling of throat, tongue Ciprofloxacin Itching 04/06/2015 Codeine 07/02/2015 Other Reaction(s): Rash/Dermatitis Nsaids (Non-Steroidal Anti-Inflammatory Drug) GI intolerance 07/02/2015 Vancomycin Itching,Swelling High 05/08/2017 Medications FREESTYLE LANCETS MISC USE 1 DEVICE 2 TIMES DAILY 11/23/2023 Active blood-glucose meter,continuou s (Dexcom G7 Windows Software Developer) misc 1 Device by Does not apply route See Admin Instructions. Use daily with dexcom g 7 sensors 02/02/2023 Active blood-glucose meter kit Use as directed 09/24/2021 Active blood glucose control high,low (FreeStyle Control) solution 1 Bottle by In Vitro route See Admin Instructions. 09/24/2021 Active dicyclomine (BENTYL) 10 mg capsule Take 1 capsule (10 mg total) by mouth 4 (four) times a day if needed (abdominal cramping). 60 capsule 11 04/02/2024 Active FreeStyle Lancets 28 gauge lancetsIndicati ons:Postsurgica l malabsorption, not elsewhere classified USE 1 DEVICE 2 TIMES DAILY 180 each 1 06/18/2024 Active desogestreL-eth inyl estradioL (APRI,YOLANDA,E JADA,LELAND OM,MATY,KALL IGA) 0.15-0.03 mg per tablet Take 1 tablet by mouth 1 (one) time each day. Active blood sugar diagnostic (FreeStyle Lite Strips) test stripIndication s:Postsurgical malabsorption, not elsewhere classified USE 1 STRIP 2 TIMES A DAY 100 strip 10/15/2024 Active Active Problems Problem Noted Date Diagnosed Date Palpitations 02/26/2024 Abdominal cramping 01/02/2024 Dry skin 01/02/2024 Esophagitis 01/02/2024 Gastritis 01/02/2024 Hiatal hernia 01/02/2024 Passage of loose stools 01/02/2024 Pelvic pain 01/02/2024 Vitamin D deficiency 02/08/2021 Elevated testosterone level 12/07/2018 Thyroid nodule 10/26/2018 Abnormal TSH 10/17/2017 Gastroesophageal reflux disease without esophagi tis 03/13/2017 Depression 04/26/2016 Encounters Date Type Department Care Team Description 12/13/2024 Telephone [facility] [address] [facility] [address] [place] [address] Garett Dixon MD from Last 3 Months Immunizations Immunization [...] PROCEDURE: HISTORICAL COLONOSCOPY; COMMENT: Dr. Doyle - normal to cecum. Random colonic biopsies normal. ESOPHAGOGASTRODUODENOSCOPY 06/30/2010 PROCEDURE: RI EGD TRANSORAL BIOPSY SINGLE/MULTIPLE; COMMENT: Dr. Doyle - mild esophagitis/gastritis. Normal duodenum. Random biopsies negative for H. pylori infection or celiac disease. FLEXIBLE SIGMOIDOSCOPY 10/04/2013 PROCEDURE: RI SIGMOIDOSCOPY FLX DX W/COLLJ SPEC BR/WA IF PFRMD; COMMENT: normal to 25 cm TONSILLECTOMY 2010 PROCEDURE: HISTORICAL TONSILLECTOMY HERNIA REPAIR 03/30/2017 PROCEDURE: REPAIR UMBILICAL HERNIA OTHER SURGICAL HISTORY 09/19/2022 PROCEDURE: RI INDUCED DILATION AND CURETTAGE Medical History Medical [...] Grandmother high ch olesterol Son Alive Gena Hendricksontaylor Social History Tobacco Use Types Packs/Day Years [...] Record ed Within the last 3 months, ho w many times did you visit the emergency [...] for your loved ones. For example, childcare provider or elderly care for an older adult? [...] exists Depression Screening 03/06/2024 11/03/2023 COVID-19 Vaccine (2024- season) 2024 Influenza Vaccine (#1) 2024 12/02/2009 [...] * Depression Screening (11/03/2023) Depression Screening abstracted us Historical Provider MD HEALTH MAINTENANCE Final Result * Pap Smear (09/24/2019) Pap smear no interpretation , abstracted us Historical Provider HEALTH MAINTENANCE Final Result * HIV Screening (04/13/2015) HIV Screening abstracted us Historical Provider HEALTH MAINTENANCE Final Result from Last 3 Months or Most Recently Relevant to Health Maintenance Insurance [facility] [employer] Care Teams Ell Teacher Relationship Specialty Start Date End Date Brenda Denson MD [address] [place] [address] PCP - General Internal Medicine 01/20/25
--- OUTSIDE RECORDS SUMMARY | 2025-01-27 14:14 | XMS_ITS | Encounter Summary ---
Author Organization [facility] Address [address] [place] [address] Phone Care Team Providers Care Package Designer Name Role Phone Michelle Sandhu DO Primary Care Provider [phone] Encounter Details Date Type Department Care Team (Late st Contact Info) Description 06/02/2011 Documentation EM Family Medicine [address] [place] [address] Family Medicine, Physician [address] [place], [place] [id number] Social History Tobacco Use Types Packs/Day Years [...] on filedocumented in this encounter Care Teams Package Designer Relationship Specialty Start Date End Date Michelle Sandhu DO [address] [place] [address] PCP - General 10/14/16 05/18/22 documented as of this encounter
--- OUTSIDE RECORDS SUMMARY | 2025-01-27 14:14 | XMS_ITS | Clinical Summary ---
Author Organization [facility] Address [address] [place] [id number] Phone Care Team Providers Care Development Mgr Name Role Phone Unavailable Primary Care Provider [...] complete this topic Procedures * Due to [place] [employer] law, this organization might not be sharing sensitive test results. Procedure Name Priority Date/Time Associated Diagnosis Comments CHLAMYDIA AND GONORRHEA, AMPLIFIED Routine 08/09/2011 1:30 PM EDT from Last 3 Months or Most Recently Relevant to Health Maintenance Results * Due to [place] [employer] law, this organization might not be sharing sensitive test results. * Chlamydia and Gonorrhoea, Amplified (08/09/2011 1:30 PM EDT) URINE GC AMP PROBE NEGATIVE [facility] Comment: NO NEISSERIA GONORRHOEAE RNA DETECTED IN THIS PATIENT'S SAMPLE. (REFERENCE RANGE/NORMAL VALUE: NOT DETECTED) NOTE: THIS TEST USES LINUX SERVER ENGINEER MEDIATED AMPLIFICATION METHOD TO DETECT rRNA FROM [...] AGENTS. URINE CHLAMYDIA AMP PROBE NEGATIVE [facility] Comment: NO CHLAMYDIA TRACHOMATIS RNA DETECTED IN THIS PATIENT'S SAMPLE. (REFERENCE RANGE/NORMAL VALUE: NOT DETECTED) 08/09/2011 1:30 PM EDT Narrative [facility] - 08/09/2011 1:30 PM EDT URINE CHLAMYDIA GC AMP PROBE us Michelle Sandhu DO LAB MICROBIOLOGY - GENERAL ORDER CHARLENE Final Result [facility] [address] [place] [address], [place] from Last 3 Months or Most Recently Relevant to Health Maintenance
--- OUTSIDE RECORDS SUMMARY | 2025-01-27 14:14 | XMS_ITS | Encounter Summary ---
Author Organization [facility] Address [address] [place] [address] Phone Care Team Providers Care Financial Sales Manager Name Role Phone Michelle Sandhu DO Primary Care Provider [phone] Encounter Details Date Type Department Care Team (Late st Contact Info) Description 05/24/2013 Documentation EM Family Medicine [address] [place] [address] Family Medicine, Physician [address] [place], [place] [phone] Social History Tobacco Use Types Packs/Day Years [...] on filedocumented in this encounter Care Teams Financial Sales Manager Relationship Specialty Start Date End Date Michelle Sandhu DO [address] [place] [address] PCP - General 10/14/16 05/18/22 documented as of this encounter
--- OUTSIDE RECORDS SUMMARY | 2025-01-27 14:14 | XMS_ITS ---
Author Organization [facility] [address] [facility] Address [address] [place] [address] Phone Care Team Providers Care Tar Distributor Operator Name Role Phone Brenda Denson MD Primary Care Prov ider Community Health Worker Program Status:Ongoing (Active) Start date:08/27/2024 Enrollment date:08/27/2024 Enrollment reason:Referred from clinic Current support & services provided:Adult Related service episodes:[facility] - Food Insecurity (Active) Overview Community Health Worker Program Case Team Name Relationship Phone David Boyer(Responsible Staff) Community Health Worker Continued Care and Services Coordination
--- OUTSIDE RECORDS SUMMARY | 2025-01-27 14:14 | XMS_ITS | Encounter Summary ---
Author Organization [facility] Address [address] [place] [address] Phone Care Team Providers Care Yard Labor Supervisor Name Role Phone Michelle Sandhu DO Primary Care Provider [phone] Encounter Details Date Type Department Care Team (Late st Contact Info) Description 06/02/2011 Documentation EM Family Medicine [address] [place] [address] Family Medicine, Physician [address] [place], [place] [phone] Social History Tobacco Use Types Packs/Day Years [...] on filedocumented in this encounter Care Teams Yard Labor Supervisor Relationship Specialty Start Date End Date Michelle Sandhu DO [address] [place] [address] PCP - General 10/14/16 05/18/22 documented as of this encounter
== END 2025-01-27 11:05 | disposition home or self-care (01) ==
LOC: HO.US 11:04
PROVIDERS: PCP Internal Medicine; Visit Provider Obstetrics & Gynecology
DX: R14.0 Abdominal distension (gaseous) (principal)
CPT/HCPCS: 36415; 76830; 76856; 84443

== ENCOUNTER → 2025-01-27 11:06 | Outpatient (BNV) | payer OTHER, SELFPAY | PROVIDERS: PCP Internal Medicine; Visit Provider Radiology Diagnostic Radiology | DX: I86.2 Pelvic varices (principal); R14.0 Abdominal distension (gaseous) | CPT/HCPCS: 76830; 76856 ==

== ENCOUNTER 2025-02-10 10:10 | Outpatient (AMB) | payer OTHER, SELFPAY ==
--- NOTE | 2025-02-10 10:11 | A.OFFVIS_ITS ---
Intake Visit Reasons: u/s follow up ok per Myriam Allergies amoxicillin (AMOXICILLIN) Allergy (Intermediate, Verified 01/13/25 12:54) RASH ciprofloxacin (From CIPRO) Allergy (Intermediate, Verified 01/13/25 12:54) RASH/SWOLLEN,ITCHY THROAT codeine (CODEINE) Allergy (Intermediate, Verified 01/13/25 12:54) SKIN FLUSHES, GI UPSET NSAIDS (Non-Steroidal Anti-Inflamma (NSAIDS (NON-STEROIDAL ANTI-INFLAMMA) Allergy (Intermediate, Verified 01/13/25 12:54) BLOATINESS,GERD vancomycin (VANCOMYCIN) Adverse Reaction (Intermediate, Verified 01/13/25 12:54) RED MAN SYNDROME HPI Comments Details: The patient is scheduled a telehealth visit for ultrasound follow-up, regarding bloating sensation. Pelvic ultrasound done on 01/27/2025 which showed the following: Transabdominal scanning performed for overall anatomy. Transvaginal scanning performed for additional detail. Anteverted uterus is 8.9 x 2.3 x 4.3 cm length. Normal myometrium. Uterine fundus multiple subcentimeter hyperechoic foci suggestive of calcifications. Endometrium 3 mm thickness. Right ovary 2 x 1.3 x 1.8 cm. Left ovary 3.5 x 1.2 x 1.4 cm. Normal color Doppler with arterial/venous spectral tracing of both ovaries. No free fluid. Prominent left para adnexal varices. IMPRESSION: 1. Prominent left para adnexal varices; pelvic congestion syndrome can not be excluded. [facility] Medical History Smoking Surgical History H/O hernia repair H/O: section Social History Household Members: Children Housing: House Alcohol intake: never Patient Tobacco Use Status: Current everyday Tobacco user Tobacco use type: Cigarette Cigarette Packs Per Day: 0.5 Cigarettes Per Day: 10.0 Years Smoked: 14 Substance Use Type: Marijuana Current occupational status: unemployed Sexual orientation: Straight/Heterosexual Gender identity: Female Female Reproductive History Menstrual Age of Menarche: 9 Review of Systems Const All systems reviewed & are unremarkable except as noted in HPI and below Reports as per HPI and Reports no additional complaints GI Reports no additional complaints Reports no additional complaints Telehealth Telehealth Telehealth Platform: [employer] Location of provider rendering services: practice address Location of patient: address on file Patient Identification confirmed using: Name, : Yes Telehealth method: voice only Patient verbally consented to treatment: Yes Patient verbally consented to billing insurance company: Yes Patient informed of any privacy concerns related to visit: Yes Minutes spent on Phone/Video with Pt.: 5 Assessment & Plan Assessment & Plan (1) Bloating: Code(s): R14.0 - Abdominal distension (gaseous) Category: Medical Plan: Discussed with the patient the results the ultrasound, ovarian pathology as a cause of blood EMB in ruled out, recommended the patient to reach out with her PCP for further management I spent a total of 20 minutes reviewing the chart, talking to the patient via phone and documenting in the medical record. Coding Level of Care Code Tele Est Pt Level 3 (45013) Diagnoses Bloating R14.0
== END 2025-02-10 10:36 | disposition home or self-care (01) ==
LOC: HO.HWS 10:10
PROVIDERS: PCP Internal Medicine; Visit Provider Obstetrics & Gynecology
DX: R14.0 Abdominal distension (gaseous) (principal)
CPT/HCPCS: 99213